=== PATIENT | female | born 1960 | race Caucasian/White ===

== ENCOUNTER 2017-01-28 20:49 | Emergency (ER) | payer OTHER ==
[~2017-01-28] VITALS: Ht 154.9 cm; Wt 52.2 kg
[~2017-01-28 20:49] MED LIST: ABILIFY5 MG PO; ACETAMINOPHEN325 M1 PO; ATIVAN0.5 MG PO; ATIVAN1 MG PO; BACTRIM DS TAB1 EACH PO; BUDEPRION SR100 MG PO; CLARITIN10 M2 PO; IBUPROFEN400 MG PO; IBUPROFEN600 MG PO; MACROBID 100 M100 MG PO; METOPROLOL SUCC25 MG PO; POTASSIUM CHLO20 ME1 PO; PRAZOSIN HCL1 MG PO; SERTRALINE HCL50 MG PO; TRAMADOL HCL50 MG PO; TUMS200 MG PO; ULTRAM50 MG PO; VITAMIN D350000 UNIT PO; ZOFRAN ODT4 MG PO; ZONEGRAN25 MG PO
[2017-01-29] MEDS ORDERED: ZOFRAN ODT4 MG PO (03:54)
[2017-01-29] MEDS ORDERED: KEFLEX500 MG PO (03:54)
[2017-01-29] MEDS ORDERED: POTASSIUM CHLO20 ME1 PO (03:54)
== END 2017-01-29 04:12 | disposition home or self-care (01) ==
LOC: ED 20:49
DX: K29.00 Acute gastritis without bleeding (principal); E87.6 Hypokalemia; N39.0 Urinary tract infection, site not specified; I10 Essential (primary) hypertension; F41.9 Anxiety disorder, unspecified; F32.9 Major depressive disorder, single episode, unspecified; F17.200 Nicotine dependence, unspecified, uncomplicated; Z98.51 Tubal ligation status
CPT/HCPCS: 70450; 74176; 80048; 80053; 81001; 83690; 85025; 87077; 87088; 87186; 96361; 96365; 96375; 96376; 99284; J2405; J3480; J7030

== ENCOUNTER 2017-06-03 07:20 | Emergency (ER) | payer OTHER ==
[~2017-06-03] VITALS: Ht 154.9 cm; Wt 52.2 kg
[~2017-06-03 07:20] MED LIST changes: +KEFLEX500 MG PO
--- NOTE | 2017-06-03 17:58 | EKG ---
[facility] [address] [place], [place] [address] Signed Normal sinus rhythm Nonspecific ST and T wave abnormality Prolonged QT Abnormal ECG No previous ECGs available Confirmed by HAYDER GARZA MD ([id number]) on 06/03/2017 5:58:33 PM Electronically Signed By: HAYDER GARZA MD 06/03/17 1758 PATIENT NAME: ROCIO HILL Electrocardiogram DATE OF : 62 PHYSICIAN: HAYDER GARZA MD REPORT #: [id number] REPORT IS CONFIDENTIAL AND NOT TO BE RELEASED WITHOUT AUTHORIZATION
== END 2017-06-03 10:15 | disposition home or self-care (01) ==
LOC: ED 07:20
DX: F19.10 Other psychoactive substance abuse, uncomplicated (principal); I10 Essential (primary) hypertension; F17.200 Nicotine dependence, unspecified, uncomplicated; Z98.51 Tubal ligation status; Z79.899 Other long term (current) drug therapy
CPT/HCPCS: 70450; 71045; 80053; 81001; 85025; 93005; 93010; 96360; 99284; G0480; J7030

== ENCOUNTER 2017-07-09 23:17 | Inpatient (IN) | payer OTHER ==
[~2017-07-09] VITALS: Ht 154.9 cm; Wt 56.8 kg
[2017-07-09] MEDS ORDERED: PROZAC10 MG PO (23:36)
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
--- NOTE | 2017-07-10 06:35 | NUR ---
HAD BP'S IN TO 70'S SYST. SECOND IV SITE OBTAINED. BP BACK TO 90'S. WILL WATCH. HAS NOT VOIDED SINCE ADMIT.
--- NOTE | 2017-07-10 08:10 | NUR ---
U.S. TECH HERE TO DO ULTRASOUND OF ABD.
--- NOTE | 2017-07-10 08:30 | NUR ---
ULTRASOUND COMPLETE. PATIENT IS RESTFUL.
--- NOTE | 2017-07-10 09:00 | NUR ---
RECREATION FACILITY ATTENDANT HERE TO DO ECHOCARDIOGRAM AT BEDSIDE
--- NOTE | 2017-07-10 10:00 | NUR ---
UP TO BR TO VOID 600 ML OF CLEAR YELLOW URINE. DENIES DIZZINESS WITH MOVEMENT. STATES HAS INCREASED ABD PAIN WITH MOVEMENT.
--- NOTE | 2017-07-10 12:45 | NUR ---
TOOK LUNCH WELL.
--- NOTE | 2017-07-10 15:15 | NUR ---
SPOKE WITH PATIENT IN ROOM. PATIENT HAS A VISITOR WHO SHE STATES IS "BOYFRIEND". HE WAS ON SOFA, SLEEPING. PATIENT STATES SHE CURRENTLY IS HOMELESS. SHE DENIES HAVING FAMILY IN AREA TO HELP. SHE STATES THEY FIND A PLACE AT NIGHT, SUCH A TREE OR UNDER[place] TO HAVE PENITENTIARY. DISCUSSED SERVICES IN THE AREA TO HELP. SHE STATES SHE IS ALREADY SIGNED UP WITH [facility] BUT SHE DOESN'T KNOW IF THEY FOUND A PLACE FOR HER BECAUSE SHE DOESN'T HAVE A PHONE. SHE STATES I CAN CALL THEM ON HER BEHALF. SHE STATES SHE DOES HAVE DISABILITY SO HAS A BASIC INCOME. PATIENT STARTED FALLING ASLEEP, CASE MANAGEMENT WILL CONTINUE TO FOLLOW. PHONE MESSAGE LEFT AT [facility] FOR CALL BACK.
--- NOTE | 2017-07-10 19:37 | NUR ---
up to commode. c/o feeling anxious. DR. GARZA AWARE. VISTERAL 50 ORDERED AND GIVEN. REPORT TO NEXT SHIFT.
--- NOTE | 2017-07-10 20:19 | NUR ---
PATIENT TRANSFERED TO MEDICAL FLOOR VIA HOSPITAL BED. RESTING COMFORTABLY IN BED, BREATHING IS EVEN AND UNLABORED. DENIES NEEDS AT THIS TIME. CALL LIGHT WITHIN REACH.
--- NOTE | 2017-07-10 21:29 | NUR ---
PATIENT ASSISTED TO BEDSIDE COMODE. WHEN MOVING, PATIENT REPORTS 8/10 PAIN IN LLQ OF ABD. PRN TYLENOL GIVEN PER EMAR. PRN VISTARIL AND NICOTINE LOZENGE ASLO GIVEN. PATIENT DENIES FURTHER NEEDS. ASSESSMENT DONE. CALL LIGHT WITHIN REACH, FAMILY AT BEDSIDE.
--- NOTE | 2017-07-10 22:56 | NUR ---
PATIENT RESTING COMFORTABLY IN BED, BREATHING IS EVEN AND UNLABORED. FLACC SCORE OF 0. CALL LIGHT WITHIN REACH.
--- NOTE | 2017-07-10 23:28 | NUR ---
PT CALLED. WANTED TO KNOW IF THERE WAS A HEATER IN HER BED, SHE WAS HOT. TOLD HER ROOM TEMP WAS SET AT 75, COULD BE TURNED DOWN. SHE AGREED, TEMP TURNED TO 71. REQUESTED AND RECEIVED A SOFT DRINK. FRIEND LEFT ROOM PLANS TO RETURN.
--- NOTE | 2017-07-11 00:23 | NUR ---
PATIENT RESTING COMFORTABLY IN BED, BREATHING IS EVEN AND UNLABORED. APPEARS TO BE ASLEEP. EYES OPEN TO RN VOICE, REPORTS 9/10 PAIN IN LLQ OF ABD. PRN TORDOL GIVEN PER EMAR, VISTARIL GIVEN WELL. PATIENT DENIES FURTHER NEEDS. CALL LIGHT WITHIN REACH.
--- NOTE | 2017-07-11 01:29 | NUR ---
PATIENT RESTING COMFORTABLY IN BED, BREATHING IS EVEN AND UNLABORED. FLACC SCORE OF 0. CALL LIGHT WITHIN REACH.
--- NOTE | 2017-07-11 02:16 | NUR ---
PATIENT ASSISTED TO BEDSIDE COMODE WITH SBA. TOLERATED WELL. DENIES FURTHER ABD PAIN AT THIS TIME. DENIES FURTHER NEEDS. NOW RESTING COMFORTABLY IN BED, BREATHING IS EVEN AND UNLABORED. CALL LIGHT WITHIN REACH.
--- NOTE | 2017-07-11 04:11 | NUR ---
PATIENT RESTING COMFORTABLY IN BED, BREATHING IS EVEN AND UNLABORED. FLACC SCORE OF 0. CALL LIGHT WITHIN REACH.
--- NOTE | 2017-07-11 05:19 | NUR ---
PATIENT'S NIGHT WAS UNEVENTFUL. SHE HAS BEEN RESTING THROUGHOUT SHIFT. VSS, URINE OUTPUT QS. PAIN WELL CONTROLLED WITH PRN TORDOL. CAN BE ANXIOUS AT TIMES, RESPONDS WELL TO PRN HYDROXYZINE. HEART RATE WELL CONTROLLED, CAN BE TACHYCARDIC AT TIMES. HAS IV FLUIDS INFUSING, 1PA TO BEDSIDE COMODE. TOLERATING A REGULAR DIET. CONTINUES TO REPORT LEFT SIDED ABD PAIN. NO ACUTE CHANGES FROM BEGINNING OF SHIFT.
--- NOTE | 2017-07-11 06:12 | NUR ---
ASSISTED PATIENT TO BEDSIDE COMODE. NOW RESTING COMFORTABLY IN BED. REPORTS 8/10 PAIN IN LLQ OF ABD, PRN TORDOL GIVEN. DENIES FURTHER NEEDS. CALL LIGHT WITHIN REACH.
--- NOTE | 2017-07-11 07:56 | NUR ---
PT IN BED, DROWSY, BUT ORIENTED X 4. REPORTED 5/10 PAIN TO LLQ ABDOMEN, BUT DECLINED HOT OR COLD PACK, DECLINED ACETAMINOPHEN. PERSONAL SUPPLIES AND CALL BUTTON IN REACH. PROVIDED EDUCATION ON INSENTIVE SPIROMETER EDUCATION, PT RETURN DEMONSTRATED, GOT UP TO 750, DID 4 BREATHS. ALSO PROVIDED EDUCATION ON FALL RISK, AND PRECAUTIONS, INCLUDING NEED TO CALL FOR ASSISTANCE FROM NURSING STAFF PRIOR TO ANY SELF TRANSFER ATTEMPTS. PT AGREE.
--- NOTE | 2017-07-11 08:05 | NUR ---
PT SITTING UP IN BED, EATING BREAKFAST. AT BEDSIDE. PT DENIES NEEDS.
--- NOTE | 2017-07-11 09:30 | NUR ---
PT UP IN BATHROOM, SITTING ON BENCH, TAKING SHOWER.
--- NOTE | 2017-07-11 09:51 | NUR ---
PT FINISHED WITH SHOWER. LINNENS WERE CHANGED BY THIS RN. PT NOW IN BED, HOB ELEVATED. VS OBTAINED, WNL.
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
--- NOTE | 2017-07-11 11:47 | NUR ---
PT C/O ANXIETY, REQUESTED VISTARIL. GAVE VISTARIL 50 MG PO PRN.
--- NOTE | 2017-07-11 11:52 | NUR ---
PT IN BED. GAVE LEMON UPPER SIOUX SODA AND JELLO REQUESTED, AND PROVIDED PT WITH FRESH ICE WATER. PERSONAL SUPPLIES AND CALL LIGHT IN REACH.
--- NOTE | 2017-07-11 12:23 | NUR ---
PT C/O 07/01 PAIN TO LUQ ABDOMEN. GAVE TORADOL 15 MG IV PRN. PT IN BED, PERSONAL SUPPLIES AND CALL LIGHT IN REACH. PT DENIED OTHER NEEDS.
--- NOTE | 2017-07-11 12:37 | NUR ---
PT RESTING IN BED. REPLACED IVF BAG WITH NEW BAG OF D5LR.
--- NOTE | 2017-07-11 13:15 | NUR ---
PT IN BED, UP TO BATHROOM. IV FLAGYL STARTED. PT REPORTED PAIN TO ABDOMEN NOT IMPROVED FROM IV TORADOL. PT REQUESTED PRN TYLENOL.
--- NOTE | 2017-07-11 13:18 | NUR ---
AFTER AMBULATION TO AND FROM BATHROOM, PT RETURNED TO BED, NOW RATES PAIN TO LUQ ABD 6/10. GAVE ACETAMINOPHEN 500 MG PO PRN. PERSONAL SUPPLIES AND CALL LIGHT IN REACH. PT'S AT BEDSIDE.
--- NOTE | 2017-07-11 14:06 | NUR ---
MED REC COMPLETE. PATIENT TAKES NO REGULAR HOME MEDICATIONS. PATIENT PREVIOUSLY HAS BEEN PRESCRIBED PROZAC, POTASSIUM CHLORIDE, ONDANSETRON, BUT HAS NOT FILLED ANYTHING AT [facility] SINCE 01/2017.
--- NOTE | 2017-07-11 15:00 | NUR ---
[facility] HIGG[facility] HERE TO VISIT WITH PATIENT PATIENT REQUESTED.
--- NOTE | 2017-07-11 15:49 | NUR ---
PT HAD LAB DRAWN. RATED ABDOMINAL PAIN AT UMBILICUS 12/01. GAVE PRN JAMIEYL. PERSONAL SUPPLIES AND CALL LIGHT IN REACH. PT'S AT SIDE.
--- NOTE | 2017-07-11 17:10 | NUR ---
PT LAYING IN BED RESTING, AROUSED TO VERBAL STIMULI. IV SALINE LOCKED PER ORDERS. GAVE SCHEDULED PO POTASSIUM. PERSONAL SUPPLIES AND CALL LIGHT IN REACH. PT REPORTED THAT ABDOMINAL PAIN HAS NOT CHANGED SINCE RECIEVING BENTYL. DR. GARZA NOTIFIED OF THIS. NO NEW ORDERS RECIEVED FOR ABDOMINAL PAIN.
--- NOTE | 2017-07-11 17:15 | NUR ---
PATIENT SITTING UP IN BED EATING DINNER AND WATCHING TV. FRESH ICE WATER. PATIENTS IN ROOM EATING DINNER WELL. CALL LIGHT WITHIN REACH. NO OTHER NEEDS AT THIS TIME.
--- NOTE | 2017-07-11 17:31 | NUR ---
PT SITTING UP IN BED, EATING DINNER, TOLERATING VERY WELL. SPOUSE AT SIDE. PT DENIED NEEDS. PERSONAL SUPPLIES AND CALL LIGHT IN REACH.
--- NOTE | 2017-07-11 17:45 | NUR ---
PT NOW SALINE LOCKED. DID C/O ABDOMINAL PAIN THROUGHOUT SHIFT, RECIEVED PRN TORADOL, ACETAMINOPHEN, AND BENTYL FOR THIS. APETITE HAS BEEN VERY GOOD. URINE OUTPUT QUANTITY SUFFICIENT. UP WITH STANDBY ASSIST. PT'S HAS BEEN AT PT' SIDE MOST OF SHIFT. DR. GARZA STATED AFTER ASSESSMENT OF PT, HE BELIEVES ABDOMINAL PAIN IS SUPERFICIAL. PT RECIEVING IV VANCOMYCIN.
--- NOTE | 2017-07-11 18:34 | NUR ---
PT C/O 12/01 PAIN TO ABDOMEN. GAVE TORADOL 15 MG IV PRN. PERSONAL SUPPLIES AND CALL LIGHT IN REACH. PT REFUSED TO AMBULATE IN HALLS AT THIS TIME.
--- NOTE | 2017-07-11 19:00 | NUR ---
RECEIVED REPORT FROM RN. PATIENT IS RESTING COMFORTABLY IN BED, BREATHING IS EVEN AND UNLABORED. DENIES NEEDS AT THIS TIME. CALL LIGHT WITHIN REACH.
--- NOTE | 2017-07-11 20:12 | NUR ---
PATIENT RESTING COMFORTABLY IN BED, BREATHING IS EVEN AND UNLABORED. PATIENT STATES THAT SHE FEELS ANXIOUS. PRN HYDROXYZINE GIVEN PER EMAR. DENIES FURTHER NEEDS. ASSESSMENT DONE. CALL LIGHT WITHIN REACH.
--- NOTE | 2017-07-11 22:15 | NUR ---
PATIENT ASSISTED TO BATHROOM WITH SBA. DENIES FURTHER NEEDS. NOW RESTING COMFORTABLY IN BED, BREATHING IS EVEN AND UNLABORED. CALL LIGHT WITHIN REACH.
--- NOTE | 2017-07-11 22:30 | NUR ---
PATIENT RESTING COMFORTABLY IN BED, BREATHING IS EVEN AND UNLABORED. GAVE PATIENT SANDWICH BOX AND CRACKERS. DENIES FURTHER NEEDS. IV VANCO STARTED AND VITALS TAKEN. CALL LIGHT WITHIN REACH.
--- NOTE | 2017-07-12 00:02 | NUR ---
PATIENT RESTING COMFORTABLY IN BED, BREATHING IS EVEN AND UNLABORED. DENIES NEEDS AT THIS TIME. CALL LIGHT WITHIN REACH.
--- NOTE | 2017-07-12 01:45 | NUR ---
PATIENT STATES PAIN IN ABD IS 8/10, PRN TORADOL GIVEN PER EMAR. ALSO ADMINISTERED PRN VISTARIL AND NICOTINE LOZENGE. DENIES FURTHER NEEDS. CALL LIGHT WITHIN REACH.
--- NOTE | 2017-07-12 03:57 | NUR ---
PATIENT RESTING COMFORTABLY IN BED, BREATHING IS EVEN AND UNLABORED. FLACC SCORE OF 0. CALL LIGHT WITHIN REACH.
--- NOTE | 2017-07-12 05:10 | NUR ---
PATIENT RESTING COMFORABLY IN BED. DENIES NEEDS AT THIS TIME. CALL LIGHT WITHIN REACH.
--- NOTE | 2017-07-12 05:30 | NUR ---
PATIENT'S NIGHT WAS UNVENTFUL. SHE HAS BEEN RESTING OFF AND ON THROUGHOUT SHIFT. VSS, URINE OUTPUT QS. PAIN WELL CONTROLLED WITH PRN PAIN MEDICATION. HAD VISTARIL X2 THIS SHIFT. NO ACUTE CHANGES IN ASSESSMENT. IV X2 ARE SALINE LOCKED. SBA TO BATHROOM.
--- NOTE | 2017-07-12 06:10 | NUR ---
PATIENT RESTING COMFORTABLY IN BED, BREATHING IS EVEN AND UNLABORED. DENIES NEEDS AT THIS TIME. CALL LIGHT WITHIN REACH.
--- NOTE | 2017-07-12 09:00 | NUR ---
HEAD OF BED UP WITH PATIENT SLOUCHED OVER WITH EYES CLOSED. PATIENT WOKE UP ASKING IF WE WERE GOING TO GIVE HER PAIN MEDS THEN CORRECTED HERSELF ASKING FOR ANTIANXIETY MEDICATION. RN NOTIFIED. PATIENT STATES THAT SHE WOULD LIKE TO SHOWER BUT NOT NOW. FRIEND IN ROOM LAYING ON COUCH. NO OTHER NEEDS AT THIS TIME. CALL BUTTON IN REACH.
--- NOTE | 2017-07-12 09:21 | NUR ---
MATY SITTING UP IN BED. RN IN ROOM TO PASS MEDICATIONS. ROOM PICKED UP BY THIS SENIOR PASTOR AND RN. PATIENT HAS FRESH ICE WATER CALL BUTTON IN REACH. THIS SENIOR PASTOR REMINDED THE PATIENT TO CALL WHEN SHE IS READY FOR HER SHOWER.
[2017-07-12] MEDS ORDERED: HYDROXYZINE HCL25 MG PO (10:10)
[2017-07-12] MEDS ORDERED: FAMOTIDINE20 MG PO (10:10)
[2017-07-12] MEDS ORDERED: ONDANSETRON HCL4 MG PO (10:10)
--- NOTE | 2017-07-12 11:23 | NUR ---
PATIENT WOULD NOT LIKE TO HAVE HER FLU VACCINE GIVEN TO HER AT THIS TIME, PATIENT NOT WANTING D/C INSTRUCTIONS AT THIS TIME JUST WANTS TO REST AND SHOWER AFTER LUNCH. WILL CONTINUE TO MONITOR.
--- NOTE | 2017-07-12 11:50 | NUR ---
PT EATING LUNCH. STATED THAT SHE WOULD TAKE A SHOWER AFTER SHE FINISHED EATING.
--- NOTE | 2017-07-12 12:35 | NUR ---
PATIENT GIVEN THE NUMBER OF [facility] TO FOLLOW UP WITH D/C PLANS. SHE ATE 100% OF HER LUNCH.
--- NOTE | 2017-07-12 13:41 | NUR ---
VANCO TROUGH DRAWN AT THIS TIME.
--- NOTE | 2017-07-12 13:57 | NUR ---
PT DECLINES SHOWER AT THIS TIME. PT HAS BEEN ASKED THREE TIMES BEFORE AND STATED SHE WAS STILL EATING. PT STATES THAT SHE WILL CALL WHEN SHE IS READY TO SHOWER.
--- NOTE | 2017-07-12 14:36 | NUR ---
PATIENT IV DC'D IN THE RIGHT HAND TIP INTACT. PATIENT IV IN THE LEFT HAND WRAPPED AND SHE IS UP TO THE SHOWER. PATIENT REQUESTING PAIN MEDICATION AND VISTARIL AT THIS TIME. BOTH PROVIDED FOR HER AT THIS TIME.
--- NOTE | 2017-07-12 15:29 | NUR ---
patient given d/c instructions questions answered pharmasist in the room to given instructions on medications.
== END 2017-07-12 15:25 | disposition home or self-care (01) | DRG 897 ==
LOC: ED 23:17 → CCU 07-10 03:58 → MS 07-10 20:15
PROVIDERS: ADMIT Internal Medicine
DX: F15.20 Other stimulant dependence, uncomplicated (principal); R65.10 Systemic inflammatory response syndrome (SIRS) of non-infectious origin without acute organ dysfunction; E87.6 Hypokalemia; G40.909 Epilepsy, unspecified, not intractable, without status epilepticus; F32.9 Major depressive disorder, single episode, unspecified; Z59.0 Homelessness; F17.200 Nicotine dependence, unspecified, uncomplicated; Z96.643 Presence of artificial hip joint, bilateral
CPT/HCPCS: 36415; 71045; 74177; 76705; 80053; 80202; 81001; 83605; 83690; 83735; 85025; 86431; 86703; 87040; 87502; 93306; 96374; 96375; 99285; 99406; J0696; J0780; J1200; J1650; J1885; J2405; J2543; J3370; J3480; J7030; J7050; J7060; J7120; Q0177; Q9967

== ENCOUNTER 2017-10-26 20:22 | Emergency (ER) | payer OTHER ==
[~2017-10-26 20:22] MED LIST changes: +FAMOTIDINE20 MG PO; +HYDROXYZINE HCL25 MG PO; +ONDANSETRON HCL4 MG PO; +PROZAC10 MG PO
[2017-10-26] MEDS ORDERED: TRAMADOL HCL50 MG PO (22:18)
== END 2017-10-26 22:40 | disposition home or self-care (01) ==
LOC: ED 20:22
PROC: 0HQMXZZ Repair Right Foot Skin, External Approach (ICD-10-PCS; principal; 2017-10-26)
DX: S91.011A Laceration without foreign body, right ankle, initial encounter (principal); S70.02XA Contusion of left hip, initial encounter; I10 Essential (primary) hypertension; F41.9 Anxiety disorder, unspecified; F32.9 Major depressive disorder, single episode, unspecified; F17.200 Nicotine dependence, unspecified, uncomplicated; Z79.899 Other long term (current) drug therapy; V29.9XXA Motorcycle rider (driver) (passenger) injured in unspecified traffic accident, initial encounter
CPT/HCPCS: 12002; 70450; 71260; 72125; 73502; 73610; 74177; 80053; 81001; 82150; 82550; 83690; 85025; 86850; 86900; 86901; 99284; G0480; Q9967

== ENCOUNTER → 2018-02-23 | Emergency (ER) | payer OTHER ==
[~2018-02-23] VITALS: Ht 154.9 cm; Wt 56.8 kg
--- NOTE | 2018-02-23 07:47 | EKG ---
[facility] [address] [place], [place] [address] Signed Sinus tachycardia Possible Left atrial enlargement Septal infarct , age undetermined Abnormal ECG When compared with ECG of 03-JUN-2017 07:31, Septal infarct is now present Confirmed by MARIFER HERNANDEZ MD ([id number]) on 02/23/2018 7:47:31 AM Electronically Signed By: MARIFER HERNANDEZ MD 02/23/18 0747 PATIENT NAME: ROCIO HILL Electrocardiogram DATE OF : 62 PHYSICIAN: MARIFER HERNANDEZ MD REPORT #: [id number] REPORT IS CONFIDENTIAL AND NOT TO BE RELEASED WITHOUT AUTHORIZATION
== END ==
LOC: ED 00:55
DX: T40.2X1A Poisoning by other opioids, accidental (unintentional), initial encounter (principal); T43.621A Poisoning by amphetamines, accidental (unintentional), initial encounter; I10 Essential (primary) hypertension; F17.200 Nicotine dependence, unspecified, uncomplicated
CPT/HCPCS: 80053; 80176; 81001; 85025; 93005; 93010; 96360; 99284; G0480; J7030

== ENCOUNTER 2018-09-10 12:18 | Emergency (ER) | payer OTHER ==
[~2018-09-10] VITALS: Ht 154.9 cm; Wt 54.4 kg
--- OUTSIDE RECORDS SUMMARY | ~2018-09-10 | XMS | Clinical Summary ---
Demographics + + + | Address | [address] | | | [place] [address] | + + + | Home Phone | | + + + | Preferred Language | Unknown | + + + | Marital Status | | + + + | Baptism Affiliation | 1041 | + + + | Race | Unknown | + + + | Ethnic Group | Unknown | + + + Author + + + | Author | [employer] | + + + | Organization | [facility] [employer] | + + + | Address | Unknown | + + + | Phone | Unavailable | + + + Support + + +---------+ + | Name | Relationship | Address | Phone | + + +---------+ + | Brooklynn Brooks | ECON | Unknown | | + + +---------+ + | Brooklynn Caban | ECON | Unknown | | + + +---------+ + Care Team Providers + +------+ + | Care Cash Controller Name | Role | Phone | + +------+ + | Susan Wolfe MD | PP | | + +------+ + Allergies + + + + + + | Active Allergy | Reactions | Severity | Noted | Comments | | | | | Date | | + + + + + + | Buspirone Hcl | Anxiety | Low | 08/28/19 | | | | | | 13 | | + + + + + + | Ketorolac | Anxiety | Low | 08/28/19 | | | | | | 13 | | + + + + + + Current Medications No known medications Active Problems + + + | Problem | Noted Date | + + + | DEEPAK (acute kidney injury) | 07/28/2014 | + + + | Thrombocytopenia, unspecified | 07/28/2014 | + + + | Hyposmolality and/or hyponatremia | 07/28/2014 | + + + | Hypokalemia | 07/28/2014 | + + + | Hypomagnesemia | 07/28/2014 | + + + | Septic shock(785.52) | 07/28/2014 | + + + | Acute pyelonephritis Left Side without Hydronephrosis or an | 07/26/2014 | | obstructing stone | | + + + | HTN (hypertension) | 07/26/2014 | + + + | History of total hip replacement Bilateral | 07/26/2014 | + + + Immunizations + + + + | Name | Dates Previously Given | Next Due | + + + + | Pneumococcal | 07/26/2014 | | | Polysaccharide | | | | 23-valent | | | + + + + Family History + + +------+ + | Medical History | Relation | Name | Comments | + + +------+ + | Cancer | Mother | | | + + +------+ + | Kidney disease | Mother | | | + + +------+ + + +------+ + + | Relation | Name | Status | Comments | + +------+ + + | Father | | Alive | | + +------+ + + | Mother | | | | + +------+ + + Social History + +-------+ +--------+------+ | Tobacco Use | Types | Packs/Day | Years | Date | | | | | Used | | + +-------+ +--------+------+ | Current Every Day | | 0.5 | 33 | | | Smoker | | | | | + +-------+ +--------+------+ + + | Tobacco Cessation: Ready to Quit: No | + + + + +---------+ + | Alcohol Use | Drinks/We | oz/Week | Comments | | | ek | | | + + +---------+ + | Yes | | | Quit drinking 1 month ago (06/2014) was | | | | | binge drinking | + + +---------+ + + + + | Sex Assigned at | Date Recorded | | | | + + + | Not on file | | + + + Last Filed Vital Signs + + + + | Vital Sign | Reading | Time Taken | + + + + | Blood Pressure | 136/73 | 08/02/2014 11:42 AM PDT | + + + + | Pulse | 91 | 08/02/2014 11:42 AM PDT | + + + + | Temperature | 36.7 C (98.1 F) | 08/02/2014 11:42 AM PDT | + + + + | Respiratory Rate | 18 | 08/02/2014 11:42 AM PDT | + + + + | Oxygen Saturation | 100% | 08/02/2014 11:42 AM PDT | + + + + | Inhaled Oxygen | - | - | | Concentration | | | + + + + | Weight | 99.4 kg (219 lb 2.2 | 07/26/2014 12:47 AM PDT | | | oz) | | + + + + | Height | 154.9 cm (5' 1") | 07/26/2014 12:47 AM PDT | + + + + | Body Mass Index | 41.41 | 07/26/2014 12:47 AM PDT | + + + + Plan of Treatment + + + + + | Health Maintenance | Due Date | Last Done | Comments | + + + + + | Vaccine: | | 06/10/1988 | | | Dtap/Tdap/Td (1 - | 9 | | | | Tdap) | | | | + + + + + | Cervical Cancer | | | | | Screening (Pap) | 2 | | | + + + + + | Vaccine: Zoster (1 | | | | | of 2) | 2 | | | + + + + + | Vaccine: Influenza | | 02/17/2011, 03/05/2010 | | | (Season Ended) | 9 | | | + + + + + Results Not on filefrom Last 3 Months Insurance + +--------+ +------+-------+ + | Payer | Benefi | Subscriber | Type | Phone | Address | | | t Plan | ID | | | | | | / | | | | | | | Group | | | | | + +--------+ +------+-------+ + | MEDICAID | [employer] | [id number] | | | [address] | | | N | | | | [place], [place] | | | [place] | | | | [phone] | | | OPERATIONAL INTELLIGENCE OFFICER | | | | | + +--------+ +------+-------+ + + +--------+ +--------+ + + | Guarantor Name | [employer] | Relation to | Date | Phone | Billing Address | | | t Type | Patient | of | | | | | | | | | | + +--------+ +--------+ + + | ROCIO HILL | Person | Self [birth year] Home: | [address] | | | al/Fam | | 1960 | [phone] | | | [address] | | [phone] | [place], [place] | | | | | | | [phone] | + +--------+ +--------+ + +
--- OUTSIDE RECORDS SUMMARY | ~2018-09-10 | XMS | Clinical Summary ---
Demographics + + + | Address | [address] | | | [place] [address] | + + + | Home Phone | | + + + | Preferred Language | Unknown | + + + | Marital Status | | + + + | Yazidism Affiliation | 1041 | + + + | Race | Unknown | + + + | Ethnic Group | Unknown | + + + Author + + + | Author | [employer] | + + + | Organization | [email or web address] [employer] | + + + | Address [...] Team Providers + +------+ + | Care Elevator Service Technician Name | Role | Phone | [...] +------+-------+ + | MEDICAID | [employer] | [id number] | | | [address] | | | N | | | | [place], [place] | | | [place] | | | | [phone] | | | CHILD CARE LEADER | | | | | + +--------+ [...] | [birth year] | Home: | [address] | | | al/Fam | | 1960 | [phone] | [address] | | | [address] | | | [phone] | [place], [place] | | | | | | | [phone] | + +--------+ +--------+ + +
[2018-09-10] MEDS ORDERED: MECLIZINE HCL25 MG PO (13:30)
== END 2018-09-10 13:35 | disposition home or self-care (01) ==
LOC: ED 12:18
DX: F15.10 Other stimulant abuse, uncomplicated (principal); R51 Headache; R42 Dizziness and giddiness; M54.5 Low back pain; I10 Essential (primary) hypertension; F17.200 Nicotine dependence, unspecified, uncomplicated
CPT/HCPCS: 81001; 96372; 99284-25; J1885

== ENCOUNTER 2020-02-12 02:00 | Emergency (ER) | payer OTHER ==
[~2020-02-12] VITALS: Ht 154.9 cm; Wt 505.8 kg
--- OUTSIDE RECORDS SUMMARY | ~2020-02-12 | XMS | Encounter Summary ---
Demographics + + + | Address | General Delivery | | | [place] [address] | + + + | Home Phone | | + + + | Preferred Language | Unknown | + + + | Marital Status | | + + + | Moravian Affiliation | 1041 | + + + | Race | Unknown | + + + | Ethnic Group | or | + + + Author + + + | Author | [facility] | | | and [place] | + + + | Organization | [facility] | | | and [place] | + + + | Address | Unknown | + + + | Phone | Unavailable | + + + Support + + + + + | Name | Relationship | Address | Phone | + + + + + | Brooklynn Brooks | ECON | [place] | | | | | [address] | | + + + + + Care Team Providers + +------+ + | Care Side Trimmer Name | Role | Phone | + +------+ + | Abby Charlton PA-C | PCP | | + +------+ + Encounter Details +--------+ + + + + | Date | Type | Department | Care Team | Description | +--------+ + + + + | 08/20/ | Hospital | [facility] | Edu[place], | | | 2012 | Encounter | MED CTR EMERGENCY | Brandyn Sapp MD [address] | | | | CENTER [address] | [facility] | | | | | [place], [place] | [facility] [place] [address] | | | | | [address] | [phone] | | | | | [phone] | | | +--------+ + + + + Social History + + + +--------+ + | Tobacco Use | Types | Packs/Day | Years | Date | | | | | Used | | + + + +--------+ + | Former Smoker | Cigarettes | 0.5 | 31 | Quit: 10/22/2009 | + + + +--------+ + + +---+---+---+ | Smokeless Tobacco: | | | | | Never Used | | | | + +---+---+---+ + + +---------+ + | Alcohol Use | Drinks/Week | oz/Week | Comments | + + +---------+ + | No | | | | + + +---------+ + + + + | Sex Assigned at | Date Recorded | | | | + + + | Not on file | | + + + documented as of this encounter Medications at Time of Discharge + + + +---------+ + + | Medication | Sig | Dispensed | Refills | Start | End Date | | | | | | Date | | + + + +---------+ + + | alprazolam (XANAX) | Take 1 mg by mouth 3 | | 0 | | | | 1 MG tablet | times daily as | | | | | | | needed. | | | | | + + + +---------+ + + | buPROPion | Take 150 mg by mouth | | 0 | | | | (WELLBUTRIN SR) 150 | Daily. | | | | | | mg 12 hr tablet | | | | | | + + + +---------+ + + | carisoprodol | Take 350 mg by mouth | | 0 | | | | (SOMA) 350 mg tablet | nightly. | | | | | + + + +---------+ + + | ergocalciferol | Take 50,000 Units by | | 0 | | | | (VITAMIN D-2) 50,000 | mouth Once a week. | | | | | | units capsule | | | | | | + + + +---------+ + + | fluticasone | 2 sprays/nostril/day | | 0 | 04/15/20 | | | (FLONASE) 50 | | | | 11 | | | mcg/nasal spray | | | | | | + + + +---------+ + + | | Take one tablet by | 90 | 0 | 03/30/20 | | | hydrocodone-acetamin | mouth three times | tablet | | 12 | | | ophen (LORTAB 10) | daily. Must last 30 | | | | | | 10-500 MG per tablet | days | | | | | + + + +---------+ + + | ibuprofen | Take 600 mg by mouth | | 0 | | | | (ADVIL,MOTRIN) 600 | every 6 hours as | | | | | | MG tablet | needed. | | | | | + + + +---------+ + + | loratadine | Take 10 mg by mouth | | 0 | | | | (CLARITIN) 10 mg | Daily. | | | | | | tablet | | | | | | + + + +---------+ + + | metoprolol | Take 50 mg by mouth | | 0 | 08/14/19 | | | tartrate (LOPRESSOR) | 2 times daily. | | | 11 | | | 50 mg tablet | | | | | | + + + +---------+ + + | sertraline | Take 100 mg by mouth | | 0 | 09/11/19 | | | (ZOLOFT) 100 mg | 2 times daily. | | | 11 | | | tablet | | | | | | + + + +---------+ + + | zonisamide | Take 100 mg by mouth | | 0 | 09/09/19 | | | (ZONEGRAN) 100 mg | 2 times daily. For | | | 11 | | | capsule | Migranes | | | | | + + + +---------+ + + documented as of this encounter ED Notes Brandyn Lerner MD - 08/20/2012 4:35 [place] [address] Patient Name: ROCIO RAMIREZ Provider: Unit #: [id number] Location: : 1960 DATE: 08/20/2012 TIME: 1441 CHIEF COMPLAINT: Headache. PRIMARY CARE PHYSICIAN: None. HISTORY OF PRESENT ILLNESS: Ms. Ramirez is a 52-year-old female who has a history of chronic headaches. States she has had them since she was 13 years old and now she gets abo ut a couple of them a month. She will usually take "anything I can get" in order to make th em go away generally trying Benadryl, Excedrin Migraine, Tylenol, ibuprofen [id number] r. She states that it is a right temporal occipital headache with dizziness, photophobia, n ausea and vomiting. No head injury. No fevers or chills. No neck stiffness. No chest pain, shortness of breath or abdominal pain. PAST MEDICAL HISTORY: Chronic headaches, osteoarthritis, and 2 hip replacements. CURRENT MEDICATIONS: Toprol-XL. ALLERGIES 1. BUSPIRONE. 2. KETOROLAC. REVIEW OF SYSTEMS: A 10-system review is negative except as noted above. SOCIAL HISTORY: Smokes half a pack daily. PHYSICAL EXAMINATION VITAL SIGNS: Blood pressure 112/72, heart rate 82, respirations 20, temperature 97.6, O2 s aturation 98 %. GENERAL APPEARANCE: This is a female lying in bed, speaking normally. HEENT: She is atraumatic. Her pupils are equal, round, and reactive. She has mild photopho david. Her fundi are clearly visualized bilaterally with sharp disk margins, normal vascular pattern. Extraocular movements are intact. Oropharynx is benign. NECK: Supple without lymphadenopathy or meningismus. CHEST: Clear to auscultation bilaterally without wheezes or crackles. CARDIOVASCULAR: Normal S1, S2. ABDOMEN: Soft, no tenderness, no rebound, guarding, or masses. Bowel tones are present. BACK: No flank pain. EXTREMITIES: Nontender, no edema, no calf asymmetry. Present distal pulses. NEUROLOGIC: Alert and oriented. Cranial nerves 2 through 12 are intact. Gait and speech ar e normal. EMERGENCY DEPARTMENT COURSE: She initially had some Imitrex and Reglan injected IM and sub cu with minimal improvement, so at that point we placed an IV. She received some IV Inapsin e and some fluids. She was feeling much improved. She got up to use the restroom and unfort unately her IV became nonfunctional. At that point she had about 600 mL of saline with Inap sine, but was feeling much better and requesting to go home. At this point, I have discharged her home. Recommended establishing a doctor for followup. She was given detailed instructions regarding how to do this and was discharged ambulatory . IMPRESSION SEVERE RECURRENT HEADACHE. DICTATED BY: Brandyn Lerner MD Emergency Medicine JOB #: [id number] EXT JOB #:[id number] <<Signature on File>> Brandyn khan MD08/23/12 1532 <Electronically signed by Brandyn Lerner MD> documented in t his encounter Plan of Treatment Not on filedocumented as of this encounter Visit Diagnoses Not on filedocumented in this encounter
--- OUTSIDE RECORDS SUMMARY | ~2020-02-12 | XMS | Encounter Summary ---
Demographics + + + | Address | General Delivery | | | [place] [address] | + + + | Home Phone | | + + + | Preferred Language | Unknown | + + + | Marital Status | | + + + | Scientology Affiliation | 1041 | + + + | Race | Unknown | + + + | Ethnic Group | or | + + + Author + + + | Author | [facility] | | | and [place] | + + + | Organization | [facility] | | | and [place] | + + + | Address | Unknown | + + + | Phone | Unavailable | + + + Support + + + + + | Name | Relationship | Address | Phone | + + + + + | Brooklynn Brooks | ECON | [place] | | | | | [address] | | + + + + + Care Team Providers + +------+ + | Care Railway Traction Line Worker Name | Role | Phone | + +------+ + | Abby Charlton PA-C | PCP | | + +------+ + Encounter Details +--------+ + + + + | Date | Type | Department | Care Team | Description | +--------+ + + + + | 08/27/ | Hospital | [facility] | Conversion | | | 2013 | Encounter | CENTER | Transaction, | | | | | NEURODIAGNOSTICS | Provider Unknown | | | | | [address] | | | | | | [place], [place] | (Fax) | | | | | [address] | | | | | | [phone] | | | +--------+ + + + [...] + + documented as of this encounter Plan of Treatment Not on filedocumented as of this encounter Visit Diagnoses Not on filedocumented in this encounter"
--- OUTSIDE RECORDS SUMMARY | ~2020-02-12 | XMS | Encounter Summary ---
Demographics + + + | Address | General Delivery | | | [place] [address] | + + + | Home Phone | | + + + | Preferred Language | Unknown | + + + | Marital Status | | + + + | Congregation Affiliation | 1041 | + + + | Race | Unknown | + + + | Ethnic Group | or | + + + Author + + + | Author | [facility] | | | and [place] | + + + | Organization | [facility] | | | and [place] | + + + | Address | Unknown | + + + | Phone | Unavailable | + + + Support + + + + + | Name | Relationship | Address | Phone | + + + + + | Brooklynn Brooks | ECON | [place] | | | | | [address] | | + + + + + Care Team Providers + +------+ + | Care Lead Teacher Name | Role | Phone | + +------+ + | Abby Charlton PA-C | PCP | | + +------+ + Encounter Details +--------+ + + + + | Date | Type | Department | Care Team | Description | +--------+ + + + + | 08/17/ | Abstract | [facility] | Mehrdad Miguel | Syncope (Primary | | 2012 | | [address] | MD Michael [address] | Dx); Depression; | | | | [address], | [address] [place] | Bipolar disorder | | | | [place] [address] | [place] [address] | (HCC) | | | | [phone] | [phone] | | | | | | | | +--------+ + + + + Social History + + + +--------+ + | Tobacco Use | Types | Packs/Day | Years | Date | | | | | Used | | + + + +--------+ + | Former Smoker | Cigarettes | | | Quit: 10/22/2009 | + + + +--------+ + + + +---------+ + | Alcohol [...] filedocumented as of this encounter Visit Diagnoses + + | Diagnosis | + + | Syncope - Primary Syncope and collapse | + + | Depression Depressive disorder, not elsewhere classified | + + | Bipolar disorder (HCC) Bipolar disorder, unspecified | + + documented in this encounter"
--- OUTSIDE RECORDS SUMMARY | ~2020-02-12 | XMS | Clinical Summary ---
Demographics + + + | Address | General Delivery | | | [place] [address] | + + + | Home Phone | | + + + | Preferred Language | Unknown | + + + | Marital Status | | + + + | Buddhism Affiliation | 1041 | + + + | Race | Unknown | + + + | Ethnic Group | or | + + + Author + + + | Author | [facility] | | | and [place] | + + + | Organization | [facility] | | | and [place] | + + + | Address | Unknown | + + + | Phone | Unavailable | + + + Support + + + + + | Name | Relationship | Address | Phone | + + + + + | Brooklynn Brooks | ECON | [place] | | | | | [address] | | + + + + + Care Team Providers + +------+ + | Care Pcas Name | Role | Phone | + +------+ + | Abby Charlton PA-C | PCP | | + +------+ + Allergies + + + + + + | Active Allergy | Reactions | Severity | Noted | Comments | | | | | Date | | + + + + + + | Buspirone Hcl | Other (See Comments) | High | 08/21/19 | Involuntary | | | | | 13 | twitching | + + + + + + | Ketorolac | | | 09/11/19 | | | Tromethamine | | | 11 | | + + + + + + Medications + + + +---------+------+------+-------+ | Medication | Sig | Dispensed | Refills | Star | End | Statu | | | | | | t | Date | s | | | | | | Date | | | + + + +---------+------+------+-------+ | metoprolol | Take 50 mg by mouth | | 0 | 07/24 | | Activ | | tartrate (LOPRESSOR) | 2 times daily. | | | 06/13 | | e | | 50 mg tablet | | | | 11 | | | + + + +---------+------+------+-------+ | fluticasone | 2 sprays/nostril/day | | 0 | 12/2 | | Activ | | (FLONASE) 50 | | | | 3/20 | | e | | mcg/nasal spray | | | | 11 | | | + + + +---------+------+------+-------+ | sertraline | Take 100 mg by mouth | | 0 | 05/2 | | Activ | | (ZOLOFT) 100 mg | 2 times daily. | | | 0/20 | | e | | tablet | | | | 11 | | | + + + +---------+------+------+-------+ | | Take one tablet by | 90 | 0 | 12/0 | | Activ | | hydrocodone-acetamin | mouth three times | tablet | | 7/20 | | e | | ophen (LORTAB 10) | daily. Must last 30 | | | 12 | | | | 10-500 MG per tablet | days | | | | | | + + + +---------+------+------+-------+ | ergocalciferol | Take 50,000 Units by | | 0 | | | Activ | | (VITAMIN D-2) 50,000 | mouth Once a week. | | | | | e | | units capsule | | | | | | | + + + +---------+------+------+-------+ | loratadine | Take 10 mg by mouth | | 0 | | | Activ | | (CLARITIN) 10 mg | Daily. | | | | | e | | tablet | | | | | | | + + + +---------+------+------+-------+ | ibuprofen | Take 600 mg by mouth | | 0 | | | Activ | | (ADVIL,MOTRIN) 600 | every 6 hours as | | | | | e | | MG tablet | needed. | | | | | | + + + +---------+------+------+-------+ | zonisamide | Take 100 mg by mouth | | 0 | 05/1 | | Activ | | (ZONEGRAN) 100 mg | 2 times daily. For | | | 8/20 | | e | | capsule | Migranes | | | 11 | | | + + + +---------+------+------+-------+ | buPROPion | Take 150 mg by mouth | | 0 | | | Activ | | (WELLBUTRIN SR) 150 | Daily. | | | | | e | | mg 12 hr tablet | | | | | | | + + + +---------+------+------+-------+ | carisoprodol | Take 350 mg by mouth | | 0 | | | Activ | | (SOMA) 350 mg tablet | nightly. | | | | | e | + + + +---------+------+------+-------+ | alprazolam (XANAX) | Take 1 mg by mouth 3 | | 0 | | | Activ | | 1 MG tablet | times daily as | | | | | e | | | needed. | | | | | | + + + +---------+------+------+-------+ Active Problems + + + | Problem | Noted Date | + + + | Syncope | 08/17/2012 | + + + | Depression | 08/17/2012 | + + + | Bipolar disorder | 08/17/2012 | + + + | Preventative health care | 04/04/2012 | + + + + + | Overview: [facility]SC: | | Next Due: | | | | Tdap: | | | | Pneumovax: | | | | Zostavax: | | | | Mammo: | | | | Pap: | | | + + + + + | ALLERGIC RHINITIS, CHRONIC | 04/15/2011 | + + + | HEADACHE, CHRONIC | 04/15/2011 | + + + | ARTHRITIS, HANDS, BILATERAL | 12/31/2010 | + + + | PERIPHERAL EDEMA | 11/12/2010 | + + + | HIP PAIN, CHRONIC | 09/10/2010 | + + + | ANXIETY DISORDER | 08/13/2010 | + + + | HYPERTENSION | 08/13/2010 | + + + | THORACIC/LUMBOSACRAL NEURITIS/RADICULITIS UNSPEC | 08/13/2010 | + + + | HIP REPLACEMENT, HX OF | 08/13/2010 | + + + Immunizations + + + + | Name | Administration Dates | Next Due | + + + + | PNEUMOCOCCAL | 07/26/2014 | | | POLYSACCHARIDE | | | | 23-VALENT (PPSV23) | | | + + + + Family History + + +------+ + | Medical History | Relation | Name | Comments | + + +------+ + | Hypertension | Father | | | + + +------+ + | Diabetes | Mother | | | + + +------+ + | Hypertension | Mother | | | + + +------+ + | Stroke | Mother | | | + + +------+ + + +------+ + + | Relation | Name | Status | Comments | + +------+ + + | Father | | Alive | HTN | + +------+ + + | Mother | | | brain tumor | | | | (Age | | | | | 56) | | + +------+ + + Social History + + + [...] Filed Vital Signs + + + + + | Vital Sign | Reading | Time Taken | Comments | + + + + + | Blood Pressure | 116/71 | 08/25/2017 12:33 AM | | | | | PDT | | + + + + + | Pulse | 97 | 08/25/2017 12:33 AM | | | | | PDT | | + + + + + | Temperature | 36.4 C (97.5 F) | 08/24/2017 11:55 PM | | | | | PDT | | + + + + + | Respiratory Rate | 18 | 08/24/2017 11:55 PM | | | | | PDT | | + + + + + | Oxygen Saturation | 100% | 08/25/2017 12:33 AM | | | | | PDT | | + + + + + | Inhaled Oxygen | - | - | | | Concentration | | | | + + + + + | Weight | 73.5 kg (162 lb) | 08/20/2012 1:20 PM | | | | | PDT | | + + + + + | Height | 152.4 cm (5') | 08/24/2017 11:55 PM | | | | | PDT | | + + + + + | Body Mass Index | 30.61 | 08/20/2012 1:20 PM | | | | | PDT | | + + + + + Plan of Treatment + + +-------+ + | Health Maintenance | Due Date | Last | Comments | | | | Done | | + + +-------+ + | Vaccine: | | | | | Dtap/Tdap/Td (1 - | 1 | | | | Tdap) | | | | + + +-------+ + | Cervical Cancer | | | | | Screening (Pap) | 2 | | | + + +-------+ + | Vaccine: Zoster (1 | | | | | of 2) | 2 | | | + + +-------+ + | Breast Cancer | | | | | Screening | 7 | | | + + +-------+ + | Vaccine: Influenza | | | | | (#1) | 0 | | | + + +-------+ + Results Not on filefrom Last 3 Months Insurance + +--------+ +--------+ +---------+--------+ | Payer | Benefi | Subscriber | Effect | Phone | Address | Type | | | t Plan | ID | serg | | | | | | / | | Dates | | | | | | Group | | | | | | + +--------+ +--------+ +---------+--------+ | [employer] | MOD[employer] | [id number] | | [phone] | | Medica | | MEDICAID HMO | HEALTH | | [phone]-Pr | 1 | | id | | | MDCD | | esent | | | | | | [place] | | | | | | + +--------+ +--------+ +---------+--------+ + +--------+ +--------+ + + | Guarantor Name | Accoun | Relation to | Date | Phone | Billing Address | | | t Type | Patient | of | | | | | | | | | | + +--------+ +--------+ + + | Camila Gaona | Person | Self [birth year] | General Delivery | | | al/Fam | | 1960 | [phone] | [place] | | | [place] | | | 0 (Home) | [address] | + +--------+ +--------+ + + Advance Directives + + + + + | Type | Date Recorded | Patient | Explanation | | | | Balance Wheel Screw Hole Driller | | + + + + + | Power of | | | | | Print Shop Manager | | | | + + + + + | Advance | | | | | Directive | | | | + + + + +"
--- OUTSIDE RECORDS SUMMARY | ~2020-02-12 | XMS | Encounter Summary ---
Demographics + + + | Address | General Delivery | | | [place] [address] | + + + | Home Phone | | + + + | Preferred Language | Unknown | + + + | Marital Status | | + + + | Church Affiliation | 1041 | + + + | Race | Unknown | + + + | Ethnic Group | or | + + + Author + + + | Author | [facility] | | | and [place] | + + + | Organization | [facility] | | | and [place] | + + + | Address | Unknown | + + + | Phone | Unavailable | + + + Support + + + + + | Name | Relationship | Address | Phone | + + + + + | Brooklynn Brooks | ECON | [place], [place] | | | | | [address] | | + + + + + Care Team Providers + +------+ + | Care Avionics Electronics Technician Name | Role | Phone | + +------+ + PCP | Unavailable | + +------+ + Reason for Visit +--------+--------+ + | Reason | Onset | Comments | | | Date | | +--------+--------+ + | Other | 04/06/ | | | | 2011 | | +--------+--------+ + Encounter Details +--------+ + + + + | Date | Type | Department | Care Team | Description | +--------+ + + + + | 04/06/ | Telephone | [facility] [place] [facility] | Pablo Lauren, | Other | | 2011 | | [facility] | DO [address] | | | | | [address] | [place] | | | | | [place], [place] | [address] | | | | | [address] | | | | | | [phone] | | | +--------+ + + + + Social History + +-------+ +--------+ + | Tobacco Use | Types | Packs/Day | Years | Date | | | | | Used | | + +-------+ +--------+ + | Former Smoker | | | | Quit: 10/22/2009 | + +-------+ +--------+ + + + +---------+ + | Alcohol Use | Drinks/Week | oz/Week | Comments | + + +---------+ + | No | | | | + + +---------+ + + + + | Sex Assigned at | Date Recorded | | | | + + + | Not on file | | + + + documented as of this encounter Miscellaneous Notes Telephone Encounter - Kourtney Reyes - 04/06/2012 4:16 PM PSTCalled pharmacy and relayed t he message to the pharmacist pr Dr. Lauren, he said he would re fill the prescription. I th en attempted to call the patient to relay message pr Dr. Lauren also, but was unable to reac h the patient, therefore I left a message for her to return call. elephone Encounter - Pablo Lauren DO - 04/06/2012 4:07 PM PSTThivalencia patient has not established care with me yet. Prior doctor Shahab pt. Ok to fill the rx and when she establishes care On 04/13 we will make her new pain management plan. elephone Encount Yoon Gilman - 04/06/2012 12:[facility] [place] [facility] in. Camila recently had dental work done and the dentist gave her a RX for 20 Dewar 5s. The pharm acist called because he sees that she gets pain medication from our clinic and wants to make sure she would not be in violation of a pain contract. Patient tried to assure him it was O K and he called the dentist as well. The dentist said that it's OK to fill as long as it's O K with her Dr. The pharmacist can be reached at [phone]. Yoon Escobedo documented in this enco unter Plan of Treatment Not on filedocumented as of this encounter Visit Diagnoses Not on filedocumented in this encounter"
--- OUTSIDE RECORDS SUMMARY | ~2020-02-12 | XMS | Encounter Summary ---
Demographics + + + | Address | General Delivery | | | [place] [address] | + + + | Home Phone | | + + + | Preferred Language | Unknown | + + + | Marital Status | | + + + | Rastafari Affiliation | 1041 | + + + | Race | Unknown | + + + | Ethnic Group | or | + + + Author + + + | Author | [facility] | | | and [place] | + + + | Organization | [facility] | | | and [place] | + + + | Address | Unknown | + + + | Phone | Unavailable | + + + Support + + + + + | Name | Relationship | Address | Phone | + + + + + | Brooklynn Brooks | ECON | [place] | | | | | [address] | | + + + + + Care Team Providers + +------+ + | Care Janitor Caretaker Name | Role | Phone | + +------+ + PCP | Unavailable | + +------+ + Encounter Details +--------+ + + + + | Date | Type | Department | Care Team | Description | +--------+ + + + + | 02/19/ | [facility] | [facility] | | | | 1993 | Encounter | MED CTR EM[facility] | | | | | | [facility] [address] | | | | | | [place] | | | | | | [address] | | | | | | [phone] | | | +--------+ + + + + Social History + +-------+ +--------+------+ | Tobacco Use | Types | Packs/Day | Years | Date | | | | | Used | | + +-------+ +--------+------+ | Never Assessed | | | | | + +-------+ +--------+------+ + + + | Sex Assigned at | Date Recorded | | | | + + + | Not on file | | + + + documented as of this encounter Plan of Treatment Not on filedocumented as of this encounter Visit Diagnoses Not on filedocumented in this encounter"
--- OUTSIDE RECORDS SUMMARY | ~2020-02-12 | XMS | Encounter Summary ---
Demographics + + + | Address | General Delivery | | | [place] [address] | + + + | Home Phone | | + + + | Preferred Language | Unknown | + + + | Marital Status | | + + + | Yazidism Affiliation | 1041 | + + + | Race | Unknown | + + + | Ethnic Group | or | + + + Author + + + | Author | [facility] | | | and [place] | + + + | Organization | [facility] | | | and [place] | + + + | Address | Unknown | + + + | Phone | Unavailable | + + + Support + + + + + | Name | Relationship | Address | Phone | + + + + + | Brooklynn Brooks | ECON | [place] | | | | | [address] | | + + + + + Care Team Providers + +------+ + | Care Store Receiver Name | Role | Phone | + +------+ + PCP | Unavailable | + +------+ + Encounter Details +--------+ + + + + | Date | Type | Department | Care Team | Description | +--------+ + + + + | 12/31/ | Hospital | [facility] | Zeke Gudino DO | | | 2010 | Encounter | [facility] | [address] | | | | | [address] [place] | [facility] | | | | | [place] | [place] | | | | | [address] | [address] | | | | | [phone] | [phone] | | | | | | | [...] + +---------+ + + | zonisamide | build up to 2 by | | 0 | 09/09/19 | | | (ZONEGRAN) 100 mg | mouth at bedtime | | | 11 | 3 | | capsule | after initial steps | | | | | | | on the 25 mg size Rx | | | | | + + + +---------+ + + documented as of this encounter Plan of Treatment Not on filedocumented as of this encounter Procedures + +--------+ + + + | Procedure Name | Priori | Date/Time | Associated Diagnosis | Comments | | | ty | | | | + +--------+ + + + | CYCLIC CITRULLINATED | Routin | 12/31/2010 | | Results for this | | PEPTIDE AB, IGG | e | 4:06 PM | | procedure are in the | | | | PDT | | results section. | + +--------+ + + + | RHEUMATOID FACTOR, | Routin | 12/31/2010 | | Results for this | | QUANT | e | 4:06 PM | | procedure are in the | | | | PDT | | results section. | + +--------+ + + + | XR HAND BILATERAL PA | | 12/31/2010 | | Results for this | | LATERAL AND OBLIQUE | | 3:46 PM | | procedure are in the | | | | PDT | | results section. | + +--------+ + + + documented in this encounter Results Cyclic Citrullinated Peptide Ab, IgG (12/31/2010 4:06 PM PDT) + + + + + + | Component | Value | Ref Range | Performed | Pathologist | | | | | At | Signature | + + + + + + | Cyclic | <16Comment: Negative | <20 EU | [facility] | | | Citrullin | < 20 | | [facility] | | | Peptide Ab | Weak Positive | | MEDICAL | | | | 20 to 39 Moderate | | CENTER - | | | | Positive 40 to 59 | | LABORATORY | | | | Strong Positive | | | | | | 60 or greater | | | | | | Approximately 70% of | | | | | | patients with RA are | | | | | | positive for CCP IgG, | | | | | | while only 2% of random | | | | | | blood donors and disease | | | | | | controls are | | | | | | positive. The diagnostic | | | | | | value of antibodies to | | | | | | CCP in juvenile | | | | | | rheumatoid arthritis | | | | | | patients has not been | | | | | | determined. Note: | | | | | | Updated methodology | | | | | | measures IgG antibody | | | | | | to the CCP3 peptide. | | | | | | Results from this assay | | | | | | in the strong positive | | | | | | range (> 60 U) may be | | | | | | higher than with the | | | | | | previous assay, which | | | | | | measured IgG antibody to | | | | | | CCP2 peptide. New | | | | | | method shows improved | | | | | | sensitivity in RA | | | | | | patients. Testing | | | | | | Performed: [facility], [address], [place], [place] | | | | | | [address] CLIA: | | | | | | [id number] | | | | + + + + + + + + | Specimen | + + | | + + + + + + + | Performing | Address | City/State/Zipcode | Phone Number | | Organization | | | | + + + + + | [facility] | [address] | [place], [place] | [phone] | | [facility] | | [address] | | | - LABORATORY | | | | + + + + + | [facility] | [address] | [place], [place] | | | [facility] | | [id number] | | | - LABORATORY | | | | + + + + + Rheumatoid Factor, Quant (12/31/2010 4:06 PM PDT) + + + + + + | Component | Value | Ref Range | Performed | Pathologist | | | | | At | Signature | + + + + + + | RHEUMATOID | 7Comment: Testing | 0 - 14 IU/mL | [facility] | | | FACTOR | Performed: [facility], [facility] | | [facility] | | | | [facility], Located [facility] | | MEDICAL | | | | [place] [address] CLIA: | | CENTER - | | | | [id number] | | LABORATORY | | + + + + + + + + | Specimen | + + | | + + + + + + + | Performing | Address | City/State/Zipcode | Phone Number | | Organization | | | | + + + + + | [facility] | [address] | [place], [place] | [phone] | | [facility] | | [address] | | | - LABORATORY | | | | + + + + + | [facility] | [address] | [place], [place] | | | [facility] | | [phone], [facility] | | | - LABORATORY | | | | + + + + + XR Hand Bilateral PA Lateral and Oblique (12/31/2010 3:46 PM PDT) + + | Specimen | + + | | + + + + + | Narrative | Performed At | + + + | [facility] Department | [facility] | | [address] [facility] | [facility] | | BOTH HANDS, 01/01/2011 | DIAG IMG | | CLINICAL HISTORY: ARTHRITIS. FINDINGS: AP, lateral and | | | oblique views of both hands are reviewed. There is no fracture or | | | bony destructive change. The joint relationships are normal. No | | | significant j oint space narrowing or subchondral bony sclerotic | | | change is seen. No periarticular osteopenia or ero sions are present. | | | The carpal bones also show normal alignment and appearance. No | | | radiographic soft t issue abnormalities are seen. IMPRESSION: | | | 1. NEGATIVE STUDY OF THE HANDS. Dictated Date/Time: 01/01/2011 | | | 09:12 Transcribed Date/Time: 01/01/2011 13:37 Production Superintendent: | | | <Electronically Signed by Krish Glover MD> 01/02/11 | | | 0906 | | + + + + + | Procedure Note | + + | Jhonny, Rad Conversion - 05/31/2013 3:47 PM [facility] | | Diagnostic Imaging Department [address] [place] [address] | | BOTH HANDS, 01/01/2011 CLINICAL HISTORY: ARTHRITIS. | | FINDINGS: AP, lateral and oblique views of both hands are reviewed. There is no | | fracture or bony destructive change. The joint relationships are normal. No significant | | joint space narrowing or subchondral bony sclerotic change is seen. No periarticular | | osteopenia or erosions are present. The carpal bones also show normal alignment and | | appearance. No radiographic soft tissue abnormalities are seen. IMPRESSION: 1. NEGATIVE | | STUDY OF THE HANDS. Dictated Date/Time: 01/01/2011 09:12Transcribed Date/Time: | | 01/01/2011 13:37Transcriptionist: <Electronically Signed by Krish Glover MD> | | 09/11/11 0906 | | | |There is no fracture or bony destructive change. The joint relationships are normal. No sig nificant j | |oint space narrowing or subchondral bony sclerotic change is seen. No periarticular osteope lexis or ero | |sions are present. The carpal bones also show normal alignment and appearance. No radiograp hic soft t | |issue abnormalities are seen. | | | |IMPRESSION: | |1. NEGATIVE STUDY OF THE HANDS. | | | |Dictated Date/Time: 01/01/2011 09:12 | |Transcribed Date/Time: 01/01/2011 13:37 | |Production Superintendent: | |<Electronically Signed by Krish Glover MD> 01/02/11905 | + + + +---------+ + + | Performing | Address | City/State/Zipcode | Phone Number | | Organization | | | | + +---------+ + + | [place] | | | | | [facility] | | | | + +---------+ + + documented in this encounter Visit Diagnoses Not on filedocumented in this encounter"
--- OUTSIDE RECORDS SUMMARY | ~2020-02-12 | XMS | Encounter Summary ---
Demographics + + + | Address | General Delivery | | | [place] [address] | + + + | Home Phone | | + + + | Preferred Language | Unknown | + + + | Marital Status | | + + + | Congregation Affiliation | 1041 | + + + | Race | Unknown | + + + | Ethnic Group | or | + + + Author + + + | Author | [facility] | | | and [place] | + + + | Organization | [facility] | | | and [place] | + + + | Address | Unknown | + + + | Phone | Unavailable | + + + Support + + + + + | Name | Relationship | Address | Phone | + + + + + | Brooklynn Brooks | ECON | [place] | | | | | [address] | | + + + + + Care Team Providers + +------+ + | Care Fagot Maker Name | Role | Phone | + +------+ + PCP | Unavailable | + +------+ + Encounter Details +--------+ + + + + | Date | Type | Department | Care Team | Description | +--------+ + + + + | 02/16/ | [facility] | [facility] | | | | 1999 | Encounter | MED CTR EM[facility] | | | | | | [place] [address] | | | | | | [place] | | | | | | [address] | | | | | | [phone] | | | +--------+ + + + [...]
--- OUTSIDE RECORDS SUMMARY | ~2020-02-12 | XMS | Encounter Summary ---
Demographics + + + | Address | General Delivery | | | [place] [address] | + + + | Home Phone | | + + + | Preferred Language | Unknown | + + + | Marital Status | | + + + | Tenriism Affiliation | 1041 | + + + | Race | Unknown | + + + | Ethnic Group | or | + + + Author + + + | Author | [facility] | | | and [place] | + + + | Organization | [facility] | | | and [place] | + + + | Address | Unknown | + + + | Phone | Unavailable | + + + Support + + + + + | Name | Relationship | Address | Phone | + + + + + | Brooklynn Brooks | ECON | [place] | | | | | [address] | | + + + + + Care Team Providers + +------+ + | Care Calibration Laboratory Technician Name | Role | Phone | + +------+ + | Abby Charlton PA-C | PCP | | + +------+ + Encounter Details +--------+ + + + + | Date | Type | Department | Care Team | Description | +--------+ + + + + | 07/25/ | Hospital | [facility] GENER[facility] IP | Conversion | Pain | | 2015 | Encounter | CONVERSION [address]P [address] | Transaction, | | | | | [address] | Provider Unknown | | | | | [place], [place] | | | | | | [phone] | (Fax) | | | | | [phone] | | | +--------+ + + + [...] | + +--------+ + + + | CT ABDOMEN PELVIS WO | Routin | 07/25/2014 | | Results for this | | CONTRAST | e | 10:33 PM | | procedure are in the | | | | PDT | | results section. | + +--------+ + + + documented in this encounter Results CT Abdomen Pelvis wo Contrast (07/25/2014 10:33 PM PDT) + + | Specimen | + + | | + + + + + | Narrative | Performed At | + + + | This is a non-reportable procedure without a radiologist report and | | | is used for image storage only | | + + + + + | Procedure Note | + + | Robin Barry - 12/07/2018 3:44 AM PDT This is a non-reportable procedure | | without a radiologist report and isused for image storage only | + + documented in this encounter Visit Diagnoses + + | Diagnosis | + + | Pain Generalized pain | + + documented in this encounter"
--- OUTSIDE RECORDS SUMMARY | ~2020-02-12 | XMS | Encounter Summary ---
Demographics + + + | Address | General Delivery | | | [place] [address] | + + + | Home Phone | | + + + | Preferred Language | Unknown | + + + | Marital Status | | + + + | Uatsdin Affiliation | 1041 | + + + | Race | Unknown | + + + | Ethnic Group | or | + + + Author + + + | Author | [facility] | | | and [place] | + + + | Organization | [facility] | | | and [place] | + + + | Address | Unknown | + + + | Phone | Unavailable | + + + Support + + + + + | Name | Relationship | Address | Phone | + + + + + | Brooklynn Brooks | ECON | [place] | | | | | [address] | | + + + + + Care Team Providers + +------+ + | Care Chair Upholsterer Name | Role | Phone | + +------+ + | Abby Charlton PA-C | PCP | | + +------+ + Encounter Details +--------+ + + + + | Date | Type | Department | Care Team | Description | +--------+ + + + + | 07/10/ | Orders Only | [facility] | Adilia Arzola V, | | | 2017 | | CONVERSION 888 | MD [address] | | | | | [address] | [address] | | | | | [place], [place] | [address] | | | | | [phone] | | | | | | [phone] | | | +--------+ + + + [...] | + +--------+ + + + | ECHO INTERPRETATION | Routin | 07/10/2017 | | Results for this | | OF OUTSIDE FILMS | e | 9:51 AM | | procedure are in the | | | | PDT | | results section. | + +--------+ + + + documented in this encounter Results ECHO Interpretation of Outside Films (07/10/2017 9:51 AM PDT) + + | Specimen | + + | | + + + + + | Impressions | Performed At | + + + | 1. Overall left ventricular systolic function is normal with, an EF | | | between 60 - 65 %. 2. The right ventricle is normal in size and | | | function. 3. No vegetation visualized. 4. No significant valvular | | | abnormalities noted. | | + + + + + + | Narrative | Performed At | + + + | Patient Name: Camila Camejo Date of : 1960 | | | Performing Physician: ANDRES RICHARDS MD | | | | | | INDICATIONS Sepsis, IV drug use CONCLUSIONS | | | 1. Overall left ventricular systolic function is normal | | | with, an EF between 60 - 65 %. 2. The right ventricle is normal in | | | size and function. 3. No vegetation visualized. 4. No significant | | | valvular abnormalities noted. FINDINGS -------- ECG rhythm: | | | Sinus rhythm. Study: A 2-dimensional transthoracic echocardiogram | | | with m-mode, spectral and color flow Doppler was perfomed. Study: | | | This was a technically adequate study. Left Ventricle: Overall left | | | ventricular systolic function is normal with, an EF between 60 - 65 %. | | | Left Ventricle: The left ventricle cavity size is normal. Left | | | Ventricle: Left ventricular wall thickness is normal. Left Ventricle: | | | No regional wall motion abnormalities. Left Ventricle: The diastolic | | | filling pattern is normal for the age of the patient. Right | | | Ventricle: The right ventricle is normal in size and function. Left | | | Atrium: The left atrium is normal in size. Right Atrium: The right | | | atrium is normal in size. Right Atrium: Prominent Chiari network seen | | | in right atrium (normal finding). Aortic Valve: Aortic valve is | | | trileaflet and is mildly thickened. Aortic Valve: The aortic valve | | | appears to be trileaflet. Aortic Valve: Trace amount of aortic | | | regurgitation. Aortic Valve: There is no evidence of aortic stenosis. | | | Mitral Valve: Mitral valve is thickened. Mitral Valve: There is | | | trace mitral regurgitation. Mitral Valve: No evidence of MVP. Mitral | | | Valve: Mild thickening of the anterior mitral valve leaflet. | | | Tricuspid Valve: The tricuspid valve appears structurally normal. | | | Tricuspid Valve: Mild tricuspid regurgitation present. Tricuspid | | | Valve: There is no evidence of pulmonary hypertension. Tricuspid | | | Valve: The right ventricular systolic pressure (pulmonary artery | | | systolic pressure), as measured by Doppler, is 26.72mmHg. Pulmonic | | | Valve: The pulmonic valve was not well visualized. Pulmonic Valve: | | | Trace pulmonic regurgitation. Pericardium: There is no pericardial | | | effusion. IVC/Hepatic Veins: The IVC is normal size (1.5-2.5cm) and | | | collapses >50% with sniff, consistent with central venous pressures of | | | 5-10mmHg. Aorta: The aortic root, ascending aorta and aortic arch | | | are normal. Pulmonary Artery: The pulmonary artery is normal. Mass: | | | No mass visualized Thrombus: No clot visualized Thrombus: No | | | vegetation visualized. Septum: No ASD observed. Septum: No VSD | | | observed. MEASUREMENTS Ao Diam: 2.82 cm Ao | | | sinus: 3.[address] junct: 3.24 cm IVC: 1.68 cm LA Diam: | | | 3.65 cm LA Major: 4.91 cm EDV(Teich): 104.72 ml IVSd: | | | 0.77 cm LVIDd: 4.74 cm LVPWd: 1.00 cm LVOT Area: 3.33 cm2 | | | LVOT Diam: 2.06 cm %FS: 28.74 % EF(Teich): 55.28 % | | | ESV(Teich): 46.82 ml LVIDs: 3.38 cm SV(Teich): 57.90 ml RV | | | Major: 6.42 cm RVIDd: 2.45 cm LVEF MOD A2C: 62.60 % SV | | | MOD A2C: 42.04 ml LVEF MOD A4C: 62.59 % SV MOD A4C: 34.70 | | | ml EF Biplane: 62.70 % LVEDV MOD BP: 63.10 ml LVESV MOD BP: | | | 23.53 ml LVEDV MOD A2C: 67.15 ml LVLd A2C: 6.87 cm LVEDV | | | MOD A4C: 55.43 ml LVLd A4C: 7.44 cm LVESV MOD A2C: 25.11 ml | | | LVLs A2C: 5.75 cm LVESV MOD A4C: 20.73 ml LVLs A4C: 6.25 | | | cm LAESV(A-L): 41.56 ml LAESV Index (A-L): 27.89 ml/m2 LAAs | | | A2C: 16.50 cm2 LAESV A-L A2C: 52.02 ml LALs A2C: 4.44 cm | | | LAAs A4C: 11.92 cm2 LAESV A-L A4C: 30.03 ml LALs A4C: 4.02 | | | cm RAAs: 9.91 cm2 RAESV A-L: 20.45 ml RAESV MOD: 19.16 ml | | | RALs: 4.07 cm TAPSE: 2.28 cm AV maxP.75 mmHg AV | | | meanP.54 mmHg AV Vmax: 1.08 m/s AV Vmean: 0.75 m/s AV | | | VTI: 20.90 cm PRINCE Vmax: 2.65 cm2 PRINCE (VTI): 2.74 cm2 AVAI | | | Vmax: 0.00 cm2/m2 AVAI (VTI): 0.00 cm2/m2 LVOT maxP.01 | | | mmHg LVOT meanP.27 mmHg LVSI Dopp: 38.48 ml/m2 LVSV Dopp: | | | 57.34 ml LVOT Vmax: 0.86 m/s LVOT Vmean: 0.51 m/s LVOT | | | VTI: 17.18 cm MV A Juan Daniel: 0.75 m/s MV DecT: 210.45 ms MV E | | | Juan Daniel: 0.74 m/s MV E/A Ratio: 0.98 MV PHT: 61.03 ms MVA By | | | PHT: 3.60 cm2 Septal e': 0.07 m/s Septal E/e': 9.56 | | | Lateral e': 0.09 m/s Lateral E/e': 7.86 RAP: 5 mmHg RVSP: | | | 26.72 mmHg TR maxP.72 mmHg TR Vmax: 2.33 m/s | | | Sales Donor Recruitment Representative: Authenticated by: ANDRES RICHARDS MD Report Date/Time: | | | 07-10-2017 16:48:39 | | + + + + + | Procedure Note | + + | Jhonny, Rad Conversion - 12/13/2018 3:44 PM PDT Patient Name: Marcelina Camejo of | | : 1960 Performing Physician: ANDRES RICHARDS, | | INDICATIONS S | | epsis, IV drug use CONCLUSIONS 1. Overall left ventricular systolic function | | is normal with, an EF between 60 - 65 %.2. The right ventricle is normal in size and | | function.3. No vegetation visualized. 4. No significant valvular abnormalities noted. | | FINDINGS--------ECG rhythm: Sinus rhythm.Study: A 2-dimensional transthoracic | | echocardiogram with m-mode, spectral and color flow Doppler was perfomed.Study: This was | | a technically adequate study.Left Ventricle: Overall left ventricular systolic function | | is normal with, an EF between 60 - 65 %.Left Ventricle: The left ventricle cavity size | | is normal.Left Ventricle: Left ventricular wall thickness is normal.Left Ventricle: No | | regional wall motion abnormalities.Left Ventricle: The diastolic filling pattern is | | normal for the age of the patient.Right Ventricle: The right ventricle is normal in size | | and function.Left Atrium: The left atrium is normal in size.Right Atrium: The right | | atrium is normal in size.Right Atrium: Prominent Chiari network seen in right atrium | | (normal finding).Aortic Valve: Aortic valve is trileaflet and is mildly thickened.Aortic | | Valve: The aortic valve appears to be trileaflet.Aortic Valve: Trace amount of aortic | | regurgitation.Aortic Valve: There is no evidence of aortic stenosis.Mitral Valve: Mitral | | valve is thickened.Mitral Valve: There is trace mitral regurgitation.Mitral Valve: No | | evidence of MVP.Mitral Valve: Mild thickening of the anterior mitral valve | | leaflet.Tricuspid Valve: The tricuspid valve appears structurally normal.Tricuspid | | Valve: Mild tricuspid regurgitation present.Tricuspid Valve: There is no evidence of | | pulmonary hypertension.Tricuspid Valve: The right ventricular systolic pressure | | (pulmonary artery systolic pressure), as measured by Doppler, is 26.72mmHg.Pulmonic | | Valve: The pulmonic valve was not well visualized.Pulmonic Valve: Trace pulmonic | | regurgitation.Pericardium: There is no pericardial effusion.IVC/Hepatic Veins: The IVC | | is normal size (1.5-2.5cm) and collapses >50% with sniff, consistent with central venous | | pressures of 5-10mmHg.Aorta: The aortic root, ascending aorta and aortic arch are | | normal.Pulmonary Artery: The pulmonary artery is normal.Mass: No mass | | visualizedThrombus: No clot visualizedThrombus: No vegetation visualized.Septum: No ASD | | observed.Septum: No VSD observed. MEASUREMENTS Ao Diam: 2.82 cmAo sinus: | | 3.[address] junct: 3.24 cmIVC: 1.68 cmLA Diam: 3.65 cmLA Major: 4.91 | | cmEDV(Teich): 104.72 mlIVSd: 0.77 cmLVIDd: 4.74 cmLVPWd: 1.00 cmLVOT Area: | | 3.33 [id number] Diam: 2.06 cm%FS: 28.74 %EF(Teich): 55.28 %ESV(Teich): 46.82 | | mlLVIDs: 3.38 cmSV(Teich): 57.90 mlRV Major: 6.42 cmRVIDd: 2.45 cmLVEF MOD A2C: | | 62.60 %SV MOD A2C: 42.04 mlLVEF MOD A4C: 62.59 %SV MOD A4C: 34.70 mlEF Biplane: | | 62.70 %LVEDV MOD BP: 63.10 mlLVESV MOD BP: 23.53 mlLVEDV MOD A2C: 67.15 mlLVLd | | A2C: 6.87 cmLVEDV MOD A4C: 55.43 mlLVLd A4C: 7.44 cmLVESV MOD A2C: 25.11 mlLVLs | | A2C: 5.75 cmLVESV MOD A4C: 20.73 mlLVLs A4C: 6.25 cmLAESV(A-L): 41.56 mlLAESV | | Index (A-L): 27.89 ml/m2LAAs A2C: 16.50 [id number] A-L A2C: 52.02 mlLALs A2C: 4.44 | | cmLAAs A4C: 11.92 [id number] A-L A4C: 30.03 mlLALs A4C: 4.02 cmRAAs: 9.91 | | rt2SMTIN A-L: 20.45 mlRAESV MOD: 19.16 mlRALs: 4.07 cmTAPSE: 2.28 cmAV maxPG: | | 4.75 mmHgAV meanP.54 mmHgAV Vmax: 1.08 m/Arvind Vmean: 0.75 m/Arvind VTI: 20.90 | | cmAVA Vmax: 2.65 cm2AVA (VTI): 2.74 [id number] Vmax: 0.00 cm2/m2AVAI (VTI): 0.00 | | cm2/m2LVOT maxP.01 mmHgLVOT meanP.27 mmHgLVSI Dopp: 38.48 ml/m2LVSV Dopp: | | 57.34 mlLVOT Vmax: 0.86 m/sLVOT Vmean: 0.51 m/sLVOT VTI: 17.18 cmMV A Juan Daniel: | | 0.75 m/sMV DecT: 210.45 msMV E Juan Daniel: 0.74 m/sMV E/A Ratio: 0.98MV PHT: 61.03 | | msMVA By PHT: 3.60 [id number] e': 0.07 m/sSeptal E/e': 9.56Lateral e': 0.09 | | m/sLateral E/e': 7.86RAP: 5 mmHgRVSP: 26.72 mmHgTR maxP.72 mmHgTR Vmax: | | 2.33 m/s Sales Donor Recruitment Representative:Authenticated by: Helio WOLFF Date/Time: 07-10-2017 | | 16:48:39 IMPRESSION: 1. Overall left ventricular systolic function is normal with, an EF | | between 60 - 65 %.2. The right ventricle is normal in size and function.3. No | | vegetation visualized. 4. No significant valvular abnormalities noted. | |Septum: No ASD observed. | |Septum: No VSD observed. | | | |MEASUREMENTS | | | |Ao Diam: 2.82 cm | |Ao sinus: 3.73 cm | |Ao st junct: 3.24 cm | |IVC: 1.68 cm | |LA Diam: 3.65 cm | |LA Major: 4.91 cm | |EDV(Teich): 104.72 ml | |IVSd: 0.77 cm | |LVIDd: 4.74 cm | |LVPWd: 1.00 cm | |LVOT Area: 3.33 cm2 | |LVOT Diam: 2.06 cm | |%FS: 28.74 % | |EF(Teich): 55.28 % | |ESV(Teich): 46.82 ml | |LVIDs: 3.38 cm | |SV(Teich): 57.90 ml | |RV Major: 6.42 cm | |RVIDd: 2.45 cm | |LVEF MOD A2C: 62.60 % | |SV MOD A2C: 42.04 ml | |LVEF MOD A4C: 62.59 % | |SV MOD A4C: 34.70 ml | |EF Biplane: 62.70 % | |LVEDV MOD BP: 63.10 ml | |LVESV MOD BP: 23.53 ml | |LVEDV MOD A2C: 67.15 ml | |LVLd A2C: 6.87 cm | |LVEDV MOD A4C: 55.43 ml | |LVLd A4C: 7.44 cm | |LVESV MOD A2C: 25.11 ml | |LVLs A2C: 5.75 cm | |LVESV MOD A4C: 20.73 ml | |LVLs A4C: 6.25 cm | |LAESV(A-L): 41.56 ml | |LAESV Index (A-L): 27.89 ml/m2 | |LAAs A2C: 16.50 cm2 | |LAESV A-L A2C: 52.02 ml | |LALs A2C: 4.44 cm | |LAAs A4C: 11.92 cm2 | |LAESV A-L A4C: 30.03 ml | |LALs A4C: 4.02 cm | |RAAs: 9.91 cm2 | |RAESV A-L: 20.45 ml | |RAESV MOD: 19.16 ml | |RALs: 4.07 cm | |TAPSE: 2.28 cm | |AV maxP.75 mmHg | |AV meanP.54 mmHg | |AV Vmax: 1.08 m/s | |AV Vmean: 0.75 m/s | |AV VTI: 20.90 cm | |PRINCE Vmax: 2.65 cm2 | |PRINCE (VTI): 2.74 cm2 | |AVAI Vmax: 0.00 cm2/m2 | |AVAI (VTI): 0.00 cm2/m2 | |LVOT maxP.01 mmHg | |LVOT meanP.27 mmHg | |LVSI Dopp: 38.48 ml/m2 | |LVSV Dopp: 57.34 ml | |LVOT Vmax: 0.86 m/s | |LVOT Vmean: 0.51 m/s | |LVOT VTI: 17.18 cm | |MV A Juan Daniel: 0.75 m/s | |MV DecT: 210.45 ms | |MV E Juan Daniel: 0.74 m/s | |MV E/A Ratio: 0.98 | |MV PHT: 61.03 ms | |MVA By PHT: 3.60 cm2 | |Septal e': 0.07 m/s | |Septal E/e': 9.56 | |Lateral e': 0.09 m/s | |Lateral E/e': 7.86 | |RAP: 5 mmHg | |RVSP: 26.72 mmHg | |TR maxP.72 mmHg | |TR Vmax: 2.33 m/s | | | |Sales Donor Recruitment Representative: | |Authenticated by: ANDRES RICHARDS MD | |Report Date/Time: 07-10-2017 16:48:39 | | | |IMPRESSION: | |1. Overall left ventricular systolic function is normal with, an EF between 60 - 65 %. | |2. The right ventricle is normal in size and function. | |3. No vegetation visualized. 4. No significant valvular abnormalities noted. | + + documented in this encounter Visit Diagnoses Not on filedocumented in this encounter"
--- OUTSIDE RECORDS SUMMARY | ~2020-02-12 | XMS | Encounter Summary ---
Demographics + + + | Address | General Delivery | | | [place] [address] | + + + | Home Phone | | + + + | Preferred Language | Unknown | + + + | Marital Status | | + + + | Adventist Affiliation | 1041 | + + + [...] [place] | | | | | [address] | | + + + + + Care Team Providers + +------+ + | Care General Repair Mechanic Name | Role | Phone | + +------+ + PCP | Unavailable | + +------+ + Encounter Details +--------+ + + + + | Date | Type | Department | Care Team | Description | +--------+ + + + + | 12/23/ | [facility] | [facility] | | | | 2007 | Encounter | [facility] | | | | | | [place] [address] | | | | | | [place] | | | | | | [phone] | | | | | | [phone] | | | +--------+ + + + [...]
--- OUTSIDE RECORDS SUMMARY | ~2020-02-12 | XMS | Encounter Summary ---
Demographics + + + | Address | General Delivery | | | [place] [address] | + + + | Home Phone | | + + + | Preferred Language | Unknown | + + + | Marital Status | | + + + | Latter-Day Affiliation | 1041 | + + + | Race | Unknown | + + + | Ethnic Group | or | + + + Author + + + | Author | [facility] | | | and [place] | + + + | Organization | [facility] | | | and [place] | + + + | Address | Unknown | + + + | Phone | Unavailable | + + + Support + + + + + | Name | Relationship | Address | Phone | + + + + + | Brooklynn Brooks | ECON | [place] | | | | | [address] | | + + + + + Care Team Providers + +------+ + | Care Estate Agent Name | Role | Phone | + +------+ + | Abby Charlton PA-C | PCP | | + +------+ + Reason for Referral Diagnostic/Screening (Routine) +--------+--------+ + + + + | Status | Reason | Specialty | Diagnoses / | Referred By | Referred To | | | | | Procedures | Contact | Contact | +--------+--------+ + + + + | Closed | | Radiology | Diagnoses | [place], | [facility] | | | | | Chest pain | Mehrdad | [address] | | | | | Shortness | MD Michael | [place], | | | | | of breath | [address] | [place] | | | | | Procedures | [place] | [address] | | | | | ECHO | [place], [place] | Phone: | | | | | Complete | [address] | [phone] | | | | | | Phone: | Fax: | | | | | | [phone] | [phone] | | | | | | Fax: | | | | | | | [phone] | | +--------+--------+ + + + + Diagnostic/Screening (Routine) +--------+--------+ + + + + | Status | Reason | Specialty | Diagnoses / | Referred By | Referred To | | | | | Procedures | Contact | Contact | +--------+--------+ + + + + | Closed | | Radiology | Diagnoses | [place], | [facility] | | | | | Chest pain | Mehrdad | Medicine | | | | | Shortness | MD Michael | [address] | | | | | of breath | [address] | [place], | | | | | Procedures | [place] | [place] | | | | | [place] [facility] | [place] | [address] | | | | | Stress Test | [address] | Phone: | | | | | (Vasodilator | Phone: | [phone] | | | | | ) STRESS | [phone] | Fax: | | | | | TEST 09/05/12 | Fax: | [phone] | | | | | | [phone] | | +--------+--------+ + + + + Reason for Visit + + + | Reason | Comments | + + + | Syncope | Initial Consultation | + + + | Chest Pain | | + + + Encounter Details +--------+---------+ + + + | Date | Type | Department | Care Team | Description | +--------+---------+ + + + | 08/20/ | Office | [facility] | Mehrdad Miguel | Chest pain (Primary | | 2012 | Visit | CARDIOLOGY [address] | MD Michael [address] | Dx); CHF (congestive | | | | [address] [place], | [address] [place] | heart failure) | | | | [place] [address] | [place] [address] | ([facility]); Shortness of | | | | [phone] | [phone] | breath; Tachycardia; | | | | | | Tobacco use | | | | | | disorder | +--------+---------+ + + + Social History + + [...] + + documented as of this encounter Last Filed Vital Signs + + + + + | Vital Sign | Reading | Time Taken | Comments | + + + + + | Blood Pressure | 104/80 | 08/20/2012 1:20 PM | left arm 106/78 | | | | PDT | | + + + + + | Pulse | 84 | 08/20/2012 1:20 PM | regular | | | | PDT | | + + + + + | Temperature | - | - | | + + + + + | Respiratory Rate | 14 | 08/20/2012 1:20 PM | | | | | PDT | | + + + + + | Oxygen Saturation | - | - | | + + + + + | Inhaled Oxygen | - | - | | | Concentration | | | | + + + + + | Weight | 73.5 kg (162 lb) | 08/20/2012 1:20 PM | | | | | PDT | | + + + + + | Height | 154.9 cm (5' 1") | 08/20/2012 1:20 PM | | | | | PDT | | + + + + + | Body Mass Index | 30.61 | 08/20/2012 1:20 PM | | | | | PDT | | + + + + + documented in this encounter Patient Instructions Patient Instructions Liliana Irving RN - 08/20/2012 1:51 PM PDT1. Stress test, echo, ho lter, and blood test 2. Follow up with Dr Miguel for test results documented in this encounter Progress Notes Mehrdad Miguel MD - 08/20/2012 1:11 PM PDTFormatting of this note might be differe nt from the original. Subjective: Cardiology Office Visit Date of Service: 08/20/2012 Patient ID: Camila Gaona is a 52 y.o. female. PCP: Abby Newton Camila Gaona is a 52 y.o. female with a history of recent presentation to the emerg ency department with seizure-like symptoms, as well as subsequent onset of symptoms of atypi sharif chest pain and dyspnea on exertion who presents for further consultation. Patient is a h eavy history of previous cardiovascular disease, nor any testing or imaging studies. She has no known history of CAD, heart failure, or arrhythmias. She states that she is actually exp eriencing chest pain during our visit today, and it often is not associated with exercise or stress. She believes that she has a history of hyperlipidemia, notably elevated triglycerid es, which was recently discovered, as well as hypertension for which she is on medical thera py. She also asked that she has been smoking for many years, currently at one half pack per day but hopes to be able to quit. She lives with her daughter who does not smoke. She can wa lk at a normal pace, but otherwise becomes easily winded on exertion. She denies other sympt oms such as orthopnea, PND, or lower extremity edema. Patient Active Problem List Diagnosis ANXIETY DISORDER HYPERTENSION PERIPHERAL EDEMA THORACIC/LUMBOSACRAL NEURITIS/RADICULITIS UNSPEC HIP REPLACEMENT, HX OF HIP PAIN, CHRONIC ARTHRITIS, HANDS, BILATERAL ALLERGIC RHINITIS, CHRONIC HEADACHE, CHRONIC Preventative health care Syncope Depression Bipolar disorder Past Surgical History Procedure Date 1sab no history of abnormal paps or STD, has regular menses, Mammogram-never Joint replacement 2010 Bilateral, Dr Solorzano Tubal ligation Family History Problem Relation Age of Onset Hypertension Father Hypertension Mother Diabetes Mother Stroke Mother History Social History Marital Status: Spouse Name: Bernardo Number of Children: 3 Years of Education: N/A Occupational History Unemployed Caregiver Social History Main Topics Smoking status: Former Smoker -- 0.5 packs/day for 31 years Types: Cigarettes Quit date: 10/22/2009 Smokeless tobacco: Never Used Alcohol Use: No Drug Use: No Sexually Active: None Other Topics Concern None Social History Narrative Exercise: walkCaffeine: 2 sodas, 2 cups coffee dailyLiving situation: living alone Current Outpatient Prescriptions Medication Sig Dispense Refill ergocalciferol (VITAMIN D-2) 50,000 units capsule Take 50,000 Units by mouth Once a wee k. loratadine (CLARITIN) 10 mg tablet Take 10 mg by mouth Daily. ibuprofen (ADVIL,MOTRIN) 600 MG tablet Take 600 mg by mouth every 6 hours as needed. zonisamide (ZONEGRAN) 100 mg capsule Take 100 mg by mouth 2 times daily. For Migranes buPROPion (WELLBUTRIN SR) 150 mg 12 hr tablet Take 150 mg by mouth Daily. carisoprodol (SOMA) 350 mg tablet Take 350 mg by mouth nightly. alprazolam (XANAX) 1 MG tablet Take 1 mg by mouth 3 times daily as needed. hydrocodone-acetaminophen (LORTAB 10) 10-500 MG per tablet Take one tablet by mouth thr ee times daily. Must last 30 days 90 tablet 0 metoprolol tartrate (LOPRESSOR) 50 mg tablet Take 50 mg by mouth 2 times daily. fluticasone (FLONASE) 50 mcg/nasal spray 2 sprays/nostril/day sertraline (ZOLOFT) 100 mg tablet Take 100 mg by mouth 2 times daily. Allergies Allergen Reactions Buspirone Hcl Other (See Comments) Involuntary twitching Toradol Review of Systems Constitutional: Negative for fever, chills, diaphoresis, activity change, appetite change, fatigue and unexpected weight change. HENT: Negative for hearing loss, ear pain, nosebleeds, congestion, dental problem and tinni tus. Eyes: Positive for visual disturbance (blurring). Respiratory: Positive for chest tightness, shortness of breath and wheezing. Negative for a pnea, cough, choking and stridor. Cardiovascular: Positive for chest pain. Negative for palpitations and leg swelling. Gastrointestinal: Negative for nausea, vomiting, abdominal pain, diarrhea, constipation, bl ood in stool, abdominal distention, anal bleeding and rectal pain. Genitourinary: Negative for dysuria, urgency, frequency, hematuria, decreased urine volume and difficulty urinating. Musculoskeletal: Positive for myalgias, back pain, joint swelling, arthralgias and gait pro blem. Skin: Negative for color change, rash and wound. Neurological: Positive for dizziness, seizures, syncope, speech difficulty (stuttering, rec ent onsert), light-headedness, numbness (fingers and toes) and headaches. Negative for tremo rs and weakness. Hematological: Negative for adenopathy. Does not bruise/bleed easily. Psychiatric/Behavioral: Negative for confusion, sleep disturbance and decreased concentrati on. The patient is nervous/anxious. Objective: Physical Exam Vitals reviewed. Constitutional: She is oriented to person, place, and time. She appears well-developed and well-nourished. HENT: Head: Normocephalic and atraumatic. Eyes: Pupils are equal, round, and reactive to light. Neck: Neck supple. No JVD present. No thyromegaly present. Cardiovascular: Normal rate, regular rhythm, S1 normal, S2 normal, normal heart sounds, int act distal pulses and normal pulses. PMI is not displaced. Exam reveals no S3, no S4 and n o friction rub. No murmur heard. Pulmonary/Chest: Effort normal and breath sounds normal. No accessory muscle usage. No resp iratory distress. She exhibits no tenderness. Abdominal: Soft. Normal appearance and bowel sounds are normal. She exhibits no distension and no abdominal bruit. There is no hepatosplenomegaly. There is no tenderness. Mildly obese Musculoskeletal: Normal range of motion. Lymphadenopathy: She has no cervical adenopathy. Neurological: She is alert and oriented to person, place, and time. Skin: Skin is warm and dry. No rash noted. Psychiatric: She has a normal mood and affect. Her behavior is normal. BP 104/80 | Pulse 84 | Resp 14 | Ht 1.549 m (5' 1") | Wt 73.483 kg (162 lb) | BMI 30.61 kg/ m2 ECG: reviewed by me today shows normal sinus rhythm, heart rate 78, , T-wave abnormalities V1 to V3, and lead 3. LAB: creatinine 0.86, glucose 110, ALT 86, AST 65, hematocrit 41, platelet count 189, tropo ed less than 0.03, CK/MB WNL Telemetry recordings during recent ER visit show sinus tachycardia at 120s. Reviewed records from PCP. Assessment: 1. Atypical chest pain - patient has coronary disease risk factors of hypertension, dyslipi demia, and tobacco use. Her symptoms are atypical but she would benefit from further risk st ratification. We will schedule her to undergo a pharmacologic myocardial perfusion imaging s tudy. If no significant abnormalities are discovered, the focus will remain on continued med ical therapy and risk factor reduction. 2. Dyspnea on exertion - patient's exam is fairly unremarkable, except for mild obesity, an d her ECG demonstrates nonspecific changes. We will check a BNP as well as an echocardiogram . And also given evidence of mild resting tachycardia during her recent ER visit, we will corey ve her undergo a 24-hour Holter monitor, especially given that occasionally arrhythmias can be misdiagnosed as seizure disorders. 3. Tobacco use - had extensive discussion with the patient ( greater than 5 minutes) regard ing the need to stop smoking, even if her cardiac workup is negative. She is hopeful to have a plan and a quit date set for the near future. Plan: 1. Myocardial perfusion imaging study. 2. Echocardiogram. 3. 24-hour Holter monitor. 4. Check a BNP. 5. Followup visit after testing is completed. 6. Tobacco cessation. Portions of this report were transcribed using voice recognition software. Every effort wa s made to ensure accuracy; however, inadvertent computerized director child development center errors may be pre sent. documented in t his encounter Plan of Treatment + + +--------+ + + | Name | Type | Priori | Associated Diagnoses | Order Schedule | | | | ty | | | + + +--------+ + + | ECG 12 lead | ECG | Routin | Chest pain | Ordered: 08/20/2012 | | | | e | | | + + +--------+ + + | B Type Natriuretic | Lab | Routin | CHF (congestive | Expected: | | Peptide | | e | heart failure) (HCC) | 08/20/2012, Expires: | | | | | | 08/20/2013 | + + +--------+ + + | NM Nuclear Stress | Cardiac | Routin | Chest pain | Expected: | | Test (Vasodilator) | Nuclear | e | Shortness of breath | 08/20/2012, Expires: | | | Medicine | | | 08/20/2013 | + + +--------+ + + | ECHO Complete | Echocardiog | Routin | Chest pain | Expected: | | | cornelio | e | Shortness of breath | 08/20/2012, Expires: | | | | | | 08/20/2013 | + + +--------+ + + | Holter monitor - 24 | ECG | Routin | Chest pain | Expected: | | hour | | e | Shortness of breath | 08/20/2012, Expires: | | | | | Tachycardia | 08/20/2013 | + + +--------+ + + documented as of this encounter Visit Diagnoses + + | Diagnosis | + + | Chest pain - Primary Chest pain, unspecified | + + | CHF (congestive heart failure) (HCC) Congestive heart failure, unspecified | + + | Shortness of breath | + + | Tachycardia Tachycardia, unspecified | + + | Tobacco use disorder | + + documented in this encounter
--- OUTSIDE RECORDS SUMMARY | ~2020-02-12 | XMS | Encounter Summary ---
Demographics + + + | Address | General Delivery | | | [place] [address] | + + + | Home Phone | | + + + | Preferred Language | Unknown | + + + | Marital Status | | + + + | Baptist Affiliation | 1041 | + + + | Race | Unknown | + + + | Ethnic Group | or | + + + Author + + + | Author | [facility] | | | and [place] | + + + | Organization | [facility] | | | and [place] | + + + | Address | Unknown | + + + | Phone | Unavailable | + + + Support + + + + + | Name | Relationship | Address | Phone | + + + + + | Brooklynn Brooks | ECON | [place] | | | | | [address] | | + + + + + Care Team Providers + +------+ + | Care Glass Blower Helper Name | Role | Phone | + +------+ + PCP | Unavailable | + +------+ + Encounter Details +--------+ + + + + | Date | Type | Department | Care Team | Description | +--------+ + + + + | 01/03/ | Abstract | [facility] | [facility] | | | 2011 | | Conversion Location | SR | | | | | [address] | | | | | | [place], [place] | | | | | | [address] | | | | | | [phone] | | | +--------+ + + + [...] + | Blood Pressure | 104/80 | 09/09/2011 12:00 AM | | | | | PDT | | + + + + + | Pulse | - | - | | + + + + + | Temperature | - | - | | + + + + + | Respiratory Rate | - | - | | + + + + + | Oxygen Saturation | - | - | | + + + + + | Inhaled Oxygen | - | - | | | Concentration | | | | + + + + + | Weight | 77 kg (169 lb 12.8 | 09/09/2011 12:00 AM | | | | oz) | PDT | | + + + + + | Height | 154.9 cm (5' 1") | 08/13/2010 12:00 AM | | | | | PDT | | + + + + + | Body Mass Index | 32.08 | 08/13/2010 12:00 AM | | | | | PDT | | + + + + + documented in this encounter Plan of Treatment Not on filedocumented as of this encounter Visit Diagnoses Not on filedocumented in this encounter
--- OUTSIDE RECORDS SUMMARY | ~2020-02-12 | XMS | Encounter Summary ---
Demographics + + + | Address | General Delivery | | | [place] [address] | + + + | Home Phone | | + + + | Preferred Language | Unknown | + + + | Marital Status | | + + + | Gnosticist Affiliation | 1041 | + + + | Race | Unknown | + + + | Ethnic Group | or | + + + Author + + + | Author | [facility] | | | and [place] | + + + | Organization | [facility] | | | and [place] | + + + | Address | Unknown | + + + | Phone | Unavailable | + + + Support + + + + + | Name | Relationship | Address | Phone | + + + + + | Brooklynn Brooks | ECON | [place], [place] | | | | | [address] | | + + + + + Care Team Providers + +------+ + | Care Graphics Coordinator Name | Role | Phone | + +------+ + PCP | Unavailable | + +------+ + Encounter Details +--------+ + + + + | Date | Type | Department | Care Team | Description | +--------+ + + + + | 08/19/ | [facility] | [facility] | | | | 1991 | Encounter | [facility] | | | | | | [facility] [address] | | | | | | [address], | | | | | | [place] [address] | | | | | | [phone] | | | +--------+ + + + [...]
--- OUTSIDE RECORDS SUMMARY | ~2020-02-12 | XMS | Encounter Summary ---
Demographics + + + | Address | General Delivery | | | [place] [address] | + + + | Home Phone | | + + + | Preferred Language | Unknown | + + + | Marital Status | | + + + | Jew Affiliation | 1041 | + + + | Race | Unknown | + + + | Ethnic Group | or | + + + Author + + + | Author | [facility] | | | and [place] | + + + | Organization | [facility] | | | and [place] | + + + | Address | Unknown | + + + | Phone | Unavailable | + + + Support + + + + + | Name | Relationship | Address | Phone | + + + + + | Brooklynn Brooks | ECON | [place] | | | | | [address] | | + + + + + Care Team Providers + +------+ + | Care Price Accuracy Supervisor Name | Role | Phone | + +------+ + PCP | Unavailable | + +------+ + Encounter Details +--------+ + + + + | Date | Type | Department | Care Team | Description | +--------+ + + + + | 11/28/ | [facility] | [facility] | | | | 1991 | Encounter | MED CTR EMERGENCY | | | | | | [place] [address] | | | | | | [place] | | | | | | [address] | | | | | | [phone] | | | +--------+ + + + [...]
--- OUTSIDE RECORDS SUMMARY | ~2020-02-12 | XMS | Encounter Summary ---
Demographics + + + | Address | General Delivery | | | [place] [address] | + + + | Home Phone | | + + + | Preferred Language | Unknown | + + + | Marital Status | | + + + | Scientologist Affiliation | 1041 | + + + | Race | Unknown | + + + | Ethnic Group | or | + + + Author + + + | Author | [facility] | | | and [place] | + + + | Organization | [facility] | | | and [place] | + + + | Address | Unknown | + + + | Phone | Unavailable | + + + Support + + + + + | Name | Relationship | Address | Phone | + + + + + | Brooklynn Brooks | ECON | [place] | | | | | [address] | | + + + + + Care Team Providers + +------+ + | Care Jewel Staker Name | Role | Phone | + +------+ + PCP | Unavailable | + +------+ + Reason for Visit + + + | Reason | Comments | + + + | Medication Refill | | + + + Encounter Details +--------+--------+ + + + | Date | Type | Department | Care Team | Description | +--------+--------+ + + + | 01/29/ | Refill | [facility] | Pablo Lauren, | Medication Refill | | 2011 | | [facility] [place] | DO [address] | | | | | [address] | [place] | | | | | [place] | [address] | | | | | [address] | | | | | | [phone] | | | +--------+--------+ + + + Social History + +-------+ [...] this encounter Miscellaneous Notes Telephone Encounter - Saida Lopez RN - 01/31/2012 4:08 PM PDTThis was already called to pharmacy earlier today. documented in this encounter Plan of Treatment Not on filedocumented as of this encounter Visit Diagnoses Not on filedocumented in this encounter"
--- OUTSIDE RECORDS SUMMARY | ~2020-02-12 | XMS | Encounter Summary ---
Demographics + + + | Address | General Delivery | | | [place] [address] | + + + | Home Phone | | + + + | Preferred Language | Unknown | + + + | Marital Status | | + + + | Anabaptist Affiliation | 1041 | + + + | Race | Unknown | + + + | Ethnic Group | or | + + + Author + + + | Author | [facility] | | | and [place] | + + + | Organization | [facility] | | | and [place] | + + + | Address | Unknown | + + + | Phone | Unavailable | + + + Support + + + + + | Name | Relationship | Address | Phone | + + + + + | Brooklynn Brooks | ECON | [place] | | | | | [address] | | + + + + + Care Team Providers + +------+ + | Care Nuclear Power Plant Engineer Name | Role | Phone | + +------+ + PCP | Unavailable | + +------+ + Reason for Visit + +--------+ + | Reason | Onset | Comments | | | Date | | + +--------+ + | Medication Refill | 03/30/ | | | | 2011 | | + +--------+ + Encounter Details +--------+--------+ + + + | Date | Type | Department | Care Team | Description | +--------+--------+ + + + | 03/30/ | Refill | [facility] | Pablo Lauren, | Medication Refill | | 2011 | | [facility] [place] | DO [address] | | | | | [address] | [place] | | | | | [place], [place] | [address] | | | | | [address] | | | | | | [phone] | | | +--------+--------+ + + + [...] Telephone Encounter - Saida Lopez RN - 04/02/2012 5:17 PM PSTCalled to [facility]. elephone Jeffrey brito - Pablo Lauren DO - 04/02/2012 5:15 PM PSTRefilled for 30 days. Please call inEl ectronically signed by Pablo Lauren DO at 04/02/2012 5:16 PM PSTTelephone Encounter - Saida Jacome RN - 03/30/2012 4:59 PM PSTPatient is scheduled to establish care with you on 04/13/12. This was last filled on 03/01/12. Please advise. Thank you. documented in this encounter Plan of Treatment Not on filedocumented as of this encounter Visit Diagnoses Not on filedocumented in this encounter"
--- OUTSIDE RECORDS SUMMARY | ~2020-02-12 | XMS | Encounter Summary ---
Demographics + + + | Address | General Delivery | | | [place] [address] | + + + | Home Phone | | + + + | Preferred Language | Unknown | + + + | Marital Status | | + + + | Sikhism Affiliation | 1041 | + + + | Race | Unknown | + + + | Ethnic Group | or | + + + Author + + + | Author | [facility] | | | and [place] | + + + | Organization | [facility] | | | and [place] | + + + | Address | Unknown | + + + | Phone | Unavailable | + + + Support + + + + + | Name | Relationship | Address | Phone | + + + + + | Brooklynn Brooks | ECON | [place] | | | | | [address] | | + + + + + Care Team Providers + +------+ + | Care Spring Fitter Name | Role | Phone | + [...] Refill | | 2011 | | [facility] [place] | DO [address] | | | | | [address] | [place] | | | | | [place] | [address] | | | | | [address] | | | | | | [phone] | | | +--------+--------+ + + + [...] Encounter - Saida Lopez RN - 01/31/2012 11:38 AM PDTCalled prescription to [facility]. ele phone Encounter - Pablo Lauren DO - 01/30/2012 5:19 PM PDTRefill x 1 done. Call in to pharmacy elephone Encounter - Saida Lopez RN - 01/30/2012 4:02 PM PDTPatient has appointment scheduled 02/24/12. Th is was last filled 12/30/11. OK to fill?Electronically signed by Saida Lopez RN at 2011 4:05 PM PDTdocumented in this encounter Plan of Treatment Not on filedocumented as of this encounter Visit Diagnoses Not on filedocumented in this encounter"
--- OUTSIDE RECORDS SUMMARY | ~2020-02-12 | XMS | Encounter Summary ---
Demographics + + + | Address | General Delivery | | | [place] [address] | + + + | Home Phone | | + + + | Preferred Language | Unknown | + + + | Marital Status | | + + + | Faith Affiliation | 1041 | + + + | Race | Unknown | + + + | Ethnic Group | or | + + + Author + + + | Author | [facility] | | | and [place] | + + + | Organization | [facility] | | | and [place] | + + + | Address | Unknown | + + + | Phone | Unavailable | + + + Support + + + + + | Name | Relationship | Address | Phone | + + + + + | Brooklynn Brooks | ECON | [place] | | | | | [address] | | + + + + + Care Team Providers + +------+ + | Care Pigment Supplier Name | Role | Phone | + +------+ + PCP | Unavailable | + +------+ + Encounter Details +--------+ + + + + | Date | Type | Department | Care Team | Description | +--------+ + + + + | 01/03/ | [facility] | [facility] | | | | 2000 | Encounter | MED CTR EMERGENCY | | | | | | [place] [address] | | | | | | [place] | | | | | | [address] | | | | | | [phone] | | | +--------+ + + + [...]
--- OUTSIDE RECORDS SUMMARY | ~2020-02-12 | XMS | Encounter Summary ---
Demographics + + + | Address | General Delivery | | | [place] [address] | + + + | Home Phone | | + + + | Preferred Language | Unknown | + + + | Marital Status | | + + + | Christianity Affiliation | 1041 | + + + | Race | Unknown | + + + | Ethnic Group | or | + + + Author + + + | Author | [facility] | | | and [place] | + + + | Organization | [facility] | | | and [place] | + + + | Address | Unknown | + + + | Phone | Unavailable | + + + Support + + + + + | Name | Relationship | Address | Phone | + + + + + | Brooklynn Brooks | ECON | [place] | | | | | [address] | | + + + + + Care Team Providers + +------+ + | Care Licensed Sales Producer Name | Role | Phone | + +------+ + PCP | Unavailable | + +------+ + Reason for Visit + +--------+ + | Reason | Onset | Comments | | | Date | | + +--------+ + | Medication Refill | 02/28/ | | | | 2011 | | + +--------+ + Encounter Details +--------+--------+ + + + | Date | Type | Department | Care Team | Description | +--------+--------+ + + + | 02/28/ | Refill | [facility] | Pablo Lauren, | Medication Refill | | 2011 | | [facility] [place] | DO [address] | | | | | [address] | [place] | | | | | [place], [place] | [address] | | | | | [address] | | | | | | [phone] | | | +--------+--------+ + + + [...] Telephone Encounter - Saida Lopez RN - 02/29/2012 4:19 PM PSTPatient notified. She i s willing to work with you regarding other pain management. elephone Encounter - Saida Lopez RN - 2 4:07 PM PSTCalled prescription to [facility] in [place]. Left message for patient to call b ack. elephone Encoun ter - Pablo Lauren DO - 02/29/2012 3:30 PM PSTOk to refill 90. Please inform her that I don't generally do half-way chronic pain management with opiates and if she wants to continue her current meds she may want to choose a PCP who does this. E lectronically signed by Pablo Lauren DO at 02/29/2012 3:34 PM PSTTelephone Encounter - Saida Bruno RN - 02/29/2012 11:56 AM PSTPatient has appointment to establish care with you on 03/28/12. Her appointment on 02/24/12 had to be rescheduled. Last filled 01/31/12. Will you authorize refill? documented in this encounter Plan of Treatment Not on filedocumented as of this encounter Visit Diagnoses Not on filedocumented in this encounter"
--- OUTSIDE RECORDS SUMMARY | ~2020-02-12 | XMS | Encounter Summary ---
Demographics + + + | Address | General Delivery | | | [place] [address] | + + + | Home Phone | | + + + | Preferred Language | Unknown | + + + | Marital Status | | + + + | Adventism Affiliation | 1041 | + + + | Race | Unknown | + + + | Ethnic Group | or | + + + Author + + + | Author | [facility] | | | and [place] | + + + | Organization | [facility] | | | and [place] | + + + | Address | Unknown | + + + | Phone | Unavailable | + + + Support + + + + + | Name | Relationship | Address | Phone | + + + + + | Brooklynn Brooks | ECON | [place] | | | | | [address] | | + + + + + Care Team Providers + +------+ + | Care Cash Applications Specialist Name | Role | Phone | + +------+ + | Abby Charlton PA-C | PCP | | + +------+ + Reason for Visit + + + | Reason | Comments | + + + | Dizziness | | + + + Encounter Details +--------+ + + + + | Date | Type | Department | Care Team | Description | +--------+ + + + + | 08/24/ | Emergency | [facility] | Brandyn Atwood | Dizziness (Primary | | 2018 - | | [facility] | Fernando Medina MD | Dx); Nausea | | | | CENTER [address] | [address] | | | 08/25/ | | [place] | [place] | | | 2018 | | [address] | [address] | | | | | [phone] | | | +--------+ + + + [...] + + + + | Weight | - | - | | + + + + + | Height | 152.4 cm (5') | 08/24/2017 11:55 PM | | | | | PDT | | + + + + + | Body Mass Index | - | - | | + + + + + documented in this encounter Discharge Instructions Instructions Brandyn Atwood MD - 08/25/2017Return for severe worsening dizzin ess, weakness. Follow-up in medical clinic. Please do not use drugs or alcohol. documented in this encounter Medications at Time of Discharge [...] tablet by | 90 | 0 | 03/30/ | | | hydrocodone-acetamin | mouth three [...] as of this encounter ED Notes Brandyn Atwood MD - 08/25/2017 12:31 AM PDTFormatting of this note might be d ifferent from the original. [facility] Camila Gaona Emergency Department Encounter Note [address] [place] [id number] PCP:Abby Charlton PA-C [phone] eMERGENCY dEPARTMENT eNCOUnter CHIEF COMPLAINT Chief Complaint Patient presents with Dizziness TRIAGE ED Triage Notes, ED Triage Notes Solomon Munguia RN 08/24/2017 23:58 Pt presents to the er co dizziness, and poss dehydration today. Pt sts she is homeless and has not had much to drink today. HPI Camila Gaona is a 57 y.o. female who presents with significant dizziness. She stat es that she feels dizzy and felt like she might have something going on. Patient did state that she took 4 Benadryl tablets previous to arrival. Patient also states she's been drinki ng a small amount of alcohol today and smoked some marijuana earlier today. She is here for further evaluation. Patient has a long history of drug abuse. She is here because she fee ls dizzy. Patient states she's had one episode of nausea and vomiting within the last few hours. PAST MEDICAL HISTORY Past Medical History: Diagnosis Date ALLERGIC RHINITIS, CHRONIC 04/15/2011 Anxiety Anxiety disorder 08/13/2010 ARTHRITIS, HANDS, BILATERAL 12/31/2010 Back pain Bipolar disorder (HCC) 08/17/2012 Depression 08/17/2012 HEADACHE, CHRONIC 04/15/2011 HIP PAIN, CHRONIC 09/10/2010 HIP REPLACEMENT, HX OF 08/13/2010 Hypertension 08/13/2010 Migraine Neuropathy Peripheral edema 11/12/2010 Radiculopathy LLE Syncope 08/17/2012 THORACIC/LUMBOSACRAL NEURITIS/RADICULITIS UNSPEC 08/13/2010 SURGICAL HISTORY Past Surgical History: Procedure Laterality Date 1sAb no history of abnormal paps or STD, has regular menses, Mammogram-never JOINT REPLACEMENT 2010 Bilateral, Dr Solorzano TUBAL LIGATION CURRENT MEDICATIONS Previous Medications ALPRAZOLAM (XANAX) 1 MG TABLET Take 1 mg by mouth 3 times daily as needed. BUPROPION (WELLBUTRIN SR) 150 MG 12 HR TABLET Take 150 mg by mouth Daily. CARISOPRODOL (SOMA) 350 MG TABLET Take 350 mg by mouth nightly. ERGOCALCIFEROL (VITAMIN D-2) 50,000 UNITS CAPSULE Take 50,000 Units by mouth Once a wee k. FLUTICASONE (FLONASE) 50 MCG/NASAL SPRAY 2 sprays/nostril/day HYDROCODONE-ACETAMINOPHEN (LORTAB 10) 10-500 MG PER TABLET Take one tablet by mouth thr ee times daily. Must last 30 days IBUPROFEN (ADVIL,MOTRIN) 600 MG TABLET Take 600 mg by mouth every 6 hours as needed. LORATADINE (CLARITIN) 10 MG TABLET Take 10 mg by mouth Daily. METOPROLOL TARTRATE (LOPRESSOR) 50 MG TABLET Take 50 mg by mouth 2 times daily. SERTRALINE (ZOLOFT) 100 MG TABLET Take 100 mg by mouth 2 times daily. ZONISAMIDE (ZONEGRAN) 100 MG CAPSULE Take 100 mg by mouth 2 times daily. For Migranes ALLERGIES Allergies Allergen Reactions Buspirone Hcl Other (See Comments) Involuntary twitching Ketorolac Tromethamine FAMILY HISTORY Family History Problem Relation Age of Onset Hypertension Mother Diabetes Mother Stroke Mother Hypertension Father SOCIAL HISTORY Social History Social History Marital status: Spouse name: Bernardo Number of children: 3 Years of education: N/A Occupational History Unemployed Caregiver Social History Main Topics Smoking status: Former Smoker Packs/day: 0.50 Years: 31.00 Types: Cigarettes Quit date: 10/22/2009 Smokeless tobacco: Never Used Alcohol use No Drug use: No Sexual activity: Not on file Other Topics Concern Not on file Social History Narrative Exercise: walk Caffeine: 2 sodas, 2 cups coffee daily Living situation: living alone REVIEW OF SYSTEMS Please see HPI, All systems negative except as marked. Twelve point review of system comp leted my me. PHYSICAL EXAM VITAL SIGNS: Temp: 36.4 C (97.5 F) Pulse: 104 Resp: 18 SpO2: 100 % BP: 132/74 Constitutional: Well developed, Well nourished, Non-toxic appearance. Patient is hemodyna mically stable. HENT: Normocephalic, Atraumatic, Bilateral external ears normal, Oropharynx moist, No oral exudates, Nose normal. Neck- Normal range of motion, No tenderness, Supple, No stridor. Eyes: PERRL, EOMI, Conjunctiva normal, No discharge. Respiratory: Normal breath sounds, No respiratory distress, No wheezing, No chest tenderne ss. Cardiovascular: Normal heart rate, Normal rhythm, No murmurs, No rubs, No gallops. GI: Bowel sounds normal, Soft, No tenderness, No masses, No pulsatile masses. : defered Musculoskeletal: Intact distal pulses, No edema, No tenderness, No cyanosis, No clubbing. Good range of motion in all major joints. No tenderness to palpation or major deformities no kd. Back:- No tenderness. Skin: Warm, Dry, No erythema, No rash. Lymphatic: No lymphadenopathy noted. LAB Labs Reviewed POC GLUCOSE - Normal ED COURSE & MEDICAL DECISION MAKING Pertinent Labs & Imaging studies reviewed. (See chart for details) Nursing notes reviewed. Patient with ongoing signs of nausea no active vomiting currently. She received a GI cockt ail as well as some Zofran. She feels much better. Patient also had a recheck of her blood pressure it is stable with standing and walking. At this point patient is given further re assurance. She appears to be abusing drugs at this time she is encouraged not to abuse recr eational drugs. She is to follow-up with her primary care physician. Discharge Instructions Return for severe worsening dizziness, weakness. Follow-up in medical clinic. Please do not use drugs or alcohol. FINAL IMPRESSION 1. Dizziness Acute 2. Nausea Portions of this chart may have been created with [employer] voice recognition software. Occasi onal wrong-word or sound-alike substitutions may have occurred due to the inherent scott itations of voice recognition software. Please read the chart carefully and recognize, using context, where these substitutions have occurred Brandyn Atwood MD 08/25/17 0035 Solomon Villegas RN - 08/24/2017 11:55 PM PDTPt presents to the er co dizziness, and poss dehydratio n today. Pt sts she is homeless and has not had much to drink today. documented in this encounter Plan of Treatment Not on filedocumented as of this encounter Procedures + +--------+ + + + | Procedure Name | Priori | Date/Time | Associated Diagnosis | Comments | | | ty | | | | + +--------+ + + + | POC GLUCOSE | Routin | 08/24/2017 | | Results for this | | | e | 11:59 PM | | procedure are in the | | | | PDT | | results section. | + +--------+ + + + documented in this encounter Results POC Glucose (08/24/2017 11:59 PM PDT) + +-------+ + + + | Component | Value | Ref Range | Performed | Pathologist | | | | | At | Signature | + +-------+ + + + | Glucose, | 92 | 70 - 109 mg/dL | [facility] | | | [facility] | | | | | [facility] | | | | | | CENTER - | | | | | | LABORATORY | | + +-------+ + + + + + | Specimen | + + | Blood | + + + + + + + | Performing | Address | City/State/Zipcode | Phone Number | | Organization | | | | + + + + + | [facility] | [address] | [place] | [phone] | | [facility] | | [address] | | | - LABORATORY | | | | + + + + + documented in this encounter Visit Diagnoses + + | Diagnosis | + + | Dizziness - Primary Dizziness and giddiness | + + | Nausea Nausea alone | + + documented in this encounter Administered Medications + +--------+ +--------+------+------+ | Medication Order | MAR | Action | Dose | Rate | Site | | | Action | Date | | | | + +--------+ +--------+------+------+ | aluminum & magnesium | Given | 08/26/19 | 30 mLs | | | | hydroxide-simethicone (MAALOX | | 18 12:07 | | | | | PLUS REGULAR STRENGTH) 200-200-20 | | AM PDT | | | | | mg/5 mL suspension 30 mL 30 mL, | | | | | | | Oral, ONCE, 08/25/17 at 0005, | | | | | | | For 1 dose, Mix lidocaine and | | | | | | | Maalox. Maciej soria., | | | | | | + +--------+ +--------+------+------+ +---+---+ | | | +---+---+ + +-------+ +--------+---+---+ | lidocaine (XYLOCAINE) 2% | Given | 08/26/19 | 10 mLs | | | | viscous solution 10 mL 10 mL, | | 18 12:07 | | | | | Oral, ONCE, Mon08/25/17 at 0005, | | AM PDT | | | | | For 1 dose, Mix lidocaine and | | | | | | | MAALOX. Maciej soria., | | | | | | + +-------+ +--------+---+---+ +---+---+ | | | +---+---+ + +-------+ +------+---+---+ | ondansetron (ZOFRAN RADHA) | Given | 08/26/19 | 8 mg | | | | disintegrating tablet 8 mg 8 mg, | | 18 12:07 | | | | | Oral, ONCE, Mon08/25/17 at 0005, | | AM PDT | | | | | For 1 dose | | | | | | + +-------+ +------+---+---+ +---+---+ | | | +---+---+ documented in this encounter"
--- OUTSIDE RECORDS SUMMARY | ~2020-02-12 | XMS | Encounter Summary ---
Demographics + + + | Address | General Delivery | | | [place] [address] | + + + | Home Phone | | + + + | Preferred Language | Unknown | + + + | Marital Status | | + + + | Jainism Affiliation | 1041 | + + + | Race | Unknown | + + + | Ethnic Group | or | + + + Author + + + | Author | [facility] | | | and [place] | + + + | Organization | [facility] | | | and [place] | + + + | Address | Unknown | + + + | Phone | Unavailable | + + + Support + + + + + | Name | Relationship | Address | Phone | + + + + + | Brooklynn Brooks | ECON | [place] | | | | | [address] | | + + + + + Care Team Providers + +------+ + | Care Muffler Mechanic Name | Role | Phone | + +------+ + | Abby Charlton PA-C | PCP | | + +------+ + Encounter Details +--------+ + + + + | Date | Type | Department | Care Team | Description | +--------+ + + + + | 11/15/ | Abstract | [facility] | Mehrdad Miguel | | | 2012 | | [address] | MD Michael [address] | | | | | [place], | [address] [place] | | | | | [place] [address] | [place] [address] | | | | | [phone] | [phone] | | | | | | | [...] | + +--------+ + + + | CBC REFLEX, | Routin | 07/15/2012 | | Results for this | | DIFFERENTIAL | e | | | procedure are in the | | | | | | results section. | + +--------+ + + + | COMPREHENSIVE | Routin | 07/15/2012 | | Results for this | | METABOLIC PANEL | e | | | procedure are in the | | | | | | results section. | + +--------+ + + + documented in this encounter Results Comprehensive Metabolic Panel (07/15/2012) + +--------+ + + + | Component | Value | Ref Range | Performed | Pathologist | | | | | At | Signature | + +--------+ + + + | Na | 139 | mmol/L | [facility] | | | | | | [facility] | | | | | | [facility] | | | | | | CENTER - | | | | | | LABORATORY | | + +--------+ + + + | K | 3.2 | mmol/L | [facility] | | | [facility] | [facility] | | | | | | [facility] | | | | | | CENTER - | | | | | | LABORATORY | | + +--------+ + + + | Chloride | 107 | | [facility] | | | | | [facility] | | | | | | MEDICAL | | | | | | CENTER - | | | | | | LABORATORY | | + +--------+ + + + | CO2 | 19 | mmol/L | [facility] | | | | | [facility] | | | | | | MEDICAL | | | | | | CENTER - | | | | | | LABORATORY | | + +--------+ + + + | Anion Gap | 16 | mmol/L | [facility] | | | | | [facility] | | | | | | [facility] | | | | | | C[facility] - | | | | | | LABORATORY | | + +--------+ + + + | Glucose | 110 | mg/dL | [facility] | | | | | [facility] | | | | | | [facility] | | | | | | C[facility] - | | | | | | LABORATORY | | + +--------+ + + + | BUN | 14 | mg/dL | [facility] | | | | | | [facility] | | | | | | MEDICAL | | | | | | CENTER - | | | | | | LABORATORY | | + +--------+ + + + | Creatine, | 0.86 | | [facility] | | | Serum | | | [facility] | | | | | | MEDICAL | | | | | | CENTER - | | | | | | LABORATORY | | + +--------+ + + + | GFR | >60 | | [facility] | | | ESTIMATE | | | [facility] | | | (REF) | | | MEDICAL | | | | | | CENTER - | | | | | | LABORATORY | | + +--------+ + + + | Bun/Creatin | 16.3 | | [facility] | | | ine | | | [facility] | | | | | | MEDICAL | | | | | | CENTER - | | | | | | LABORATORY | | + +--------+ + + + | Calcium | 9.5 | mg/dL | [facility] | | | | | | [facility] | | | | | | [facility] | | | | | | CENTER - | | | | | | LABORATORY | | + +--------+ + + + | AST | 65 (A) | 10 - 45 U/L | [facility] | | | | | | [facility] | | | | | | MEDICAL | | | | | | CENTER - | | | | | | LABORATORY | | + +--------+ + + + | ALT | 86 | U/L | [facility] | | | | | | [facility] | | | | | | MEDICAL | | | | | | CENTER - | | | | | | LABORATORY | | + +--------+ + + + | Alkaline | 79 | 35 - 115 U/L | [facility] | | | Phosphatase | | | [facility] | | | | | | MEDICAL | | | | | | CENTER - | | | | | | LABORATORY | | + +--------+ + + + | Bilirubin | 0.5 | 0.1 - 1.5 mg/dL | [facility] | | | Total | | | [facility] | | | | | | MEDICAL | | | | | | CENTER - | | | | | | LABORATORY | | + +--------+ + + + | Total | 7.5 | 6.1 - 8.4 g/dL | [facility] | | | Protein | | | [facility] | | | | | | MEDICAL | | | | | | CENTER - | | | | | | LABORATORY | | + +--------+ + + + | Albumin | 4.7 | 3.5 - 5.0 g/dL | [facility] | | | | | | [facility] | | | | | | [facility]ICAL | | | | | | CENTER - | | | | | | LABORATORY | | + +--------+ + + + | Globulin | 2.8 | | [facility] | | | | | | [facility] | | | | | | MEDICAL | | | | | | CENTER - | | | | | | LABORATORY | | + +--------+ + + + | Albumin/Genna | 1.7 | | [facility] | | | bulin Ratio | | | [facility] | | | | | | MED[facility] | | | | | | CENTER - | | | | | | LABORATORY | | + +--------+ + + + + + | Specimen | + + | Blood specimen | | (specimen) | + + + + + + + | Performing | Address | City/State/Zipcode | Phone Number | | Organization | | | | + + + + + | [facility] | [address] | [place] | | | [facility] | | [address], [facility] | | | - LABORATORY | | | | + + + + + CBC Reflex, Differntial (07/15/2012) + +-------+ + + + | Component | Value | Ref Range | Performed | Pathologist | | | | | At | Signature | + +-------+ + + + | WBC | 7.5 | 10*3/uL | | | + +-------+ + + + | RBC | 4.38 | 10*6/uL | | | + +-------+ + + + | Hemoglobin | 14.1 | 11.6 - 15.5 | | | | | | gm/dL | | | + +-------+ + + + | Hct | 41.2 | 35.0 - 46.0 % | | | + +-------+ + + + | MCV | 94.1 | 80.0 - 98.0 fL | | | + +-------+ + + + | RDW-CV | 12.3 | 11.0 - 15.0 % | | | + +-------+ + + + | MCH | 32.0 | 26.0 - 33.0 pg | | | + +-------+ + + + | MCHC | 34.0 | 30.0 - 36.0 % | | | + +-------+ + + + | Platelet | 189 | 150 - 400 | | | | Count | | 10*3/uL | | | + +-------+ + + + | % Segmented | 69.1 | 40.0 - 80.0 % | | | | | | | | | | Neutrophils | | | | | + +-------+ + + + | % | 21.2 | 15.0 - 45.0 % | | | | Lymphocytes | | | | | + +-------+ + + + | % Monocytes | 7.2 | 0.0 - 12.0 % | | | + +-------+ + + + | % | 1.9 | 0.0 - 7.0 % | | | | Eosinophils | | | | | + +-------+ + + + | % Basophils | 0.6 | 1.0 % | | | + +-------+ + + + + + | Specimen | + + | Blood specimen | | (specimen) | + + documented in this encounter Visit Diagnoses Not on filedocumented in this encounter"
--- OUTSIDE RECORDS SUMMARY | ~2020-02-12 | XMS | Encounter Summary ---
Demographics + + + | Address | General Delivery | | | [place] [address] | + + + | Home Phone | | + + + | Preferred Language | Unknown | + + + | Marital Status | | + + + | Orthodox Affiliation | 1041 | + + + | Race | Unknown | + + + | Ethnic Group | or | + + + Author + + + | Author | [facility] | | | and [place] | + + + | Organization | [facility] | | | and [place] | + + + | Address | Unknown | + + + | Phone | Unavailable | + + + Support + + + + + | Name | Relationship | Address | Phone | + + + + + | Brooklynn Brooks | ECON | [place] | | | | | [address] | | + + + + + Care Team Providers + +------+ + | Care Cement Kiln Operator Name | Role | Phone | + +------+ + PCP | Unavailable | + +------+ + Encounter Details +--------+ + + + + | Date | Type | Department | Care Team | Description | +--------+ + + + + | 08/21/ | Hospital | [facility] | | | | 1991 - | Encounter | [facility] | | | | | | [facility] [address] | | | | 08/23/ | | [place], | | | | 1990 | | [place] [address] | | | | | | [phone] | | | +--------+ + + + [...]
--- OUTSIDE RECORDS SUMMARY | ~2020-02-12 | XMS | Encounter Summary ---
Demographics + + + | Address | General Delivery | | | [place] [address] | + + + | Home Phone | | + + + | Preferred Language | Unknown | + + + | Marital Status | | + + + | Worship Affiliation | 1041 | + + + | Race | Unknown | + + + | Ethnic Group | or | + + + Author + + + | Author | [facility] | | | and [place] | + + + | Organization | [facility] | | | and [place] | + + + | Address | Unknown | + + + | Phone | Unavailable | + + + Support + + + + + | Name | Relationship | Address | Phone | + + + + + | Brooklynn Brooks | ECON | [place] | | | | | [address] | | + + + + + Care Team Providers + +------+ + | Care Sales Representative Cash Registers Name | Role | Phone | + +------+ + PCP | Unavailable | + +------+ + Encounter Details +--------+ + + + + | Date | Type | Department | Care Team | Description | +--------+ + + + + | 01/16/ | Hospital | [facility] | Fernando Galloway | | | 2008 | Encounter | [facility] | MD [address] | | | | | CENTER [address] | [place] | | | | | [place] | [place] [address] | | | | | [phone] | [phone] | | | | | [phone] | | | +--------+ + + + [...]
--- OUTSIDE RECORDS SUMMARY | ~2020-02-12 | XMS | Encounter Summary ---
Demographics + + + | Address | General Delivery | | | [place] [address] | + + + | Home Phone | | + + + | Preferred Language | Unknown | + + + | Marital Status | | + + + | Scientologist Affiliation | [id number] | + + + | Race | Unknown | + + + | Ethnic Group | or | + + + Author + + + | Author | [facility] | | | and [place] | + + + | Organization | [facility] | | | and [place] | + + + | Address | Unknown | + + + | Phone | Unavailable | + + + Support + + + + + | Name | Relationship | Address | Phone | + + + + + | Brooklynn Brooks | ECON | [place] | | | | | [phone] | | + + + + + Care Team Providers + +------+ + | Care Supervisor Fabrication Department Name | Role | Phone | + +------+ + | Abby Charlton PA-C | PCP | | + +------+ + Encounter Details +--------+ + + + + | Date | Type | Department | Care Team | Description | +--------+ + + + + | 07/25/ | Hospital | [facility] | Tanvir Ortiz MD | Acute pyelonephritis | | 2015 - | Encounter | [facility] [address] | [address] | without lesion of | | | | [address] | [place] [address] | renal medullary | | 08/02/ | | [place], [place] | [phone] | necrosis | | 2014 | | [address] | | | | | | [phone] | | | +--------+ + + + [...] + + documented as of this encounter Discharge Summaries Emma Rivas MD - 08/02/2014 9:10 AM PDT Discharge Summaries by Emma Rivas MD at 08/02/14909 Author: Emma Rivas MD Service: Hospitalist Author Type: Physician Filed: 08/02/14 1552 Date of Service: 08/02/14909 Status: Signed [employer]: Emma Rivas MD (Physician) Related Notes: Original Note by Emma Rivas MD (Physician) filed at 08/02/14 7299 HOSPITALIST DISCHARGE SUMMARY Patient ID: Camila Hill [id number] 54 y.o. 1960 Admit date: 07/25/2014 Discharge date and time: 08/02/14 Admitting Physician: Tanvir Ortiz MD Discharge Physician: EMMA RIVAS MD Primary Discharge Diagnoses: Septic shock(785.52) Other: Acute pyelonephritis Left Side without Hydronephrosis or an obstructing stone HTN (hypertension) History of total hip replacement Bilateral DEEPAK (acute kidney injury) Thrombocytopenia, unspecified Hyposmolality and/or hyponatremia Hypokalemia Hypomagnesemia Discharged Condition: Stable for D/c as STATED BELOW. HPI and Hospital Course: A 54-year-old female with past medical history of hypertension, pr ior total hip replacements bilateral presented with left flank pain as well as chest pain wh en she breathed. The patient was found to have a temperature of 101.9 degrees in the emergen cy room, in [place]. She had significant leukocytosis with a white count of 22,000 and cre atinine of 2.6, up from her usual of 1. CT scan of the abdomen and pelvis was done which jeffrey wed a pyelonephritis. The patient was transferred to [facility] for furt her care. The patient was admitted to the intensive care unit because of septic shock. The p atient had already received 5 L of IV fluids in [place]. The patient was also started on v asopressors. Urinalysis was positive for urinary tract infection. The patient eventually was started on broad spectrum antibiotics, and when stable transferred to acute care floor. The patient was found to have pansensitive Escherichia coli from the urine cultures at [facility]. Blood cultures at [facility] were no growth. The patient's antibiotics were switched to ciprofloxacin. The patient continued to have left flank pain a nd also left pleuritic pain when she took a deep breath. Since the patient had continued christiane n despite being treated with ciprofloxacin, the patient had a repeat CT scan of the chest, a bdomen, and pelvis done with contrast. That again showed acute diffuse left pyelonephritis b ut otherwise no acute findings. The patient has been afebrile for more than a day now. She s till continues having the left-sided pain which should get better in the next week or so. Devonte tarango will be prescribed oral pain medications for her left flank pain. The patient also complai lisset of some right abdominal pain and some chest tenderness however a CT scan did not show an y acute abnormalities in other places. Chest pain is musculoskeletal and is non cardiac. The patient was planned for discharge to rehab as was requested by the patient's family members . The patient however does not want to go to rehab and after several discussions with jim de la paz, the patient has finally decided that she is not going to go to rehab, and she is going to go home. She understands the risks. The patient was also informed by the case manag elisa that if she does not go to a halfway facility first, she may not get an appoin tment with the [facility] in [place]. The patient also was unable to have home health bec ause of this. The patient states that she recently got her apartment and she really wants to go home. She has a daughter who lives beneath her apartment. The patient has been cleared f or discharge by infectious disease. The plan is for 3 weeks of treatment. Antibiotic prescri ption has been given. The patient will need to follow up with the infectious disease physici an. Several staff members and I repeatedly tried to convince the patient to go to rehab but she has her mind set. I have reiterated for her to follow with the primary physician as well as the infectious disease physician. Discharge Vitals: Filed Vitals: 08/02/14 0100 08/02/14 0335 08/02/14 0753 08/02/14 1142 BP: 124/84 138/78 155/75 136/73 Pulse: 73 86 96 91 Temp: 97.8 F (36.6 C) 97.8 F (36.6 C) 98.2 F (36.8 C) 98.1 F (36.7 C) TempSrc: Oral Oral Oral Oral Resp: 16 16 17 18 Height: Weight: SpO2: 98% 100% 100% 100% Discharge Exam: General: Comfortable HEENT: No thrush. Neck: No JVD, Trachea midline. Psych: Alert and oriented x 3. Calm, cooperative. Cardiovascular: Regular rate and rhythm, no murmurs, no palpable thrills. Normal PMI. Respiratory: Left CVA tenderness present. no wheezing or crackles, breathing non labored. C hest expansion equal on both sides. No use of accessory muscles. Gastrointestinal: Soft, non-tender, non-distended, positive bowel sounds. No HSM. Musculoskeletal: No edema in bilateral lower extremities. No joint swelling. Skin: Warm and dry. Neurological: Higher functions grossly normal. Non focal. Motor and sensory grossly intact. Normal co-ordination. LABS: Recent Labs Lab 08/02/14 0602 08/01/14 0535 07/31/14 0555 WBC 7.16 7.70 9.30 HGB 11.3 11.7 11.9 HCT 34.5 34.3 35.1 PLT 253 218 213 NEUTOPHILPCT 60.82 66.56 65.37 MONOPCT 8.06 8.11 10.05 Results Procedure Component Value Units Date/Time Blood Culture Set 1 [[id number]] Collected: 07/26/14 0126 Specimen Information: Blood / Blood Updated: 08/01/14629 Specimen Description BLOOD SPECIAL REQUESTS RIGHT AC LINE SPECIAL REQUESTS Result: Testing performed at [facility];[address] [place] [address];[place] [address] CULTURE NO GROWTH CULTURE Result: Testing performed at [facility], [facility] [place] [address] Blood Culture Set 2 [[id number]] Collected: 07/26/14 0130 Specimen Information: Blood / Blood Updated: 08/01/14629 Specimen Description BLOOD SPECIAL REQUESTS LEFT EJ CULTURE NO GROWTH CULTURE Result: Testing performed at [facility], [address] [place] [id number] Xr Chest 2 View 07/28/2014 HISTORY: Suspected pneumonia. Followup. COMPARISON: 07/26/14. TECHNIQUE: PA and lateral films of the chest. FINDINGS: Lung volumes are lower. There is accentuation of the medial bibasilar lung markings, probably due to atelectasis. I doubt subtle infiltrate. Lung s otherwise clear. Left subclavian central venous catheter tip mid SVC. Heart size is normal . 07/28/2014 1. Low lung volumes. Probable mild bibasilar atelectasis. No definite infiltrat es. See above. Ct Chest Abdomen Pelvis With Iv Contrast 07/31/[address] CHEST ABDOMEN PELVIS W CONTRAST 07/31/2014 12:33 PM History: 5 3 years. Female. Urinary tract infection with left pyelonephritis. Persistent left abdomin al pain and persistent fever. Technique: After oral administration of contrast and during a bolus intravenous administration of 100 cc of nonionic iodine contrast, thin slice imaging was performed throughout the chest and abdomen and pelvis, and displayed at 5 thick slices d uring the portal venous phase of contrast enhancement. Comparison examinations: 07/25/14, outside noncontrast CT the abdomen CHEST: Mild linear atelectasis is visualized in both lo wer lung gipson. No lung consolidation or pneumonia visualized. The pleural spaces are clear . No pulmonary nodule identified. The cardiac size and contour are normal. No pericardial effusion or coronary calcifications visualized. The caliber of the thoracic aorta is normal, without calcification or intimal dissection. There is no evidence of mediastinal or hilar a denopathy. The axillary regions are likewise negative for adenopathy. The scalene lymph node chains and supraclavicular regions are partially visualized and appear clear. Glandular tis erendira in each breast is moderately dense, without mass. The thyroid gland is normal in size an d density, without nodule. ABDOMEN: The left kidney demonstrates increased width and poor cortical medullary contrast definition on arterial contrast imaging, indicating edema, exten ding throughout the kidney, consistent with acute pyelonephritis. 2 small low-attenuation fl uid collections are noted in the upper posterior cortex and medullary space, with mild enhan cing borders, suggesting small cysts with inflammatory response. Devora necrosis of the kidne y is unlikely. Mild adipose edema is noted in the pararenal adipose tissue, without subcapsu lar or perirenal abscess. The iliopsoas musculature is normal. No left or right caliectasis or ureterectasis. No visible calcification in the right or left kidneys. The right kidney ap pears normal. Mild low-attenuation is noted throughout the entire liver indicating mild hep atic steatosis. No liver mass or bile duct dilatation visualized. The gallbladder is normal. The thickness, density and enhancement of the pancreas are normal. The portal venous syste m shows normal enhancement. No celiac, peripancreatic, or retrocrural adenopathy visualized . The splenic volume and texture are normal. The gastroesophageal junction is normal. The s tomach shows normal wall thickness and position. The duodenum is unremarkable. The adrenal glands are normal in thickness, without visible nodule. The abdominal aorta shows some wall calcification indicating early atherosclerosis. No aortic dilatation visualized. No periao rtic lymphadenopathy noted. PELVIS: Bilateral hip arthroplasty obscured is soft tissue det ail in the deep pelvis. The visible rectum and sigmoid colon are normal. The remainder the c olon appears normal. The loops of small bowel show normal caliber throughout the abdomen and pelvis, without edema or wall thickening. The mesenteric adipose tissue is dark, without in filtrate or edema. No free fluid, free air or peritoneal nodules visualized. Nodular enlar gement of the left side of the uterus suggesting fibroid measuring 32 mm. There may be other fibroids in the uterus as well. No ovarian mass or cyst identified. The iliac and inguinal lymph node chains are normal. The bone windows fail to show any neoplastic bone changes in t he range of scan. 07/31/2014 1. Acute, diffuse left pyelonephritis. 2. No obvious intrarenal or perirenal abscess visualized. 3. Small fluid collections in the upper pole of the left kidney with en hancing rims, probably representing pre-existing cyst with inflammation. No devora necrosis v isualized. 4. No complicating stone or hydronephrosis visualized. 5. Mild hepatic steatosi s. 6. Mild atelectasis in both lower lung gipson. 7. Probable multiple uterine fibroids. Disposition: Home or Self Care Patient Instructions: Medication List START taking these medications ciprofloxacin 500 MG tablet QTY: 28 tablet Refills: 0 Commonly known as: CIPRO Take 1 tablet by mouth Two times daily-Quinalones. oxyCODONE-acetaminophen 10-325 MG per tablet QTY: 50 tablet Refills: 0 Commonly known as: PERCOCET Take 1-2 tablets by mouth every 4 (four) hours as needed for Pain. 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 You may get the following medications from any pharmacy - ciprofloxacin 500 MG tablet - oxyCODONE-acetaminophen 10-325 MG per tablet Activity: activity as tolerated Diet: general Follow up: Ilya Wolfe MD [facility] [address] [place] [address] Schedule an appointment as soon as possible for a visit in 2 days Toro Stark DO [address] [place] [address] Schedule an appointment as soon as possible for a visit in 2 weeks Discharge took approximately 40 minutes, to include final examination,discussion of admissi on, and preparation of prescriptions, instructions for ongoing care, follow up and dictation of summary. Signed: Emma Rivas FACP 08/02/2014 2:21 PM docushahla prado in this encounter Medications at Time of [...] | 2 sprays/nostril/day | | 0 | // | | | (FLONASE) 50 | | [...] + + documented as of this encounter Progress Notes Conversion Transaction, Provider Unknown - 08/02/2014 3:40 PM PDTFormatting of this note m ight be different from the original. Nurse Progress Note by Aquiles Bennett RN at 08/02/141539 Author: Aquiles Bennett RN Service: (none) Author Type: Registered Nurse Filed: 08/02/141540 Date of Service: 08/02/141539 Status: Signed [employer]: Aquiles Bennett RN (Registered Nurse) Discharge instructions reviewed with patient and prescriptions given. No questions or nicolette rns voiced. Patient in no distress and VSS. Patient transported off floor via wheelchair to discharge home via [employer]. Toro Patel DO - 08/02/2014 10:00 AM PDTFormatting of this note might be different from the hermelinda stacy. Progress Notes by Toro Stark DO at 08/02/14 1000 Author: Toro Stark DO Service: (none) Author Type: Physician Filed: 08/02/14 1017 Date of Service: 08/02/14 1000 Status: Signed [employer]: Toro Stark DO (Physician) [facility] Service: Infectious Disease Progress Note Hospital Day: LOS: 8 days Post-Op Day: * No surgery found * SUBJECTIVE Patient Summary: From ID consult note on 07/26: The patient is a 54 y.o. female with significant past medical history of hypertension and on disability due to her osteoarthritis , status post bilateral total hip arthroplasty. She denies history of prior urinary tract i nfections or kidney stones. About four days prior to admission, she said she felt sick with headache, nausea and vomiti ng. A day prior to her hospital admission, she had left flank pain radiating to the left ab domen, increasing in severity with chest discomfort on respiration. She denies dysuria, hem aturia or noticing gravel in her urine. Appetite had been acutely decreased. She went to [facility] in [place]. She was febrile to 101.9 Fahrenheit on presentatio n. On clinical evaluation, the patient had left flank tenderness as well as tenderness at th e left abdomen with deep palpation. White blood cell count was 22,000 with a creatinine of 2.6. CT scan of the abdomen and pelvis showed fat stranding involving the left kidney but n o evidence of hydronephrosis or stones. The patient was transferred to [facility] for further care. She was admitted to the intensive care unit due to septic shock. She already had 5 L of IV fluids in [place]. Levophed was being infused at the time of her hospital admission at [facility]. Urinalysis showed yellow, c loudy urine with moderate leukocyte esterase, no nitrite, moderate blood, no ketones. WBC 2 6-50 per high-power field, 1-5 RBC per high-power field, over 100 epithelial cells, 11-15 hy erik casts and no bacteria. With no bacteria detected, urine culture was not carried out h ere. Two sets of blood cultures are in process with no growth so far. Left subclavian trip le lumen catheter has been placed. The patient has been placed initially on Zosyn. This morning, patient's blood pressure has stabilized. [facility]. Patient feels very anxious and states that she continues to have tenderness at the left flank area, around seven out of 10 in severity. She does deny dysuria or hematuria . Case had been discussed with Keri Vazquez this morning; Zosyn has been changed to IV cipro floxacin. CC: Abdominal pain, chest wall pain, pyelonephritis Chart reviewed: No new events. Subjective The patient reports that the pain in her abdomen and back continue to migrate, calm and ago . She denies any dysuria. No fevers or chills. Cipro has been well-tolerated. ROS No fever, chills sweats. No nausea, vomiting or diarrhea. No rashes or pruritis. No oral pa in. Scheduled Medications ciprofloxacin 500 mg Oral BIDQ docusate sodium 100 mg Oral BID Or docusate 100 mg Per OG Tube BID famotidine 20 mg Oral BID Or famotidine 20 mg Intravenous BID heparin (porcine) 5000 unit/0.5mL 5,000 Units Subcutaneous 2 times per day multivitamin with minerals 1 tablet Oral Daily with breakfast QUEtiapine 25 mg Oral Nightly Continuous Infusions PRN Medications acetaminophen OR acetaminophen, HYDROmorphone OR HYDROmorphone, lip moisturizer, ny statin, nystatin, ondansetron OR ondansetron, oxyCODONE-acetaminophen AND oxyCODONE OBJECTIVE Vital Signs: BP 155/75 | Pulse 96 | Temp(Src) 98.2 F (36.8 C) (Oral) | Resp 17 | Ht 1.549 m (5' 1") | Wt 99.4 kg (219 lb 2.2 oz) | BMI 41.43 kg/m2 | SpO2 100% | ? No Temp: [97.7 F (36.5 C)-98.2 F (36.8 C)] 98.2 F (36.8 C) (08/02 752) BP: (124-155)/(75-84) 155/75 mmHg (08/02 752) Heart Rate: [73-109] 96 (08/02 752) Resp: [16-17] 17 (08/02 752) SpO2: [98 %-100 %] 100 % (08/02 752) Physical Exam Exam: Const: Vitals reviewed. No acute distress Skin: No rashes, no edema Tenderness to palpation in the midline overlying the sternum ENT: No thrush. Lungs: CTAB, no rales or wheezes Heart: RRR, no murmur Abd: soft, mild right upper quadrant tenderness to palpation, + bowel sounds DATA CBC: Lab Results Component Value Date WBC 7.16 08/02/2014 RBC 3.62* 08/02/2014 HGB 11.3 08/02/2014 HCT 34.5 08/02/2014 MCV 95.3 08/02/2014 MCH 31.1 08/02/2014 MCHC 32.7 08/02/2014 RDW 46.4 08/02/2014 PLT 253 08/02/2014 MPV 8.8 08/02/2014 DIFFTYPE AUTOMATED 08/02/2014 WBC: Lab Results Component Value Date WBC 7.16 08/02/2014 NEUTABSMAN 4.33 07/28/2014 NEUTROABS 4.36 08/02/2014 NEUTROMAN 66 07/28/2014 LYMPHOABS 0.79* 07/28/2014 LYMPHOMAN 12 07/28/2014 LYMPHSABS 1.96 08/02/2014 LYMPHOPCT 27.38 08/02/2014 MONOABSMAN 1.12* 07/28/2014 MONOMAN 17 07/28/2014 MONOPCT 8.06 08/02/2014 EOSABS 0.22 08/02/2014 EOSPCT 3.03 08/02/2014 BASOSABS 0.05 08/02/2014 BASOPCT 0.71 08/02/2014 PLTEST DECREASED 07/28/2014 BANDSPCT 5 07/28/2014 NRBC 1* 07/27/2014 CMP: Lab Results Component Value Date NA 140 08/02/2014 K 4.1 08/02/2014 CL 109 08/02/2014 CO2 22* 08/02/2014 ANIONGAP 13 08/02/2014 GLUF 91 08/02/2014 BUN 4* 08/02/2014 CREATININE 0.79 08/02/2014 BCR 5 08/02/2014 CA 8.4* 08/02/2014 PROT 7.0 08/02/2014 ALB 2.2* 08/02/2014 GLOB 4.8 08/02/2014 BILITOT 0.3 08/02/2014 ALP 130* 08/02/2014 AST 31 08/02/2014 ALT 34 08/02/2014 EGFR >60 08/02/2014 Microbiology: 07/25 Blood culture from [facility] in [place]: E coli - reyes-sensitive Urine culture E coli - reyes-sensitive 07/26 blood cultures with no growth 07/26 MRSA PCR negative 07/28 urine culture no growth PROBLEM LIST Principal Problem: Septic shock(785.52) Active Problems: Acute pyelonephritis Left Side without Hydronephrosis or an obstructing stone HTN (hypertension) History of total hip replacement Bilateral DEEPAK (acute kidney injury) Thrombocytopenia, unspecified Hyposmolality and/or hyponatremia Hypokalemia Hypomagnesemia ASSESSMENT & PLAN Septic shock - resolved Acute pyelonephritis -urinalysis here indicative of contaminated urine; urine culture was not carried out with no bacteria noted on urinalysis -Blood and urine cultures from [facility] on 07/25 did grow pansensitive Escherichia coli ; blood cultures on 07/[address] [facility] with no growth to date -Urine culture on 07/28 with no growth -based on the culture from the outside hospital, she is well covered with Cipro. Leukocyto sis has resolved, and fevers have resolved with the exception of a single isolated low-grade fever early yesterday morning. I do not see any need to change antibiotics at this point. H er new areas of pain reported today do not correlate with the location of her pyelonephritis . CT scan did not show any complications or require any procedural or surgical interventions . We will plan to treat for 21. May extend the course depending on her clinical progress. Infiltrate at the [facility] on initial CXR -had mild cough but nonproductive -no evidence of infiltrates on CT scan of the chest yesterday. History of bilateral hip replacement -site look benign on exam -We will follow-up closely after completion of antibiotic therapy. Thrombocytopenia -improved, unable to quantify on today's CBC. Disposition: Ready for discharge from infectious diseases standpoint. She will need a 21 da y supply of Cipro to complete her treatment. Follow-up with me in 2 weeks to review clinical progress. Code Status: Full Code Toro Stark DO 08/02/2014 onversion Transaction , Provider Unknown - 08/02/2014 9:50 AM PDT Therapy Progress Note by Carolina Faye PTA at 08/02/14 0950 Author: Carolina Faye PTA Service: (none) Author Type: Hotel Or Motel Receptionist Filed: 08/02/14 1027 Date of Service: 08/02/14 0950 Status: Signed [employer]: Carolina Faye PTA (Hotel Or Motel Receptionist) 08/02/14 0907 PT Last Visit PT Received On 08/02/14 Reason for Treatment Deconditioning Requires PT Follow Up Yes Assistance Required 1 person Other Comments Comments Pt presented to tx sitting EOB; agreeable to PT. Pt transferred sit -> stand x 4 w ith SUP. Pt ambulated 300' with FWW, including up/down incline. Pt returned to room and left sitting EOB with call light within reach. Cognition Overall Cognitive Status WFL Orientation Level Oriented Transfers Sit to/from Stand Supervision Mobility Ambulation Assistance Supervision Maximal Ambulation Distance (feet) 300' Total Ambulation Distance (feet) 300' Distance limited by? Patient's ability Pattern Alternating Assistive Device Walker front wheeled Activity Tolerance Activity Tolerance Patient tolerated treatment without report of fatigue Plan Treatment/Interventions Continue per Primary PT POC Progress Progressing toward goals Recommendation Recommendations Home Assist PT recommendations were discussed and verified with supervising PT. onver suki Transaction, Provider Unknown - 08/01/2014 2:59 PM PDT Therapy Progress Note by King Lawson PTA at 08/01/14 6526 Author: King Lawson PTA Service: (none) Author Type: Hotel Or Motel Receptionist Filed: 08/01/14 1500 Date of Service: 08/01/14 1519 Status: Signed [employer]: King Lawson PTA (Hotel Or Motel Receptionist) 08/01/14 9105 PT Last Visit PT Received On 08/01/14 Reason for Treatment Deconditioning Requires PT Follow Up Refused Other Comments Comments pt stated she had recently ambulated w/ [facility] and not ready to participat e at this time onver suki Transaction, Provider Unknown - 08/01/2014 12:37 PM PDT Case Management by Gilberto Forman RN at 08/01/14 9100 Author: Gilberto Forman RN Service: (none) Author Type: Industrial Radiographer Filed: 08/01/14 5665 Date of Service: 08/01/14 8465 Status: Addendum [employer]: Gilberto Forman RN (Industrial Radiographer) Related Notes: Original Note by Gilberto Forman RN (Industrial Radiographer) filed at 08/01/14 4640 Discharge Planning: Met with Camila to discuss discharge plans. Shared with Camila that with her current PCP- Dr Wolfe, she would not be able to have home health- she needs an [facility] physician -she indicates to me that she has been seeing RAISA Gupta @ [facility] in [place] [phone]. Per that clinic, they are not willing to accept the patient unless she goes to a SNF first and gets care to ensure she will keep appts and compliance w ith medical treatments. Pt is not able to have home health due to this. Explained this to Camila, and that SNF was really the only alternative for her. She wants to wait for Dr Rivas's direction. After a discussion pt is willing to have referral to [facility] reinstated, as "plan B'. She wanted reassurance that she could leave if she did not like it there, I assured her she was free to leave when she wanted. Niece Rebeca ([phone]) is willing to provide trans portation for her aunt over the weekend. Referral re-activated with [facility], records sent. Spoke with daughter Kierra who kenny es beneath Camila in apartment. She relates she is unable to assist with care of her mom as t he mom will refuse to let her in often and Kierra works so she is not home all the time. She would like for her Mom to go to a SNF. The Father and his girlfriend and Kierra are p karel to come a visit on 08/03 if she is still here. Message left for Barbra (Camila's Father's friend) [phone] to seek assistance with disc harge disposition discussions. Abdiel Griffin MD - 08/01/2014 9:57 AM PDTFormatting of this note might be different from the or iginal. Progress Notes by Emma Rivas MD at 08/01/14956 Author: Emma Rivas MD Service: Hospitalist Author Type: Physician Filed: 08/01/14 1413 Date of Service: 08/01/14956 Status: Signed [employer]: Emma Rivas MD (Physician) Merged With [facility] Service: Hospitalist Progress Note Hospital Day: LOS: 7 days Chief Complaint: Left flank pain SUBJECTIVE Events Overnight: Patient complains of pain in rt abdomen and feels her chest is tender. Has been afebrile, o vernight. Denies diarrhea, headache. Also has some dry cough. Scheduled Medications ciprofloxacin 500 mg Oral BIDQ docusate sodium 100 mg Oral BID Or docusate 100 mg Per OG Tube BID famotidine 20 mg Oral BID Or famotidine 20 mg Intravenous BID heparin (porcine) 5000 unit/0.5mL 5,000 Units Subcutaneous 2 times per day multivitamin with minerals 1 tablet Oral Daily with breakfast QUEtiapine 25 mg Oral Nightly Continuous Infusions PRN Medications acetaminophen OR acetaminophen, HYDROmorphone OR HYDROmorphone, lip moisturizer, ma gnesium sulfate OR magnesium sulfate OR magnesium sulfate OR magnesium sulfate, nystatin, nystatin, ondansetron OR ondansetron, oxyCODONE-acetaminophen AND oxyCODON E, phosphorus OR sodium phosphate IVPB 20 mmol OR sodium phosphate IVPB 45 mmol potassium chloride OR potassium chloride OR potassium chloride OR potassium chl oride OR potassium chloride OR potassium chloride OBJECTIVE Vital Signs: BP 149/64 | Pulse 92 | Temp(Src) 97.6 F (36.4 C) (Oral) | Resp 17 | Ht 1.549 m (5' 1") | Wt 99.4 kg (219 lb 2.2 oz) | BMI 41.43 kg/m2 | SpO2 100% | ? No Filed Vitals: 07/31/14 1936 07/31/14 2314 08/01/14 0258 08/01/14 0724 BP: 172/92 114/75 134/79 149/64 Pulse: 88 90 92 Temp: 98.1 F (36.7 C) 98 F (36.7 C) 97.6 F (36.4 C) TempSrc: Oral Oral Oral Resp: 16 18 17 Height: Weight: SpO2: 98% 98% 100% Intake/Output Summary (Last 24 hours) at 08/01/14 0957 Last data filed at 08/01/14 0300 Gross per 24 hour Intake 1120 ml Output 1600 ml Net -480 ml General: Comfortable HEENT: No thrush. Neck: No JVD, Trachea midline. Psych: Alert and oriented x 3. Calm, cooperative. Cardiovascular: Regular rate and rhythm, no murmurs, no palpable thrills. Normal PMI. Respiratory: Left CVA tenderness present. no wheezing or crackles, breathing non labored. C hest expansion equal on both sides. No use of accessory muscles. Gastrointestinal: Soft, non-tender, non-distended, positive bowel sounds. No HSM. Musculoskeletal: No edema in bilateral lower extremities. No joint swelling. Skin: Warm and dry. Neurological: Higher functions grossly normal. Non focal. Motor and sensory grossly intact. Normal co-ordination. DATA Recent Labs Lab 08/01/14 0535 07/31/14 0555 07/30/14 042 WBC 7.70 9.30 9.86 HGB 11.7 11.9 10.9* HCT 34.3 35.1 31.9* PLT 218 213 150 NEUTOPHILPCT 66.56 65.37 71.92 MONOPCT 8.11 10.05 9.66 Recent Labs Lab 08/01/14 0535 07/31/14 0555 07/30/14 042 NA 136 136 132* K 4.0 3.9 3.4* CL 105 105 104 CO2 23 24 22* BUN 6* 6* 8 CREATININE 0.75 0.76 0.74 PROT 6.3 6.3 5.7* BILITOT 0.4 0.7 0.7 ALT 25 29 32 AST 29 30 38 Phosphorus: Lab Results Component Value Date PHOS 3.3 08/01/2014 Invalid input(s): LABALBU Recent Labs Lab 08/01/14 0535 07/31/14 1305 07/31/14 0555 MG 1.8 2.2 1.7 No results for input(s): AMYLASE in the last 168 hours. No results for input(s): PHART, PO2ART, OTF1GAW, K2YXGYHX, BEART in the last 168 hours. No results for input(s): APTT, INR, PTT in the last 168 hours. Recent Labs Lab 07/28/14 0445 TSH 1.01 No results for input(s): CKTOTAL, TROPONINI, TROPONINT, CKMBINDEX in the last 168 hours. Results Procedure Component Value Units Date/Time Blood Culture Set 1 [[id number]] Collected: 07/26/14 0126 Specimen Information: Blood / Blood Updated: 08/01/14 0630 Specimen Description BLOOD SPECIAL REQUESTS RIGHT AC LINE SPECIAL REQUESTS Result: Testing performed at [address] [address] CULTURE NO GROWTH CULTURE Result: Testing performed at [address] [address] Blood Culture Set 2 [[id number]] Collected: 07/26/14 0130 Specimen Information: Blood / Blood Updated: 08/01/14 06 Specimen Description BLOOD SPECIAL REQUESTS LEFT EJ CULTURE NO GROWTH CULTURE Result: Testing performed at [facility], [address] [place] [address] Urine culture [[id number]] Collected: 07/28/14 1035 Specimen Information: Urine / Urine, Clean Catch Updated: 07/29/14 1307 Specimen Description URINE,CLEAN CATCH CULTURE NO GROWTH CULTURE Result: Testing performed at [address] [address] [address] Abdomen Pelvis Without Contrast 07/25/2014 This is a non-reportable procedure without a radiologist report and is used for image storage only X-ray Chest Ap Only 07/26/2014 [facility] XR CHEST 1 VIEW 07/26/2014 4:27 AM History: 54 years. Female. A cute left pyelonephritis. Central venous line placement. Technique: AP portable upright lisa hnique was performed at 0417 hours. Comparison: None. Findings: The inspiratory effort is moderate. Mild peribronchial infiltrate is noted in the left lower lung field behind the lef t heart, suggesting possible bronchopneumonia. The remaining lung gipson and pleural spaces are clear. The cardiac volume and contour are normal. The pulmonary vasculature is normal. The mediastinal contours and pulmonary wendy are normal, without mass. The thoracic aorta jeffrey ws normal caliber, without calcification or tortuosity. A left subclavian central venous ca theter is in good position with its tip in the superior vena cava. No visible pneumothorax. 07/26/2014 1. Possible mild left lower lobe bronchopneumonia. 2. Satisfactory central ve nous catheter placement. A M PROBLEM LIST Principal Problem: Septic shock(785.52) Active Problems: Acute pyelonephritis Left Side without Hydronephrosis or an obstructing stone HTN (hypertension) History of total hip replacement Bilateral DEEPAK (acute kidney injury) Thrombocytopenia, unspecified Hyposmolality and/or hyponatremia Hypokalemia Hypomagnesemia ASSESSMENT/ PLAN Principal Problem: Septic shock(785.52): Resolved. Likely from pyelonephritis. Active Problems: Acute pyelonephritis: Initial CT showed Left Side pyelonephritis without Hydronephrosis o r an obstructing stone: Reyes sensitive E Coli on urine culture. Repeat CT showed diffuse left pyelonephritis. On cipro. Discussed with Dr. Stark - plan for longer duration of antibiotic. Pain level still high. Continue current pain med dose. Possible d/c plan in AM. HTN (hypertension): stable. S/p History of total hip replacement Bilateral: PT following. SNF plan, but patient refu sing SNF. DEEPAK (acute kidney injury): resolved. Thrombocytopenia, unspecified: improving. Could be from septic shock. Hyposmolality and/or hyponatremia: resolved Anxiety: continue low dose seroquel H/o alcohol use in past: on ciwa protocol. PRN diazepam. Doing well. DVT prophylaxis: [facility] [place]. Ordered labs for tomorrow. Code Status: Full Code Emma Rivas MD, FACP 08/01/20149:57 AM Dictation and desktop support engineer or software, [employer], may have been used which may contain error for similar sounding words even after review. Personal communication requested for any clarification. onversio n Transaction, Provider Unknown - 08/01/2014 9:50 AM PDTFormatting of this note might be di fferent from the original. Progress Notes by Geraldine Schmitz RN at 08/01/1450 Author: Geraldine Schmitz RN Service: (none) Author Type: Registered Nurse Filed: 08/01/14 1137 Date of Service: 08/01/1450 Status: Signed [employer]: Geraldine Schmitz RN (Registered Nurse) Report given to Aquiles CLARKE, she is now assuming care of patient. Geraldine Schmitz RN 08/01/2014 11:37 AM Toro Patel DO - 08/01/2014 9:08 AM PDTFormatting of this note might be different from the hermelinda ginal. Progress Notes by Toro Stark DO at 08/01/14 0908 Author: Toro Stark DO Service: (none) Author Type: Physician Filed: 08/01/14 0936 Date of Service: 08/01/14907 Status: Signed [employer]: Toro Stark DO (Physician) Merged With [facility] Service: Infectious Disease Progress Note Hospital Day: LOS: 7 days Post-Op Day: * No surgery found * SUBJECTIVE Patient Summary: From ID consult note on 07/26: The patient is a 54 y.o. female with significant past medical history of hypertension and on disability due to her osteoarthritis , status post bilateral total hip arthroplasty. She denies history of prior urinary tract i nfections or kidney stones. About four days prior to admission, she said she felt sick with headache, nausea and vomiti ng. A day prior to her hospital admission, she had left flank pain radiating to the left ab domen, increasing in severity with chest discomfort on respiration. She denies dysuria, hem aturia or noticing gravel in her urine. Appetite had been acutely decreased. She went to [facility] in [place]. She was febrile to 101.9 Fahrenheit on presentatio n. On clinical evaluation, the patient had left flank tenderness as well as tenderness at th e left abdomen with deep palpation. White blood cell count was 22,000 with a creatinine of 2.6. CT scan of the abdomen and pelvis showed fat stranding involving the left kidney but n o evidence of hydronephrosis or stones. The patient was transferred to [facility] for further care. She was admitted to the intensive care unit due to septic shock. She already had 5 L of IV fluids in [place]. Levophed was being infused at the time of her hospital admission at [facility]. Urinalysis showed yellow, c loudy urine with moderate leukocyte esterase, no nitrite, moderate blood, no ketones. WBC 2 6-50 per high-power field, 1-5 RBC per high-power field, over 100 epithelial cells, 11-15 hy erik casts and no bacteria. With no bacteria detected, urine culture was not carried out h ere. Two sets of blood cultures are in process with no growth so far. Left subclavian trip le lumen catheter has been placed. The patient has been placed initially on Zosyn. This morning, patient's blood pressure has stabilized. [facility] Patient feels very anxious and states that she continues to have tenderness at the left flank area, around seven out of 10 in severity. She does deny dysuria or hematuria . Case had been discussed with Keri Vazquez this morning; Zosyn has been changed to IV cipro floxacin. CC: Abdominal pain, chest wall pain, pyelonephritis Chart reviewed: No new events. Subjective The patient reports that she has been having some pain in the right upper quadrant area of her abdomen and right flank, also noticing some pain in the sternal area on her chest that i s worse if she presses on it. She denies any burning with urination and has been voiding wit hout difficulty. Appetite has been improving. No fevers, chills or sweats. ROS No fever, chills sweats. No nausea, vomiting or diarrhea. No rashes or pruritis. No oral pa in. Scheduled Medications ciprofloxacin 500 mg Oral BIDQ docusate sodium 100 mg Oral BID Or docusate 100 mg Per OG Tube BID famotidine 20 mg Oral BID Or famotidine 20 mg Intravenous BID heparin (porcine) 5000 unit/0.5mL 5,000 Units Subcutaneous 2 times per day multivitamin with minerals 1 tablet Oral Daily with breakfast QUEtiapine 25 mg Oral Nightly Continuous Infusions PRN Medications acetaminophen OR acetaminophen, HYDROmorphone OR HYDROmorphone, lip moisturizer, ma gnesium sulfate OR magnesium sulfate OR magnesium sulfate OR magnesium sulfate, nystatin, nystatin, ondansetron OR ondansetron, oxyCODONE-acetaminophen AND oxyCODON E, phosphorus OR sodium phosphate IVPB 20 mmol OR sodium phosphate IVPB 45 mmol potassium chloride OR potassium chloride OR potassium chloride OR potassium chl oride OR potassium chloride OR potassium chloride OBJECTIVE Vital Signs: BP 149/64 | Pulse 92 | Temp(Src) 97.6 F (36.4 C) (Oral) | Resp 17 | Ht 1.549 m (5' 1") | Wt 99.4 kg (219 lb 2.2 oz) | BMI 41.43 kg/m2 | SpO2 100% | ? No Temp: [97.6 F (36.4 C)-98.7 F (37.1 C)] 97.6 F (36.4 C) (08/02 723) BP: (114-183)/(64-97) 149/64 mmHg (08/02 723) Heart Rate: [87-96] 92 (08/02 723) Resp: [16-18] 17 (08/02 723) SpO2: [96 %-100 %] 100 % (08/02 723) Physical Exam Exam: Const: Vitals reviewed. No acute distress Skin: No rashes, no edema Tenderness to palpation in the midline overlying the sternum ENT: No thrush. Lungs: CTAB, no rales or wheezes Heart: RRR, no murmur Abd: soft, mild right upper quadrant tenderness to palpation, + bowel sounds Musculoskeletal: Mild left costovertebral angle tenderness. DATA CBC: Lab Results Component Value Date WBC 7.70 08/01/2014 RBC 3.64* 08/01/2014 HGB 11.7 08/01/2014 HCT 34.3 08/01/2014 MCV 94.4 08/01/2014 MCH 32.1 08/01/2014 MCHC 34.0 08/01/2014 RDW 45.5 08/01/2014 PLT 218 08/01/2014 MPV 9.1 08/01/2014 DIFFTYPE AUTOMATED 08/01/2014 WBC: Lab Results Component Value Date WBC 7.70 08/01/2014 NEUTABSMAN 4.33 07/28/2014 NEUTROABS 5.13 08/01/2014 NEUTROMAN 66 07/28/2014 LYMPHOABS 0.79* 07/28/2014 LYMPHOMAN 12 07/28/2014 LYMPHSABS 1.66 08/01/2014 LYMPHOPCT 21.58 08/01/2014 MONOABSMAN 1.12* 07/28/2014 MONOMAN 17 07/28/2014 MONOPCT 8.11 08/01/2014 EOSABS 0.24 08/01/2014 EOSPCT 3.12 08/01/2014 BASOSABS 0.05 08/01/2014 BASOPCT 0.63 08/01/2014 PLTEST DECREASED 07/28/2014 BANDSPCT 5 07/28/2014 NRBC 1* 07/27/2014 CMP: Lab Results Component Value Date NA 136 08/01/2014 K 4.0 08/01/2014 CL 105 08/01/2014 CO2 23 08/01/2014 ANIONGAP 12 08/01/2014 GLUF 109* 08/01/2014 BUN 6* 08/01/2014 CREATININE 0.75 08/01/2014 BCR 8 08/01/2014 CA 8.7 08/01/2014 PROT 6.3 08/01/2014 ALB 2.6* 08/01/2014 GLOB 3.7 08/01/2014 BILITOT 0.4 08/01/2014 ALP 111 08/01/2014 AST 29 08/01/2014 ALT 25 08/01/2014 EGFR >60 08/01/2014 Microbiology: 07/25 Blood culture from [facility] in [place]: E coli - reyes-sensitive Urine culture E coli - reyes-sensitive 07/26 blood cultures with no growth 07/26 MRSA PCR negative 07/28 urine culture no growth Medical imaging: CT scan of the chest abdomen and pelvis performed on July 31 as follows: IMPRESSION: 1. Acute, diffuse left pyelonephritis. 2. No obvious intrarenal or perirenal abscess visualized. 3. Small fluid collections in the upper pole of the left kidney with enhancing rims, probab ly representing pre-existing cyst with inflammation. No devora necrosis visualized. 4. No complicating stone or hydronephrosis visualized. 5. Mild hepatic steatosis. 6. Mild atelectasis in both lower lung gipson. 7. Probable multiple uterine fibroids. LEM LIST Principal Problem: Septic shock(785.52) Active Problems: Acute pyelonephritis Left Side without Hydronephrosis or an obstructing stone HTN (hypertension) History of total hip replacement Bilateral DEEPAK (acute kidney injury) Thrombocytopenia, unspecified Hyposmolality and/or hyponatremia Hypokalemia Hypomagnesemia ASSESSMENT & PLAN Septic shock - resolved Acute pyelonephritis -urinalysis here indicative of contaminated urine; urine culture was not carried out with no bacteria noted on urinalysis -Blood and urine cultures from [facility] on 07/25 did grow pansensitive Escherichia coli ; blood cultures on 07/[address] [facility] with no growth to date -Urine culture on 07/28 with no growth -based on the culture from the outside hospital, she is well covered with Cipro. Leukocyto sis has resolved, and fevers have resolved with the exception of a single isolated low-grade fever early yesterday morning. I do not see any need to change antibiotics at this point. H er new areas of pain reported today do not correlate with the location of her pyelonephritis . Yesterday's CT scan did not show any complications or require any procedural or surgical i nterventions. We will plan to treat for 21-28 days depending on clinical course. Infiltrate at the [facility] on initial CXR -had mild cough but nonproductive -no evidence of infiltrates on CT scan of the chest yesterday. History of bilateral hip replacement -site look benign on exam -We will follow-up closely after completion of antibiotic therapy. Thrombocytopenia -improved, unable to quantify on today's CBC. Discussed with Dr. Rivas. Code Status: Full Code Toro Stark DO 08/01/2014 onversion Transaction , Provider Unknown - 07/31/2014 3:18 PM PDT Therapy Progress Note by King Lawson PTA at 07/31/14 1518 Author: King Lawson PTA Service: (none) Author Type: Hotel Or Motel Receptionist Filed: 07/31/14 1521 Date of Service: 07/31/14 1518 Status: Signed [employer]: King Lawson PTA (Hotel Or Motel Receptionist) 07/31/14 1518 PT Last Visit PT Received On 07/31/14 Reason for Treatment Deconditioning Requires PT Follow Up Yes Assistance Required 1 person Other Comments Comments pt sitting in chair ready to participate completed seated therex followed by natalio santiago training pt back sitting in chair post tx Cognition Overall Cognitive Status WFL Orientation Level Oriented Transfers Sit to/from Stand Standby assist Mobility Ambulation Assistance Standby assist Maximal Ambulation Distance (feet) 130 Total Ambulation Distance (feet) 130 Distance limited by? Patient's ability Pattern Alternating;Decreased figueroa Assistive Device Walker front wheeled Seated Seated-Exercise Type Ankle pumps;Seated marching;Long arc quads;ABduction;ADduction Activity Tolerance Activity Tolerance Patient limited by fatigue Plan Treatment/Interventions Continue per Primary PT POC Progress Progressing toward goals Recommendation Recommendations Home Assist PT recommendations were discussed and verified with supervising PT. onver suki Transaction, Provider Unknown - 07/31/2014 2:38 PM PDT Progress Notes by Marina Gamboa RD at 07/31/14 1438 Author: Marina Gamboa RD Service: (none) Author Type: Registered Dietitian Filed: 07/31/14 1439 Date of Service: 07/31/14 1438 Status: Signed [employer]: Marina Gamboa RD (Registered Dietitian) 07/31/14 1433 Subjective Timepoint Follow up (moderate risk) Fluid / Beverage Intake Oral Fluids Amount Pt drinking fluids ad ellie. Food Intake Amount of Food Per aide, pt ate 75% of tray but wasn't sure what was on it. Pt states that she had roast beef and potatoes but didn't eat it. Requesting a sandwich, chips, fruit, and soda for lunch, ordered for pt. 60-75% meals recorded on 07/29. Type of Food / Meals General, house diet. Micronutrient Intake Vitamin Intake Multivitamin;Thiamin Mineral / Element Intake Multi-mineral Nutrition-Focused Physical Findings Digestive System (Mouth to Rectum) Pt reports she doesn't have her dentures and does not ea t hard, fresh fruit, notified kitchen. Biochemical data, medical tests, and procedures reviewed Biochemical data, medical tests, and procedures reviewed Labs reviewed. Recommendations Recommended energy needs Continue general, house diet as ordered. Encouraged po intake. Nutritional Risk Nutritional risk Moderate Nutritional risk comment More information is needed to determine nutrition dx. Follow up date 08/05/[address] onver suki Transaction, Provider Unknown - 07/31/2014 11:18 AM PDT Case Management by Gilberto Forman RN at 07/31/14 1118 Author: Gilberto Forman RN Service: (none) Author Type: Industrial Radiographer Filed: 07/31/14 1122 Date of Service: 07/31/14 1118 Status: Signed [employer]: Gilberto Forman RN (Industrial Radiographer) Phone call from [facility] that they cannot take Home Health orders from a "non-[place]" physician. PCP- Dr Wolfe is in [place]. If pt needs upon DC, will need to investigate changing PCP with patient. Kerrie Mcdermott MD - 07/31/2014 11:07 AM PDT Progress Notes by Kerrie Arevalo MD at 07/31/14 1107 Author: Kerrie Arevalo MD Service: Infectious Disease Author Type: Physician Filed: 08/01/14 9897 Date of Service: 07/31/14 1107 Status: Addendum [employer]: Kerrie Arevalo MD (Physician) Related Notes: Original Note by Kerrie Arevalo MD (Physician) filed at 07/31/14 1116 Merged With [facility] Service: Infectious Disease Progress Note Hospital Day: LOS: 6 days Post-Op Day: * No surgery found * SUBJECTIVE Patient Summary: From ID consult note on 07/26: The patient is a 54 y.o. female with significant past medical history of hypertension and on disability due to her osteoarthritis , status post bilateral total hip arthroplasty. She denies history of prior urinary tract i nfections or kidney stones. About four days prior to admission, she said she felt sick with headache, nausea and vomiti ng. A day prior to her hospital admission, she had left flank pain radiating to the left ab domen, increasing in severity with chest discomfort on respiration. She denies dysuria, hem aturia or noticing gravel in her urine. Appetite had been acutely decreased. She went to [facility] in [place]. She was febrile to 101.9 Fahrenheit on presentatio n. On clinical evaluation, the patient had left flank tenderness as well as tenderness at th e left abdomen with deep palpation. White blood cell count was 22,000 with a creatinine of 2.6. CT scan of the abdomen and pelvis showed fat stranding involving the left kidney but n o evidence of hydronephrosis or stones. The patient was transferred to [facility] for further care. She was admitted to the intensive care unit due to septic shock. She already had 5 L of IV fluids in [place]. Levophed was being infused at the time of her hospital admission at [facility]. Urinalysis showed yellow, c loudy urine with moderate leukocyte esterase, no nitrite, moderate blood, no ketones. WBC 2 6-50 per high-power field, 1-5 RBC per high-power field, over 100 epithelial cells, 11-15 hy erik casts and no bacteria. With no bacteria detected, urine culture was not carried out h ere. Two sets of blood cultures are in process with no growth so far. Left subclavian trip le lumen catheter has been placed. The patient has been placed initially on Zosyn. This morning, patient's blood pressure has stabilized. [facility] Patient feels very anxious and states that she continues to have tenderness at the left flank area, around seven out of 10 in severity. She does deny dysuria or hematuria . Case had been discussed with Keri Vazquez this morning; Zosyn has been changed to IV cipro floxacin. Events Overnight: Patient had an isolated temperature spike to 100.9F earlier today . She states she has chills and sweats. She continues to have severe left flank pain and a t her left abdomen, upper and lower. She has intermittent nausea but denies vomiting. No d ysuria, urinary frequency or hematuria. Denies diarrhea. Has cough, mostly nonproductive. No chest pain. Scheduled Medications ciprofloxacin 500 mg Oral BIDQ docusate sodium 100 mg Oral BID Or docusate 100 mg Per OG Tube BID famotidine 20 mg Oral BID Or famotidine 20 mg Intravenous BID heparin (porcine) 5000 unit/0.5mL 5,000 Units Subcutaneous 2 times per day multivitamin with minerals 1 tablet Oral Daily with breakfast QUEtiapine 25 mg Oral Nightly thiamine 100 mg Oral Daily Continuous Infusions PRN Medications acetaminophen OR acetaminophen, diazepam, diazepam OR diazepam, HYDROmorphone OR* * HYDROmorphone, lip moisturizer, magnesium sulfate OR magnesium sulfate OR magnesiu m sulfate OR magnesium sulfate, nystatin, nystatin, ondansetron OR ondansetron, oxyC ODONE-acetaminophen AND oxyCODONE, phosphorus OR sodium phosphate IVPB 20 mmol OR* * sodium phosphate IVPB 45 mmol potassium chloride OR potassium chloride OR potassium chloride OR potassium chl oride OR potassium chloride OR potassium chloride OBJECTIVE Vital Signs: BP 134/77 | Pulse 102 | Temp(Src) 98.3 F (36.8 C) (Oral) | Resp 16 | Ht 1.549 m (5' 1") | Wt 99.4 kg (219 lb 2.2 oz) | BMI 41.43 kg/m2 | SpO2 98% | ? No Temp: [97.9 F (36.6 C)-100.9 F (38.3 C)] 98 F (36.7 C) (07/31 1108) BP: (111-144)/(71-85) 142/78 mmHg (07/31 1108) Heart Rate: [74-102] 96 (07/31 1108) Resp: [16-18] 16 (07/31 1108) SpO2: [94 %-99 %] 98 % (07/31 110) Physical Exam Vital signs have been reviewed Gen.: not in acute distress; appears more comfortable HEENT: Normocephalic. Sclerae are anicteric. No nasal mucosal lesions. No oral thrush or ulcers. Supple neck, no cervical lymphadenopathy Lungs: No adventitious breath sounds Cardiovascular: RRR. No murmur or rubs Abdomen: No distention. Positive bowel sounds. Soft. Positive left CVA tenderness. No p alpable masses. No skin lesions. Good skin turgor Neurologic: Oriented 3, no focal weakness or numbness Psychiatric: Anxious; tearful during the clinical evaluation Musculoskeletal: No swollen joints. Intact scars at hips DATA CBC: Lab Results Component Value Date WBC 9.30 07/31/2014 RBC 3.72 07/31/2014 HGB 11.9 07/31/2014 HCT 35.1 07/31/2014 MCV 94.5 07/31/2014 MCH 32.1 07/31/2014 MCHC 34.0 07/31/2014 RDW 45.5 07/31/2014 PLT 213 07/31/2014 MPV 9.2 07/31/2014 DIFFTYPE AUTOMATED 07/31/2014 WBC: Lab Results Component Value Date WBC 9.30 07/31/2014 NEUTABSMAN 4.33 07/28/2014 NEUTROABS 6.08 07/31/2014 NEUTROMAN 66 07/28/2014 LYMPHOABS 0.79* 07/28/2014 LYMPHOMAN 12 07/28/2014 LYMPHSABS 2.05 07/31/2014 LYMPHOPCT 22.07 07/31/2014 MONOABSMAN 1.12* 07/28/2014 MONOMAN 17 07/28/2014 MONOPCT 10.05 07/31/2014 EOSABS 0.20 07/31/2014 EOSPCT 2.14 07/31/2014 BASOSABS 0.04 07/31/2014 BASOPCT 0.37 07/31/2014 PLTEST DECREASED 07/28/2014 BANDSPCT 5 07/28/2014 NRBC 1* 07/27/2014 CMP: Lab Results Component Value Date NA 136 07/31/2014 K 3.9 07/31/2014 CL 105 07/31/2014 CO2 24 07/31/2014 ANIONGAP 11 07/31/2014 GLUF 76 07/31/2014 BUN 6* 07/31/2014 CREATININE 0.76 07/31/2014 BCR 8 07/31/2014 CA 8.5 07/31/2014 PROT 6.3 07/31/2014 ALB 2.6* 07/31/2014 GLOB 3.7 07/31/2014 BILITOT 0.7 07/31/2014 ALP 119* 07/31/2014 AST 30 07/31/2014 ALT 29 07/31/2014 EGFR >60 07/31/2014 Microbiology: 07/25 Blood culture from [facility] in [place]: E coli - reyes-sensitive Urine culture E coli - reyes-sensitive 07/26 blood cultures with no growth 07/26 MRSA PCR negative 07/28 urine culture no growth CXR: Impression 1. Low lung volumes. Probable mild bibasilar atelectasis. No definite infiltrates. See abo ve. chest 2 view [[id number]] PROBLEM LIST Principal Problem: Septic shock(785.52) Active Problems: Acute pyelonephritis Left Side without Hydronephrosis or an obstructing stone HTN (hypertension) History of total hip replacement Bilateral DEEPAK (acute kidney injury) Thrombocytopenia, unspecified Hyposmolality and/or hyponatremia Hypokalemia Hypomagnesemia ASSESSMENT & PLAN Septic shock - resolved Acute pyelonephritis -urinalysis here indicative of contaminated urine; urine culture was not carried out with no bacteria noted on urinalysis -Blood and urine cultures from [facility] on 07/25 did grow pansensitive Escherichia coli ; blood cultures on 07/[address] [facility] with no growth to date -Urine culture on 07/28 with no growth -Zosyn started on admission, changed to IV ciprofloxacin on 07/26 for urinary coverage. Tole rating oral ciprofloxacin at this time. On day 6 of Rx of at least 14 days of antibiotic tr eatment. Patient continues to have severe L flank pain and abdominal pain with fever earlie r. WBC remains normal. Will recheck CT of abdomen/pelvis -If patient has another febrile episode, recheck blood and urine culture and broaden antib iotic: ceftazidime Infiltrate at the [facility] on initial CXR -had mild cough but nonproductive -she did have left chest discomfort now resolved -follow-up chest x-ray shows no infiltrates -will also check chest CT scan History of bilateral hip replacement -site look benign on exam Thrombocytopenia -improved Case discussed with Dr. Rob Stark to assume ID care on 08/01 *Addendum: Impression 1. Acute, diffuse left pyelonephritis. 2. No obvious intrarenal or perirenal abscess visualized. 3. Small fluid collections in the upper pole of the left kidney with enhancing rims, proba madison representing pre-existing cyst with inflammation. No devora necrosis visualized. 4. No complicating stone or hydronephrosis visualized. 5. Mild hepatic steatosis. 6. Mild atelectasis in both lower lung gipson. 7. Probable multiple uterine fibroids. chest abdomen pelvis with IV contrast [[id number]] Continue ciprofloxacin; may need longer course of Rx, i..e. 21 days Code Status: Full Code Kerrie Arevalo MD 07/31/2014 shmaelo, MD Emma - 07/31/2014 9:13 AM PDT Progress Notes by Emma Rivas MD at 07/31/14912 Author: Emma Rivas MD Service: Hospitalist Author Type: Physician Filed: 07/31/14916 Date of Service: 07/31/14912 Status: Signed [employer]: Emma Rivas MD (Physician) Merged With [facility] Service: Hospitalist Progress Note Hospital Day: LOS: 6 days Chief Complaint: Left flank pain SUBJECTIVE Events Overnight: Patient had fever last night. Still having lot of pain on left side of abdomen and chest wh ich is worse when trying to move or take deep breath. She tries not to move or take deep micky ath due to the pain. Scheduled Medications ciprofloxacin 500 mg Oral BIDQ docusate sodium 100 mg Oral BID Or docusate 100 mg Per OG Tube BID famotidine 20 mg Oral BID Or famotidine 20 mg Intravenous BID heparin (porcine) 5000 unit/0.5mL 5,000 Units Subcutaneous 2 times per day multivitamin with minerals 1 tablet Oral Daily with breakfast QUEtiapine 25 mg Oral Nightly thiamine 100 mg Oral Daily Continuous Infusions PRN Medications acetaminophen OR acetaminophen, diazepam, diazepam OR diazepam, HYDROmorphone OR* * HYDROmorphone, lip moisturizer, magnesium sulfate OR magnesium sulfate OR magnesiu m sulfate OR magnesium sulfate, nystatin, nystatin, ondansetron OR ondansetron, oxyC ODONE-acetaminophen AND oxyCODONE, phosphorus OR sodium phosphate IVPB 20 mmol OR* * sodium phosphate IVPB 45 mmol potassium chloride OR potassium chloride OR potassium chloride OR potassium chl oride OR potassium chloride OR potassium chloride OBJECTIVE Vital Signs: BP 134/77 | Pulse 102 | Temp(Src) 98 F (36.7 C) (Oral) | Resp 16 | Ht 1.549 m (5' 1") | Wt 99.4 kg (219 lb 2.2 oz) | BMI 41.43 kg/m2 | SpO2 98% | ? No Filed Vitals: 07/31/14 0041 07/31/14 0503 07/31/14 0600 07/31/14 0730 BP: 133/85 126/79 134/77 Pulse: 100 74 102 Temp: 98.9 F (37.2 C) 100.9 F (38.3 C) 98.7 F (37.1 C) 98 F (36.7 C) TempSrc: Oral Oral Oral Oral Resp: 18 16 16 Height: Weight: SpO2: 97% 94% 98% Intake/Output Summary (Last 24 hours) at 07/31/14 0913 Last data filed at 07/31/14 0734 Gross per 24 hour Intake 1302 ml Output 2800 ml Net -1498 ml General: Comfortable HEENT: No thrush. Neck: No JVD, Trachea midline. Psych: Alert and oriented x 3. Calm, cooperative. Left chest central line present - site clean. Cardiovascular: Regular rate and rhythm, no murmurs, no palpable thrills. Normal PMI. Respiratory: decreased breath sounds left base. Left CVA tenderness present. no wheezing or crackles, breathing non labored. Chest expansion equal on both sides. No use of accessory m uscles. Gastrointestinal: Soft, non-tender, non-distended, positive bowel sounds. No HSM. Musculoskeletal: No edema in bilateral lower extremities. No joint swelling. Skin: Warm and dry. Neurological: Higher functions grossly normal. Non focal. Motor and sensory grossly intact. Normal co-ordination. DATA Recent Labs Lab 07/31/1455407/30/1442107/29/148 WBC 9.30 9.86 8.84 HGB 11.9 10.9* 10.8* HCT 35.1 31.9* 31.2* PLT 213 150 131* NEUTOPHILPCT 65.37 71.92 68.28 MONOPCT 10.05 9.66 14.49 Recent Labs Lab 07/31/1455407/30/1442107/29/14357 NA 136 132* 135 K 3.9 3.4* 3.0* CL 105 104 106 CO2 24 22* 23 BUN 6* 8 8 CREATININE 0.76 0.74 0.87 PROT 6.3 5.7* 5.4* BILITOT 0.7 0.7 0.9 ALT 29 32 39 AST 30 38 60* Phosphorus: Lab Results Component Value Date PHOS 3.1 07/31/2014 Invalid input(s): LABALBU Recent Labs Lab 07/31/1455407/30/1442107/29/14357 MG 1.7 1.7 1.5* No results for input(s): AMYLASE in the last 168 hours. No results for input(s): PHART, PO2ART, NQO7GBF, K7RWAOZO, BEART in the last 168 hours. No results for input(s): APTT, INR, PTT in the last 168 hours. Recent Labs Lab 07/28/14 0445 TSH 1.01 No results for input(s): CKTOTAL, TROPONINI, TROPONINT, CKMBINDEX in the last 168 hours. Results Procedure Component Value Units Date/Time Urine culture [[id number]] Collected: 07/28/14 1035 Specimen Information: Urine / Urine, Clean Catch Updated: 07/29/14 1307 Specimen Description URINE,CLEAN CATCH CULTURE NO GROWTH CULTURE Result: Testing performed at [facility], [address] [place] [address] Ct Abdomen Pelvis Without Contrast 07/25/2014 This is a non-reportable procedure without a radiologist report and is used for image storage only X-ray Chest Ap Only 07/26/2014 [place] XR CHEST 1 VIEW 07/26/2014 4:27 AM History: 54 years. Female. A cute left pyelonephritis. Central venous line placement. Technique: AP portable upright lisa hnique was performed at 0417 hours. Comparison: None. Findings: The inspiratory effort is moderate. Mild peribronchial infiltrate is noted in the left lower lung field behind the lef t heart, suggesting possible bronchopneumonia. The remaining lung gipson and pleural spaces are clear. The cardiac volume and contour are normal. The pulmonary vasculature is normal. The mediastinal contours and pulmonary wendy are normal, without mass. The thoracic aorta jeffrey ws normal caliber, without calcification or tortuosity. A left subclavian central venous ca theter is in good position with its tip in the superior vena cava. No visible pneumothorax. 07/26/2014 1. Possible mild left lower lobe bronchopneumonia. 2. Satisfactory central ve nous catheter placement. A M PROBLEM LIST Principal Problem: Septic shock(785.52) Active Problems: Acute pyelonephritis Left Side without Hydronephrosis or an obstructing stone HTN (hypertension) History of total hip replacement Bilateral DEEPAK (acute kidney injury) Thrombocytopenia, unspecified Hyposmolality and/or hyponatremia Hypokalemia Hypomagnesemia ASSESSMENT/ PLAN Principal Problem: Septic shock(785.52): resolved. Likely from pyelonephritis. Reyes sensitive E Coli. Discuss ed with Dr. Arevalo - patient still spiking fever on oral cipro. Still having lot of pain o n left side of abdomen and chest which is worse when trying to move or take deep breath jefferson mmends Ct c/a/p with contrast today - ordered. Active Problems: Acute pyelonephritis Left Side without Hydronephrosis or an obstructing stone: On cipro. Pain level still high. Continue current pain med dose. HTN (hypertension): stable. S/p History of total hip replacement Bilateral: PT following. SNF plan. DEEPAK (acute kidney injury): resolved. Thrombocytopenia, unspecified: improving. Could be from septic shock. Hyposmolality and/or hyponatremia: resolved Hypokalemia : replete per protocol Anxiety: continue low dose seroquel H/o alcohol use in past: on ciwa protocol. PRN diazepam. Doing well. DVT prophylaxis: [facility] [place]. Ordered labs for tomorrow. Code Status: Full Code Emma Rivas MD, FACP 07/31/20149:13 AM Dictation and desktop support engineer or software, [employer], may have been used which may contain error for similar sounding words even after review. Personal communication requested for any clarification. Kerrie Watt MD - 07/30/2014 4:39 PM PDT Progress Notes by Kerrie Arevalo MD at 07/30/14 0111 Author: Kerrie Arevalo MD Service: Infectious Disease Author Type: Physician Filed: 07/31/14 0326 Date of Service: 07/30/14 1510 Status: Signed [employer]: Kerrie Arevalo MD (Physician) Merged With [facility] Service: Infectious Disease Progress Note Hospital Day: LOS: 5 days Post-Op Day: * No surgery found * SUBJECTIVE Patient Summary: From ID consult note on 07/26: The patient is a 54 y.o. female with s ignificant past medical history of hypertension and on disability due to her osteoarthritis, status post bilateral total hip arthroplasty. She denies history of prior urinary tract in fections or kidney stones. About four days prior to admission, she said she felt sick with headache, nausea and vomiti ng. A day prior to her hospital admission, she had left flank pain radiating to the left ab domen, increasing in severity with chest discomfort on respiration. She denies dysuria, hem aturia or noticing gravel in her urine. Appetite had been acutely decreased. She went to [facility] in [place]. She was febrile to 101.9 Fahrenheit on presentatio n. On clinical evaluation, the patient had left flank tenderness as well as tenderness at th e left abdomen with deep palpation. White blood cell count was 22,000 with a creatinine of 2.6. CT scan of the abdomen and pelvis showed fat stranding involving the left kidney but n o evidence of hydronephrosis or stones. The patient was transferred to [facility] for further care. She was admitted to the intensive care unit due to septic shock. She already had 5 L of IV fluids in [place]. Levophed was being infused at the time of her hospital admission at [facility]. Urinalysis showed yellow, c loudy urine with moderate leukocyte esterase, no nitrite, moderate blood, no ketones. WBC 2 6-50 per high-power field, 1-5 RBC per high-power field, over 100 epithelial cells, 11-15 hy erik casts and no bacteria. With no bacteria detected, urine culture was not carried out h ere. Two sets of blood cultures are in process with no growth so far. Left subclavian trip le lumen catheter has been placed. The patient has been placed initially on Zosyn. This morning, patient's blood pressure has stabilized. [facility]. Patient feels very anxious and states that she continues to have tenderness at the left flank area, around seven out of 10 in severity. She does deny dysuria or hematuria . Case had been discussed with Keri Vazquez this morning; Zosyn has been changed to IV cipro floxacin. Events Overnight: MAXIMUM TEMPERATURE in 24 hours has been 99F. She states she corey s some chills. No further nausea or vomiting. She continues to complain of left-sided flan k pain that goes to the upper abdomen beneath her left breast. She denies cough or phlegm p roduction. Scheduled Medications ciprofloxacin 500 mg Oral BIDQ docusate sodium 100 mg Oral BID Or docusate 100 mg Per OG Tube BID famotidine 20 mg Oral BID Or famotidine 20 mg Intravenous BID heparin (porcine) 5000 unit/0.5mL 5,000 Units Subcutaneous 2 times per day heparin flush (porcine) 2.5 mL Intravenous 3 times per day multivitamin with minerals 1 tablet Oral Daily with breakfast QUEtiapine 25 mg Oral Nightly thiamine 100 mg Oral Daily Continuous Infusions PRN Medications acetaminophen OR acetaminophen, diazepam, diazepam OR diazepam, HYDROmorphone OR* * HYDROmorphone, lip moisturizer, magnesium sulfate OR magnesium sulfate OR magnesiu m sulfate OR magnesium sulfate, nystatin, nystatin, ondansetron OR ondansetron, oxyC ODONE-acetaminophen AND oxyCODONE, phosphorus OR sodium phosphate IVPB 20 mmol OR* * sodium phosphate IVPB 45 mmol potassium chloride OR potassium chloride OR potassium chloride OR potassium chl oride OR potassium chloride OR potassium chloride OBJECTIVE Vital Signs: BP 118/77 | Pulse 80 | Temp(Src) 98.1 F (36.7 C) (Oral) | Resp 18 | Ht 1.549 m (5' 1") | Wt 99.4 kg (219 lb 2.2 oz) | BMI 41.43 kg/m2 | SpO2 97% | ? No Temp: [97.9 F (36.6 C)-99 F (37.2 C)] 98.1 F (36.7 C) (07/30 1457) BP: (107-133)/(67-85) 118/77 mmHg (07/30 1457) Heart Rate: [77-94] 80 (07/30 1457) Resp: [18] 18 (07/30 1457) SpO2: [95 %-100 %] 97 % (07/30 1457) Physical Exam Vital signs have been reviewed Gen.: not in acute distress; appears more comfortable HEENT: Normocephalic. Sclerae are anicteric. No nasal mucosal lesions. No oral thrush or ulcers. Supple neck, no cervical lymphadenopathy Lungs: No adventitious breath sounds Cardiovascular: RRR. No murmur or rubs Abdomen: No distention. Positive bowel sounds. Soft. Positive CVA tenderness. No palpab le masses. No skin lesions. Good skin turgor Neurologic: Oriented 3, no focal weakness or numbness Psychiatric: Anxious; tearful during the clinical evaluation Musculoskeletal: No swollen joints. Intact scars at hips DATA CBC: Lab Results Component Value Date WBC 9.86 07/30/2014 RBC 3.38* 07/30/2014 HGB 10.9* 07/30/2014 HCT 31.9* 07/30/2014 MCV 94.5 07/30/2014 MCH 32.1 07/30/2014 MCHC 34.0 07/30/2014 RDW 45.5 07/30/2014 PLT 150 07/30/2014 MPV 9.7 07/30/2014 DIFFTYPE AUTOMATED 07/30/2014 WBC: Lab Results Component Value Date WBC 9.86 07/30/2014 NEUTABSMAN 4.33 07/28/2014 NEUTROABS 7.09 07/30/2014 NEUTROMAN 66 07/28/2014 LYMPHOABS 0.79* 07/28/2014 LYMPHOMAN 12 07/28/2014 LYMPHSABS 1.55 07/30/2014 LYMPHOPCT 15.72 07/30/2014 MONOABSMAN 1.12* 07/28/2014 MONOMAN 17 07/28/2014 MONOPCT 9.66 07/30/2014 EOSABS 0.23 07/30/2014 EOSPCT 2.36 07/30/2014 BASOSABS 0.03 07/30/2014 BASOPCT 0.34 07/30/2014 PLTEST DECREASED 07/28/2014 BANDSPCT 5 07/28/2014 NRBC 1* 07/27/2014 CMP: Lab Results Component Value Date NA 132* 07/30/2014 K 3.4* 07/30/2014 CL 104 07/30/2014 CO2 22* 07/30/2014 ANIONGAP 9 07/30/2014 GLUF 82 07/30/2014 BUN 8 07/30/2014 CREATININE 0.74 07/30/2014 BCR 11 07/30/2014 CA 7.7* 07/30/2014 PROT 5.7* 07/30/2014 ALB 2.3* 07/30/2014 GLOB 3.4 07/30/2014 BILITOT 0.7 07/30/2014 ALP 118* 07/30/2014 AST 38 07/30/2014 ALT 32 07/30/2014 EGFR >60 07/30/2014 Microbiology: 07/25 Blood culture from [facility] in [place]: E coli - reyes-sensitive Urine culture E coli - reyes-sensitive 07/26 blood cultures with no growth 07/26 MRSA PCR negative 07/28 urine culture no growth CXR: Impression 1. Low lung volumes. Probable mild bibasilar atelectasis. No definite infiltrates. See abo ve. chest 2 view [IMG36] PROBLEM LIST Principal Problem: Septic shock(785.52) Active Problems: Acute pyelonephritis Left Side without Hydronephrosis or an obstructing stone HTN (hypertension) History of total hip replacement Bilateral DEEPAK (acute kidney injury) Thrombocytopenia, unspecified Hyposmolality and/or hyponatremia Hypokalemia Hypomagnesemia ASSESSMENT & PLAN Septic shock - resolved Acute pyelonephritis -urinalysis here indicative of contaminated urine; urine culture was not carried out with no bacteria noted on urinalysis -Blood and urine cultures from [facility] on 07/25 did grow pansensitive Escherichia coli ; blood cultures on 07/[address] [facility] with no growth to date -Urine culture on 07/28 with no growth -Zosyn started on admission, changed to IV ciprofloxacin on 07/26 for urinary coverage. Tole rating oral ciprofloxacin at this time. On day 5 of Rx. Suggest at least 14 days of antibi otic treatment. Surveillance blood cultures off antibiotics after completion -Her main complaint remains to be left flank pain and left abdominal pain; she appears to be more comfortable today. Prior CT scan shows no hydronephrosis or stone Infiltrate at the [facility] on initial CXR -had mild cough but nonproductive -she did have left chest discomfort now resolved -follow-up chest x-ray shows no infiltrates History of bilateral hip replacement -site look benign on exam Thrombocytopenia -improved Code Status: Full Code Kerrie Arevalo MD 07/30/2014 onversion Zaman saction, Provider Unknown - 07/30/2014 11:43 AM PDTFormatting of this note might be differen t from the original. Therapy Progress Note by King Lawson PTA at 07/30/14 1143 Author: King Lawson PTA Service: (none) Author Type: Hotel Or Motel Receptionist Filed: 07/30/14 1146 Date of Service: 07/30/14 114 Status: Signed [employer]: King Lawson PTA (Hotel Or Motel Receptionist) 07/30/14 1143 PT Last Visit PT Received On 07/30/14 Reason for Treatment Deconditioning Requires PT Follow Up Yes Assistance Required 1 person Other Comments Comments pt up in BR willing to participate completed gait training in hallway returned to chair in room and completed seated therex Cognition Overall Cognitive Status WFL Orientation Level Oriented Transfers Sit to/from Stand Standby assist Mobility Ambulation Assistance Standby assist Maximal Ambulation Distance (feet) 120 Total Ambulation Distance (feet) 120 Distance limited by? Patient's ability Pattern Alternating;Decreased figueroa Assistive Device Walker front wheeled Seated Seated-Exercise Type Ankle pumps;Seated marching;Long arc quads;ABduction;ADduction Activity Tolerance Activity Tolerance Patient limited by fatigue Plan Treatment/Interventions Continue per Primary PT POC Progress Progressing toward goals Recommendation Recommendations Home Assist PT recommendations were discussed and verified with supervising PT. onver suki Transaction, Provider Unknown - 07/30/2014 11:38 AM PDT Case Management by Gilberto Forman RN at 07/30/14 1138 Author: Gilberto Forman RN Service: (none) Author Type: Industrial Radiographer Filed: 07/30/14 1140 Date of Service: 07/30/14 1138 Status: Signed [employer]: Gilberto Forman RN (Industrial Radiographer) Spoke with Camila and she is refusing to go to SNF. She insists that she does not need that. She did agree to Home Health visits at home for SN and PT. [facility] to face needs to be sent when signed. Arranging transport for 07/31/14 in afternoon. Abdiel Griffin MD - 07/30/2014 11:13 AM PDTFormatting of this note might be different from the or iginal. Progress Notes by Emma Rivas MD at 07/30/14 1113 Author: Emma Rivas MD Service: Hospitalist Author Type: Physician Filed: 07/30/14 1115 Date of Service: 07/30/14 1113 Status: Signed [employer]: Emma Rivas MD (Physician) Merged With [facility] Service: Hospitalist Progress Note Hospital Day: LOS: 5 days Chief Complaint: Left flank pain SUBJECTIVE Events Overnight: Patient crying - saying she had lot of pain yesterday on left side of abdomen and worse whe n trying to move or take deep breath. Pain extended to lower chest. Has been afebrile, vital s stable. Scheduled Medications ciprofloxacin 500 mg Oral BIDQ docusate sodium 100 mg Oral BID Or docusate 100 mg Per OG Tube BID famotidine 20 mg Oral BID Or famotidine 20 mg Intravenous BID heparin (porcine) 5000 unit/0.5mL 5,000 Units Subcutaneous 2 times per day heparin flush (porcine) 2.5 mL Intravenous 3 times per day multivitamin with minerals 1 tablet Oral Daily with breakfast QUEtiapine 25 mg Oral Nightly thiamine 100 mg Oral Daily Continuous Infusions PRN Medications acetaminophen OR acetaminophen, diazepam, diazepam OR diazepam, HYDROmorphone OR* * HYDROmorphone, lip moisturizer, magnesium sulfate OR magnesium sulfate OR magnesiu m sulfate OR magnesium sulfate, nystatin, nystatin, ondansetron OR ondansetron, oxyC ODONE-acetaminophen AND oxyCODONE, phosphorus OR sodium phosphate IVPB 20 mmol OR* * sodium phosphate IVPB 45 mmol potassium chloride OR potassium chloride OR potassium chloride OR potassium chl oride OR potassium chloride OR potassium chloride OBJECTIVE Vital Signs: BP 133/85 | Pulse 87 | Temp(Src) 98 F (36.7 C) (Oral) | Resp 18 | Ht 1.549 m (5' 1") | Wt 99.4 kg (219 lb 2.2 oz) | BMI 41.43 kg/m2 | SpO2 96% | ? No Filed Vitals: 07/29/14 1910 07/29/14 2348 07/30/14 0402 07/30/14 0725 BP: 107/73 118/73 126/67 133/85 Pulse: 85 77 94 87 Temp: 97.9 F (36.6 C) 98.7 F (37.1 C) 99 F (37.2 C) 98 F (36.7 C) TempSrc: Oral Oral Oral Oral Resp: 18 18 18 18 Height: Weight: SpO2: 100% 98% 95% 96% Intake/Output Summary (Last 24 hours) at 07/30/14 1113 Last data filed at 07/30/14 0403 Gross per 24 hour Intake 830 ml Output 1600 ml Net -770 ml General: Comfortable HEENT: No thrush. Neck: No JVD, Trachea midline. Psych: Alert and oriented x 3. Calm, cooperative. Left chest central line present - site clean. Cardiovascular: Regular rate and rhythm, no murmurs, no palpable thrills. Normal PMI. Respiratory: Clear to auscultation, no wheezing or crackles, breathing non labored. Chest e xpansion equal on both sides. No use of accessory muscles. Gastrointestinal: Soft, non-tender, non-distended, positive bowel sounds. No HSM. Musculoskeletal: No edema in bilateral lower extremities. No joint swelling. Skin: Warm and dry. Neurological: Higher functions grossly normal. Non focal. Motor and sensory grossly intact. Normal co-ordination. DATA Recent Labs Lab 07/30/1442107/29/1435707/28/14444 WBC 9.86 8.84 6.57 HGB 10.9* 10.8* 10.2* HCT 31.9* 31.2* 30.0* PLT 150 131* 102* NEUTOPHILPCT 71.92 68.28 -- MONOPCT 9.66 14.49 -- Recent Labs Lab 07/30/1442107/29/1435707/28/14444 NA 132* 135 139 K 3.4* 3.0* 3.2* CL 104 106 110* CO2 22* 23 18* BUN 8 8 11 CREATININE 0.74 0.87 1.18* PROT 5.7* 5.4* 5.1* BILITOT 0.7 0.9 0.7 ALT 32 39 34 AST 38 60* 50* Phosphorus: Lab Results Component Value Date PHOS 3.2 07/30/2014 Invalid input(s): LABALBU Recent Labs Lab 07/30/1442107/29/1435707/28/14444 MG 1.7 1.5* 1.6* No results for input(s): AMYLASE in the last 168 hours. No results for input(s): PHART, PO2ART, CCL9ZLZ, N5MPIGKQ, BEART in the last 168 hours. No results for input(s): APTT, INR, PTT in the last 168 hours. Recent Labs Lab 07/28/14 0445 TSH 1.01 No results for input(s): CKTOTAL, TROPONINI, TROPONINT, CKMBINDEX in the last 168 hours. Results Procedure Component Value Units Date/Time Urine culture [[id number]] Collected: 07/28/14 1035 Specimen Information: Urine / Urine, Clean Catch Updated: 07/29/14 1307 Specimen Description URINE,CLEAN CATCH CULTURE NO GROWTH CULTURE Result: Testing performed at [facility], [address] [place] [address] Blood Culture Set 1 [[id number]] Collected: 07/26/14 0126 Specimen Information: Blood / Blood Updated: 07/27/14 1450 Specimen Description BLOOD SPECIAL REQUESTS RIGHT AC LINE SPECIAL REQUESTS Result: Testing performed at [facility];[address] [place] [address];[place] [address] CULTURE NO GROWTH CULTURE Result: Testing performed at [facility], [address] [place] [address] Blood Culture Set 2 [[id number]] Collected: 07/26/14 0130 Specimen Information: Blood / Blood Updated: 07/27/14 1450 Specimen Description BLOOD SPECIAL REQUESTS LEFT EJ CULTURE NO GROWTH CULTURE Result: Testing performed at [facility], [address] [place] [address] Abdomen Pelvis Without Contrast 07/25/2014 This is a non-reportable procedure without a radiologist report and is used for image storage only X-ray Chest Ap Only 07/26/2014 CAMILA Zavaleta [facility] XR CHEST 1 VIEW 07/26/2014 4:27 AM History: 54 years. Female. A cute left pyelonephritis. Central venous line placement. Technique: AP portable upright lisa hnique was performed at 0417 hours. Comparison: None. Findings: The inspiratory effort is moderate. Mild peribronchial infiltrate is noted in the left lower lung field behind the lef t heart, suggesting possible bronchopneumonia. The remaining lung gipson and pleural spaces are clear. The cardiac volume and contour are normal. The pulmonary vasculature is normal. The mediastinal contours and pulmonary wendy are normal, without mass. The thoracic aorta jeffrey ws normal caliber, without calcification or tortuosity. A left subclavian central venous ca theter is in good position with its tip in the superior vena cava. No visible pneumothorax. 07/26/2014 1. Possible mild left lower lobe bronchopneumonia. 2. Satisfactory central ve nous catheter placement. A M PROBLEM LIST Principal Problem: Septic shock(785.52) Active Problems: Acute pyelonephritis Left Side without Hydronephrosis or an obstructing stone HTN (hypertension) History of total hip replacement Bilateral DEEPAK (acute kidney injury) Thrombocytopenia, unspecified Hyposmolality and/or hyponatremia Hypokalemia Hypomagnesemia ASSESSMENT/ PLAN Principal Problem: Septic shock(785.52): resolved. Likely from pyelonephritis. Reyes sensitive E Coli. Discuss ed with Dr. Arevalo - transition to oral cipro. Follow up CXR shows no Pneumonia. Active Problems: Acute pyelonephritis Left Side without Hydronephrosis or an obstructing stone: On cipro. Pain not controlled. Will increase oral pain med dose. HTN (hypertension): stable. S/p History of total hip replacement Bilateral: PT following. SNF plan. DEEPAK (acute kidney injury): resolved. Thrombocytopenia, unspecified: improving. Could be from septic shock. Hyposmolality and/or hyponatremia: resolved Hypokalemia : replete per protocol Anxiety: continue low dose seroquel H/o alcohol use in past: on ciwa protocol. PRN diazepam. Doing well. DVT prophylaxis: HSC. Watch for platelets. D/c central line today. Discusseed plan with CM and RN. Possible d/c tomorrow depending on pain control. Ordered labs for tomorrow. Code Status: Full Code Emma Rivas MD, FACP 07/30/201411:13 AM Dictation and desktop support engineer or software, [employer], may have been used which may contain error for similar sounding words even after review. Personal communication requested for any clarification. Kerrie Watt MD - 07/29/2014 12:24 PM PDT Progress Notes by Kerrie Arevalo MD at 07/29/14 6965 Author: Kerrie Arevalo MD Service: Infectious Disease Author Type: Physician Filed: 07/29/14 1240 Date of Service: 07/29/14 1224 Status: Signed [employer]: Kerrie Arevalo MD (Physician) Merged With [facility] Service: Infectious Disease Progress Note Hospital Day: LOS: 4 days Post-Op Day: * No surgery found * SUBJECTIVE Patient Summary: From ID consult note on 07/26: The patient is a 54 y.o. female with significant past medical history of hypertension and on disability due to her osteoarthritis , status post bilateral total hip arthroplasty. She denies history of prior urinary tract i nfections or kidney stones. About four days prior to admission, she said she felt sick with headache, nausea and vomiti ng. A day prior to her hospital admission, she had left flank pain radiating to the left ab domen, increasing in severity with chest discomfort on respiration. She denies dysuria, hem aturia or noticing gravel in her urine. Appetite had been acutely decreased. She went to [facility] in [place]. She was febrile to 101.9 Fahrenheit on presentatio n. On clinical evaluation, the patient had left flank tenderness as well as tenderness at th e left abdomen with deep palpation. White blood cell count was 22,000 with a creatinine of 2.6. CT scan of the abdomen and pelvis showed fat stranding involving the left kidney but n o evidence of hydronephrosis or stones. The patient was transferred to [facility] for further care. She was admitted to the intensive care unit due to septic shock. She already had 5 L of IV fluids in [place]. Levophed was being infused at the time of her hospital admission at [facility]. Urinalysis showed yellow, c loudy urine with moderate leukocyte esterase, no nitrite, moderate blood, no ketones. WBC 2 6-50 per high-power field, 1-5 RBC per high-power field, over 100 epithelial cells, 11-15 hy erik casts and no bacteria. With no bacteria detected, urine culture was not carried out h ere. Two sets of blood cultures are in process with no growth so far. Left subclavian trip le lumen catheter has been placed. The patient has been placed initially on Zosyn. This morning, patient's blood pressure has stabilized. [facility]. Patient feels very anxious and states that she continues to have tenderness at the left flank area, around seven out of 10 in severity. She does deny dysuria or hematuria . Case had been discussed with Keri Vazquez this morning; Zosyn has been changed to IV cipro floxacin. Events Overnight: Patient has remained afebrile. She denies chills or sweats. She h as no vomiting but states that she has been nauseous. She continues to have [id number]-suphlcv e left-sided flank pain. She denies dysuria. There has been no diarrhea. Scheduled Medications ciprofloxacin 400 mg Intravenous Q12H docusate sodium 100 mg Oral BID Or docusate 100 mg Per OG Tube BID famotidine 20 mg Oral BID Or famotidine 20 mg Intravenous BID heparin (porcine) 5000 unit/0.5mL 5,000 Units Subcutaneous 2 times per day heparin flush (porcine) 2.5 mL Intravenous 3 times per day multivitamin with minerals 1 tablet Oral Daily with breakfast QUEtiapine 25 mg Oral Nightly thiamine 100 mg Oral Daily Continuous Infusions PRN Medications acetaminophen OR acetaminophen, diazepam, diazepam OR diazepam, HYDROmorphone OR* * HYDROmorphone, lip moisturizer, magnesium sulfate OR magnesium sulfate OR magnesiu m sulfate OR magnesium sulfate, nystatin, nystatin, ondansetron OR ondansetron, oxyC ODONE-acetaminophen OR oxyCODONE-acetaminophen, phosphorus OR sodium phosphate IVPB 20 mmol OR sodium phosphate IVPB 45 mmol potassium chloride OR potassium chloride OR potassium chloride OR potassium chl oride OR potassium chloride OR potassium chloride OBJECTIVE Vital Signs: BP 99/62 | Pulse 72 | Temp(Src) 97.3 F (36.3 C) (Oral) | Resp 18 | Ht 1.549 m (5' 1") | Wt 99.4 kg (219 lb 2.2 oz) | BMI 41.43 kg/m2 | SpO2 97% | ? No Temp: [97.3 F (36.3 C)-98.9 F (37.2 C)] 97.3 F (36.3 C) (07/29 1118) BP: (99-145)/(62-89) 99/62 mmHg (07/29 111) Heart Rate: [72-111] 72 (07/29 111) Resp: [18-22] 18 (07/29 1117) SpO2: [93 %-99 %] 97 % (07/29 1117) Physical Exam Vital signs have been reviewed Gen.: Appears frail but not in acute distress; ambulating with walker in room HEENT: Normocephalic. Sclerae are anicteric. No nasal mucosal lesions. No oral thrush or ulcers. Supple neck, no cervical lymphadenopathy Lungs: No adventitious breath sounds Cardiovascular: RRR. No murmur or rubs Abdomen: No distention. Positive bowel sounds. Soft. Positive CVA tenderness with left l ower quadrant tenderness to deep palpation - less. No palpable masses. No skin lesions. Good skin turgor Neurologic: Oriented 3, no focal weakness or numbness Psychiatric: Anxious Musculoskeletal: No swollen joints. Intact scars at hips DATA CBC: Lab Results Component Value Date WBC 8.84 07/29/2014 RBC 3.34* 07/29/2014 HGB 10.8* 07/29/2014 HCT 31.2* 07/29/2014 MCV 93.6 07/29/2014 MCH 32.4 07/29/2014 MCHC 34.6 07/29/2014 RDW 44.2 07/29/2014 PLT 131* 07/29/2014 MPV 9.3 07/29/2014 DIFFTYPE AUTOMATED 07/29/2014 WBC: Lab Results Component Value Date WBC 8.84 07/29/2014 NEUTABSMAN 4.33 07/28/2014 NEUTROABS 6.03 07/29/2014 NEUTROMAN 66 07/28/2014 LYMPHOABS 0.79* 07/28/2014 LYMPHOMAN 12 07/28/2014 LYMPHSABS 1.34 07/29/2014 LYMPHOPCT 15.12 07/29/2014 MONOABSMAN 1.12* 07/28/2014 MONOMAN 17 07/28/2014 MONOPCT 14.49 07/29/2014 EOSABS 0.17 07/29/2014 EOSPCT 1.96 07/29/2014 BASOSABS 0.01 07/29/2014 BASOPCT 0.15 07/29/2014 PLTEST DECREASED 07/28/2014 BANDSPCT 5 07/28/2014 NRBC 1* 07/27/2014 CMP: Lab Results Component Value Date NA 135 07/29/2014 K 3.0* 07/29/2014 CL 106 07/29/2014 CO2 23 07/29/2014 ANIONGAP 9 07/29/2014 GLUF 92 07/29/2014 BUN 8 07/29/2014 CREATININE 0.87 07/29/2014 BCR 9 07/29/2014 CA 8.0* 07/29/2014 PROT 5.4* 07/29/2014 ALB 2.3* 07/29/2014 GLOB 3.1 07/29/2014 BILITOT 0.9 07/29/2014 ALP 133* 07/29/2014 AST 60* 07/29/2014 ALT 39 07/29/2014 EGFR >60 07/29/2014 U/A: Lab Results Component Value Date CLARITYU CLEAR 07/28/2014 LEUKOCYTESUR NEGATIVE 07/28/2014 NITRITE NEGATIVE 07/28/2014 UROBILINOGEN 0.2 07/28/2014 PHUR 6.5 07/28/2014 BLOODU TRACE* 07/28/2014 KETONES NEGATIVE 07/28/2014 BILIRUBINUR NEGATIVE 07/28/2014 GLUCOSEU NEGATIVE 07/28/2014 Microbiology: 07/25 Blood culture from [facility] in [place]: E coli - reyes-sensitive Urine culture E coli - reyes-sensitive 07/26 blood cultures with no growth 07/26 MRSA PCR negative 07/28 urine culture in process Impression 1. Low lung volumes. Probable mild bibasilar atelectasis. No definite infiltrates. See abo ve. chest 2 view [[id number]] PROBLEM LIST Principal Problem: Septic shock(785.52) Active Problems: Acute pyelonephritis Left Side without Hydronephrosis or an obstructing stone HTN (hypertension) History of total hip replacement Bilateral DEEPAK (acute kidney injury) Thrombocytopenia, unspecified Hyposmolality and/or hyponatremia Hypokalemia Hypomagnesemia ASSESSMENT & PLAN Septic shock - resolved Acute pyelonephritis -urinalysis here indicative of contaminated urine; urine culture was not carried out with no bacteria noted on urinalysis -Blood and urine cultures from [facility] on 07/25 did grow pansensitive Escherichia coli ; blood cultures on 4/[address] [facility] with no growth to date -Urine culture on 07/28 in process -Zosyn started on admission, changed to IV ciprofloxacin on 07/26 for urinary coverage; nidhi ent reports intermittent nausea but no vomiting. We will cautiously transition ciprofloxaci n to the oral route today and monitor tolerance. Suggest at least 14 days of antibiotic von atment, currently day 4. Surveillance blood cultures off antibiotics after completion Infiltrate at the [facility] on initial CXR -has mild cough today but nonproductive -she did have left chest discomfort now resolved -follow-up chest x-ray shows no infiltrates History of bilateral hip replacement -site look benign on exam Thrombocytopenia Case discussed with Dr. Rivas this morning Code Status: Full Code Kerrie Arevalo MD 07/29/2014 onversion Zaman saction, Provider Unknown - 07/29/2014 11:13 AM PDTFormatting of this note might be differen t from the original. Therapy Progress Note by King Lawson PTA at 07/29/14 1113 Author: King Lawson PTA Service: (none) Author Type: Hotel Or Motel Receptionist Filed: 07/29/14 1116 Date of Service: 07/29/14 111 Status: Signed [employer]: King Lawson PTA (Hotel Or Motel Receptionist) 07/29/14 1113 PT Last Visit PT Received On 07/29/14 Reason for Treatment Deconditioning Requires PT Follow Up Yes Assistance Required 1 person Other Comments Comments pt supine in bed willing to participate completed bed ex followed by gait trainbenjamin duran pt sitting in chair post tx Cognition Overall Cognitive Status WFL Orientation Level Oriented Bed Mobility Supine to Sit Min assist (1 LE OOB) Scooting Minimal assist Transfers Sit to/from Stand Minimal assist (steadying/contact guard) Mobility Ambulation Assistance Minimal assist Maximal Ambulation Distance (feet) 65 Total Ambulation Distance (feet) 65 Distance limited by? Patient's ability Pattern Alternating;Decreased figueroa Assistive Device Walker front wheeled Supine Supine-Exercise Type Ankle pumps;Quad sets;Glut sets;ABD/ADD;Heel slides Activity Tolerance Activity Tolerance Patient limited by fatigue Plan Treatment/Interventions Continue per Primary PT POC Progress Progressing toward goals Recommendation Recommendations Home Assist PT recommendations were discussed and verified with supervising PT. Abdiel Griffin MD - 07/29/2014 9:12 AM PDTFormatting of this note might be different from the or iginal. Progress Notes by Emma Rivas MD at 07/29/14911 Author: Emma Rivas MD Service: Hospitalist Author Type: Physician Filed: 07/29/14 5610 Date of Service: 07/29/14911 Status: Signed [employer]: Emma Rivas MD (Physician) Merged With [facility] Service: Hospitalist Progress Note Hospital Day: LOS: 4 days Chief Complaint: Left flank pain SUBJECTIVE Events Overnight: Doing much better today. Still needing iv pain meds for flank pain. No signs of alcohol wit hdrawal. Patient says recently she has not had much alcohol. Fevers resolved. Scheduled Medications ciprofloxacin 400 mg Intravenous Q12H docusate sodium 100 mg Oral BID Or docusate 100 mg Per OG Tube BID famotidine 20 mg Oral BID Or famotidine 20 mg Intravenous BID heparin (porcine) 5000 unit/0.5mL 5,000 Units Subcutaneous 2 times per day heparin flush (porcine) 2.5 mL Intravenous 3 times per day multivitamin with minerals 1 tablet Oral Daily with breakfast QUEtiapine 25 mg Oral Nightly thiamine 100 mg Oral Daily Continuous Infusions PRN Medications acetaminophen OR acetaminophen, diazepam, diazepam OR diazepam, HYDROmorphone OR* * HYDROmorphone, lip moisturizer, magnesium sulfate OR magnesium sulfate OR magnesiu m sulfate OR magnesium sulfate, nystatin, nystatin, ondansetron OR ondansetron, oxyC ODONE-acetaminophen OR oxyCODONE-acetaminophen, phosphorus OR sodium phosphate IVPB 20 mmol OR sodium phosphate IVPB 45 mmol potassium chloride OR potassium chloride OR potassium chloride OR potassium chl oride OR potassium chloride OR potassium chloride OBJECTIVE Vital Signs: BP 121/66 | Pulse 106 | Temp(Src) 98.2 F (36.8 C) (Oral) | Resp 20 | Ht 1.549 m (5' 1") | Wt 99.4 kg (219 lb 2.2 oz) | BMI 41.43 kg/m2 | SpO2 95% | ? No Filed Vitals: 07/28/14 2306 07/29/14 0336 07/29/14 0400 07/29/14726 BP: 100/68 129/72 121/66 Pulse: 111 95 104 106 Temp: 98 F (36.7 C) 98.9 F (37.2 C) 98.2 F (36.8 C) TempSrc: Oral Oral Oral Resp: 18 Height: Weight: SpO2: 98% 95% 95% Intake/Output Summary (Last 24 hours) at 07/29/14 0912 Last data filed at 07/29/14 0204 Gross per 24 hour Intake 2321 ml Output 7075 ml Net -4754 ml General: Comfortable HEENT: No thrush. Neck: No JVD, Trachea midline. Psych: Alert and oriented x 3. Calm, cooperative. Left chest central line present - site clean. Cardiovascular: Regular rate and rhythm, no murmurs, no palpable thrills. Normal PMI. Respiratory: Clear to auscultation, no wheezing or crackles, breathing non labored. Chest e xpansion equal on both sides. No use of accessory muscles. Gastrointestinal: Soft, non-tender, non-distended, positive bowel sounds. No HSM. Musculoskeletal: No edema in bilateral lower extremities. No joint swelling. Skin: Warm and dry. Neurological: Higher functions grossly normal. Non focal. Motor and sensory grossly intact. Normal co-ordination. DATA Recent Labs Lab 07/29/1435707/28/1444407/27/14315 WBC 8.84 6.57 8.73 HGB 10.8* 10.2* 10.3* HCT 31.2* 30.0* 29.7* PLT 131* 102* 100* NEUTOPHILPCT 68.28 -- -- MONOPCT 14.49 -- -- Recent Labs Lab 07/29/1435707/28/1444407/27/146 07/26/14 0112 NA 135 139 128* < > 144* K 3.0* 3.2* 2.8* < > 2.7* CL 106 110* 105 < > 113* CO2 23 18* 17* < > 19* BUN 8 11 15 < > 28* CREATININE 0.87 1.18* 1.31* < > 2.05* PROT 5.4* 5.1* -- -- 5.5* BILITOT 0.9 0.7 -- -- 0.6 ALT 39 34 -- -- 40 AST 60* 50* -- -- 31 < > = values in this interval not displayed. Phosphorus: Lab Results Component Value Date PHOS 3.6 07/29/2014 Invalid input(s): LABALBU Recent Labs Lab 07/29/14 0358 07/28/14 0445 07/26/14 1334 MG 1.5* 1.6* 2.0 No results for input(s): AMYLASE in the last 168 hours. No results for input(s): PHART, PO2ART, NUZ0FWL, T1YWPWUQ, BEART in the last 168 hours. No results for input(s): APTT, INR, PTT in the last 168 hours. Recent Labs Lab 07/28/14 0445 TSH 1.01 No results for input(s): CKTOTAL, TROPONINI, TROPONINT, CKMBINDEX in the last 168 hours. Results Procedure Component Value Units Date/Time Urine culture [[id number]] Collected: 07/28/14 1035 Specimen Information: Urine / Urine, Clean Catch Updated: 07/28/14 1404 Blood Culture Set 1 [[id number]] Collected: 07/26/14 0126 Specimen Information: Blood / Blood Updated: 07/27/14 1450 Specimen Description BLOOD SPECIAL REQUESTS RIGHT AC LINE SPECIAL REQUESTS Result: Testing performed at [facility];[address] [place] [address] CULTURE NO GROWTH CULTURE Result: Testing performed at [facility], [address] [place] [address] Blood Culture Set 2 [[id number]] Collected: 07/26/14 0130 Specimen Information: Blood / Blood Updated: 07/27/14 1450 Specimen Description BLOOD SPECIAL REQUESTS LEFT EJ CULTURE NO GROWTH CULTURE Result: Testing performed at [facility], [address] [place] [address] Abdomen Pelvis Without Contrast 07/25/2014 This is a non-reportable procedure without a radiologist report and is used for image storage only X-ray Chest Ap Only 07/26/2014 CAMILA [facility] XR CHEST 1 VIEW 07/26/2014 4:27 AM History: 54 years. Female. A cute left pyelonephritis. Central venous line placement. Technique: AP portable upright lisa hnique was performed at 0417 hours. Comparison: None. Findings: The inspiratory effort is moderate. Mild peribronchial infiltrate is noted in the left lower lung field behind the lef t heart, suggesting possible bronchopneumonia. The remaining lung gipson and pleural spaces are clear. The cardiac volume and contour are normal. The pulmonary vasculature is normal. The mediastinal contours and pulmonary wendy are normal, without mass. The thoracic aorta jeffrey ws normal caliber, without calcification or tortuosity. A left subclavian central venous ca theter is in good position with its tip in the superior vena cava. No visible pneumothorax. 07/26/2014 1. Possible mild left lower lobe bronchopneumonia. 2. Satisfactory central ve nous catheter placement. A M PROBLEM LIST Principal Problem: Septic shock(785.52) Active Problems: Acute pyelonephritis Left Side without Hydronephrosis or an obstructing stone HTN (hypertension) History of total hip replacement Bilateral DEEPAK (acute kidney injury) Thrombocytopenia, unspecified Hyposmolality and/or hyponatremia Hypokalemia Hypomagnesemia ASSESSMENT/ PLAN Principal Problem: Septic shock(785.52): resolved. Likely from pyelonephritis. Reyes sensitive E Coli. Discuss ed with Dr. Arevalo - transition to oral cipro. Follow up CXR shows no Pneumonia. Possible d/c tomorrow. If stable, plan to d/c central line tomorrow. Active Problems: Acute pyelonephritis Left Side without Hydronephrosis or an obstructing stone: On cipro. Pain still present - start on oral PO meds today in preparation HTN (hypertension): stable. S/p History of total hip replacement Bilateral: PT following. SNF plan. DEEPAK (acute kidney injury): resolved. Thrombocytopenia, unspecified: improving. Could be from septic shock. Hyposmolality and/or hyponatremia: resolved Hypokalemia and Hypomagnesemia: replete per protocol Anxiety: continue low dose seroquel H/o alcohol use in past: on ciwa protocol. PRN diazepam. Doing well. DVT prophylaxis: HSC. Watch for platelets. Ordered labs for tomorrow. Code Status: Full Code Emma Rivas MD, FACP 07/29/20149:12 AM Dictation and desktop support engineer or software, [employer], may have been used which may contain error for similar sounding words even after review. Personal communication requested for any clarification. onversio sharonda Transaction, Provider Unknown - 07/28/2014 3:15 PM PDTFormatting of this note might be di fferent from the original. Therapy Progress Note by King Lawson PTA at 07/28/14 8936 Author: King Lawson PTA Service: (none) Author Type: Hotel Or Motel Receptionist Filed: 07/28/14 1518 Date of Service: 07/28/141514 Status: Signed [employer]: King Lawson PTA (Hotel Or Motel Receptionist) 07/28/14 5687 PT Last Visit PT Received On 07/28/14 Reason for Treatment Deconditioning Requires PT Follow Up Yes Assistance Required 1 person Other Comments Comments pt supine in bed willing to participate completed bed ex followed by gait traini ng pt back in supine post tx Cognition Overall Cognitive Status WFL Orientation Level Oriented Bed Mobility Supine to Sit Mod assist (BLEs OOB or trunk to upright) Sit to Supine Mod assist (BLEs into bed or trunk to lower) Scooting Minimal assist Transfers Sit to/from Stand Minimal assist (steadying/contact guard) Mobility Ambulation Assistance Moderate assist Maximal Ambulation Distance (feet) 50 Total Ambulation Distance (feet) 50 Distance limited by? Therapist/staff discretion Pattern Alternating;Decreased figueroa Assistive Device Walker front wheeled Supine Supine-Exercise Type Ankle pumps;Quad sets;Glut sets;ABD/ADD;Heel slides Activity Tolerance Activity Tolerance Patient limited by fatigue Plan Treatment/Interventions Continue per Primary PT POC Progress Progressing toward goals Recommendation Recommendations Home Assist PT recommendations were discussed and verified with supervising PT. onver suki Transaction, Provider Unknown - 07/28/2014 10:10 AM PDT Case Management by Gilberto Forman RN at 07/28/14 1010 Author: Gilberto Forman RN Service: (none) Author Type: Industrial Radiographer Filed: 07/28/14 1015 Date of Service: 07/28/14 1010 Status: Signed [employer]: Gilberto Forman RN (Industrial Radiographer) Met with Camila to discuss DC plans, she seems confused and unable to answer questions. Call ed daughter Brooklynn in [place] ([phone]) she answered questions. She feels her mom need s placement if she does not clear mentally. She denies any medical equipment or OP medical services. 07/28/14 1004 Discharge Planning Evaluation Admitting Diagnosis PNA and pyelonephritis Readmission No Living Arrangements Alone Support Systems Children;Family members (Daughter Kierra lives below her [phone]) Type of Residence Private residence House type Apartment (16 steps up to 2nd floor) Elevator available No Steps to enter (16) Bathrooms on 1st Floor 1-Full Independent with ADL's Yes Independent with Mobility Yes Home Care Services No Caregiver after Discharge No Mental Status Confused Anticipated Discharge Plan Post Acute Care Needs (Placement depending on progress) Plan communicated to patient/family Yes Resources Transportation issues No ([phone] or [phone] Barbra) Patient/Family concerns Yes (Daughter Brooklynn in [place] thinks pt needs more help than home alone.) Prescription Plan Yes Name of Pharmacy [facility] Previous home health equipment No Vascular access device No Ostomy/Drains/Appliances No Anticipated Disposition Facility Type Assisted living/Adult family home;group home facility;Home (TBD depending on progress.) Met with: Camila (and then called her daughter Brooklynn to complete assessment.) and discussed discharge planning, Pt is a 54 y.o., female Patient's PCP is: ILYA WOLFE Patient's insurance: ODS and Medicaid Coverage concerns: None Medication coverage/concerns: None Community resources utilized / needed: None Assistance in transportation: Father to provide ([phone] or [phone] Identification of any specific education / training: None Barriers to Discharge / Alternative housing needed: Possible placement Anticipated DCP: Unsure at this time. Will send referral to SNFs in area. Gilberto Forman Kerrie Mcdermott MD - 07/28/2014 9:50 AM PDT Progress Notes by Kerrie Arevalo MD at 07/28/14 0992 Author: Kerrie Arevalo MD Service: Infectious Disease Author Type: Physician Filed: 07/28/14 1017 Date of Service: 07/28/1450 Status: Signed [employer]: Kerrie Arevalo MD (Physician) Merged With [facility] Service: Infectious Disease Progress Note Hospital Day: LOS: 3 days Post-Op Day: * No surgery found * SUBJECTIVE Patient Summary: From ID consult note on 07/26: The patient is a 54 y.o. female with significant past medical history of hypertension and on disability due to her osteoarthritis , status post bilateral total hip arthroplasty. She denies history of prior urinary tract i nfections or kidney stones. About four days prior to admission, she said she felt sick with headache, nausea and vomiti ng. A day prior to her hospital admission, she had left flank pain radiating to the left ab domen, increasing in severity with chest discomfort on respiration. She denies dysuria, hem aturia or noticing gravel in her urine. Appetite had been acutely decreased. She went to [facility] in [place]. She was febrile to 101.9 Fahrenheit on presentatio n. On clinical evaluation, the patient had left flank tenderness as well as tenderness at th e left abdomen with deep palpation. White blood cell count was 22,000 with a creatinine of 2.6. CT scan of the abdomen and pelvis showed fat stranding involving the left kidney but n o evidence of hydronephrosis or stones. The patient was transferred to [facility] for further care. She was admitted to the intensive care unit due to septic shock. She already had 5 L of IV fluids in [place]. Levophed was being infused at the time of her hospital admission at [facility]. Urinalysis showed yellow, c loudy urine with moderate leukocyte esterase, no nitrite, moderate blood, no ketones. WBC 2 6-50 per high-power field, 1-5 RBC per high-power field, over 100 epithelial cells, 11-15 hy erik casts and no bacteria. With no bacteria detected, urine culture was not carried out h ere. Two sets of blood cultures are in process with no growth so far. Left subclavian trip le lumen catheter has been placed. The patient has been placed initially on Zosyn. This morning, patient's blood pressure has stabilized. [facility]. Patient feels very anxious and states that she continues to have tenderness at the left flank area, around seven out of 10 in severity. She does deny dysuria or hematuria . Case had been discussed with Keri Vazquez this morning; Zosyn has been changed to IV cipro floxacin. Events Overnight: Fever curve has improved. Reports that she is still having chills . Continues to complain of left flank pain. No nausea or vomiting. Denies diarrhea. She has mild, nonproductive cough and denies pleurisy or dyspnea. Scheduled Medications ciprofloxacin 400 mg Intravenous Q12H docusate sodium 100 mg Oral BID Or docusate 100 mg Per OG Tube BID famotidine 20 mg Oral Daily Or famotidine 20 mg Intravenous Daily heparin (porcine) 5000 unit/0.5mL 5,000 Units Subcutaneous 2 times per day multivitamin with minerals 1 tablet Oral Daily with breakfast QUEtiapine 25 mg Oral Nightly thiamine 100 mg Oral Daily Continuous Infusions sodium chloride (IV) 110 mL/hr at 07/28/14 0632 PRN Medications acetaminophen OR acetaminophen, diazepam, diazepam OR diazepam, fentaNYL, HYDROmorp david OR HYDROmorphone, lip moisturizer, magnesium sulfate OR magnesium sulfate OR* * magnesium sulfate OR magnesium sulfate, nystatin, nystatin, ondansetron OR ondanse natividad, phosphorus OR sodium phosphate IVPB 20 mmol OR sodium phosphate IVPB 45 mmol potassium chloride OR potassium chloride OR potassium chloride OR potassium chl oride OR potassium chloride OR potassium chloride OBJECTIVE Vital Signs: BP 100/57 | Pulse 100 | Temp(Src) 97.7 F (36.5 C) (Oral) | Resp 20 | Ht 1.549 m (5' 1") | Wt 99.4 kg (219 lb 2.2 oz) | BMI 41.43 kg/m2 | SpO2 100% | ? No Temp: [97.7 F (36.5 C)-99.7 F (37.6 C)] 97.7 F (36.5 C) (07/28 733) BP: (100-138)/(57-87) 100/57 mmHg (07/28 733) Heart Rate: [98-120] 100 (07/28 733) Resp: [20-24] 20 (07/28 733) SpO2: [95 %-100 %] 100 % (07/28 733) Physical Exam Vital signs have been reviewed Gen.: Appears comfortable eating breakfast but during the clinical encounter, asked for christiane n medications for her left flank pain HEENT: Normocephalic. Sclerae are anicteric. No nasal mucosal lesions. No oral thrush or ulcers. Supple neck, no cervical lymphadenopathy Lungs: No adventitious breath sounds Cardiovascular: Mildly tachycardic . Regular rhythm. No murmur or rubs Abdomen: No distention. Positive bowel sounds. Soft. Positive CVA tenderness with mild l eft lower quadrant tenderness to deep palpation. No palpable masses. No skin lesions. Good skin turgor Neurologic: Oriented 3, no focal weakness or numbness Psychiatric: Anxious Musculoskeletal: No swollen joints. Intact scars at hips DATA CBC: Lab Results Component Value Date WBC 6.57 07/28/2014 RBC 3.20* 07/28/2014 HGB 10.2* 07/28/2014 HCT 30.0* 07/28/2014 MCV 93.8 07/28/2014 MCH 31.8 07/28/2014 MCHC 33.8 07/28/2014 RDW 44.2 07/28/2014 PLT 102* 07/28/2014 MPV 9.2 07/28/2014 DIFFTYPE MANUAL 07/28/2014 WBC: Lab Results Component Value Date WBC 6.57 07/28/2014 NEUTABSMAN 4.33 07/28/2014 NEUTROMAN 66 07/28/2014 LYMPHOABS 0.79* 07/28/2014 LYMPHOMAN 12 07/28/2014 MONOABSMAN 1.12* 07/28/2014 MONOMAN 17 07/28/2014 PLTEST DECREASED 07/28/2014 BANDSPCT 5 07/28/2014 NRBC 1* 07/27/2014 CMP: Lab Results Component Value Date NA 139 07/28/2014 K 3.2* 07/28/2014 CL 110* 07/28/2014 CO2 18* 07/28/2014 ANIONGAP 15 07/28/2014 GLUF 67 07/28/2014 BUN 11 07/28/2014 CREATININE 1.18* 07/28/2014 BCR 9 07/28/2014 CA 7.4* 07/28/2014 PROT 5.1* 07/28/2014 ALB 1.6* 07/28/2014 GLOB 3.5 07/28/2014 BILITOT 0.7 07/28/2014 ALP 136* 07/28/2014 AST 50* 07/28/2014 ALT 34 07/28/2014 EGFR 51* 07/28/2014 U/A: Lab Results Component Value Date CLARITYU CLOUDY 07/26/2014 LEUKOCYTESUR MODERATE* 07/26/2014 NITRITE NEGATIVE 07/26/2014 UROBILINOGEN 0.2 07/26/2014 PHUR 5.5 07/26/2014 BLOODU MODERATE* 07/26/2014 KETONES NEGATIVE 07/26/2014 BILIRUBINUR NEGATIVE 07/26/2014 GLUCOSEU NEGATIVE 07/26/2014 Microbiology: 07/25 Blood culture from [facility] in [place]: E coli - reyes-sensitive Urine culture E coli - reyes-sensitive 07/26 blood cultures with no growth 07/26 MRSA PCR negative Impression 1. Low lung volumes. Probable mild bibasilar atelectasis. No definite infiltrates. See abo ve. chest 2 view [[id number]] PROBLEM LIST Principal Problem: Septic shock(785.52) Active Problems: Acute pyelonephritis Left Side without Hydronephrosis or an obstructing stone HTN (hypertension) History of total hip replacement Bilateral DEEPAK (acute kidney injury) Thrombocytopenia, unspecified Hyposmolality and/or hyponatremia Hypokalemia Hypomagnesemia ASSESSMENT & PLAN Septic shock - resolved Acute pyelonephritis -urinalysis here indicative of contaminated urine; urine culture was not carried out with no bacteria noted on urinalysis -Blood and urine cultures from [facility] on 07/25 did grow pansensitive Escherichia coli ; blood cultures on 07/[address] [facility] with no growth to date -Zosyn started on admission, changed to IV ciprofloxacin on 07/26 for urinary coverage; if carlos hoffman continues to do well, we will transition ciprofloxacin to the oral route tomorrow and we will plan on 14 days of antibiotic treatment. Surveillance blood cultures off antibioti cs after completion Infiltrate at the [facility] on initial CXR -has mild cough today but nonproductive -she did have left chest discomfort now resolved -follow-up chest x-ray shows no infiltrates History of bilateral hip replacement -site look benign on exam Code Status: Full Code Kerrie Arevalo MD 07/28/2014 eo, MD Emma - 07/28/2014 8:09 AM PDT Progress Notes by Emma Rivas MD at 07/28/14808 Author: Emma Rivas MD Service: Hospitalist Author Type: Physician Filed: 07/28/14830 Date of Service: 07/28/14808 Status: Signed [employer]: Emma Rivas MD (Physician) Merged With [facility] Service: Hospitalist Progress Note Hospital Day: LOS: 3 days Chief Complaint: Left flank pain SUBJECTIVE Events Overnight: Continues to have left flank pain. Little sleepy this AM. Fevers resolved. Received ativan and valium yesterday. Scheduled Medications ciprofloxacin 400 mg Intravenous Q12H docusate sodium 100 mg Oral BID Or docusate 100 mg Per OG Tube BID famotidine 20 mg Oral Daily Or famotidine 20 mg Intravenous Daily heparin (porcine) 5000 unit/0.5mL 5,000 Units Subcutaneous 2 times per day multivitamin with minerals 1 tablet Oral Daily with breakfast QUEtiapine 25 mg Oral Nightly thiamine 100 mg Oral Daily Continuous Infusions sodium chloride (IV) 110 mL/hr at 07/28/14 0632 PRN Medications acetaminophen OR acetaminophen, diazepam, fentaNYL, HYDROmorphone OR HYDROmorphone, lip moisturizer, magnesium sulfate OR magnesium sulfate OR magnesium sulfate OR magnesium sulfate, nystatin, nystatin, ondansetron OR ondansetron, phosphorus OR so dium phosphate IVPB 20 mmol OR sodium phosphate IVPB 45 mmol potassium chloride OR potassium chloride OR potassium chloride OR potassium chl oride OR potassium chloride OR potassium chloride OBJECTIVE Vital Signs: BP 100/57 | Pulse 100 | Temp(Src) 97.7 F (36.5 C) (Oral) | Resp 20 | Ht 1.549 m (5' 1") | Wt 99.4 kg (219 lb 2.2 oz) | BMI 41.43 kg/m2 | SpO2 100% | ? No Filed Vitals: 07/28/14 0000 07/28/14 0324 07/28/14 0400 07/28/14 0734 BP: 130/80 100/57 Pulse: 110 111 108 100 Temp: 98.7 F (37.1 C) 97.7 F (36.5 C) TempSrc: Oral Oral Resp: 20 20 Height: Weight: SpO2: 97% 100% Intake/Output Summary (Last 24 hours) at 07/28/14 0812 Last data filed at 07/28/14 0452 Gross per 24 hour Intake 4742 ml Output 2500 ml Net 2242 ml General: Comfortable HEENT: No thrush. Neck: No JVD, Trachea midline. Psych: Alert and oriented x 3. Calm, cooperative. Left chest central line present - site clean. Cardiovascular: Regular rate and rhythm, no murmurs, no palpable thrills. Normal PMI. Respiratory: Clear to auscultation, no wheezing or crackles, breathing non labored. Chest e xpansion equal on both sides. No use of accessory muscles. Gastrointestinal: Soft, non-tender, non-distended, positive bowel sounds. No HSM. Musculoskeletal: No edema in bilateral lower extremities. No joint swelling. Skin: Warm and dry. Neurological: Higher functions grossly normal. Non focal. Motor and sensory grossly intact. Normal co-ordination. DATA Recent Labs Lab 07/28/1444407/27/146 07/26/14 0112 WBC 6.57 8.73 21.22* HGB 10.2* 10.3* 12.0 HCT 30.0* 29.7* 36.0 PLT 102* 100* 122* Recent Labs Lab 07/28/1444407/27/146 07/26/14 1334 07/26/14 0500 07/26/14 0112 NA 139 128* -- 141 144* K 3.2* 2.8* 3.8 3.3* 2.7* CL 110* 105 -- 112* 113* CO2 18* 17* -- 18* 19* BUN 11 15 -- 24 28* CREATININE 1.18* 1.31* -- 1.82* 2.05* PROT 5.1* -- -- -- 5.5* BILITOT 0.7 -- -- -- 0.6 ALT 34 -- -- -- 40 AST 50* -- -- -- 31 Phosphorus: Lab Results Component Value Date PHOS 3.6 07/26/2014 Invalid input(s): LABALBU Recent Labs Lab 07/28/14 0445 07/26/14 1334 07/26/14 0500 MG 1.6* 2.0 1.9 No results for input(s): AMYLASE in the last 168 hours. No results for input(s): PHART, PO2ART, YZQ3QPD, D8WMTFEL, BEART in the last 168 hours. No results for input(s): APTT, INR, PTT in the last 168 hours. Recent Labs Lab 07/28/14444 TSH 1.01 No results for input(s): CKTOTAL, TROPONINI, TROPONINT, CKMBINDEX in the last 168 hours. Results Procedure Component Value Units Date/Time Blood Culture Set 1 [[id number]] Collected: 07/26/14 012 Specimen Information: Blood / Blood Updated: 07/27/141449 Specimen Description BLOOD SPECIAL REQUESTS RIGHT AC LINE SPECIAL REQUESTS Result: Testing performed at [facility];[address] [place] [address];[place] [address] CULTURE NO GROWTH CULTURE Result: Testing performed at [facility], [address] [place] [id number] Blood Culture Set 2 [[id number]] Collected: 07/26/14 0130 Specimen Information: Blood / Blood Updated: 07/27/14 145 Specimen Description BLOOD SPECIAL REQUESTS LEFT EJ CULTURE NO GROWTH CULTURE Result: Testing performed at [facility], [address] [place] [address] MRSA by PCR [[id number]] Collected: 07/26/14 0105 Specimen Information: Nasopharyngeal / Nasopharyngeal Culture Updated: 07/26/149 SOURCE NARES(NOSE) MRSA PCR NEGATIVE Ct Abdomen Pelvis Without Contrast 07/25/2014 This is a non-reportable procedure without a radiologist report and is used for image storage only X-ray Chest Ap Only 07/26/2014 [facility]ILA HILL XR CHEST 1 VIEW 07/26/2014 4:27 AM History: 54 years. Female. A cute left pyelonephritis. Central venous line placement. Technique: AP portable upright lisa hnique was performed at 0417 hours. Comparison: None. Findings: The inspiratory effort is moderate. Mild peribronchial infiltrate is noted in the left lower lung field behind the lef t heart, suggesting possible bronchopneumonia. The remaining lung gipson and pleural spaces are clear. The cardiac volume and contour are normal. The pulmonary vasculature is normal. The mediastinal contours and pulmonary wendy are normal, without mass. The thoracic aorta jeffrey ws normal caliber, without calcification or tortuosity. A left subclavian central venous ca theter is in good position with its tip in the superior vena cava. No visible pneumothorax. 07/26/2014 1. Possible mild left lower lobe bronchopneumonia. 2. Satisfactory central ve nous catheter placement. A M PROBLEM LIST Principal Problem: Septic shock(785.52) Active Problems: Acute pyelonephritis Left Side without Hydronephrosis or an obstructing stone HTN (hypertension) History of total hip replacement Bilateral DEEPAK (acute kidney injury) Thrombocytopenia, unspecified Hyposmolality and/or hyponatremia Hypokalemia Hypomagnesemia ASSESSMENT/ PLAN Principal Problem: Septic shock(785.52): resolved. Likely from pyelonephritis. On IV cipro. Continue Iv flui ds. CXR shows possible LLL broncho PNA. Monitor. ID following. Repeat UA and urine culture today. Active Problems: Acute pyelonephritis Left Side without Hydronephrosis or an obstructing stone: On IV cipr o. HTN (hypertension): stable. S/p History of total hip replacement Bilateral: PT following. DEEPAK (acute kidney injury): improving with IV fluids Thrombocytopenia, unspecified: improving. Could be from septic shock. Hyposmolality and/or hyponatremia: resolved Hypokalemia and Hypomagnesemia: replete per protocol Anxiety: low dose seroquel H/o alcohol use in past: start on ciwa protocol. PRN diazepam. DVT prophylaxis: HSC. Watch for platelets. Ordered labs for tomorrow. Code Status: Full Code Spent approximately 40 minutes on patient care of which more than 50% of that time was requ ired on counseling patient at bedside as well as coordinating care with other providers. Tot al time also includes face to face history, physical examination, chart review, computerized order entry administrator, formulating plan of care. Emma Rivas MD, FACP 07/28/20148:12 AM Dictation and desktop support engineer or software, [employer], may have been used which may contain error for similar sounding words even after review. Personal communication requested for any clarification. onversaren n Transaction, Provider Unknown - 07/27/2014 4:32 PM PDTFormatting of this note might be di fferent from the original. Progress Notes by Nidia Poole RN at 07/27/14 1632 Author: Nidia Poole RN Service: (none) Author Type: Registered Nurse Filed: 07/27/14 1636 Date of Service: 07/27/141631 Status: Signed [employer]: Nidia Poole RN (Registered Nurse) Spoke with Pt. Daughter Kierra that lives in the apartment below her mother. She stated that her mother Camila has been binge drinking for several years and was up until 3 days ago. She said she also found an empty bottle of Seroquel in her apartment when they took her via ambulance. Daughter also stated that her mother used to be on Ativan and was taking it jennifer ppropriately and has had seizures from withdrawals. I called Dr. Robertson and up dated her of this new information. We initiated CIWA. Mariella Miller MD - 07/27/2014 1:46 PM PDT Progress Notes by Mariella Robertson MD at 07/27/14 4529 Author: Mariella Robertson MD Service: (none) Author Type: Physician Filed: 07/27/14 1640 Date of Service: 07/27/14 1346 Status: Addendum [employer]: Mariella Robertson MD (Physician) Related Notes: Original Note by Mariella Robertson MD (Physician) filed at 07/27/14 0890 Merged With [facility] Service: Hospitalist Progress Note Pt: Camila Hill AGE/SEX: 54 y.o. female : 1960 ROOM: [address] [place] [address] REQUESTING PROVIDER: Mariella Robertson MD TODAY'S DATE: 07/27/2014 Hospital Day: LOS: 2 days 54 y.o. female with significant past medical history of HTN and prior THR's bilateral. Admi tted with left flank and chest pain with breathing. Temp to 101.9 to ED in [facility]. With W BC of 22K and a creatinine of 2.[address] of the abdomen and pelvis showed fat st randing involving the left kidney but no hydronephrosis and no evidence of stones. She was a dmiitted to ICU for Septic shock( transfer on Nor epi after getting 5 liters of NS in [facility]) Treated with IV zosyn And aggresuive hydration SUBJECTIVE she states pain left flank better Less anxous afebril Scheduled Medications ciprofloxacin 400 mg Intravenous Q12H docusate sodium 100 mg Oral BID Or docusate 100 mg Per OG Tube BID famotidine 20 mg Oral Daily Or famotidine 20 mg Intravenous Daily heparin (porcine) 5000 unit/0.5mL 5,000 Units Subcutaneous 2 times per day QUEtiapine 25 mg Oral Nightly Continuous Infusions sodium chloride (IV) 110 mL/hr at 07/27/14 0350 PRN Medications acetaminophen OR acetaminophen, fentaNYL, HYDROmorphone OR HYDROmorphone, lip moist urizer, LORazepam, magnesium sulfate OR magnesium sulfate OR magnesium sulfate OR* * magnesium sulfate, nystatin, nystatin, ondansetron OR ondansetron, phosphorus OR s odium phosphate IVPB 20 mmol OR sodium phosphate IVPB 45 mmol potassium chloride OR potassium chloride OR potassium chloride OR potassium chl oride OR potassium chloride OR potassium chloride Allergy: Allergies Allergen Reactions Buspar [Buspirone Hcl] Anxiety Toradol [Ketorolac] Anxiety OBJECTIVE Vitals: Patient Vitals for the past 24 hrs: BP Temp Temp src Pulse Resp SpO2 07/27/14 1103 135/82 mmHg 98.5 F (36.9 C) Oral - 21 97 % 07/27/14 0804 98/54 mmHg 98.4 F (36.9 C) Oral - 20 98 % 07/27/14 0516 - 99.2 F (37.3 C) - - - - 07/27/14 0304 110/56 mmHg 100.5 F (38.1 C) Oral 122 18 98 % 07/27/14 0226 - - - - - 95 % 07/26/14 2357 130/56 mmHg 99.8 F (37.7 C) Oral 123 23 - 07/26/14 2345 155/70 mmHg 102.2 F (39 C) Axillary 131 44 97 % 07/26/142002 120/75 mmHg 99.5 F (37.5 C) Oral 116 18 96 % 07/26/14 1614 126/76 mmHg 99.2 F (37.3 C) Oral 131 - 95 % 07/26/14 1600 114/68 mmHg - - 124 - 98 % 07/26/14 1500 122/70 mmHg - - 118 - - 07/26/14 1400 119/65 mmHg - - 114 - 99 % I&O Detailed Table: Intake/Output Summary (Last 24 hours) at 07/27/14 1346 Last data filed at 07/27/14 0905 Gross per 24 hour Intake 3330 ml Output 3250 ml Net 80 ml Patient Vitals for the past 96 hrs: Weight 07/26/14 0047 99.4 kg (219 lb 2.2 oz) 07/25/14 2344 99.4 kg (219 lb 2.2 oz) Hemodynamics Last 24hrs: CVP (mean): [6 mmHg-19 mmHg] 12 mmHg (07/26 1600) PA catheter wave form: [-] Review of systems Constitutional afebril Lung- no cough, no shortness of breath, no wheezing Heart- no chest pain , , no shortness of breath Abdomen improve+ Flank abdominal pain, no constipation, no diarrha Extremities-no swelling Examination: (nursing notereviewed). Constitutional: oriented to person, place,. Appears well-developed and well-nourished. HENT: Head: Normocephalic and atraumatic. Mouth/Throat: Oropharynx is clear and moist. Eyes: Conjunctivae and EOM are normal. Pupils are equal, round, and reactive to light. Neck: Normal range of motion. Neck supple. Cardiovascular: Normal rate, regular rhythm, normal heart sounds Pulmonary/Chest: Effort normal and breath sounds normal. Abdominal: Soft. Bowel sounds are normal. Soft,mild tenderness left flank + no rebound Genitourinary: defer Musculoskeletal: exhibits no edema and no tenderness. Neurological: alert and oriented to person, place,. No focality Skin: Skin is dry. Psychiatric: LABS: Recent Labs Lab 07/27/14 0316 07/26/14 0112 WBC 8.73 21.22* HGB 10.3* 12.0 HCT 29.7* 36.0 PLT 100* 122* Recent Labs Lab 07/27/14 0316 07/26/14 1334 07/26/14 0500 07/26/14 0112 NA 128* -- 141 144* K 2.8* 3.8 3.3* 2.7* CL 105 -- 112* 113* CO2 17* -- 18* 19* BUN 15 -- 24 28* CREATININE 1.31* -- 1.82* 2.05* PROT -- -- -- 5.5* BILITOT -- -- -- 0.6 ALT -- -- -- 40 AST -- -- -- 31 Phosphorus: Recent Labs Lab 07/26/14 0500 PHOS 3.6 Recent Labs Lab 07/26/14 1334 07/26/14 0500 MG 2.0 1.9 No results for input(s): AMYLASE in the last 168 hours. No results for input(s): PHART, PO2ART, PCP4BQQ, E8GDSEYC, BEART in the last 168 hours. No results for input(s): APTT, INR, PTT in the last 168 hours. No results for input(s): TSH, T3FREE, FREET4 in the last 168 hours. No results for input(s): CKTOTAL, TROPONINI, TROPONINT, CKMBINDEX in the last 168 hours. PROBLEM LIST Principal Problem: Acute pyelonephritis Left Side without Hydronephrosis or an obstructing stone Active Problems: HTN (hypertension) History of total hip replacement Bilateral ASSESSMENT & PLAN Principal Problem: Acute pyelonephritis Left Side without Hydronephrosis or an obstructing stone Active Problems: HTN (hypertension) History of total hip replacement Bilateral Acute pyelonephritis Left Side without Hydronephrosis or an obstructing stone on IV cipro moniter WBC trend BC f/ up pending Continue IVF noted to have sodium drop On NS IVF Though GFR improved moniter trend will send urine sodium cortisol TSH And osmolar seurm and urine as well replace potassium today , mag check chest Xray review also possible LLLP- Noted some cough + will have sputum culture moniter for now F/ up recheck chest Xray anxiety With paranoidia- On seraquel low dose moniter delirium per daughter she has drinking history ( last alcohol intake ? 3 days before admission Ago ) change lorazepan to daizepan regarding CIWA protocol also put thiamine MVI as well check B12 Active Problems: HTN (hypertension)- stable DVT pro GI H2 mackenzie No compliant heartburn today Mariella Robertson MD MD 07/27/2014 1:46 PM onversion Transac tion, Provider Unknown - 07/27/2014 12:45 PM PDTFormatting of this note might be different f rom the original. Therapy Progress Note by Lindsay Mederos PT at 07/27/14 1245 Author: Lindsay Mederos PT Service: (none) Author Type: Physical Therapist Filed: 07/27/14 3524 Date of Service: 07/27/14 1245 Status: Signed [employer]: Lindsay Mederos PT (Physical Therapist) 07/27/14 1245 PT Last Visit PT Received On 07/27/14 Reason for Treatment Deconditioning (acute pyelonephritis) Requires PT Follow Up Awaiting tx order Follow up PT Only? No Focus for Next Treatment Formal Balance Assessment PT Eval/Reassessment Date 07/27/14 Assistance Required 1 person Machine Container Washer Needed No Home Environment Type of Home Apartment upper level (2nd story apartment, no elevator access) Home Exterior Layout Flight one Home Interior Layout Lives on main level with bedroom/bathroom (apartment complex does not have laundry unit) Bathroom Shower/Tub Tub/shower unit Bathroom Toilet Standard Bathroom Accessibility Not accessible Home Equipment Cane single point (Pt used to own FWW, but states that it was stolen ) Additional Comments Per RN, pt is supposed to use supplemental O2 at home, but does not use it. O2 sats at 98% on RA presently. 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, trains new hires at [employer] ) RUE Assessment RUE Assessment WFL LUE Assessment LUE Assessment WFL RLE Assessment RLE Assessment WFL LLE Assessment LLE Assessment WFL Cognition Overall Cognitive Status WFL Orientation Level Oriented;Use of environmental cues Sensation Light Touch (Pt states pins/needles in B feet, reports h/o restless legs ) Vision-Basic Assessment Current Vision Wears glasses Assessment of Patient Status Assessment of Patient Status Decreased functional mobility;Decreased endurance;Pain Prognosis Should progress with skilled therapy intervention Safety Devices Safety Devices in Place (Call light in reachMD present at end ) Restraints Initially in Place No Precautions Other Precautions Fall precautions Plan Treatment/Interventions Balance training;Bed mobility training;Gait training;Transfer train ing;Stair training;Therapeutic exercise PT Frequency 5-7x/wk;Once per day Care Duration (# of days) 7 # of days Recommendation Recommendations Defer (Pending improvement) Equipment Recommended (pending improvement ) Barriers to Discharge Physical Deficits Impacting Functional [place];Pain Recommendation Comments Pt will require stair training prior to d/c from hospital as pt kenny es in 2nd story apartment without elevator access. 07/27/14 1245 PT Last Visit PT Received On 07/27/14 Reason for Treatment Deconditioning (acute pyelonephritis) Requires PT Follow Up Awaiting tx order Follow up PT Only? No Focus for Next Treatment Formal Balance Assessment PT Eval/Reassessment Date 07/27/14 Assistance Required 1 person Machine Container Washer Needed No Precautions Other Precautions Fall precautions Other Comments Comments Pt in bed upon PT arrival, agreeable to therapy evaluation. Pt is a 54 y.o. female who was admitted to the hospital for acute pyelonephritis/L abdominal pain. Upon arrival, p t moaning in pain and is sensitive to light touch. Pt demonstrating good strength presently, however, does not tolerate movement very well with increased moaning present during bed mob ility. Upon sitting EOB, pt reported onset of fatigue and requesting to hold ambulation toda y. Pt agreeable to perform stand pivot transfer to recliner at bedside. Pt able to complete transfer with Ludy from PT. Pt positioned comfortably in recliner at end of session with MD arrival at end of session. Overall, pt tolerated session fair and would likely benefit from ongoing therapy in the acute setting to imrpove strength and tolerance to functional activit y to improve safety upon d/c from hospital. Cognition Overall Cognitive Status WFL Orientation Level Oriented;Use of environmental cues Bed Mobility Supine to Sit Mod assist (BLEs OOB or trunk to upright) Transfers Sit to/from Stand Minimal assist (steadying/contact guard) Stand Pivot Transfers Minimal assist (steadying/contact guard) Mobility Ambulation Assistance Not performed (Pt too fatigued to performed ) Balance Balance Yes Static Sitting Balance Static Sitting-Balance Support Right upper extremity support;Left upper extremity support;F eet supported Static Sitting-Level of Assistance Supervision;Attains midline;Maintains midline Static Sitting-Comment/Duration x 2-3 minutes Modalities Modalities Other therapy Other Therapy Education provided on importance of frequent mobility to avoid/minimize effec t of bed rest. Education on safe transfer techniques Activity Tolerance Activity Tolerance Patient limited by fatigue;Patient limited by pain Nurse Made Aware Yes Safety Devices Safety Devices in Place (Call light in reachMD present at end ) Restraints Initially in Place No Plan Treatment/Interventions Balance training;Bed mobility training;Gait training;Transfer train ing;Stair training;Therapeutic exercise PT Frequency 5-7x/wk;Once per day Care Duration (# of days) 7 # of days Recommendation Recommendations Defer (Pending improvement) Equipment Recommended (pending improvement ) Barriers to Discharge Physical Deficits Impacting Functional [place];Pain Recommendation Comments Pt will require stair training prior to d/c from hospital as pt kenny es in 2nd story apartment without elevator access. Kerrie Mcdermott MD - 07/27/2014 11:18 AM PDT Progress Notes by Kerrie Arevalo MD at 07/27/148 Author: Kerrie Arevalo MD Service: Infectious Disease Author Type: Physician Filed: 07/28/14 0622 Date of Service: 07/27/141117 Status: Signed [employer]: Kerrie Arevalo MD (Physician) Merged With [facility] Service: Infectious Disease Progress Note Hospital Day: LOS: 2 days Post-Op Day: * No surgery found * SUBJECTIVE Patient Summary: Events Overnight: Fever curve and WBC better. Feels cold but no rigors. Still havin g left flank and abdominal pain. No further nausea or vomiting. No dysuria. No rash. No diarrhea. Scheduled Medications ciprofloxacin 400 mg Intravenous Q12H docusate sodium 100 mg Oral BID Or docusate 100 mg Per OG Tube BID famotidine 20 mg Oral Daily Or famotidine 20 mg Intravenous Daily heparin (porcine) 5000 unit/0.5mL 5,000 Units Subcutaneous 2 times per day QUEtiapine 25 mg Oral Nightly Continuous Infusions sodium chloride (IV) 110 mL/hr at 07/27/14 0350 PRN Medications acetaminophen OR acetaminophen, fentaNYL, HYDROmorphone OR HYDROmorphone, lip moist urizer, LORazepam, magnesium sulfate OR magnesium sulfate OR magnesium sulfate OR* * magnesium sulfate, nystatin, nystatin, ondansetron OR ondansetron, phosphorus OR s odium phosphate IVPB 20 mmol OR sodium phosphate IVPB 45 mmol potassium chloride OR potassium chloride OR potassium chloride OR potassium chl oride OR potassium chloride OR potassium chloride OBJECTIVE Vital Signs: BP 135/82 | Pulse 122 | Temp(Src) 98.5 F (36.9 C) (Oral) | Resp 21 | Ht 1.549 m (5' 1") | Wt 99.4 kg (219 lb 2.2 oz) | BMI 41.43 kg/m2 | SpO2 97% | ? No Temp: [98 F (36.7 C)-99.7 F (37.6 C)] 98.7 F (37.1 C) (07/29 323) BP: (98-138)/(54-87) 130/80 mmHg (07/29 323) Heart Rate: [98-120] 108 (07/280) Resp: [20-24] 20 (07/29 323) SpO2: [95 %-98 %] 97 % (07/29 323) Physical Exam Vital signs have been reviewed Gen.: Appears more comfortable today; sitting in a chair HEENT: Normocephalic. Sclerae are anicteric. No nasal mucosal lesions. No oral thrush or ulcers. Supple neck, no cervical lymphadenopathy Lungs: No adventitious breath sounds Cardiovascular: Tachycardic. Regular rhythm. No murmur or rubs Abdomen: No distention. Positive bowel sounds. Soft. Positive CVA tenderness with mild l eft lower quadrant tenderness to deep palpation. No palpable masses. No skin lesions. Good skin turgor Neurologic: Oriented 3, no focal weakness or numbness Psychiatric: Anxious Musculoskeletal: No swollen joints. Intact scars at hips DATA Labs reviewed PROBLEM LIST Principal Problem: Acute pyelonephritis Left Side without Hydronephrosis or an obstructing stone Active Problems: HTN (hypertension) History of total hip replacement Bilateral ASSESSMENT & PLAN Septic shock - resolved Acute pyelonephritis -urinalysis here indicative of contaminated urine; urine culture was not carried out with no bacteria noted on urinalysis -blood cultures with no growth to date -we will follow up with [facility] about urine/blood cultures done in their ER -Zosyn started on admission, changed to IV ciprofloxacin on 07/26 for urinary coverage; fair ly stable on this antibiotic coverage Infiltrate at the LLL on CXR -patient has no cough or phlegm -she did have left chest discomfort now resolved -?beginning pneumonia; will monitor clinical symptoms and do follow up CXR History of bilateral hip replacement -site look benign on exam Case discussed with Dr. Robertson Code Status: Full Code Kerrie Arevalo MD 07/27/2014 onversion Zaman saction, Provider Unknown - 07/26/2014 6:16 PM PDTFormatting of this note might be differen t from the original. Progress Notes by Sadia Mcmahon [facility] at 07/26/141815 Author: Sadia Mcmahon RPH Service: (none) Author Type: Pharmacist Filed: 07/26/141815 Date of Service: 07/26/141815 Status: Signed [employer]: Sadia Mcmahon RPH (Pharmacist) Clinical Pharmacy Note: Renal Monitoring Camila Hill 54 y.o. female Ht Readings from Last 1 Encounters: 07/26/14 1.549 m (5' 1") Wt Readings from Last 1 Encounters: 07/26/14 99.4 kg (219 lb 2.2 oz) CREATININE: 1.82 mg/dL ABNORMAL (07/26/14 0500) Estimated creatinine clearance - 38.6 mL/min Will order the following dosage adjustments: Pepcid 20 mg IV/PO Q24H Pharmacy will continue to monitor for changes in medication orders and in renal function an d adjust accordingly. Sadia Mcmahon RPh 07/26/2014 6:16 PM IEConver suki Ro Provider Unknown - 07/26/2014 5:51 PM PDT Progress Notes by Nidia Poole RN at 07/26/141750 Author: Nidia Poole RN Service: (none) Author Type: Registered Nurse Filed: 07/26/141757 Date of Service: 07/26/141750 Status: Signed [employer]: Nidia Poole RN (Registered Nurse) Patient is acting tearful, states that "she heard the a nurse talking about how the patient just needed beer to calm down." I explained to her that no one was talking about her and s he didn't believe me. She is acting extremely paranoid and having severe anxiety. Heart ra te was up to 160-170, called Dr. Robertson and she prescribed prn 1mg Ativan. I gave at 1745 and heart rate is down to 130-140, I let her be in her room and she is calming down. Will cont inue to monitor and try to contact family to get a better background on patients anxiety. Mariella Miller MD - 07/26/2014 5:30 PM PDT Progress Notes by Mariella Robertson MD at 07/26/141729 Author: Mariella Robertson MD Service: (none) Author Type: Physician Filed: 07/26/141814 Date of Service: 07/26/141729 Status: Addendum [employer]: Mariella Robertson MD (Physician) Related Notes: Original Note by Mariella Robertson MD (Physician) filed at 07/26/141809 Merged With [facility] Service: Hospitalist Progress Note Pt: Camila Hill AGE/SEX: 54 y.o. female : 1960 ROOM: [address] [place] [address] REQUESTING PROVIDER: Mariella Robertson MD TODAY'S DATE: 07/26/2014 Hospital Day: LOS: 1 day 54 y.o. female with significant past medical history of HTN and prior THR's bilateral. Admi tted with left flank and chest pain with breathing. Temp to 101.9 to ED in [facility]. With WBC of 22K and a creatinine of 2.[address] of the abdomen and pelvis showed fat stranding involving the left kidney but no hydronephrosis and no evidence of stones. She wa s admiitted to ICU for Septic shock( transfer on Nor epi after getting 5 liters of NS in [facility].) Trated with IV zosyn And aggresuive hydration as she is heamdynamically stable transfer out to floor today SUBJECTIVE anxiety issue ++ as well as paranodia ++ with that also noted sinus tachycardia As well In 120s 130s complian heart burn Scheduled Medications ciprofloxacin 400 mg Intravenous Q12H docusate sodium 100 mg Oral BID Or docusate 100 mg Per OG Tube BID heparin (porcine) 5000 unit/0.5mL 5,000 Units Subcutaneous 2 times per day Continuous Infusions sodium chloride (IV) 110 mL/hr at 07/26/14 0659 PRN Medications acetaminophen OR acetaminophen, fentaNYL, HYDROmorphone OR HYDROmorphone, lip moist urizer, magnesium sulfate OR magnesium sulfate OR magnesium sulfate OR magnesium sulfate, nystatin, nystatin, ondansetron OR ondansetron, phosphorus OR sodium phosp hate IVPB 20 mmol OR sodium phosphate IVPB 45 mmol potassium chloride OR potassium chloride OR potassium chloride OR potassium chl oride OR potassium chloride OR potassium chloride Allergy: Allergies Allergen Reactions Buspar [Buspirone Hcl] Anxiety Toradol [Ketorolac] Anxiety OBJECTIVE Vitals: Patient Vitals for the past 24 hrs: BP Temp Temp src Pulse Resp SpO2 Height Weight 07/26/14 1614 126/76 mmHg 99.2 F (37.3 C) Oral 131 - 95 % - - 07/26/14 1600 114/68 mmHg - - 124 - 98 % - - 07/26/14 1500 122/70 mmHg - - 118 - - - - 07/26/14 1400 119/65 mmHg - - 114 - 99 % - - 07/26/14 1300 87/57 mmHg - - 106 - 93 % - - 07/26/14 1200 97/61 mmHg - - 106 - 100 % - - 07/26/14 1100 89/51 mmHg - - 106 - 98 % - - 07/26/14 1000 99/54 mmHg - - 108 - 90 % - - 07/26/14 0945 94/50 mmHg - - 111 - 98 % - - 07/26/14 0930 89/52 mmHg - - 114 - 97 % - - 07/26/14 0915 82/51 mmHg - - 119 - 62 % - - 07/26/14 0900 91/64 mmHg - - 124 - 100 % - - 07/26/14 0815 98/56 mmHg - - 127 40 100 % - - 07/26/14 0800 98/56 mmHg 101.5 F (38.6 C) Oral 124 22 100 % - - 07/26/14 0745 89/48 mmHg - - 126 31 98 % - - 07/26/14 0730 93/48 mmHg - - 126 45 99 % - - 07/26/14 0700 100/50 mmHg - - 127 40 - - - 07/26/14 0630 111/70 mmHg - - 127 32 - - - 07/26/14 0600 112/57 mmHg - - 129 24 - - - 07/26/14 0530 115/69 mmHg - - 127 28 - - - 07/26/14 0500 106/62 mmHg - - 128 25 - - - 07/26/14 0430 141/77 mmHg - - 131 27 - - - 07/26/14 0400 88/43 mmHg 99.4 F (37.4 C) Axillary 127 34 98 % - - 07/26/14 0330 112/64 mmHg - - 126 22 - - - 07/26/14 0300 108/59 mmHg - - 122 25 - - - 07/26/14 0251 106/59 mmHg 99.5 F (37.5 C) Axillary 121 30 100 % - - 07/26/14 0230 107/68 mmHg - - 121 29 97 % - - 07/26/14 0200 105/72 mmHg - - 116 16 100 % - - 07/26/14 0130 100/63 mmHg - - 111 20 99 % - - 07/26/14 0100 114/77 mmHg - - 113 32 99 % - - 07/26/14 0047 - - - - - - 1.549 m (5' 1") 99.4 kg (219 lb 2.2 oz) 07/26/14 0030 112/70 mmHg - - 107 22 100 % - - 07/26/14 0000 120/74 mmHg 98.9 F (37.2 C) Oral 106 35 100 % - - 07/25/14 2344 - 98.9 F (37.2 C) Oral - - 100 % 1.549 m (5' 1") 99.4 kg (219 lb 2.2 oz) I&O Detailed Table: Intake/Output Summary (Last 24 hours) at 07/26/14 1730 Last data filed at 07/26/14 1339 Gross per 24 hour Intake 3366 ml Output 3675 ml Net -309 ml Patient Vitals for the past 96 hrs: Weight 07/26/14 0047 99.4 kg (219 lb 2.2 oz) 07/25/142343 99.4 kg (219 lb 2.2 oz) Hemodynamics Last 24hrs: CVP (mean): [0 mmHg-19 mmHg] 12 mmHg (07/26 1600) PA catheter wave form: [-] Review of systems Constitutional afebril Lung- no cough, no shortness of breath, no wheezing Heart- no chest pain , , no shortness of breath Abdomen+ Flank abdominal pain, Heart burn, no constipation, no diarrha Extremities-no swelling Examination: (nursing notereviewed). Constitutional: oriented to person, place, and time. Appears well-developed and well-minal shed. HENT: Head: Normocephalic and atraumatic. Mouth/Throat: Oropharynx is clear and moist. Eyes: Conjunctivae and EOM are normal. Pupils are equal, round, and reactive to light. Neck: Normal range of motion. Neck supple. Cardiovascular: Normal rate, regular rhythm, normal heart sounds Pulmonary/Chest: Effort normal and breath sounds normal. Abdominal: Soft. Bowel sounds are normal. Soft tenderness left flank + no rebound Genitourinary: defer Musculoskeletal: exhibits no edema and no tenderness. Neurological: alert and oriented to person, place, and time. No focality Skin: Skin is dry . Psychiatric: Anxious++( with some parnoidia) LABS: Recent Labs Lab 07/26/14 0112 WBC 21.22* HGB 12.0 HCT 36.0 PLT 122* Recent Labs Lab 07/26/14 1334 07/26/14 0500 07/26/14 0112 NA -- 141 144* K 3.8 3.3* 2.7* CL -- 112* 113* CO2 -- 18* 19* BUN -- 24 28* CREATININE -- 1.82* 2.05* PROT -- -- 5.5* BILITOT -- -- 0.6 ALT -- -- 40 AST -- -- 31 Phosphorus: Recent Labs Lab 07/26/14 0500 PHOS 3.6 Recent Labs Lab 07/26/14 1334 07/26/14 0500 MG 2.0 1.9 No results for input(s): AMYLASE in the last 168 hours. No results for input(s): PHART, PO2ART, KTO0ZSX, X1MCPWEF, BEART in the last 168 hours. No results for input(s): APTT, INR, PTT in the last 168 hours. No results for input(s): TSH, T3FREE, FREET4 in the last 168 hours. No results for input(s): CKTOTAL, TROPONINI, TROPONINT, CKMBINDEX in the last 168 hours. PROBLEM LIST Principal Problem: Acute pyelonephritis Left Side without Hydronephrosis or an obstructing stone Active Problems: HTN (hypertension) History of total hip replacement Bilateral ASSESSMENT & PLAN Principal Problem: Acute pyelonephritis Left Side without Hydronephrosis or an obstructing stone on IV cipro moniter WBC trend BC f/ up pending Continue IVF chest Xray review also possible LLLP- no cough or congestion moniter for now F/ up ID recommendation anxiety With parnoidia- Use to be on Med ( last 2 years ago she states just stopped herse lf)) for now start lorzepan low dose as need with parnoidia can be also underlying Anxiety compound also delirium caution as well [place] l strta serquel low dose for now Active Problems: HTN (hypertension)- stable DVT pro GI H2 mackenzei started for heart burn moniter Mariella Robertson MD MD 07/26/2014 5:30 PM onversion Transac tion, Provider Unknown - 07/26/2014 1:51 PM PDTFormatting of this note might be different f rom the original. Progress Notes by Pam Mcknight RD, CD at 07/26/14 1351 Author: Pam Mcknight RD, CD Service: (none) Author Type: Registered Dietitian Filed: 07/26/14 1352 Date of Service: 07/26/14 1351 Status: Signed [employer]: Pam Mcknight RD, CD (Registered Dietitian) 07/26/14 1333 Subjective Timepoint Admit Pt c/o Routine ICU consult received. Pt admitted secondary to pyelonephritis, seems very u ncomfortable and in pain at time of visit. RN just administered pain medications. Reported by Patient Diet Experience Self-selected diet(s) followed Pt follows no special diet at home. Fluid / Beverage Intake Oral Fluids Amount Pt on clear liquids, had consumed about half an [place] Ice at time of v isit. NS running at 110 ml/hr. 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 Nutrition-Focused Physical Findings Digestive System (Mouth to Rectum) No swallowing issues ASSISTANT TODDLER TEACHER. Pt does have chewing issues i f dentures not in. Dentures in pt's mouth at time of visit. Anthropometrics Weight change Pt's BMI (41.45) indicates class three obesity, pt 208% of midpoint of ideal body wt range. Long-term, slow wt loss to within ideal body wt range ideal. Pt reports no wt loss is spite of poor intake ASSISTANT TODDLER TEACHER. Biochemical data, medical tests, and procedures reviewed Biochemical data, medical tests, and procedures reviewed Blood sugars WNL. K+ low at 3.3. BUN WNL, Cr elevated. Estimated Energy Needs Total Energy Estimated Needs 5436-8951 kcal/day Method for Estimating Needs 25-30 kcal/kg based on adjusted body wt of 60.6 kg Estimated Protein Needs Total Protein Estimated Needs 73-91 gr/day Method for Estimating Needs 1.2-1.5 gr/kg based on adjusted body wt of 60.6 kg Fluid Needs Total Fluid Estimated Needs 1800 -2125 ml/day Method for Estimating Needs 30-35 ml/kg based on adjusted body wt of 60.6 kg Recommendations Recommended energy needs ADAT to general diet. Will monitor intake, further nutrition inte rvention if intake less than optimal. Anticipate pt will eat better once pain resolved. Nutritional Risk Nutritional risk Moderate Nutritional risk comment Inadequate protein-energy intake related to decreased ability to c onsume sufficient protein and/or energy secondary to nausea and pain as evidenced by reporte d very poor minimal intake for five days ASSISTANT TODDLER TEACHER, current clear liquid diet order. Follow up date 07/31/[address] CD onver suki oR Provider Unknown - 07/26/2014 1:09 AM PDT Progress Notes by Kathryn Madden RPH at 07/26/14108 Author: Kathryn Madden RPH Service: (none) Author Type: Pharmacist Filed: 07/26/14108 Date of Service: 07/26/14108 Status: Signed [employer]: Kathryn Madden RPH (Pharmacist) Clinical Pharmacy Note: Renal Monitoring & Extended Interval Zosyn Dosing Camila Hill 54 y.o. female Height: 154.9 cm Weight: 99.4 kg Serum Creatinine: 2.62 mg/dL (from [place] per Nursing Package Liner) Estimated creatinine clearance - Cockcroft-Gault CrCl: 27 mL/min. No results found for this basename: NEUTROABS Pharmacy dosing for renal function per Dr. Ortiz. Zosyn loading dose of 4.5 g IV was administered 07/25 at 1802 at [facility]. Will continu e with 3.375 g IV Q8H to start now (each 3.375 g dose to be infused over 4 hours). Interval may need to be decreased to Q12H. Currently there are no medications needing to be renally adjusted. Pharmacy will continue t o monitor for changes in medication orders and in renal function and adjust accordingly per protocol. Kathryn Madden, PharmD 07/26/2014 1:07 AM docume nted in this encounter H&P Notes Tanvir Ortiz MD - 07/26/2014 6:00 AM PDT H&P by Tanvir Ortiz MD at 07/26/14599 Author: Tanvir Ortiz MD Service: Harmonica Maker Author Type: Harmonica Maker Filed: 07/26/14621 Date of Service: 07/26/14599 Status: Signed [employer]: Tanvir Ortiz MD (Physician) Merged With [facility] Service: Harmonica Maker Admission History & Physical Camila Hill 54 y.o. Date of Admission: 07/25/2014 Requesting Physician: Dr Tinoco [facility] ED [facility] OR Indication for ICU Admission: Left Pyelonephritis History Obtained From: The patient CHIEF COMPLAINT: My left side hurts and I have fever HISTORY OF PRESENT ILLNESS The patient is a 54 y.o. female with significant past medical history of HTN and prior THR' s bilateral. She reports that 4 days ASSISTANT TODDLER TEACHER she developed a COREY and NV. Then 24 hours ASSISTANT TODDLER TEACHER she noted left flank and chest pain with breathing. Temp to 101.9 to ED in [place]. There sh e had a WBC of 22K and a creatinine of 2.6 up from her usual of 1.0. A CT of the abdomen an d pelvis showed fat stranding involving the left kidney but no hydronephrosis and no evidenc e of stones. On exam she had a very tender left flank and left abdomen to deep palpation. No diarrhea, no hemoptysis on melena. No prior bladder infections, "not even when I was pre gnant", no hematuria. No prior renal stones. REVIEW OF SYSTEMS Negative except for pertinent items noted in HPI. PAST MEDICAL HISTORY Past Medical History Diagnosis Date Osteoarthritis Uterine fibroid Chronic chest wall pain Seizures 07/2012 Other chronic pain COPD (chronic obstructive pulmonary disease) Hypertension Joint pain PAST SURGICAL HISTORY Past Surgical History Procedure Laterality Date Total hip arthroplasty bilateral Tubal ligation Unlisted procedure arthroscopy ALLERGIES Allergies Allergen Reactions Buspar [Buspirone Hcl] Anxiety Toradol [Ketorolac] Anxiety MEDICATIONS PRIOR TO ADMISSION Prior to Admission medications Medication Sig Start Date End Date Taking? Authorizing Provider amitriptyline (ELAVIL) 25 MG tablet Take 25 mg by mouth nightly. 07/26/14 Historical Provid er buPROPion (WELLBUTRIN SR) 150 MG 12 hr tablet Take 150 mg by mouth 2 (two) times daily. 07/26/14 Historical Provider ibuprofen (ADVIL,MOTRIN) 600 MG tablet Take 600 mg by mouth every 6 (six) hours as needed. 07/26/14 Historical Provider metoprolol (TOPROL-XL) 25 MG 24 hr tablet Take 25 mg by mouth daily. 07/26/14 Historical Pr ovider sertraline (ZOLOFT) 100 MG tablet Take 100 mg by mouth daily. 07/26/14 Historical Provider FAMILY HISTORY OF SIGNIFICANCE Family History Problem Relation Age of Onset Kidney disease Mother Cancer Mother SOCIAL HISTORY History Social History Marital Status: Spouse Name: N/A Number of Children: N/A Years of Education: N/A Occupational History Not on file. Social History Main Topics Smoking status: Current Every Day Smoker -- 0.50 packs/day for 33 years Smokeless tobacco: Not on file Alcohol Use: Yes Comment: Quit drinking 1 month ago (06/2014) was binge drinking Drug Use: No Sexual Activity: Yes Other Topics Concern Not on file Social History Narrative PHYSICAL EXAM VITAL SIGNS Temp: [98.9 F (37.2 C)-99.5 F (37.5 C)] 99.5 F (37.5 C) Heart Rate: [106-121] 121 Resp: [16-35] 30 BP: (100-120)/(59-77) 106/59 mmHg EXAM Middle age woman complaining of left flank pain GEN: awake, alert, oriented x3, NEURO: PER 3 mm each, EOMI, no facial asymmetry, moves all extremities well GCS: 15 HEENT: sclerae clear, nonicteric, oral mmm, pink, no exudates NECK: supple, trachea midline HEART: RRR, S1/S2, no murmur, rub or gallop LUNGS: clear b/l, no wheezing, rales or rhonchi, symmetric chest expansion, even/unlabored respirations ABD: soft, tender left side of abdomen, very tender left flank. EXTR: no edema, clubbing or cyanosis SKIN: warm, dry, no rash or mottling; no e/o skin breakdown over the occiput, scapulae, elb ows, sacrum or heels LINES/TUBES: left subclavian TLC DATA Recent Labs Lab 07/26/14 0112 WBC 21.22* RBC 3.80 HGB 12.0 HCT 36.0 MCV 94.7 MCH 31.7 MCHC 33.5 RDW 44.6 PLT 122* MPV 10.2 BANDSABS 2.97* MORPH RBC AND PLT MORPHOLOGY APPEAR NORMAL Recent Labs Lab 07/26/14 0500 07/26/14 0112 NA 141 144* K 3.3* 2.7* CL 112* 113* CO2 18* 19* ANIONGAP 15 14 GLUF 78 84 BUN 24 28* CREATININE 1.82* 2.05* BCR 13 14 CA 6.8* 6.7* ALB -- 1.9* PROT -- 5.5* BILITOT -- 0.6 ALT -- 40 AST -- 31 EGFR 31* 27* PHOS 3.6 -- MG 1.9 -- No results for input(s): INR in the last 168 hours. IMAGING PROBLEM LIST Principal Problem: Acute pyelonephritis Left Side without Hydronephrosis or an obstructing stone Active Problems: HTN (hypertension) History of total hip replacement Bilateral ASSESSMENT & PLAN NEURO: Hx Depression: CV: Septic Shock: Came to us on Nor epi after getting 5 liters of NS in [place]. [place] to be due to a UTI and left sided Pyelo, CT there showed swelling of the left Kidney and fat s tranding but no hydrophrosis, UA showed WBC's and bacteria cultures of blood and urine pendi ng PULM: Normal Pulm function GI/NUTRITION: Clear Liquid Diet RENAL/LYTES: Left Sided Pyelonephritis/UTI: Based on clinical Hx of Fever left sided flank pain and UA showing WBC and Bact. CT of Abd and Pelvis showed a swollen left kidney and fat stranding but no hydro and no stones. Have cultures blood and urine and treated with Zosyn and aggre ssive hydration ID: Septic Shock: Came to us on Nor epi after getting 5 liters of NS in [place]. [place] to be due to a UTI and left sided Pyelo, CT there showed swelling of the left Kidney and fat s tranding but no hydrophrosis, UA showed WBC's and bacteria cultures of blood and urine pendi ng HEME: Leukocytosis due to sepsis ENDO: No Hx DM MUSC/SKIN: Skin condition good PROPHYLAXIS: Stress ulcer prophylaxis: NA DVT prophylaxis: heparin VAP bundle: chlorhexadine oral care, HOB >30 degrees. Disposition: ICU care both Urology and ID consults if indicated Code Status: Full Code Primary Care Physician: ILYA WOLFE *Please bill 90 minutes of critical care time spent evaluating the patient, reviewing the d janette and formulating a plan exclusive of all other procedures. Tanvir Ortiz MD 07/26/2014 6:00 AM documente d in this encounter Procedure Notes Tanvir Ortiz MD - 07/26/2014 6:22 AM PDT Procedures by Tanvir Ortiz MD at 07/26/14621 Author: Tanvir Ortiz MD Service: Harmonica Maker Author Type: Harmonica Maker Filed: 07/26/14621 Date of Service: 07/26/14621 Status: Signed [employer]: Tanvir Ortiz MD (Physician) Merged With [facility] Service: Harmonica Maker LEFT SUBCLAVIAN VEIN TRIPLE LUMEN CATHETER PROCEDURE Camila [id number] @OS@ TIME OUT WAS CALLED: Indication: Assess intravascular volume and provide access for delivery of vasoactive medi cation Consent: I discussed the risks and benefits of this procedure with the family and or patie nt, risks included bleeding, infection, vascular injury and Pneumothorax. The family and or patient were given an opportunity to ask questions and agreed to proceed Procedure: The patient was prepped and draped in a sterile fashion using 2% chlorhexidine with full barrier precautions. The skin was anesthetized with 1% lidocaine about 1 cc and a needle was passed under the left clavicle near the junction of the medial and middle third into the left subclavian vein without difficulty. A guide wire was passed through the needl e and a dilator over the guide wire. The triple lumen catheter was advanced to 18 cm at the skin and sutured in place. A bio patch was applied. A follow up chest xray has been ordere d to confirm the position of the catheter and to exclude the possibility of a pneumothorax, it is pending at this time. Estimated blood loss: <1cc Complications: None Tanvir Ortiz MD 07/26/20146:22 AM . documentemelina prado in this encounter Consult Notes Kerrie Arevalo MD - 07/26/2014 9:24 AM PDTFormatting of this note might be differen t from the original. Consult* by Kerrie Arevalo MD at 07/26/14923 Author: Kerrie Arevalo MD Service: Infectious Disease Author Type: Physician Filed: 07/27/14799 Date of Service: 07/26/14923 Status: Signed [employer]: Kerrie Arevalo MD (Physician) Merged With [facility] Service: Infectious Disease Initial Consult Note Date of Admission: 07/25/2014 Reason for Consultation: Left pyelonephritis Requesting Physician: EARL Dugan, Harmonica Maker History Obtained From: patient, chart review CHIEF COMPLAINT: Pain at the left side, not feeling good; fever HISTORY OF PRESENT ILLNESS The patient is a 54 y.o. female with significant past medical history of hypertension and o n disability due to her osteoarthritis, status post bilateral total hip arthroplasty. She d enies history of prior urinary tract infections or kidney stones. About four days prior to admission, she said she felt sick with headache, nausea and vomiti ng. A day prior to her hospital admission, she had left flank pain radiating to the left ab domen, increasing in severity with chest discomfort on respiration. She denies dysuria, hem aturia or noticing gravel in her urine. Appetite had been acutely decreased. She went to [facility]. She was febrile to 101.9 Fahrenheit on presentatio n. On clinical evaluation, the patient had left flank tenderness as well as tenderness at th e left abdomen with deep palpation. White blood cell count was 22,000 with a creatinine of 2.6. CT scan of the abdomen and pelvis showed fat stranding involving the left kidney but n o evidence of hydronephrosis or stones. The patient was transferred to [facility] for further care. She was admitted to the intensive care unit due to septic shock. She already had 5 L of IV fluids in [place]. Levophed was being infused at the time of her hospital admission at [facility]. Urinalysis showed yellow, c loudy urine with moderate leukocyte esterase, no nitrite, moderate blood, no ketones. WBC 2 6-50 per high-power field, 1-5 RBC per high-power field, over 100 epithelial cells, 11-15 hy erik casts and no bacteria. With no bacteria detected, urine culture was not carried out h ere. Two sets of blood cultures are in process with no growth so far. Left subclavian trip le lumen catheter has been placed. The patient has been placed initially on Zosyn. This morning, patient's blood pressure has stabilized. [facility]. Patient feels very anxious and states that she continues to have tenderness at the left flank area, around seven out of 10 in severity. She does deny dysuria or hematuria . Case had been discussed with Keri Vazquez this morning; Zosyn has been changed to IV cipro floxacin. REVIEW OF SYSTEMS Review of Systems Gen.: Positive for fever, chills, sweats. Acute decrease in appetite. HEENT: Prior headaches better. No acute visual problems. No jaundice. No oral pain. No sore throat or difficulty swallowing. No neck pain or stiffness Cardiovascular: Had chest pain. This is now better. Denies palpitations or lower extremit y edema Respiratory: Denies cough, dyspnea, wheezing GI: Nausea and vomiting are better. Denies diarrhea or constipation. No melena : See history of present illness Musculoskeletal: Has known osteoarthritis. No swollen joints. No diffuse myalgias Cutaneous: No pruritus, skin rash or ulcers Neurologic: Denies dizziness, recent seizures, focal weakness or numbness Psychiatric: Denies history of depression Hematologic: No history of bleeding, easy bruisability or lymphadenopathy Infectious: No prior history of UTI. No reported history of MDROs Endocrinologic: No history of diabetes or thyroid disorder Past Medical History Diagnosis Date Osteoarthritis Uterine fibroid Chronic chest wall pain Seizures 07/2012 Other chronic pain COPD (chronic obstructive pulmonary disease) Hypertension Joint pain Past Surgical History Procedure Laterality Date Total hip arthroplasty bilateral Tubal ligation Unlisted procedure arthroscopy Allergies Allergen Reactions Buspar [Buspirone Hcl] Anxiety Toradol [Ketorolac] Anxiety No prescriptions prior to admission Scheduled Medications chlorhexidine gluconate 15 mL Mouth/Throat Q12H ciprofloxacin 400 mg Intravenous Q12H docusate sodium 100 mg Oral BID Or docusate 100 mg Per OG Tube BID pneumococcal 23-valent vaccine 0.5 mL Intramuscular Once Immunization Continuous Infusions sodium chloride (IV) 110 mL/hr at 07/26/14 0659 PRN Medications acetaminophen OR acetaminophen, fentaNYL, HYDROmorphone OR HYDROmorphone, lip moist urizer, magnesium sulfate OR magnesium sulfate OR magnesium sulfate OR magnesium sulfate, nystatin, nystatin, ondansetron OR ondansetron, petrolatum, phosphorus OR sodium phosphate IVPB 20 mmol OR sodium phosphate IVPB 45 mmol potassium chloride OR potassium chloride OR potassium chloride OR potassium chl oride OR potassium chloride OR potassium chloride Family History Problem Relation Age of Onset Kidney disease Mother Cancer Mother History Social History Marital Status: Spouse Name: N/A Number of Children: N/A Years of Education: N/A Occupational History Not on file. Social History Main Topics Smoking status: Current Every Day Smoker -- 0.50 packs/day for 33 years Smokeless tobacco: Not on file Alcohol Use: Yes Comment: Quit drinking 1 month ago (06/2014) was binge drinking Drug Use: No Sexual Activity: Yes Other Topics Concern Not on file Social History Narrative PHYSICAL EXAM Vital Signs: BP 98/56 | Pulse 127 | Temp(Src) 101.5 F (38.6 C) (Oral) | Resp 40 | Ht 1.549 m (5' 1") | Wt 99.4 kg (219 lb 2.2 oz) | BMI 41.43 kg/m2 | SpO2 100% | ? No Temp: [98.9 F (37.2 C)-101.5 F (38.6 C)] 101.5 F (38.6 C) (07/27 799) BP: (88-141)/(43-77) 98/56 mmHg (07/26 814) Heart Rate: [106-131] 127 (07/26 814) Resp: [16-45] 40 (07/26 814) SpO2: [97 %-100 %] 100 % (07/26 814) Height: [154.9 cm (5' 1")] 154.9 cm (5' 1") (07/26 46) Weight: [99.4 kg (219 lb 2.2 oz)] 99.4 kg (219 lb 2.2 oz) (07/26 46) BMI (Calculated): [41.5] 41.5 (07/26 46) Physical Exam Vital signs have been reviewed Gen.: Appears tired but not in acute distress HEENT: Normocephalic. Sclerae are anicteric. No nasal mucosal lesions. No oral thrush or ulcers. Supple neck, no cervical lymphadenopathy Lungs: No adventitious breath sounds Cardiovascular: Patient was no longer tachycardic when I evaluated her. Regular rhythm. N o murmur or rubs Abdomen: No distention. Positive bowel sounds. Soft. Positive CVA tenderness with mild l eft lower quadrant tenderness to deep palpation. No palpable masses. No skin lesions. Good skin turgor Neurologic: Oriented 3, no focal weakness or numbness Psychiatric: Anxious Musculoskeletal: No swollen joints. Intact scars at hips DATA CBC: Lab Results Component Value Date WBC 21.22* 07/26/2014 RBC 3.80 07/26/2014 HGB 12.0 07/26/2014 HCT 36.0 07/26/2014 MCV 94.7 07/26/2014 MCH 31.7 07/26/2014 MCHC 33.5 07/26/2014 RDW 44.6 07/26/2014 PLT 122* 07/26/2014 MPV 10.2 07/26/2014 DIFFTYPE MANUAL 07/26/2014 WBC: Lab Results Component Value Date WBC 21.22* 07/26/2014 NEUTABSMAN 16.97* 07/26/2014 NEUTROMAN 80 07/26/2014 LYMPHOABS 0.64* 07/26/2014 LYMPHOMAN 3 07/26/2014 MONOABSMAN 0.64 07/26/2014 MONOMAN 3 07/26/2014 BANDSPCT 14 07/26/2014 CMP: Lab Results Component Value Date NA 141 07/26/2014 K 3.3* 07/26/2014 CL 112* 07/26/2014 CO2 18* 07/26/2014 ANIONGAP 15 07/26/2014 GLUF 78 07/26/2014 BUN 24 07/26/2014 CREATININE 1.82* 07/26/2014 BCR 13 07/26/2014 CA 6.8* 07/26/2014 PROT 5.5* 07/26/2014 ALB 1.9* 07/26/2014 BILITOT 0.6 07/26/2014 ALP 114 07/26/2014 AST 31 07/26/2014 ALT 40 07/26/2014 EGFR 31* 07/26/2014 U/A: Lab Results Component Value Date CLARITYU CLOUDY 07/26/2014 LEUKOCYTESUR MODERATE* 07/26/2014 NITRITE NEGATIVE 07/26/2014 UROBILINOGEN 0.2 07/26/2014 PHUR 5.5 07/26/2014 BLOODU MODERATE* 07/26/2014 KETONES NEGATIVE 07/26/2014 BILIRUBINUR NEGATIVE 07/26/2014 GLUCOSEU NEGATIVE 07/26/2014 Component Latest Ref Rng 07/26/2014 07/26/2014 1:12 AM 5:00 AM Lactate, Vineet 0.4 - 2.0 mmol/L 1.7 2.3 (H) 07/26 blood cultures in process 07/26 MRSA PCR negative Radiology review: See history of present illness for CT of the abdomen and pelvis done at [place] Impression 1. Possible mild left lower lobe bronchopneumonia. 2. Satisfactory central venous catheter placement. X-ray chest AP only [[id number]] PROBLEM LIST Principal Problem: Acute pyelonephritis Left Side without Hydronephrosis or an obstructing stone Active Problems: HTN (hypertension) History of total hip replacement Bilateral ASSESSMENT & PLAN Septic shock - resolved Acute pyelonephritis -urinalysis here indicative of contaminated urine; urine culture was not carried out with no bacteria noted on urinalysis -blood cultures are in process -we will follow up with [facility] about urine/blood cultures done in their ER -Zosyn has been changed to IV ciprofloxacin for urinary coverage; will monitor clinical co urse on this antibiotic coverage Infiltrate at the [facility] on CXR -patient has no cough or phlegm -she did have left chest discomfort now resolved -?beginning pneumonia; will monitor clinical symptoms and do follow up CXR History of bilateral hip replacement -site look benign on exam Case discussed with EARL Dugan Code Status: Full Code Primary Care Physician: ILYA WOLFE Thank you for allowing me to participate in the care of this patient. Kerrie Arevalo MD 07/26/2014 documented in t his encounter Miscellaneous Notes Plan of Care - Conversion Transaction, Provider Unknown - 08/02/2014 7:30 AM PDT Plan of Care by Aquiles Bennett RN at 08/02/14 0730 Author: Aquiles Bennett RN Service: (none) Author Type: Registered Nurse Filed: 08/02/14 0742 Date of Service: 08/02/14729 Status: Signed [employer]: Aquiles Bennett RN (Registered Nurse) Mobility/activity is maintained at optimum level for patient Progressing Patient will ambulate with PT. Patient's vitals signs are stable Progressing Patient's BP will remain stable. Nutritional status is improving Progressing Patient will eat at least 50% of meals. lan o f Care - Conversion Transaction, Provider Unknown - 08/01/2014 10:00 AM PDTFormatting of thi s note might be different from the original. Plan of Care by Aquiles Bennett RN at 08/01/14 1000 Author: Aquiles Bennett RN Service: (none) Author Type: Registered Nurse Filed: 08/01/14 1013 Date of Service: 08/01/14 1000 Status: Signed [employer]: Aquiles Bennett RN (Registered Nurse) Mobility/activity is maintained at optimum level for patient Progressing Patient will walk in hallway with staff. Patient's vitals signs are stable Progressing Patient's BP will remain stable. Nutritional status is improving Progressing Patient will eat at least 75% of meals. lan o f Care - Conversion Transaction, Provider Unknown - 07/28/2014 8:33 AM PDTFormatting of thi s note might be different from the original. Plan of Care by Camila Mar RN at 07/28/14832 Author: Camila Mar RN Service: (none) Author Type: Registered Nurse Filed: 07/28/1435 Date of Service: 07/28/14832 Status: Signed [employer]: Camila Mar RN (Registered Nurse) No falls during hospitalization Progressing Call light in place. Instructed patient to use when assistance is needed. Camila Mar RN 07/28/2014 8:35 AM docume nted in this encounter Plan of Treatment Not on filedocumented as of this encounter Procedures + +--------+ + + + | Procedure Name | Priori | Date/Time | Associated Diagnosis | Comments | | | ty | | | | + +--------+ + + + | EXTERNAL LAB: CBC | Routin | 08/02/2014 | | Results for this | | | e | 6:02 AM | | procedure are in the | | | | PDT | | results section. | + +--------+ + + + | PHOSPHORUS | Routin | 08/02/2014 | | Results for this | | | e | 6:02 AM | | procedure are in the | | | | PDT | | results section. | + +--------+ + + + | MAGNESIUM | Routin | 08/02/2014 | | Results for this | | | e | 6:02 AM | | procedure are in the | | | | PDT | | results section. | + +--------+ + + + | COMPREHENSIVE | Routin | 08/02/2014 | | Results for this | | METABOLIC PANEL | e | 6:02 AM | | procedure are in the | | | | PDT | | results section. | + +--------+ + + + | EXTERNAL LAB: CBC | Routin | 08/01/2014 | | Results for this | | | e | 5:35 AM | | procedure are in the | | | | PDT | | results section. | + +--------+ + + + | PHOSPHORUS | Routin | 08/01/2014 | | Results for this | | | e | 5:35 AM | | procedure are in the | | | | PDT | | results section. | + +--------+ + + + | MAGNESIUM | Routin | 08/01/2014 | | Results for this | | | e | 5:35 AM | | procedure are in the | | | | PDT | | results section. | + +--------+ + + + | COMPREHENSIVE | Routin | 08/01/2014 | | Results for this | | METABOLIC PANEL | e | 5:35 AM | | procedure are in the | | | | PDT | | results section. | + +--------+ + + + | MAGNESIUM | Routin | 07/31/2014 | | Results for this | | | e | 1:05 PM | | procedure are in the | | | | PDT | | results section. | + +--------+ + + + | CT CHEST ABDOMEN | Routin | 07/31/2014 | | Results for this | | PELVIS W CONTRAST | e | 12:33 PM | | procedure are in the | | | | PDT | | results section. | + +--------+ + + + | EXTERNAL LAB: CBC | Routin | 07/31/2014 | | Results for this | | | e | 5:55 AM | | procedure are in the | | | | PDT | | results section. | + +--------+ + + + | PHOSPHORUS | Routin | 07/31/2014 | | Results for this | | | e | 5:55 AM | | procedure are in the | | | | PDT | | results section. | + +--------+ + + + | MAGNESIUM | Routin | 07/31/2014 | | Results for this | | | e | 5:55 AM | | procedure are in the | | | | PDT | | results section. | + +--------+ + + + | COMPREHENSIVE | Routin | 07/31/2014 | | Results for this | | METABOLIC PANEL | e | 5:55 AM | | procedure are in the | | | | PDT | | results section. | + +--------+ + + + | EXTERNAL LAB: CBC | Routin | 07/30/2014 | | Results for this | | | e | 4:22 AM | | procedure are in the | | | | PDT | | results section. | + +--------+ + + + | PHOSPHORUS | Routin | 07/30/2014 | | Results for this | | | e | 4:22 AM | | procedure are in the | | | | PDT | | results section. | + +--------+ + + + | MAGNESIUM | Routin | 07/30/2014 | | Results for this | | | e | 4:22 AM | | procedure are in the | | | | PDT | | results section. | + +--------+ + + + | COMPREHENSIVE | Routin | 07/30/2014 | | Results for this | | METABOLIC PANEL | e | 4:22 AM | | procedure are in the | | | | PDT | | results section. | + +--------+ + + + | EXTERNAL LAB: CBC | Routin | 07/29/2014 | | Results for this | | | e | 3:58 AM | | procedure are in the | | | | PDT | | results section. | + +--------+ + + + | PHOSPHORUS | Routin | 07/29/2014 | | Results for this | | | e | 3:58 AM | | procedure are in the | | | | PDT | | results section. | + +--------+ + + + | MAGNESIUM | Routin | 07/29/2014 | | Results for this | | | e | 3:58 AM | | procedure are in the | | | | PDT | | results section. | + +--------+ + + + | COMPREHENSIVE | Routin | 07/29/2014 | | Results for this | | METABOLIC PANEL | e | 3:58 AM | | procedure are in the | | | | PDT | | results section. | + +--------+ + + + | URINALYSIS WITH | Routin | 07/28/2014 | | Results for this | | MICROSCOPIC IF | e | 10:35 AM | | procedure are in the | | INDICATED | | PDT | | results section. | + +--------+ + + + | URINALYSIS, | Routin | 07/28/2014 | | Results for this | | MICROSCOPIC ONLY | e | 10:35 AM | | procedure are in the | | | | PDT | | results section. | + +--------+ + + + | CULTURE, URINE | Timed | 07/28/2014 | | Results for this | | | | 10:35 AM | | procedure are in the | | | | PDT | | results section. | + +--------+ + + + | XR CHEST 2 VIEWS | Routin | 07/28/2014 | | Results for this | | | e | 8:42 AM | | procedure are in the | | | | PDT | | results section. | + +--------+ + + + | EXTERNAL LAB: CBC | Routin | 07/28/2014 | | Results for this | | | e | 4:45 AM | | procedure are in the | | | | PDT | | results section. | + +--------+ + + + | CORTISOL, AM | Routin | 07/28/2014 | | Results for this | | | e | 4:45 AM | | procedure are in the | | | | PDT | | results section. | + +--------+ + + + | VITAMIN B-12 | Routin | 07/28/2014 | | Results for this | | | e | 4:45 AM | | procedure are in the | | | | PDT | | results section. | + +--------+ + + + | TSH | Routin | 07/28/2014 | | Results for this | | | e | 4:45 AM | | procedure are in the | | | | PDT | | results section. | + +--------+ + + + | OSMOLALITY, SERUM | Routin | 07/28/2014 | | Results for this | | | e | 4:45 AM | | procedure are in the | | | | PDT | | results section. | + +--------+ + + + | MAGNESIUM | Routin | 07/28/2014 | | Results for this | | | e | 4:45 AM | | procedure are in the | | | | PDT | | results section. | + +--------+ + + + | COMPREHENSIVE | Routin | 07/28/2014 | | Results for this | | METABOLIC PANEL | e | 4:45 AM | | procedure are in the | | | | PDT | | results section. | + +--------+ + + + | SODIUM, URINE, | Routin | 07/27/2014 | | Results for this | | RANDOM | e | 10:09 PM | | procedure are in the | | | | PDT | | results section. | + +--------+ + + + | OSMOLALITY, URINE | Routin | 07/27/2014 | | Results for this | | | e | 10:09 PM | | procedure are in the | | | | PDT | | results section. | + +--------+ + + + | EXTERNAL LAB: CBC | Routin | 07/27/2014 | | Results for this | | | e | 3:16 AM | | procedure are in the | | | | PDT | | results section. | + +--------+ + + + | BASIC METABOLIC | Routin | 07/27/2014 | | Results for this | | PANEL | e | 3:16 AM | | procedure are in the | | | | PDT | | results section. | + +--------+ + + + | LACTIC ACID | Routin | 07/26/2014 | | Results for this | | | e | 1:35 PM | | procedure are in the | | | | PDT | | results section. | + +--------+ + + + | POTASSIUM | Routin | 07/26/2014 | | Results for this | | | e | 1:34 PM | | procedure are in the | | | | PDT | | results section. | + +--------+ + + + | MAGNESIUM | Routin | 07/26/2014 | | Results for this | | | e | 1:34 PM | | procedure are in the | | | | PDT | | results section. | + +--------+ + + + | LACTIC ACID | Routin | 07/26/2014 | | Results for this | | | e | 12:05 PM | | procedure are in the | | | | PDT | | results section. | + +--------+ + + + | PHOSPHORUS | Routin | 07/26/2014 | | Results for this | | | e | 5:00 AM | | procedure are in the | | | | PDT | | results section. | + +--------+ + + + | MAGNESIUM | Routin | 07/26/2014 | | Results for this | | | e | 5:00 AM | | procedure are in the | | | | PDT | | results section. | + +--------+ + + + | LACTIC ACID | Routin | 07/26/2014 | | Results for this | | | e | 5:00 AM | | procedure are in the | | | | PDT | | results section. | + +--------+ + + + | BASIC METABOLIC | Routin | 07/26/2014 | | Results for this | | PANEL | e | 5:00 AM | | procedure are in the | | | | PDT | | results section. | + +--------+ + + + | XR CHEST 1 VIEW | Routin | 07/26/2014 | | Results for this | | | e | 4:27 AM | | procedure are in the | | | | PDT | | results section. | + +--------+ + + + | CULTURE, BLOOD, 2ND | Timed | 07/26/2014 | | Results for this | | SPECIMEN (NON-ORD) | | 1:30 AM | | procedure are in the | | | | PDT | | results section. | + +--------+ + + + | CULTURE, BLOOD | Timed | 07/26/2014 | | Results for this | | | | 1:26 AM | | procedure are in the | | | | PDT | | results section. | + +--------+ + + + | EXTERNAL LAB: CBC | Routin | 07/26/2014 | | Results for this | | | e | 1:12 AM | | procedure are in the | | | | PDT | | results section. | + +--------+ + + + | LACTIC ACID | Routin | 07/26/2014 | | Results for this | | | e | 1:12 AM | | procedure are in the | | | | PDT | | results section. | + +--------+ + + + | HEPATIC FUNCTION | Routin | 07/26/2014 | | Results for this | | PANEL | e | 1:12 AM | | procedure are in the | | | | PDT | | results section. | + +--------+ + + + | BASIC METABOLIC | Routin | 07/26/2014 | | Results for this | | PANEL | e | 1:12 AM | | procedure are in the | | | | PDT | | results section. | + +--------+ + + + | MRSA NAAT | Routin | 07/26/2014 | | Results for this | | | e | 1:05 AM | | procedure are in the | | | | PDT | | results section. | + +--------+ + + + | URINALYSIS WITH | Routin | 07/26/2014 | | Results for this | | MICROSCOPIC IF | e | 1:05 AM | | procedure are in the | | INDICATED | | PDT | | results section. | + +--------+ + + + | URINALYSIS, | Routin | 07/26/2014 | | Results for this | | MICROSCOPIC ONLY | e | 1:05 AM | | procedure are in the | | | | PDT | | results section. | + +--------+ + + + documented in this encounter Results External Lab: [facility] (08/02/2014 6:02 AM PDT) + + + + + + | Component | Value | Ref Range | Performed | Pathologist | | | | | At | Signature | + + + + + + | WBC | 7.16Comment: Testing | 3.80 - 11.00 | EXTERNAL | | | | performed at [facility];[address] | K/uL | LAB | | | | [address];[place] | | | | | | [address] | | | | + + + + + + | Non- | 3.62 (L)Comment: Testing | 3.70 - 5.10 | EXTERNAL | | | Red Blood | performed at [facility];[address] | M/uL | LAB | | | Cells | [address];[place] | | | | | Counted | [address] | | | | + + + + + + | Hemoglobin | 11.3Comment: Testing | 11.3 - 15.5 | EXTERNAL | | | | performed at [facility];[address] | g/dL | LAB | | | | [address];[place] | | | | | | [address] | | | | + + + + + + | Hematocrit, | 34.5Comment: Testing | 34.0 - 46.0 % | EXTERNAL | | | POC | performed at [facility];[address] | | LAB | | | | [address];[place] | | | | | | [address] | | | | + + + + + + | MCV | 95.3Comment: Testing | 80.0 - 100.0 fl | EXTERNAL | | | | performed at [facility];[address] | | LAB | | | | [address];[place] | | | | | | [address] | | | | + + + + + + | MCH | 31.1Comment: Testing | 27.0 - 34.0 pg | EXTERNAL | | | | performed at [facility];[address] | | LAB | | | | [address];[place] | | | | | | [address] | | | | + + + + + + | MCHC | 32.7Comment: Testing | 32.0 - 35.5 | EXTERNAL | | | | performed at [facility];[address] | g/dL | LAB | | | | [address];[place] | | | | | | [address] | | | | + + + + + + | RDW-CV | 46.4Comment: Testing | 37 - 53 fl | EXTERNAL | | | | performed at [facility];[address] | | LAB | | | | [address];[place] | | | | | | [address] | | | | + + + + + + | Platelet | 253Comment: Testing | 150 - 400 K/uL | EXTERNAL | | | Count | performed at [facility];[address] | | LAB | | | Plasma | [address];[place] | | | | | | [address] | | | | + + + + + + | MPV | 8.8Comment: Testing | fl | EXTERNAL | | | | performed at [facility];[address] | | LAB | | | | [address];[place] | | | | | | [address] | | | | + + + + + + | Differentia | AUTOMATEDComment: | | EXTERNAL | | | l Type | Testing performed at | | LAB | | | | [facility];[address];[place] [address] | | | | + + + + + + | % Segmented | 60.82Comment: Testing | % | EXTERNAL | | | | performed at [facility];[address] | | LAB | | | Neutrophils | [address];[place] | | | | | | [address] | | | | + + + + + + | % | 27.38Comment: Testing | % | EXTERNAL | | | Lymphocytes | performed at [facility];[address] | | LAB | | | | [address];[place] | | | | | | [address] | | | | + + + + + + | % Monocytes | 8.06Comment: Testing | % | EXTERNAL | | | | performed at [facility];[address] | | LAB | | | | [address];[place] | | | | | | [address] | | | | + + + + + + | % | 3.03Comment: Testing | % | EXTERNAL | | | Eosinophils | performed at [facility];[address] | | LAB | | | | [address];[place] | | | | | | [address] | | | | + + + + + + | % Basophils | 0.71Comment: Testing | % | EXTERNAL | | | | performed at [facility];[address] | | LAB | | | | [address];[place] | | | | | | [address] | | | | + + + + + + | Absolute | 4.36Comment: Testing | 1.90 - 7.40 | EXTERNAL | | | Segmented | performed at [facility];[address] | K/uL | LAB | | | Neutrophils | [address];[place] | | | | | | [address] | | | | + + + + + + | Absolute | 1.96Comment: Testing | 1.00 - 3.90 | EXTERNAL | | | Lymphocytes | performed at [facility];[address] | K/uL | LAB | | | | [address];[place] | | | | | | [address] | | | | + + + + + + | Absolute | 0.58Comment: Testing | 0.00 - 0.80 | EXTERNAL | | | Monocytes | performed at [facility];[address] | K/uL | LAB | | | | [address];[place] | | | | | | [address] | | | | + + + + + + | Absolute | 0.22Comment: Testing | 0.00 - 0.50 | EXTERNAL | | | Eosinophils | performed at [facility];[address] | K/uL | LAB | | | | [address];[place] | | | | | | [address] | | | | + + + + + + | Absolute | 0.05Comment: Testing | 0.00 - 0.10 | EXTERNAL | | | Basophils | performed at [facility];[address] | K/uL | LAB | | | | [address];[place], [place] | | | | | | [address] | | | | + + + + + + + + | Specimen | + + | Blood specimen | | (specimen) | + + + +---------+ + + | Performing | Address | City/State/Zipcode | Phone Number | | Organization | | | | + +---------+ + + | EXTERNAL LAB | | | | + +---------+ + + Phosphorus (08/02/2014 6:02 AM PDT) + + + + + + | Component | Value | Ref Range | Performed | Pathologist | | | | | At | Signature | + + + + + + | PHOSPHORUS | 3.8Comment: Testing | 2.3 - 4.8 mg/dL | EXTERNAL | | | | performed at [facility];[address] | | LAB | | | | [address];[place] | | | | | | [address] | | | | + + + + + + + + | Specimen | + + | Blood specimen | | (specimen) | + + + +---------+ + + | Performing | Address | City/State/Zipcode | Phone Number | | Organization | | | | + +---------+ + + | EXTERNAL LAB | | | | + +---------+ + + Magnesium (08/02/2014 6:02 AM PDT) + + + + + + | Component | Value | Ref Range | Performed | Pathologist | | | | | At | Signature | + + + + + + | Magnesium | 1.8Comment: Testing | 1.7 - 2.4 mg/dL | EXTERNAL | | | | performed at [facility];[address] | | LAB | | | | [address];[place] | | | | | | [address] | | | | + + + + + + + + | Specimen | + + | Blood specimen | | (specimen) | + + + +---------+ + + | Performing | Address | City/State/Zipcode | Phone Number | | Organization | | | | + +---------+ + + | EXTERNAL LAB | | | | + +---------+ + + Comprehensive Metabolic Panel (08/02/2014 6:02 AM PDT) + + + + + + | Component | Value | Ref Range | Performed | Pathologist | | | | | At | Signature | + + + + + + | Na | 140Comment: Testing | 135 - 143 | EXTERNAL | | | | performed at [facility];[address] | mmol/L | LAB | | | | [address];[place] | | | | | | [address] | | | | + + + + + + | K | 4.1Comment: Testing | 3.5 - 4.9 | EXTERNAL | | | | performed at [facility];[address] | mmol/L | LAB | | | | [address];[place] | | | | | | [address] | | | | + + + + + + | Cl | 109Comment: Testing | 99 - 109 mmol/L | EXTERNAL | | | | performed at [facility];[address] | | LAB | | | | [address];[place] | | | | | | [address] | | | | + + + + + + | CO2 | 22 (L)Comment: Testing | 23 - 32 mmol/L | EXTERNAL | | | | performed at [facility];[address] | | LAB | | | | [address];[place] | | | | | | [address] | | | | + + + + + + | Anion Gap | 13Comment: Testing | 5 - 20 mmol/L | EXTERNAL | | | | performed at [facility];[address] | | LAB | | | | [address];[place] | | | | | | [address] | | | | + + + + + + | Glucose, | 91Comment: Testing | 65 - 99 mg/dL | EXTERNAL | | | Fasting | performed at [facility];[address] | | LAB | | | | [address];[place] | | | | | | [address] | | | | + + + + + + | BUN | 4 (L)Comment: Testing | 8 - 25 mg/dL | EXTERNAL | | | | performed at [facility];[address] | | LAB | | | | [address];[place] | | | | | | [address] | | | | + + + + + + | Creatinine | 0.79Comment: Testing | 0.50 - 1.00 | EXTERNAL | | | | performed at [facility];[address] | mg/dL | LAB | | | | [address];[place] | | | | | | [address] | | | | + + + + + + | BUN/Creatin | 5Comment: Testing | | EXTERNAL | | | ine Ratio | performed at [facility];[address] | | LAB | | | | [address];[place] | | | | | | [address] | | | | + + + + + + | Calcium | 8.4 (L)Comment: Testing | 8.5 - 10.5 | EXTERNAL | | | | performed at [facility];[address] | mg/dL | LAB | | | | [address];[place] | | | | | | [address] | | | | + + + + + + | Protein, | 7.0Comment: Testing | 6.3 - 8.2 g/dL | EXTERNAL | | | Total | performed at [facility];[address] | | LAB | | | | [address];[place] | | | | | | [address] | | | | + + + + + + | Albumin | 2.2 (L)Comment: Testing | 3.6 - 5.0 g/dL | EXTERNAL | | | | performed at [facility];[address] | | LAB | | | | [address];[place] | | | | | | [address] | | | | + + + + + + | Globulin | 4.8Comment: Testing | 1.3 - 4.9 g/dL | EXTERNAL | | | | performed at [facility];[address] | | LAB | | | | [address];[place] | | | | | | [address] | | | | + + + + + + | A/G Ratio | 0.5 (L)Comment: Testing | 1.0 - 2.4 | EXTERNAL | | | | performed at [facility];[address] | | LAB | | | | [address];[place] | | | | | | [address] | | | | + + + + + + | Bilirubin | 0.3Comment: Testing | 0.1 - 1.5 mg/dL | EXTERNAL | | | Total | performed at [facility];[address] | | LAB | | | | [address];[place] | | | | | | [address] | | | | + + + + + + | ALP, | 130 (H)Comment: Testing | 35 - 115 U/L | EXTERNAL | | | External | performed at [facility];[address] | | LAB | | | | [address];[place] | | | | | | [address] | | | | + + + + + + | AST | 31Comment: Testing | 10 - 45 U/L | EXTERNAL | | | | performed at [facility];[address] | | LAB | | | | [address];[place] | | | | | | [address] | | | | + + + + + + | ALT | 34Comment: Testing | 10 - 65 U/L | EXTERNAL | | | | performed at [facility];[address] | | LAB | | | | [address];[place] | | | | | | [address] | | | | + + + + + + | Estimated | >60Comment: GFR <60: | mL/min/1.73m2 | EXTERNAL | | | GFR | CHRONIC KIDNEY DISEASE, | | LAB | | | | IF FOUND OVER A 3 MONTH | | | | | | PERIOD.GFR <15: KIDNEY | | | | | | FAILURE.FOR | | | | | | AMERICANS, MULTIPLY THE | | | | | | CALCULATED GFR BY | | | | | | 1.210.Testing performed | | | | | | at [facility];[address];[place] [address] | | | | + + + + + + + + | Specimen | + + | Blood specimen | | (specimen) | + + + +---------+ + + | Performing | Address | City/State/Zipcode | Phone Number | | Organization | | | | + +---------+ + + | EXTERNAL LAB | | | | + +---------+ + + External Lab: CBC (08/01/2014 5:35 AM PDT) + + + + + + | Component | Value | Ref Range | Performed | Pathologist | | | | | At | Signature | + + + + + + | WBC | 7.70Comment: Testing | 3.80 - 11.00 | EXTERNAL | | | | performed at [facility], [address] | K/uL | LAB | | | | [address], | | | | | | [place] [address] | | | | + + + + + + | Non- | 3.64 (L)Comment: Testing | 3.70 - 5.10 | EXTERNAL | | | Red Blood | performed at [facility], [address] | M/uL | LAB | | | Cells | [address], | | | | | Counted | [place] [address] | | | | + + + + + + | Hemoglobin | 11.7Comment: Testing | 11.3 - 15.5 | EXTERNAL | | | | performed at [facility], [address] | g/dL | LAB | | | | [address], | | | | | | [place] [address] | | | | + + + + + + | Hematocrit, | 34.3Comment: Testing | 34.0 - 46.0 % | EXTERNAL | | | POC | performed at [facility], [address] | | LAB | | | | [address], | | | | | | [place] [address] | | | | + + + + + + | MCV | 94.4Comment: Testing | 80.0 - 100.0 fl | EXTERNAL | | | | performed at [facility], [address] | | LAB | | | | [address], | | | | | | [place] [address] | | | | + + + + + + | MCH | 32.1Comment: Testing | 27.0 - 34.0 pg | EXTERNAL | | | | performed at [facility], [address] | | LAB | | | | [address], | | | | | | [place] [address] | | | | + + + + + + | MCHC | 34.0Comment: Testing | 32.0 - 35.5 | EXTERNAL | | | | performed at [facility], [address] | g/dL | LAB | | | | [address], | | | | | | [place] [address] | | | | + + + + + + | RDW-CV | 45.5Comment: Testing | 37 - 53 fl | EXTERNAL | | | | performed at [facility], [address] | | LAB | | | | [address], | | | | | | [place] [address] | | | | + + + + + + | Platelet | 218Comment: Testing | 150 - 400 K/uL | EXTERNAL | | | Count | performed at [facility], [address] | | LAB | | | Plasma | [address], | | | | | | [place] [address] | | | | + + + + + + | MPV | 9.1Comment: Testing | fl | EXTERNAL | | | | performed at [facility], [address] | | LAB | | | | [address], | | | | | | [place] [address] | | | | + + + + + + | Differentia | AUTOMATEDComment: | | EXTERNAL | | | l Type | Testing performed at | | LAB | | | | [facility], [address], [place], [place] | | | | | | [address] | | | | + + + + + + | % Segmented | 66.56Comment: Testing | % | EXTERNAL | | | | performed at [facility], [address] | | LAB | | | Neutrophils | [address], | | | | | | [place] [address] | | | | + + + + + + | % | 21.58Comment: Testing | % | EXTERNAL | | | Lymphocytes | performed at [facility], [address] | | LAB | | | | [address], | | | | | | [place] [address] | | | | + + + + + + | % Monocytes | 8.11Comment: Testing | % | EXTERNAL | | | | performed at [facility], [address] | | LAB | | | | [address], | | | | | | [place] [address] | | | | + + + + + + | % | 3.12Comment: Testing | % | EXTERNAL | | | Eosinophils | performed at [facility], [address] | | LAB | | | | [address], | | | | | | [place] [address] | | | | + + + + + + | % Basophils | 0.63Comment: Testing | % | EXTERNAL | | | | performed at [facility], [address] | | LAB | | | | [address], | | | | | | [place] [address] | | | | + + + + + + | Absolute | 5.13Comment: Testing | 1.90 - 7.40 | EXTERNAL | | | Segmented | performed at [facility], [address] | K/uL | LAB | | | Neutrophils | [address], | | | | | | [place] [address] | | | | + + + + + + | Absolute | 1.66Comment: Testing | 1.00 - 3.90 | EXTERNAL | | | Lymphocytes | performed at [facility], [address] | K/uL | LAB | | | | [address], | | | | | | [place] [address] | | | | + + + + + + | Absolute | 0.62Comment: Testing | 0.00 - 0.80 | EXTERNAL | | | Monocytes | performed at [facility], [address] | K/uL | LAB | | | | [address], | | | | | | [place] [address] | | | | + + + + + + | Absolute | 0.24Comment: Testing | 0.00 - 0.50 | EXTERNAL | | | Eosinophils | performed at [facility], [address] | K/uL | LAB | | | | [address], | | | | | | [place] [address] | | | | + + + + + + | Absolute | 0.05Comment: Testing | 0.00 - 0.10 | EXTERNAL | | | Basophils | performed at [facility], [address] | K/uL | LAB | | | | [address], | | | | | | [place] [address] | | | | + + + + + + + + | Specimen | + + | Blood specimen | | (specimen) | + + + +---------+ + + | Performing | Address | City/State/Zipcode | Phone Number | | Organization | | | | + +---------+ + + | EXTERNAL LAB | | | | + +---------+ + + Phosphorus (08/01/2014 5:35 AM PDT) + + + + + + | Component | Value | Ref Range | Performed | Pathologist | | | | | At | Signature | + + + + + + | PHOSPHORUS | 3.3Comment: Testing | 2.3 - 4.8 mg/dL | EXTERNAL | | | | performed at [facility], [address] | | LAB | | | | [address], | | | | | | [place] [address] | | | | + + + + + + + + | Specimen | + + | Blood specimen | | (specimen) | + + + +---------+ + + | Performing | Address | City/State/Zipcode | Phone Number | | Organization | | | | + +---------+ + + | EXTERNAL LAB | | | | + +---------+ + + Magnesium (08/01/2014 5:35 AM PDT) + + + + + + | Component | Value | Ref Range | Performed | Pathologist | | | | | At | Signature | + + + + + + | Magnesium | 1.8Comment: Testing | 1.7 - 2.4 mg/dL | EXTERNAL | | | | performed at [facility], [address] | | LAB | | | | [address], | | | | | | [place] [address] | | | | + + + + + + + + | Specimen | + + | Blood specimen | | (specimen) | + + + +---------+ + + | Performing | Address | City/State/Zipcode | Phone Number | | Organization | | | | + +---------+ + + | EXTERNAL LAB | | | | + +---------+ + + Comprehensive Metabolic Panel (08/01/2014 5:35 AM PDT) + + + + + + | Component | Value | Ref Range | Performed | Pathologist | | | | | At | Signature | + + + + + + | Na | 136Comment: Testing | 135 - 143 | EXTERNAL | | | | performed at [facility], [address] | mmol/L | LAB | | | | [address], | | | | | | [place] [address] | | | | + + + + + + | K | 4.0Comment: Testing | 3.5 - 4.9 | EXTERNAL | | | | performed at [facility], [address] | mmol/L | LAB | | | | [address], | | | | | | [place] [address] | | | | + + + + + + | Cl | 105Comment: Testing | 99 - 109 mmol/L | EXTERNAL | | | | performed at [facility], [address] | | LAB | | | | [address], | | | | | | [place] [address] | | | | + + + + + + | CO2 | 23Comment: Testing | 23 - 32 mmol/L | EXTERNAL | | | | performed at [facility], [address] | | LAB | | | | [address], | | | | | | [place] [address] | | | | + + + + + + | Anion Gap | 12Comment: Testing | 5 - 20 mmol/L | EXTERNAL | | | | performed at [facility], [address] | | LAB | | | | [address], | | | | | | [place] [address] | | | | + + + + + + | Glucose, | 109 (H)Comment: Testing | 65 - 99 mg/dL | EXTERNAL | | | Fasting | performed at [facility], [address] | | LAB | | | | [address], | | | | | | [place] [address] | | | | + + + + + + | BUN | 6 (L)Comment: Testing | 8 - 25 mg/dL | EXTERNAL | | | | performed at [facility], [address] | | LAB | | | | [address], | | | | | | [place] [address] | | | | + + + + + + | Creatinine | 0.75Comment: Testing | 0.50 - 1.00 | EXTERNAL | | | | performed at [facility], [address] | mg/dL | LAB | | | | [address], | | | | | | [place] [address] | | | | + + + + + + | BUN/Creatin | 8Comment: Testing | | EXTERNAL | | | ine Ratio | performed at [facility], [address] | | LAB | | | | [address], | | | | | | [place] [address] | | | | + + + + + + | Calcium | 8.7Comment: Testing | 8.5 - 10.5 | EXTERNAL | | | | performed at [facility], [address] | mg/dL | LAB | | | | [address], | | | | | | [place] [address] | | | | + + + + + + | Protein, | 6.3Comment: Testing | 6.3 - 8.2 g/dL | EXTERNAL | | | Total | performed at [facility], [address] | | LAB | | | | [address], | | | | | | [place] [address] | | | | + + + + + + | Albumin | 2.6 (L)Comment: Testing | 3.6 - 5.0 g/dL | EXTERNAL | | | | performed at [facility], [address] | | LAB | | | | [address], | | | | | | [place] [address] | | | | + + + + + + | Globulin | 3.7Comment: Testing | 1.3 - 4.9 g/dL | EXTERNAL | | | | performed at [facility], [address] | | LAB | | | | [address], | | | | | | [place] [address] | | | | + + + + + + | A/G Ratio | 0.7 (L)Comment: Testing | 1.0 - 2.4 | EXTERNAL | | | | performed at [facility], [address] | | LAB | | | | [address], | | | | | | [place] [address] | | | | + + + + + + | Bilirubin | 0.4Comment: Testing | 0.1 - 1.5 mg/dL | EXTERNAL | | | Total | performed at [facility], [address] | | LAB | | | | [address], | | | | | | [place] [address] | | | | + + + + + + | ALP, | 111Comment: Testing | 35 - 115 U/L | EXTERNAL | | | External | performed at [facility], [address] | | LAB | | | | [address], | | | | | | [place] [address] | | | | + + + + + + | AST | 29Comment: Testing | 10 - 45 U/L | EXTERNAL | | | | performed at [facility], [address] | | LAB | | | | [address], | | | | | | [place] [address] | | | | + + + + + + | ALT | 25Comment: Testing | 10 - 65 U/L | EXTERNAL | | | | performed at [facility], [address] | | LAB | | | | [facility], | | | | | | [place] [address] | | | | + + + + + + | Estimated | >60Comment: GFR <60: | mL/min/1.73m2 | EXTERNAL | | | GFR | CHRONIC KIDNEY DISEASE, | | LAB | | | | IF FOUND OVER A 3 MONTH | | | | | | PERIOD.GFR <15: KIDNEY | | | | | | FAILURE.FOR | | | | | | AMERICANS, MULTIPLY THE | | | | | | CALCULATED GFR BY | | | | | | 1.210.Testing performed | | | | | | at [facility], [address] | | | | | | [facility], | | | | | | [place] [address] | | | | + + + + + + + + | Specimen | + + | Blood specimen | | (specimen) | + + + +---------+ + + | Performing | Address | City/State/Zipcode | Phone Number | | Organization | | | | + +---------+ + + | EXTERNAL LAB | | | | + +---------+ + + Magnesium (07/31/2014 1:05 PM PDT) + + + + + + | Component | Value | Ref Range | Performed | Pathologist | | | | | At | Signature | + + + + + + | Magnesium | 2.2Comment: Testing | 1.7 - 2.4 mg/dL | EXTERNAL | | | | performed at [facility];[address] | | LAB | | | | [address];[place], [place] | | | | | | [address] | | | | + + + + + + + + | Specimen | + + | Blood specimen | | (specimen) | + + + +---------+ + + | Performing | Address | City/State/Zipcode | Phone Number | | Organization | | | | + +---------+ + + | EXTERNAL LAB | | | | + +---------+ + + CT Chest Abdomen Pelvis w Contrast (07/31/2014 12:33 PM PDT) + + | Specimen | + + | | + + + + + | Impressions | Performed At | + + + | 1. Acute, diffuse left pyelonephritis. 2. No obvious | | | intrarenal or perirenal abscess visualized. 3. Small fluid | | | collections in the upper pole of the left kidney with enhancing rims, | | | probably representing pre-existing cyst with inflammation. No devora | | | necrosis visualized. 4. No complicating stone or hydronephrosis | | | visualized. 5. Mild hepatic steatosis. 6. Mild atelectasis in | | | both lower lung gipson. 7. Probable multiple uterine fibroids. | | | | | + + + + + + | Narrative | Performed At | + + + | [facility] CHEST ABDOMEN PELVIS W CONTRAST 07/31/2014 12:33 | | | PM History: 54 years. Female. Urinary tract infection with | | | left pyelonephritis. Persistent left abdominal pain and persistent | | | fever. Technique: After oral administration of contrast and during | | | a bolus intravenous administration of 100 cc of nonionic iodine | | | contrast, thin slice imaging was performed throughout the chest and | | | abdomen and pelvis, and displayed at 5 thick slices during the | | | portal venous phase of contrast enhancement. Comparison | | | examinations: 07/25/14, outside noncontrast CT the abdomen | | | CHEST: Mild linear atelectasis is visualized in both lower lung | | | gipson. No lung consolidation or pneumonia visualized. The pleural | | | spaces are clear. No pulmonary nodule identified. The cardiac size | | | and contour are normal. No pericardial effusion or coronary | | | calcifications visualized. The caliber of the thoracic aorta is | | | normal, without calcification or intimal dissection. There is no | | | evidence of mediastinal or hilar adenopathy. The axillary regions | | | are likewise negative for adenopathy. The scalene lymph node chains | | | and supraclavicular regions are partially visualized and appear clear. | | | Glandular tissue in each breast is moderately dense, without mass. | | | The thyroid gland is normal in size and density, without nodule. | | | ABDOMEN: The left kidney demonstrates increased width and poor | | | cortical medullary contrast definition on arterial contrast imaging, | | | indicating edema, extending throughout the kidney, consistent with | | | acute pyelonephritis. 2 small low-attenuation fluid collections are | | | noted in the upper posterior cortex and medullary space, with mild | | | enhancing borders, suggesting small cysts with inflammatory response. | | | Devora necrosis of the kidney is unlikely. Mild adipose edema is noted | | | in the pararenal adipose tissue, without subcapsular or perirenal | | | abscess. The iliopsoas musculature is normal. No left or right | | | caliectasis or ureterectasis. No visible calcification in the right or | | | left kidneys. The right kidney appears normal. Mild | | | low-attenuation is noted throughout the entire liver indicating mild | | | hepatic steatosis. No liver mass or bile duct dilatation visualized. | | | The gallbladder is normal. The thickness, density and enhancement of | | | the pancreas are normal. The portal venous system shows normal | | | enhancement. No celiac, peripancreatic, or retrocrural adenopathy | | | visualized. The splenic volume and texture are normal. The | | | gastroesophageal junction is normal. The stomach shows normal wall | | | thickness and position. The duodenum is unremarkable. The adrenal | | | glands are normal in thickness, without visible nodule. The abdominal | | | aorta shows some wall calcification indicating early atherosclerosis. | | | No aortic dilatation visualized. No periaortic lymphadenopathy | | | noted. PELVIS: Bilateral hip arthroplasty obscured is soft | | | tissue detail in the deep pelvis. The visible rectum and sigmoid colon | | | are normal. The remainder the colon appears normal. The loops of | | | small bowel show normal caliber throughout the abdomen and pelvis, | | | without edema or wall thickening. The mesenteric adipose tissue is | | | dark, without infiltrate or edema. No free fluid, free air or | | | peritoneal nodules visualized. Nodular enlargement of the left | | | side of the uterus suggesting fibroid measuring 32 mm. There may be | | | other fibroids in the uterus as well. No ovarian mass or cyst | | | identified. The iliac and inguinal lymph node chains are normal. The | | | bone windows fail to show any neoplastic bone changes in the range | | | of scan. | | + + + + + | Procedure Note | + + | Jhonny, Rad Conversion - 12/07/2018 3:44 AM PDT [facility] CHE[facility] PEL[facility] W | | CONTRAST07/31/2014 12:33 PM History: 54 years. Female. Urinary tract infection with | | left pyelonephritis. Persistent left abdominal pain and persistent fever. Technique: | | After oral administration of contrast and during a bolus intravenous administration of | | 100 cc of nonionic iodine contrast, thin slice imaging was performed throughout the | | chest and abdomen and pelvis, and displayed at 5 thick slices during the portal venous | | phase of contrast enhancement. Comparison examinations: 07/25/14, outside noncontrast | | CT the abdomen CHEST: Mild linear atelectasis is visualized in both lower lung gipson. | | No lung consolidation or pneumonia visualized. The pleural spaces are clear. No | | pulmonary nodule identified. The cardiac size and contour are normal. No pericardial | | effusion or coronary calcifications visualized. The caliber of the thoracic aorta is | | normal, without calcification or intimal dissection. There is no evidence of mediastinal | | or hilar adenopathy. The axillary regions are likewise negative for adenopathy. The | | scalene lymph node chains and supraclavicular regions are partially visualized and | | appear clear. Glandular tissue in each breast is moderately dense, without mass. The | | thyroid gland is normal in size and density, without nodule. ABDOMEN: The left kidney | | demonstrates increased width and poor cortical medullary contrast definition on arterial | | contrast imaging, indicating edema, extending throughout the kidney, consistent with | | acute pyelonephritis. 2 small low-attenuation fluid collections are noted in the upper | | posterior cortex and medullary space, with mild enhancing borders, suggesting small | | cysts with inflammatory response. Devora necrosis of the kidney is unlikely. Mild adipose | | edema is noted in the pararenal adipose tissue, without subcapsular or perirenal | | abscess. The iliopsoas musculature is normal. No left or right caliectasis or | | ureterectasis. No visible calcification in the right or left kidneys. The right kidney | | appears normal. Mild low-attenuation is noted throughout the entire liver indicating | | mild hepatic steatosis. No liver mass or bile duct dilatation visualized. The | | gallbladder is normal. The thickness, density and enhancement of the pancreas are | | normal. The portal venous system shows normal enhancement. No celiac, peripancreatic, | | or retrocrural adenopathy visualized. The splenic volume and texture are normal. The | | gastroesophageal junction is normal. The stomach shows normal wall thickness and | | position. The duodenum is unremarkable. The adrenal glands are normal in thickness, | | without visible nodule. The abdominal aorta shows some wall calcification indicating | | early atherosclerosis. No aortic dilatation visualized. No periaortic lymphadenopathy | | noted. PELVIS: Bilateral hip arthroplasty obscured is soft tissue detail in the deep | | pelvis. The visible rectum and sigmoid colon are normal. The remainder the colon appears | | normal. The loops of small bowel show normal caliber throughout the abdomen and pelvis, | | without edema or wall thickening. The mesenteric adipose tissue is dark, without | | infiltrate or edema. No free fluid, free air or peritoneal nodules visualized. Nodular | | enlargement of the left side of the uterus suggesting fibroid measuring 32 mm. There may | | be other fibroids in the uterus as well. No ovarian mass or cyst identified. The iliac | | and inguinal lymph node chains are normal. The bone windows fail to show any neoplastic | | bone changes in the range of scan. IMPRESSION: 1. Acute, diffuse left | | pyelonephritis.2. No obvious intrarenal or perirenal abscess visualized.3. Small fluid | | collections in the upper pole of the left kidney with enhancing rims, probably | | representing pre-existing cyst with inflammation. No devora necrosis visualized.4. No | | complicating stone or hydronephrosis visualized.5. Mild hepatic steatosis.6. Mild | | atelectasis in both lower lung gipson.7. Probable multiple uterine fibroids. | | | + + External Lab: [facility] (07/31/2014 5:55 AM PDT) + + + + + + | Component | Value | Ref Range | Performed | Pathologist | | | | | At | Signature | + + + + + + | WBC | 9.30Comment: Testing | 3.80 - 11.00 | EXTERNAL | | | | performed at [facility], [address] | K/uL | LAB | | | | [address], | | | | | | [place] [address] | | | | + + + + + + | Non- | 3.72Comment: Testing | 3.70 - 5.10 | EXTERNAL | | | Red Blood | performed at [facility], [address] | M/uL | LAB | | | Cells | [address], | | | | | Counted | [place] [address] | | | | + + + + + + | Hemoglobin | 11.9Comment: Testing | 11.3 - 15.5 | EXTERNAL | | | | performed at [facility], [address] | g/dL | LAB | | | | [address], | | | | | | [place] [address] | | | | + + + + + + | Hematocrit, | 35.1Comment: Testing | 34.0 - 46.0 % | EXTERNAL | | | POC | performed at [facility], [address] | | LAB | | | | [address], | | | | | | [place] [address] | | | | + + + + + + | MCV | 94.5Comment: Testing | 80.0 - 100.0 fl | EXTERNAL | | | | performed at [facility], [address] | | LAB | | | | [address], | | | | | | [place] [address] | | | | + + + + + + | MCH | 32.1Comment: Testing | 27.0 - 34.0 pg | EXTERNAL | | | | performed at [facility], [address] | | LAB | | | | [address], | | | | | | [place] [address] | | | | + + + + + + | MCHC | 34.0Comment: Testing | 32.0 - 35.5 | EXTERNAL | | | | performed at [facility], [address] | g/dL | LAB | | | | [address], | | | | | | [place] [address] | | | | + + + + + + | RDW-CV | 45.5Comment: Testing | 37 - 53 fl | EXTERNAL | | | | performed at [facility], [address] | | LAB | | | | [address], | | | | | | [place] [address] | | | | + + + + + + | Platelet | 213Comment: Testing | 150 - 400 K/uL | EXTERNAL | | | Count | performed at [facility], [address] | | LAB | | | Plasma | [address], | | | | | | [place] [address] | | | | + + + + + + | MPV | 9.2Comment: Testing | fl | EXTERNAL | | | | performed at [facility], [address] | | LAB | | | | [address], | | | | | | [place] [address] | | | | + + + + + + | Differentia | AUTOMATEDComment: | | EXTERNAL | | | l Type | Testing performed at | | LAB | | | | [facility], [address] | | | | | | [place] | | | | | | [address] | | | | + + + + + + | % Segmented | 65.37Comment: Testing | % | EXTERNAL | | | | performed at [facility], [address] | | LAB | | | Neutrophils | [address], | | | | | | [place] [address] | | | | + + + + + + | % | 22.07Comment: Testing | % | EXTERNAL | | | Lymphocytes | performed at [facility], [address] | | LAB | | | | [address], | | | | | | [place] [address] | | | | + + + + + + | % Monocytes | 10.05Comment: Testing | % | EXTERNAL | | | | performed at [facility], [address] | | LAB | | | | [address], | | | | | | [place] [address] | | | | + + + + + + | % | 2.14Comment: Testing | % | EXTERNAL | | | Eosinophils | performed at [facility], [address] | | LAB | | | | [address], | | | | | | [place] [address] | | | | + + + + + + | % Basophils | 0.37Comment: Testing | % | EXTERNAL | | | | performed at [facility], [address] | | LAB | | | | [address], | | | | | | [place] [address] | | | | + + + + + + | Absolute | 6.08Comment: Testing | 1.90 - 7.40 | EXTERNAL | | | Segmented | performed at [facility], [address] | K/uL | LAB | | | Neutrophils | [address], | | | | | | [place] [address] | | | | + + + + + + | Absolute | 2.05Comment: Testing | 1.00 - 3.90 | EXTERNAL | | | Lymphocytes | performed at [facility], [address] | K/uL | LAB | | | | [address], | | | | | | [place] [address] | | | | + + + + + + | Absolute | 0.94 (H)Comment: Testing | 0.00 - 0.80 | EXTERNAL | | | Monocytes | performed at [facility], [address] | K/uL | LAB | | | | [address], | | | | | | [place] [address] | | | | + + + + + + | Absolute | 0.20Comment: Testing | 0.00 - 0.50 | EXTERNAL | | | Eosinophils | performed at [facility], [address] | K/uL | LAB | | | | [address], | | | | | | [place] [address] | | | | + + + + + + | Absolute | 0.04Comment: Testing | 0.00 - 0.10 | EXTERNAL | | | Basophils | performed at [facility], [address] | K/uL | LAB | | | | [address], | | | | | | [place] [address] | | | | + + + + + + + + | Specimen | + + | Blood specimen | | (specimen) | + + + +---------+ + + | Performing | Address | City/State/Zipcode | Phone Number | | Organization | | | | + +---------+ + + | EXTERNAL LAB | | | | + +---------+ + + Phosphorus (07/31/2014 5:55 AM PDT) + + + + + + | Component | Value | Ref Range | Performed | Pathologist | | | | | At | Signature | + + + + + + | PHOSPHORUS | 3.1Comment: Testing | 2.3 - 4.8 mg/dL | EXTERNAL | | | | performed at [facility], [address] | | LAB | | | | [address], | | | | | | [place] [address] | | | | + + + + + + + + | Specimen | + + | Blood specimen | | (specimen) | + + + +---------+ + + | Performing | Address | City/State/Zipcode | Phone Number | | Organization | | | | + +---------+ + + | EXTERNAL LAB | | | | + +---------+ + + Magnesium (07/31/2014 5:55 AM PDT) + + + + + + | Component | Value | Ref Range | Performed | Pathologist | | | | | At | Signature | + + + + + + | Magnesium | 1.7Comment: Testing | 1.7 - 2.4 mg/dL | EXTERNAL | | | | performed at [facility], [address] | | LAB | | | | [address], | | | | | | [place] [address] | | | | + + + + + + + + | Specimen | + + | Blood specimen | | (specimen) | + + + +---------+ + + | Performing | Address | City/State/Zipcode | Phone Number | | Organization | | | | + +---------+ + + | EXTERNAL LAB | | | | + +---------+ + + Comprehensive Metabolic Panel (07/31/2014 5:55 AM PDT) + + + + + + | Component | Value | Ref Range | Performed | Pathologist | | | | | At | Signature | + + + + + + | Na | 136Comment: Testing | 135 - 143 | EXTERNAL | | | | performed at [facility], [address] | mmol/L | LAB | | | | [address], | | | | | | [place] [address] | | | | + + + + + + | K | 3.9Comment: Testing | 3.5 - 4.9 | EXTERNAL | | | | performed at [facility], [address] | mmol/L | LAB | | | | [address], | | | | | | [place] [address] | | | | + + + + + + | Cl | 105Comment: Testing | 99 - 109 mmol/L | EXTERNAL | | | | performed at [facility], [address] | | LAB | | | | [address], | | | | | | [place] [address] | | | | + + + + + + | CO2 | 24Comment: Testing | 23 - 32 mmol/L | EXTERNAL | | | | performed at [facility], [address] | | LAB | | | | [address], | | | | | | [place] [address] | | | | + + + + + + | Anion Gap | 11Comment: Testing | 5 - 20 mmol/L | EXTERNAL | | | | performed at [facility], [address] | | LAB | | | | [address], | | | | | | [place] [address] | | | | + + + + + + | Glucose, | 76Comment: Testing | 65 - 99 mg/dL | EXTERNAL | | | Fasting | performed at [facility], [address] | | LAB | | | | [address], | | | | | | [place] [address] | | | | + + + + + + | BUN | 6 (L)Comment: Testing | 8 - 25 mg/dL | EXTERNAL | | | | performed at [facility], [address] | | LAB | | | | [address], | | | | | | [place] [address] | | | | + + + + + + | Creatinine | 0.76Comment: Testing | 0.50 - 1.00 | EXTERNAL | | | | performed at [facility], [address] | mg/dL | LAB | | | | [address], | | | | | | [place] [address] | | | | + + + + + + | BUN/Creatin | 8Comment: Testing | | EXTERNAL | | | ine Ratio | performed at [facility], [address] | | LAB | | | | [address], | | | | | | [place] [address] | | | | + + + + + + | Calcium | 8.5Comment: Testing | 8.5 - 10.5 | EXTERNAL | | | | performed at [facility], [address] | mg/dL | LAB | | | | [address], | | | | | | [place] [address] | | | | + + + + + + | Protein, | 6.3Comment: Testing | 6.3 - 8.2 g/dL | EXTERNAL | | | Total | performed at [facility], [address] | | LAB | | | | [address], | | | | | | [place] [address] | | | | + + + + + + | Albumin | 2.6 (L)Comment: Testing | 3.6 - 5.0 g/dL | EXTERNAL | | | | performed at [facility], [address] | | LAB | | | | [address], | | | | | | [place] [address] | | | | + + + + + + | Globulin | 3.7Comment: Testing | 1.3 - 4.9 g/dL | EXTERNAL | | | | performed at [facility], [address] | | LAB | | | | [address], | | | | | | [place] [address] | | | | + + + + + + | A/G Ratio | 0.7 (L)Comment: Testing | 1.0 - 2.4 | EXTERNAL | | | | performed at [facility], [address] | | LAB | | | | [address], | | | | | | [place] [address] | | | | + + + + + + | Bilirubin | 0.7Comment: Testing | 0.1 - 1.5 mg/dL | EXTERNAL | | | Total | performed at [facility], [address] | | LAB | | | | [address], | | | | | | [place] [address] | | | | + + + + + + | ALP, | 119 (H)Comment: Testing | 35 - 115 U/L | EXTERNAL | | | External | performed at [facility], [address] | | LAB | | | | [address], | | | | | | [place] [address] | | | | + + + + + + | AST | 30Comment: Testing | 10 - 45 U/L | EXTERNAL | | | | performed at [facility], [address] | | LAB | | | | [address], | | | | | | [place] [address] | | | | + + + + + + | ALT | 29Comment: Testing | 10 - 65 U/L | EXTERNAL | | | | performed at [facility], [address] | | LAB | | | | [address], | | | | | | [place] [address] | | | | + + + + + + | Estimated | >60Comment: GFR <60: | mL/min/1.73m2 | EXTERNAL | | | GFR | CHRONIC KIDNEY DISEASE, | | LAB | | | | IF FOUND OVER A 3 MONTH | | | | | | PERIOD.GFR <15: KIDNEY | | | | | | FAILURE.FOR | | | | | | AMERICANS, MULTIPLY THE | | | | | | CALCULATED GFR BY | | | | | | 1.210.Testing performed | | | | | | at [facility], [address] | | | | | | [address], | | | | | | [place] [address] | | | | + + + + + + + + | Specimen | + + | Blood specimen | | (specimen) | + + + +---------+ + + | Performing | Address | City/State/Zipcode | Phone Number | | Organization | | | | + +---------+ + + | EXTERNAL LAB | | | | + +---------+ + + External Lab: CBC (07/30/2014 4:22 AM PDT) + + + + + + | Component | Value | Ref Range | Performed | Pathologist | | | | | At | Signature | + + + + + + | WBC | 9.86Comment: Testing | 3.80 - 11.00 | EXTERNAL | | | | performed at [facility], [address] | K/uL | LAB | | | | [address], | | | | | | [place] [address] | | | | + + + + + + | Non- | 3.38 (L)Comment: Testing | 3.70 - 5.10 | EXTERNAL | | | Red Blood | performed at [facility], [address] | M/uL | LAB | | | Cells | [address], | | | | | Counted | [place] [address] | | | | + + + + + + | Hemoglobin | 10.9 (L)Comment: Testing | 11.3 - 15.5 | EXTERNAL | | | | performed at [facility], [address] | g/dL | LAB | | | | [address], | | | | | | [place] [address] | | | | + + + + + + | Hematocrit, | 31.9 (L)Comment: Testing | 34.0 - 46.0 % | EXTERNAL | | | POC | performed at [facility], [address] | | LAB | | | | [address], | | | | | | [place] [address] | | | | + + + + + + | MCV | 94.5Comment: Testing | 80.0 - 100.0 fl | EXTERNAL | | | | performed at [facility], [address] | | LAB | | | | [address], | | | | | | [place] [address] | | | | + + + + + + | MCH | 32.1Comment: Testing | 27.0 - 34.0 pg | EXTERNAL | | | | performed at [facility], [address] | | LAB | | | | [address], | | | | | | [place] [address] | | | | + + + + + + | MCHC | 34.0Comment: Testing | 32.0 - 35.5 | EXTERNAL | | | | performed at [facility], [address] | g/dL | LAB | | | | [address], | | | | | | [place] [address] | | | | + + + + + + | RDW-CV | 45.5Comment: Testing | 37 - 53 fl | EXTERNAL | | | | performed at [facility], [address] | | LAB | | | | [address], | | | | | | [place] [address] | | | | + + + + + + | Platelet | 150Comment: Testing | 150 - 400 K/uL | EXTERNAL | | | Count | performed at [facility], [address] | | LAB | | | Plasma | [address], | | | | | | [place] [address] | | | | + + + + + + | MPV | 9.7Comment: Testing | fl | EXTERNAL | | | | performed at [facility], [address] | | LAB | | | | [address], | | | | | | [place] [address] | | | | + + + + + + | Differentia | AUTOMATEDComment: | | EXTERNAL | | | l Type | Testing performed at | | LAB | | | | [facility], [address] | | | | | | [place] | | | | | | [address] | | | | + + + + + + | % Segmented | 71.92Comment: Testing | % | EXTERNAL | | | | performed at [facility], [address] | | LAB | | | Neutrophils | [address], | | | | | | [place] [address] | | | | + + + + + + | % | 15.72Comment: Testing | % | EXTERNAL | | | Lymphocytes | performed at [facility], [address] | | LAB | | | | [address], | | | | | | [place] [address] | | | | + + + + + + | % Monocytes | 9.66Comment: Testing | % | EXTERNAL | | | | performed at [facility], [address] | | LAB | | | | [address], | | | | | | [place] [address] | | | | + + + + + + | % | 2.36Comment: Testing | % | EXTERNAL | | | Eosinophils | performed at [facility], [address] | | LAB | | | | [address], | | | | | | [place] [address] | | | | + + + + + + | % Basophils | 0.34Comment: Testing | % | EXTERNAL | | | | performed at [facility], [address] | | LAB | | | | [address], | | | | | | [place] [address] | | | | + + + + + + | Absolute | 7.09Comment: Testing | 1.90 - 7.40 | EXTERNAL | | | Segmented | performed at [facility], [address] | K/uL | LAB | | | Neutrophils | [address], | | | | | | [place] [address] | | | | + + + + + + | Absolute | 1.55Comment: Testing | 1.00 - 3.90 | EXTERNAL | | | Lymphocytes | performed at [facility], [address] | K/uL | LAB | | | | [address], | | | | | | [place] [address] | | | | + + + + + + | Absolute | 0.95 (H)Comment: Testing | 0.00 - 0.80 | EXTERNAL | | | Monocytes | performed at [facility], [address] | K/uL | LAB | | | | [address], | | | | | | [place] [address] | | | | + + + + + + | Absolute | 0.23Comment: Testing | 0.00 - 0.50 | EXTERNAL | | | Eosinophils | performed at [facility], [address] | K/uL | LAB | | | | [address], | | | | | | [place] [address] | | | | + + + + + + | Absolute | 0.03Comment: Testing | 0.00 - 0.10 | EXTERNAL | | | Basophils | performed at [facility], [address] | K/uL | LAB | | | | [address], | | | | | | [place] [address] | | | | + + + + + + + + | Specimen | + + | Blood specimen | | (specimen) | + + + +---------+ + + | Performing | Address | City/State/Zipcode | Phone Number | | Organization | | | | + +---------+ + + | EXTERNAL LAB | | | | + +---------+ + + Phosphorus (07/30/2014 4:22 AM PDT) + + + + + + | Component | Value | Ref Range | Performed | Pathologist | | | | | At | Signature | + + + + + + | PHOSPHORUS | 3.2Comment: Testing | 2.3 - 4.8 mg/dL | EXTERNAL | | | | performed at [facility], [address] | | LAB | | | | [address], | | | | | | [place] [address] | | | | + + + + + + + + | Specimen | + + | Blood specimen | | (specimen) | + + + +---------+ + + | Performing | Address | City/State/Zipcode | Phone Number | | Organization | | | | + +---------+ + + | EXTERNAL LAB | | | | + +---------+ + + Magnesium (07/30/2014 4:22 AM PDT) + + + + + + | Component | Value | Ref Range | Performed | Pathologist | | | | | At | Signature | + + + + + + | Magnesium | 1.7Comment: Testing | 1.7 - 2.4 mg/dL | EXTERNAL | | | | performed at [facility], [address] | | LAB | | | | [address], | | | | | | [place] [address] | | | | + + + + + + + + | Specimen | + + | Blood specimen | | (specimen) | + + + +---------+ + + | Performing | Address | City/State/Zipcode | Phone Number | | Organization | | | | + +---------+ + + | EXTERNAL LAB | | | | + +---------+ + + Comprehensive Metabolic Panel (07/30/2014 4:22 AM PDT) + + + + + + | Component | Value | Ref Range | Performed | Pathologist | | | | | At | Signature | + + + + + + | Na | 132 (L)Comment: Testing | 135 - 143 | EXTERNAL | | | | performed at [facility], [address] | mmol/L | LAB | | | | [address], | | | | | | [place] [address] | | | | + + + + + + | K | 3.4 (L)Comment: Testing | 3.5 - 4.9 | EXTERNAL | | | | performed at [facility], [address] | mmol/L | LAB | | | | [address], | | | | | | [place] [address] | | | | + + + + + + | Cl | 104Comment: Testing | 99 - 109 mmol/L | EXTERNAL | | | | performed at [facility], [address] | | LAB | | | | [address], | | | | | | [place] [address] | | | | + + + + + + | CO2 | 22 (L)Comment: Testing | 23 - 32 mmol/L | EXTERNAL | | | | performed at [facility], [address] | | LAB | | | | [address], | | | | | | [place] [address] | | | | + + + + + + | Anion Gap | 9Comment: Testing | 5 - 20 mmol/L | EXTERNAL | | | | performed at [facility], [address] | | LAB | | | | [address], | | | | | | [place] [address] | | | | + + + + + + | Glucose, | 82Comment: Testing | 65 - 99 mg/dL | EXTERNAL | | | Fasting | performed at [facility], [address] | | LAB | | | | [address], | | | | | | [place] [address] | | | | + + + + + + | BUN | 8Comment: Testing | 8 - 25 mg/dL | EXTERNAL | | | | performed at [facility], [address] | | LAB | | | | [address], | | | | | | [place] [address] | | | | + + + + + + | Creatinine | 0.74Comment: Testing | 0.50 - 1.00 | EXTERNAL | | | | performed at [facility], [address] | mg/dL | LAB | | | | [address], | | | | | | [place] [address] | | | | + + + + + + | BUN/Creatin | 11Comment: Testing | | EXTERNAL | | | ine Ratio | performed at [facility], [address] | | LAB | | | | [address], | | | | | | [place] [address] | | | | + + + + + + | Calcium | 7.7 (L)Comment: Testing | 8.5 - 10.5 | EXTERNAL | | | | performed at [facility], [address] | mg/dL | LAB | | | | [address], | | | | | | [place] [address] | | | | + + + + + + | Protein, | 5.7 (L)Comment: Testing | 6.3 - 8.2 g/dL | EXTERNAL | | | Total | performed at [facility], [address] | | LAB | | | | [address], | | | | | | [place] [address] | | | | + + + + + + | Albumin | 2.3 (L)Comment: Testing | 3.6 - 5.0 g/dL | EXTERNAL | | | | performed at [facility], [address] | | LAB | | | | [address], | | | | | | [place] [address] | | | | + + + + + + | Globulin | 3.4Comment: Testing | 1.3 - 4.9 g/dL | EXTERNAL | | | | performed at [facility], [address] | | LAB | | | | [address], | | | | | | [place] [address] | | | | + + + + + + | A/G Ratio | 0.7 (L)Comment: Testing | 1.0 - 2.4 | EXTERNAL | | | | performed at [facility], [address] | | LAB | | | | [address], | | | | | | [place] [address] | | | | + + + + + + | Bilirubin | 0.7Comment: Testing | 0.1 - 1.5 mg/dL | EXTERNAL | | | Total | performed at [facility], [address] | | LAB | | | | [address], | | | | | | [place] [address] | | | | + + + + + + | ALP, | 118 (H)Comment: Testing | 35 - 115 U/L | EXTERNAL | | | External | performed at [facility], [address] | | LAB | | | | [address], | | | | | | [place] [address] | | | | + + + + + + | AST | 38Comment: Testing | 10 - 45 U/L | EXTERNAL | | | | performed at [facility], [address] | | LAB | | | | [address], | | | | | | [place] [address] | | | | + + + + + + | ALT | 32Comment: Testing | 10 - 65 U/L | EXTERNAL | | | | performed at [facility], [address] | | LAB | | | | [address], | | | | | | [place] [address] | | | | + + + + + + | Estimated | >60Comment: GFR <60: | mL/min/1.73m2 | EXTERNAL | | | GFR | CHRONIC KIDNEY DISEASE, | | LAB | | | | IF FOUND OVER A 3 MONTH | | | | | | PERIOD.GFR <15: KIDNEY | | | | | | FAILURE.FOR | | | | | | AMERICANS, MULTIPLY THE | | | | | | CALCULATED GFR BY | | | | | | 1.210.Testing performed | | | | | | at [facility], [address] | | | | | | [address], | | | | | | [place] [address] | | | | + + + + + + + + | Specimen | + + | Blood specimen | | (specimen) | + + + +---------+ + + | Performing | Address | City/State/Zipcode | Phone Number | | Organization | | | | + +---------+ + + | EXTERNAL LAB | | | | + +---------+ + + External Lab: CBC (07/29/2014 3:58 AM PDT) + + + + + + | Component | Value | Ref Range | Performed | Pathologist | | | | | At | Signature | + + + + + + | WBC | 8.84Comment: Testing | 3.80 - 11.00 | EXTERNAL | | | | performed at [facility], [address] | K/uL | LAB | | | | [address], | | | | | | [place] [address] | | | | + + + + + + | Non- | 3.34 (L)Comment: Testing | 3.70 - 5.10 | EXTERNAL | | | Red Blood | performed at [facility], [address] | [address] | LAB | | | Cells | [address], | | | | | Counted | [place] [address] | | | | + + + + + + | Hemoglobin | 10.8 (L)Comment: Testing | 11.3 - 15.5 | EXTERNAL | | | | performed at [facility], [address] | g/dL | LAB | | | | [address], | | | | | | [place] [address] | | | | + + + + + + | Hematocrit, | 31.2 (L)Comment: Testing | 34.0 - 46.0 % | EXTERNAL | | | POC | performed at [facility], [address] | | LAB | | | | [address], | | | | | | [place] [address] | | | | + + + + + + | MCV | 93.6Comment: Testing | 80.0 - 100.0 fl | EXTERNAL | | | | performed at [facility], [address] | | LAB | | | | [address], | | | | | | [place] [address] | | | | + + + + + + | MCH | 32.4Comment: Testing | 27.0 - 34.0 pg | EXTERNAL | | | | performed at [facility], [address] | | LAB | | | | [address], | | | | | | [place] [address] | | | | + + + + + + | MCHC | 34.6Comment: Testing | 32.0 - 35.5 | EXTERNAL | | | | performed at [facility], [address] | g/dL | LAB | | | | [address], | | | | | | [place] [address] | | | | + + + + + + | RDW-CV | 44.2Comment: Testing | 37 - 53 fl | EXTERNAL | | | | performed at [facility], [address] | | LAB | | | | [address], | | | | | | [place] [address] | | | | + + + + + + | Platelet | 131 (L)Comment: Testing | 150 - 400 K/uL | EXTERNAL | | | Count | performed at [facility], [address] | | LAB | | | Plasma | [address], | | | | | | [place] [address] | | | | + + + + + + | MPV | 9.3Comment: Testing | fl | EXTERNAL | | | | performed at [facility], [address] | | LAB | | | | [address], | | | | | | [place] [address] | | | | + + + + + + | Differentia | AUTOMATEDComment: | | EXTERNAL | | | l Type | Testing performed at | | LAB | | | | [facility], [address] | | | | | | [place] | | | | | | [address] | | | | + + + + + + | % Segmented | 68.28Comment: Testing | % | EXTERNAL | | | | performed at [facility], [address] | | LAB | | | Neutrophils | [address], | | | | | | [place] [address] | | | | + + + + + + | % | 15.12Comment: Testing | % | EXTERNAL | | | Lymphocytes | performed at [facility], [address] | | LAB | | | | [address], | | | | | | [place] [address] | | | | + + + + + + | % Monocytes | 14.49Comment: Testing | % | EXTERNAL | | | | performed at [facility], [address] | | LAB | | | | [address], | | | | | | [place] [address] | | | | + + + + + + | % | 1.96Comment: Testing | % | EXTERNAL | | | Eosinophils | performed at [facility], [address] | | LAB | | | | [address], | | | | | | [place] [address] | | | | + + + + + + | % Basophils | 0.15Comment: Testing | % | EXTERNAL | | | | performed at [facility], [address] | | LAB | | | | [address], | | | | | | [place] [address] | | | | + + + + + + | Absolute | 6.03Comment: Testing | 1.90 - 7.40 | EXTERNAL | | | Segmented | performed at [facility], [address] | K/uL | LAB | | | Neutrophils | [address], | | | | | | [place] [address] | | | | + + + + + + | Absolute | 1.34Comment: Testing | 1.00 - 3.90 | EXTERNAL | | | Lymphocytes | performed at [facility], [address] | K/uL | LAB | | | | [address], | | | | | | [place] [address] | | | | + + + + + + | Absolute | 1.28 (H)Comment: Testing | 0.00 - 0.80 | EXTERNAL | | | Monocytes | performed at [facility], [address] | [address] | LAB | | | | [address], | | | | | | [place] [address] | | | | + + + + + + | Absolute | 0.17Comment: Testing | 0.00 - 0.50 | EXTERNAL | | | Eosinophils | performed at [facility], [address] | K/uL | LAB | | | | [address], | | | | | | [place] [address] | | | | + + + + + + | Absolute | 0.01Comment: Testing | 0.00 - 0.10 | EXTERNAL | | | Basophils | performed at [facility], [address] | K/uL | LAB | | | | [address], | | | | | | [place] [address] | | | | + + + + + + + + | Specimen | + + | Blood specimen | | (specimen) | + + + +---------+ + + | Performing | Address | City/State/Zipcode | Phone Number | | Organization | | | | + +---------+ + + | EXTERNAL LAB | | | | + +---------+ + + Phosphorus (07/29/2014 3:58 AM PDT) + + + + + + | Component | Value | Ref Range | Performed | Pathologist | | | | | At | Signature | + + + + + + | PHOSPHORUS | 3.6Comment: Testing | 2.3 - 4.8 mg/dL | EXTERNAL | | | | performed at [facility], [address] | | LAB | | | | [address], | | | | | | [place] [address] | | | | + + + + + + + + | Specimen | + + | Blood specimen | | (specimen) | + + + +---------+ + + | Performing | Address | City/State/Zipcode | Phone Number | | Organization | | | | + +---------+ + + | EXTERNAL LAB | | | | + +---------+ + + Magnesium (07/29/2014 3:58 AM PDT) + + + + + + | Component | Value | Ref Range | Performed | Pathologist | | | | | At | Signature | + + + + + + | Magnesium | 1.5 (L)Comment: Testing | 1.7 - 2.4 mg/dL | EXTERNAL | | | | performed at [facility], [address] | | LAB | | | | [address], | | | | | | [place] [address] | | | | + + + + + + + + | Specimen | + + | Blood specimen | | (specimen) | + + + +---------+ + + | Performing | Address | City/State/Zipcode | Phone Number | | Organization | | | | + +---------+ + + | EXTERNAL LAB | | | | + +---------+ + + Comprehensive Metabolic Panel (07/29/2014 3:58 AM PDT) + + + + + + | Component | Value | Ref Range | Performed | Pathologist | | | | | At | Signature | + + + + + + | Na | 135Comment: Testing | 135 - 143 | EXTERNAL | | | | performed at [facility], [address] | mmol/L | LAB | | | | [address], | | | | | | [place] [address] | | | | + + + + + + | K | 3.0 (L)Comment: Testing | 3.5 - 4.9 | EXTERNAL | | | | performed at [facility], [address] | mmol/L | LAB | | | | [address], | | | | | | [place] [address] | | | | + + + + + + | Cl | 106Comment: Testing | 99 - 109 mmol/L | EXTERNAL | | | | performed at [facility], [address] | | LAB | | | | [address], | | | | | | [place] [address] | | | | + + + + + + | CO2 | 23Comment: Testing | 23 - 32 mmol/L | EXTERNAL | | | | performed at [facility], [address] | | LAB | | | | [address], | | | | | | [place] [address] | | | | + + + + + + | Anion Gap | 9Comment: Testing | 5 - 20 mmol/L | EXTERNAL | | | | performed at [facility], [address] | | LAB | | | | [address], | | | | | | [place] [address] | | | | + + + + + + | Glucose, | 92Comment: Testing | 65 - 99 mg/dL | EXTERNAL | | | Fasting | performed at [facility], [address] | | LAB | | | | [address], | | | | | | [place] [address] | | | | + + + + + + | BUN | 8Comment: Testing | 8 - 25 mg/dL | EXTERNAL | | | | performed at [facility], [address] | | LAB | | | | [address], | | | | | | [place] [address] | | | | + + + + + + | Creatinine | 0.87Comment: Testing | 0.50 - 1.00 | EXTERNAL | | | | performed at [facility], [address] | mg/dL | LAB | | | | [address], | | | | | | [place] [address] | | | | + + + + + + | BUN/Creatin | 9Comment: Testing | | EXTERNAL | | | ine Ratio | performed at [facility], [address] | | LAB | | | | [address], | | | | | | [place] [address] | | | | + + + + + + | Calcium | 8.0 (L)Comment: Testing | 8.5 - 10.5 | EXTERNAL | | | | performed at [facility], [address] | mg/dL | LAB | | | | [address], | | | | | | [place] [address] | | | | + + + + + + | Protein, | 5.4 (L)Comment: Testing | 6.3 - 8.2 g/dL | EXTERNAL | | | Total | performed at [facility], [address] | | LAB | | | | [address], | | | | | | [place] [address] | | | | + + + + + + | Albumin | 2.3 (L)Comment: Testing | 3.6 - 5.0 g/dL | EXTERNAL | | | | performed at [facility], [address] | | LAB | | | | [address], | | | | | | [place] [address] | | | | + + + + + + | Globulin | 3.1Comment: Testing | 1.3 - 4.9 g/dL | EXTERNAL | | | | performed at [facility], [address] | | LAB | | | | [address], | | | | | | [place] [address] | | | | + + + + + + | A/G Ratio | 0.7 (L)Comment: Testing | 1.0 - 2.4 | EXTERNAL | | | | performed at [facility], [address] | | LAB | | | | [address], | | | | | | [place] [address] | | | | + + + + + + | Bilirubin | 0.9Comment: Testing | 0.1 - 1.5 mg/dL | EXTERNAL | | | Total | performed at [facility], [address] | | LAB | | | | [address], | | | | | | [place] [address] | | | | + + + + + + | ALP, | 133 (H)Comment: Testing | 35 - 115 U/L | EXTERNAL | | | External | performed at [facility], [address] | | LAB | | | | [address], | | | | | | [place] [address] | | | | + + + + + + | AST | 60 (H)Comment: Testing | 10 - 45 U/L | EXTERNAL | | | | performed at [facility], [address] | | LAB | | | | [address], | | | | | | [place] [address] | | | | + + + + + + | ALT | 39Comment: Testing | 10 - 65 U/L | EXTERNAL | | | | performed at [facility], [address] | | LAB | | | | [address], | | | | | | [place] [address] | | | | + + + + + + | Estimated | >60Comment: GFR <60: | mL/min/1.73m2 | EXTERNAL | | | GFR | CHRONIC KIDNEY DISEASE, | | LAB | | | | IF FOUND OVER A 3 MONTH | | | | | | PERIOD.GFR <15: KIDNEY | | | | | | FAILURE.FOR | | | | | | AMERICANS, MULTIPLY THE | | | | | | CALCULATED GFR BY | | | | | | 1.210.Testing performed | | | | | | at [facility], [address] | | | | | | [address], | | | | | | [place] [address] | | | | + + + + + + + + | Specimen | + + | Blood specimen | | (specimen) | + + + +---------+ + + | Performing | Address | City/State/Zipcode | Phone Number | | Organization | | | | + +---------+ + + | EXTERNAL LAB | | | | + +---------+ + + Culture, Urine (07/28/2014 10:35 AM PDT) + + | Specimen | + + | Urine specimen | | (specimen) | + + + + + | Narrative | Performed At | + + + | Specimen Description URINE,CLEAN CATCH CULTURE | EXTERNAL LAB | | NO GROWTH | | | Testing performed at [facility], [address] | | | [place] [address] | | + + + + +---------+ + + | Performing | Address | City/State/Zipcode | Phone Number | | Organization | | | | + +---------+ + + | EXTERNAL LAB | | | | + +---------+ + + Urinalysis, Microscopic Only (07/28/2014 10:35 AM PDT) + + + + + + | Component | Value | Ref Range | Performed | Pathologist | | | | | At | Signature | + + + + + + | WBC, UA | 1-5Comment: Testing | 0 - 5 /hpf | EXTERNAL | | | | performed at [facility];[address] | | LAB | | | | [address];[place] | | | | | | [address] | | | | + + + + + + | RBC, UA | 0-2Comment: Testing | 0 - 5 /hpf | EXTERNAL | | | | performed at [facility];[address] | | LAB | | | | [address];[place] | | | | | | [address] | | | | + + + + + + | Epithelial | 0-2Comment: Testing | /lpf | EXTERNAL | | | Cells | performed at [facility];[address] | | LAB | | | | [address];[place] | | | | | | [address] | | | | + + + + + + | Bacteria, | NONE SEENComment: | | EXTERNAL | | | UA | Testing performed at | | LAB | | | | [facility];[address];[place] [address] | | | | + + + + + + + + | Specimen | + + | | + + + +---------+ + + | Performing | Address | City/State/Zipcode | Phone Number | | Organization | | | | + +---------+ + + | EXTERNAL LAB | | | | + +---------+ + + Urinalysis with Microscopic if Indicated (07/28/2014 10:35 AM PDT) + + + + + + | Component | Value | Ref Range | Performed | Pathologist | | | | | At | Signature | + + + + + + | Color | YELLOWComment: Testing | | EXTERNAL | | | | performed at [facility] | | LAB | | | | [address];[place] | | | | | | [address] | | | | + + + + + + | Clarity, | CLEARComment: Testing | | EXTERNAL | | | Urine | performed at [facility];[address] | | LAB | | | | [address];[place] | | | | | | [address] | | | | + + + + + + | Specific | 1.010Comment: Testing | 1.001 - 1.035 | EXTERNAL | | | [place], | performed at [facility];[address] | | LAB | | | Urine | [address];[place] | | | | | | [address] | | | | + + + + + + | Leukocyte | NEGATIVEComment: Testing | | EXTERNAL | | | Esterase, | performed at [facility];[address] | | LAB | | | Urine | [address];[place] | | | | | | [address] | | | | + + + + + + | Nitrite, | NEGATIVEComment: Testing | | EXTERNAL | | | Urine | performed at [facility];[address] | | LAB | | | | [address];[place] | | | | | | [address] | | | | + + + + + + | Urobilinoge | 0.2Comment: Testing | mg/dL | EXTERNAL | | | n, Urine | performed at [facility];[address] | | LAB | | | | [address];[place] | | | | | | [address] | | | | + + + + + + | Protein, | NEGATIVEComment: Testing | mg/dL | EXTERNAL | | | Urine | performed at [facility];[address] | | LAB | | | | [address];[place] | | | | | | [address] | | | | + + + + + + | pH, Urine | 6.5Comment: Testing | 4.6 - 8.0 | EXTERNAL | | | | performed at [facility];[address] | | LAB | | | | [address];[place] | | | | | | [address] | | | | + + + + + + | Blood, | TRACE (A)Comment: | | EXTERNAL | | | Urine | Testing performed at | | LAB | | | | [facility];[address];[place] [address] | | | | + + + + + + | Ketones | NEGATIVEComment: Testing | mg/dL | EXTERNAL | | | | performed at [facility];[address] | | LAB | | | | [address];[place] | | | | | | [address] | | | | + + + + + + | Bilirubin, | NEGATIVEComment: Testing | | EXTERNAL | | | Urine | performed at [facility];[address] | | LAB | | | | [address];[place] | | | | | | [address] | | | | + + + + + + | Glucose, | NEGATIVEComment: Testing | mg/dL | EXTERNAL | | | Urine | performed at [facility];[address] | | LAB | | | | [address];[place], [place] | | | | | | [address] | | | | + + + + + + + + | Specimen | + + | Urine specimen | | (specimen) | + + + +---------+ + + | Performing | Address | City/State/Zipcode | Phone Number | | Organization | | | | + +---------+ + + | EXTERNAL LAB | | | | + +---------+ + + XR Chest 2 Vws (07/28/2014 8:42 AM PDT) + + | Specimen | + + | | + + + + + | Impressions | Performed At | + + + | 1. Low lung volumes. Probable mild bibasilar atelectasis. No | | | definite infiltrates. See above. | | + + + + + + | Narrative | Performed At | + + + | HISTORY: Suspected pneumonia. Followup. COMPARISON: 07/26/14. | | | TECHNIQUE: PA and lateral films of the chest. FINDINGS: Lung | | | volumes are lower. There is accentuation of the medial bibasilar lung | | | markings, probably due to atelectasis. I doubt subtle infiltrate. | | | Lungs otherwise clear. Left subclavian central venous catheter tip mid | | | SVC. Heart size is normal. | | + + + + + | Procedure Note | + + | Jhonny, Rad Conversion - 12/07/2018 3:44 AM PDT HISTORY:Suspected pneumonia. Followup. | | COMPARISON:07/26/14. TECHNIQUE:PA and lateral films of the chest. FINDINGS:Lung volumes | | are lower. There is accentuation of the medial bibasilar lung markings, probably due to | | atelectasis. I doubt subtle infiltrate. Lungs otherwise clear. Left subclavian central | | venous catheter tip mid SVC. Heart size is normal. IMPRESSION: 1. Low lung volumes. | | Probable mild bibasilar atelectasis. No definite infiltrates. See above. Electronically | | signed by Danny Poole MD on 07/28/2014 9:21 AM | |PA and lateral films of the chest. | | | |FINDINGS: | |Lung volumes are lower. There is accentuation of the medial bibasilar lung markings, probab ly due to atelectasis. I doubt subtle infiltrate. Lungs otherwise clear. Left subclavian alvin tral venous catheter tip mid SVC. Heart size is normal. | | | |IMPRESSION: | |1. Low lung volumes. Probable mild bibasilar atelectasis. No definite infiltrates. See abo ve. | | | | | + + Cortisol, AM (07/28/2014 4:45 AM PDT) + + + + + + | Component | Value | Ref Range | Performed | Pathologist | | | | | At | Signature | + + + + + + | Cortisol - | 17.3Comment: Testing | 4.3 - 22.4 | EXTERNAL | | | AM | performed at [facility], [address] | ug/dL | LAB | | | | [address], | | | | | | [place] [address] | | | | + + + + + + + + | Specimen | + + | | + + + +---------+ + + | Performing | Address | City/State/Zipcode | Phone Number | | Organization | | | | + +---------+ + + | EXTERNAL LAB | | | | + +---------+ + + External Lab: HENRY (07/28/2014 4:45 AM PDT) + + + + + + | Component | Value | Ref Range | Performed | Pathologist | | | | | At | Signature | + + + + + + | WBC | 6.57Comment: Testing | 3.80 - 11.00 | EXTERNAL | | | | performed at [facility], [address] | K/uL | LAB | | | | [address], | | | | | | [place] [address] | | | | + + + + + + | Non- | 3.20 (L)Comment: Testing | 3.70 - 5.10 | EXTERNAL | | | Red Blood | performed at [facility], [address] | M/uL | LAB | | | Cells | [address], | | | | | Counted | [place] [address] | | | | + + + + + + | Hemoglobin | 10.2 (L)Comment: Testing | 11.3 - 15.5 | EXTERNAL | | | | performed at [facility], [address] | g/dL | LAB | | | | [address], | | | | | | [place] [address] | | | | + + + + + + | Hematocrit, | 30.0 (L)Comment: Testing | 34.0 - 46.0 % | EXTERNAL | | | POC | performed at [facility], [address] | | LAB | | | | [address], | | | | | | [place] [address] | | | | + + + + + + | MCV | 93.8Comment: Testing | 80.0 - 100.0 fl | EXTERNAL | | | | performed at [facility], [address] | | LAB | | | | [address], | | | | | | [place] [address] | | | | + + + + + + | MCH | 31.8Comment: Testing | 27.0 - 34.0 pg | EXTERNAL | | | | performed at [facility], [address] | | LAB | | | | [address], | | | | | | [place] [address] | | | | + + + + + + | MCHC | 33.8Comment: Testing | 32.0 - 35.5 | EXTERNAL | | | | performed at [facility], [address] | g/dL | LAB | | | | [address], | | | | | | [place] [address] | | | | + + + + + + | RDW-CV | 44.2Comment: Testing | 37 - 53 fl | EXTERNAL | | | | performed at [facility], [address] | | LAB | | | | [address], | | | | | | [place] [address] | | | | + + + + + + | Platelet | 102 (L)Comment: Testing | 150 - 400 K/uL | EXTERNAL | | | Count | performed at [facility], [address] | | LAB | | | Plasma | [address], | | | | | | [place] [address] | | | | + + + + + + | MPV | 9.2Comment: Testing | fl | EXTERNAL | | | | performed at [facility], [address] | | LAB | | | | [address], | | | | | | [place] [address] | | | | + + + + + + | Differentia | MANUALComment: Testing | | EXTERNAL | | | l Type | performed at [facility], [address] | | LAB | | | | [address], | | | | | | [place] [address] | | | | + + + + + + | Segmented | 66Comment: Testing | % | EXTERNAL | | | Neutrophils | performed at [facility], [address] | | LAB | | | Manual | [address], | | | | | | [place] [address] | | | | + + + + + + | % Bands | 5Comment: Testing | % | EXTERNAL | | | | performed at [facility], [address] | | LAB | | | | [address], | | | | | | [place] [address] | | | | + + + + + + | Lymphocytes | 12Comment: Testing | % | EXTERNAL | | | Manual | performed at [facility], [address] | | LAB | | | | [address], | | | | | | [place] [address] | | | | + + + + + + | Monocytes | 17Comment: Testing | % | EXTERNAL | | | Manual | performed at [facility], [address] | | LAB | | | | [address], | | | | | | [place], [place] [address] | | | | + + + + + + | Absolute | 4.33Comment: Testing | 1.90 - 7.40 | EXTERNAL | | | Neutrophils | performed at [facility], [address] | [address] | LAB | | | | [address], | | | | | | [place] [address] | | | | + + + + + + | Bands | 0.33 (H)Comment: Testing | 0.00 - 0.20 | EXTERNAL | | | Manual | performed at [facility], [address] | [address] | LAB | | | | [address], | | | | | | [place] [address] | | | | + + + + + + | Absolute | 0.79 (L)Comment: Testing | 1.00 - 3.90 | EXTERNAL | | | Lymphocytes | performed at [facility], [address] | LAB | | | | [address], | | | | | | [place] [address] | | | | + + + + + + | Absolute | 1.12 (H)Comment: Testing | 0.00 - 0.80 | EXTERNAL | | | Monocytes | performed at [facility], [address] | LAB | | | | [address], | | | | | | [place] [address] | | | | + + + + + + | Platelet | DECREASEDComment: | | EXTERNAL | | | Estimate | Testing performed at | | LAB | | | | [facility], [address] | | | | | | [place] | | | | | | [address] | | | | + + + + + + | RBC | NORMAL RBC MORPHComment: | | EXTERNAL | | | Morphology | NORMAL PLT MORPHTesting | | LAB | | | | performed at [facility], [address] | | | | | [address], | | | | | | [place] [address] | | | | + + + + + + + + | Specimen | + + | Blood specimen | | (specimen) | + + + +---------+ + + | Performing | Address | City/State/Zipcode | Phone Number | | Organization | | | | + +---------+ + + | EXTERNAL LAB | | | | + +---------+ + + [facility] (07/28/2014 4:45 AM PDT) + + + + + + | Component | Value | Ref Range | Performed | Pathologist | | | | | At | Signature | + + + + + + | TSH | 1.01Comment: Testing | 0.45 - 5.10 | EXTERNAL | | | | performed at [facility];[address] | uIU/mL | LAB | | | | [address];[place], [place] | | | | | | [address] | | | | + + + + + + + + | Specimen | + + | Blood specimen | | (specimen) | + + + +---------+ + + | Performing | Address | City/State/Zipcode | Phone Number | | Organization | | | | + +---------+ + + | EXTERNAL LAB | | | | + +---------+ + + Osmolality, Serum (07/28/2014 4:45 AM PDT) + + + + + + | Component | Value | Ref Range | Performed | Pathologist | | | | | At | Signature | + + + + + + | Osmolality, | 280Comment: Testing | 275 - 295 | EXTERNAL | | | Serum | performed at [facility];888 | mOsm/kg | LAB | | | | [address];[place], [place] | | | | | | [address] | | | | + + + + + + + + | Specimen | + + | Blood specimen | | (specimen) | + + + +---------+ + + | Performing | Address | City/State/Zipcode | Phone Number | | Organization | | | | + +---------+ + + | EXTERNAL LAB | | | | + +---------+ + + Magnesium (07/28/2014 4:45 AM PDT) + + + + + + | Component | Value | Ref Range | Performed | Pathologist | | | | | At | Signature | + + + + + + | Magnesium | 1.6 (L)Comment: Testing | 1.7 - 2.4 mg/dL | EXTERNAL | | | | performed at [facility];888 | | LAB | | | | [address];[place], [place] | | | | | | [address] | | | | + + + + + + + + | Specimen | + + | Blood specimen | | (specimen) | + + + +---------+ + + | Performing | Address | City/State/Zipcode | Phone Number | | Organization | | | | + +---------+ + + | EXTERNAL LAB | | | | + +---------+ + + Vitamin B-12 (07/28/2014 4:45 AM PDT) + + + + + + | Component | Value | Ref Range | Performed | Pathologist | | | | | At | Signature | + + + + + + | VITAMIN | 1,542 (H)Comment: | 254 - 1,320 | EXTERNAL | | | B-12 | Testing performed at | pg/mL | LAB | | | | [facility], [address] | | | | | | [place], [place] | | | | | | [address] | | | | + + + + + + + + | Specimen | + + | Blood specimen | | (specimen) | + + + +---------+ + + | Performing | Address | City/State/Zipcode | Phone Number | | Organization | | | | + +---------+ + + | EXTERNAL LAB | | | | + +---------+ + + Comprehensive Metabolic Panel (07/28/2014 4:45 AM PDT) + + + + + + | Component | Value | Ref Range | Performed | Pathologist | | | | | At | Signature | + + + + + + | Na | 139Comment: Testing | 135 - 143 | EXTERNAL | | | | performed at [facility];888 | mmol/L | LAB | | | | [address];[place] | | | | | | [address] | | | | + + + + + + | K | 3.2 (L)Comment: Testing | 3.5 - 4.9 | EXTERNAL | | | | performed at [facility];888 | mmol/L | LAB | | | | [address];[place] | | | | | | [address] | | | | + + + + + + | Cl | 110 (H)Comment: Testing | 99 - 109 mmol/L | EXTERNAL | | | | performed at [facility];[address] | | LAB | | | | [address];[place] | | | | | | [address] | | | | + + + + + + | CO2 | 18 (L)Comment: Testing | 23 - 32 mmol/L | EXTERNAL | | | | performed at [facility];[address] | | LAB | | | | [address];[place] | | | | | | [address] | | | | + + + + + + | Anion Gap | 15Comment: Testing | 5 - 20 mmol/L | EXTERNAL | | | | performed at [facility];[address] | | LAB | | | | [address];[place] | | | | | | [address] | | | | + + + + + + | Glucose, | 67Comment: Testing | 65 - 99 mg/dL | EXTERNAL | | | Fasting | performed at [facility];[address] | | LAB | | | | [address];[place] | | | | | | [address] | | | | + + + + + + | BUN | 11Comment: Testing | 8 - 25 mg/dL | EXTERNAL | | | | performed at [facility];[address] | | LAB | | | | [address];[place] | | | | | | [address] | | | | + + + + + + | Creatinine | 1.18 (H)Comment: Testing | 0.50 - 1.00 | EXTERNAL | | | | performed at [facility];888 | mg/dL | LAB | | | | [address];[place] | | | | | | [address] | | | | + + + + + + | BUN/Creatin | 9Comment: Testing | | EXTERNAL | | | ine Ratio | performed at [facility];[address] | | LAB | | | | [address];[place] | | | | | | [address] | | | | + + + + + + | Calcium | 7.4 (L)Comment: Testing | 8.5 - 10.5 | EXTERNAL | | | | performed at [facility];888 | mg/dL | LAB | | | | [address];[place] | | | | | | [address] | | | | + + + + + + | Protein, | 5.1 (L)Comment: Testing | 6.3 - 8.2 g/dL | EXTERNAL | | | Total | performed at [facility];[address] | | LAB | | | | [address];[place] | | | | | | [address] | | | | + + + + + + | Albumin | 1.6 (L)Comment: Testing | 3.6 - 5.0 g/dL | EXTERNAL | | | | performed at [facility];[address] | | LAB | | | | [address];[place] | | | | | | [address] | | | | + + + + + + | Globulin | 3.5Comment: Testing | 1.3 - 4.9 g/dL | EXTERNAL | | | | performed at [facility];[address] | | LAB | | | | [address];[place] | | | | | | [address] | | | | + + + + + + | A/G Ratio | 0.5 (L)Comment: Testing | 1.0 - 2.4 | EXTERNAL | | | | performed at [facility];[address] | | LAB | | | | [address];[place] | | | | | | [address] | | | | + + + + + + | Bilirubin | 0.7Comment: Testing | 0.1 - 1.5 mg/dL | EXTERNAL | | | Total | performed at [facility];[address] | | LAB | | | | [address];[place] | | | | | | [address] | | | | + + + + + + | ALP, | 136 (H)Comment: Testing | 35 - 115 U/L | EXTERNAL | | | External | performed at [facility];[address] | | LAB | | | | [address];[place] | | | | | | [address] | | | | + + + + + + | AST | 50 (H)Comment: Testing | 10 - 45 U/L | EXTERNAL | | | | performed at [facility];[address] | | LAB | | | | [address];[place] | | | | | | [address] | | | | + + + + + + | ALT | 34Comment: Testing | 10 - 65 U/L | EXTERNAL | | | | performed at [facility];[address] | | LAB | | | | [address];[place] | | | | | | [address] | | | | + + + + + + | Estimated | 51 (L)Comment: GFR <60: | mL/min/1.73m2 | EXTERNAL | | | GFR | CHRONIC KIDNEY DISEASE, | | LAB | | | | IF FOUND OVER A 3 MONTH | | | | | | PERIOD.GFR <15: KIDNEY | | | | | | FAILURE.FOR | | | | | | AMERICANS, MULTIPLY THE | | | | | | CALCULATED GFR BY | | | | | | 1.210.Testing performed | | | | | | at [facility];[address] [place] [address] | | | | | | Blvd;[place] [address] | | | | + + + + + + + + | Specimen | + + | Blood specimen | | (specimen) | + + + +---------+ + + | Performing | Address | City/State/Zipcode | Phone Number | | Organization | | | | + +---------+ + + | EXTERNAL LAB | | | | + +---------+ + + Sodium, Urine, Random (07/27/2014 10:09 PM PDT) + + + + + + | Component | Value | Ref Range | Performed | Pathologist | | | | | At | Signature | + + + + + + | Sodium, | 89 (L)Comment: Testing | 90 - 104 mmol/L | EXTERNAL | | | Urine | performed at [facility], [address] | | LAB | | | Random | [address], | | | | | | [place] [address] | | | | + + + + + + + + | Specimen | + + | Urine specimen | | (specimen) | + + + +---------+ + + | Performing | Address | City/State/Zipcode | Phone Number | | Organization | | | | + +---------+ + + | EXTERNAL LAB | | | | + +---------+ + + Osmolality, Urine (07/27/2014 10:09 PM PDT) + + + + + + | Component | Value | Ref Range | Performed | Pathologist | | | | | At | Signature | + + + + + + | OSMO URINE | 414Comment: Testing | 50 - 1,200 | EXTERNAL | | | | performed at [facility];888 | mOsm/kg | LAB | | | | [address];[place] | | | | | | [address] | | | | + + + + + + + + | Specimen | + + | Urine specimen | | (specimen) | + + + +---------+ + + | Performing | Address | City/State/Zipcode | Phone Number | | Organization | | | | + +---------+ + + | EXTERNAL LAB | | | | + +---------+ + + External Lab: CBC (07/27/2014 3:16 AM PDT) + + + + + + | Component | Value | Ref Range | Performed | Pathologist | | | | | At | Signature | + + + + + + | WBC | 8.73Comment: Testing | 3.80 - 11.00 | EXTERNAL | | | | performed at [facility], [address] | K/uL | LAB | | | | [address], | | | | | | [place] [address] | | | | + + + + + + | Non- | 3.16 (L)Comment: Testing | 3.70 - 5.10 | EXTERNAL | | | Red Blood | performed at [facility], [address] | M/uL | LAB | | | Cells | [address], | | | | | Counted | [place] [address] | | | | + + + + + + | Hemoglobin | 10.3 (L)Comment: Testing | 11.3 - 15.5 | EXTERNAL | | | | performed at [facility], [address] | g/dL | LAB | | | | [address], | | | | | | [place] [address] | | | | + + + + + + | Hematocrit, | 29.7 (L)Comment: Testing | 34.0 - 46.0 % | EXTERNAL | | | POC | performed at [facility], [address] | | LAB | | | | [address], | | | | | | [place] [address] | | | | + + + + + + | MCV | 94.0Comment: Testing | 80.0 - 100.0 fl | EXTERNAL | | | | performed at [facility], [address] | | LAB | | | | [address], | | | | | | [place] [address] | | | | + + + + + + | MCH | 32.6Comment: Testing | 27.0 - 34.0 pg | EXTERNAL | | | | performed at [facility], [address] | | LAB | | | | [address], | | | | | | [place] [address] | | | | + + + + + + | MCHC | 34.7Comment: Testing | 32.0 - 35.5 | EXTERNAL | | | | performed at [facility], [address] | g/dL | LAB | | | | [address], | | | | | | [place] [address] | | | | + + + + + + | RDW-CV | 43.8Comment: Testing | 37 - 53 fl | EXTERNAL | | | | performed at [facility], [address] | | LAB | | | | [address], | | | | | | [place] [address] | | | | + + + + + + | Platelet | 100 (L)Comment: Testing | 150 - 400 K/uL | EXTERNAL | | | Count | performed at [facility], [address] | | LAB | | | Plasma | [address], | | | | | | [place] [address] | | | | + + + + + + | MPV | 10.3Comment: Testing | fl | EXTERNAL | | | | performed at [facility], [address] | | LAB | | | | [address], | | | | | | [place] [address] | | | | + + + + + + | Differentia | MANUALComment: Testing | | EXTERNAL | | | l Type | performed at [facility], [address] | | LAB | | | | [address], | | | | | | [place] [address] | | | | + + + + + + | Nucleated | 1 (H)Comment: Testing | /100WBC | EXTERNAL | | | Red Blood | performed at [facility], [address] | | LAB | | | Cells | [address], | | | | | | [place] [address] | | | | + + + + + + | Segmented | 80Comment: Testing | % | EXTERNAL | | | Neutrophils | performed at [facility], [address] | | LAB | | | Manual | [address], | | | | | | [place] [address] | | | | + + + + + + | % Bands | 6Comment: Testing | % | EXTERNAL | | | | performed at [facility], [address] | | LAB | | | | [address], | | | | | | [place] [address] | | | | + + + + + + | Lymphocytes | 7Comment: Testing | % | EXTERNAL | | | Manual | performed at [facility], [address] | | LAB | | | | [address], | | | | | | [place] [address] | | | | + + + + + + | Monocytes | 7Comment: Testing | % | EXTERNAL | | | Manual | performed at [facility], [address] | | LAB | | | [address], | | | | | | [place] [address] | | | | + + + + + + | Absolute | 6.99Comment: Testing | 1.90 - 7.40 | EXTERNAL | | | Neutrophils | performed at [facility], [address] | K/uL | LAB | | | | [address], | | | | | | [place] [address] | | | | + + + + + + | Bands | 0.52 (H)Comment: Testing | 0.00 - 0.20 | EXTERNAL | | | Manual | performed at [facility], [address] | K/uL | LAB | | | | [address], | | | | | | [place] [address] | | | | + + + + + + | Absolute | 0.61 (L)Comment: Testing | 1.00 - 3.90 | EXTERNAL | | | Lymphocytes | performed at [facility], [address] | K/uL | LAB | | | | [address], | | | | | | [place] [address] | | | | + + + + + + | Absolute | 0.61Comment: Testing | 0.00 - 0.80 | EXTERNAL | | | Monocytes | performed at [facility], [address] | K/uL | LAB | | | | [address], | | | | | | [place] [address] | | | | + + + + + + | RBC | RBC AND PLT MORPHOLOGY | | EXTERNAL | | | Morphology | APPEAR NORMALComment: | | LAB | | | | Testing performed at | | | | | | [facility], [address] [facility] | | | | | | [place] | | | | | | [address] | | | | + + + + + + + + | Specimen | + + | Blood specimen | | (specimen) | + + + +---------+ + + | Performing | Address | City/State/Zipcode | Phone Number | | Organization | | | | + +---------+ + + | EXTERNAL LAB | | | | + +---------+ + + Basic Metabolic Panel (07/27/2014 3:16 AM PDT) + + + + + + | Component | Value | Ref Range | Performed | Pathologist | | | | | At | Signature | + + + + + + | Na | 128 (L)Comment: Testing | 135 - 143 | EXTERNAL | | | | performed at [facility], [address] | mmol/L | LAB | | | | [address], | | | | | | [place] [address] | | | | + + + + + + | K | 2.8 (L)Comment: Testing | 3.5 - 4.9 | EXTERNAL | | | | performed at [facility], [address] | mmol/L | LAB | | | | [address], | | | | | | [place] [address] | | | | + + + + + + | Cl | 105Comment: Testing | 99 - 109 mmol/L | EXTERNAL | | | | performed at [facility], [address] | | LAB | | | | [address], | | | | | | [place] [address] | | | | + + + + + + | CO2 | 17 (L)Comment: Testing | 23 - 32 mmol/L | EXTERNAL | | | | performed at [facility], [address] | | LAB | | | | [address], | | | | | | [place] [address] | | | | + + + + + + | Anion Gap | 9Comment: Testing | 5 - 20 mmol/L | EXTERNAL | | | | performed at [facility], [address] | | LAB | | | | [address], | | | | | | [place] [address] | | | | + + + + + + | Glucose, | 69Comment: Testing | 65 - 99 mg/dL | EXTERNAL | | | Fasting | performed at [facility], [address] | | LAB | | | | [address], | | | | | | [place] [address] | | | | + + + + + + | BUN | 15Comment: Testing | 8 - 25 mg/dL | EXTERNAL | | | | performed at [facility], [address] | | LAB | | | | [address], | | | | | | [place] [address] | | | | + + + + + + | Creatinine | 1.31 (H)Comment: Testing | 0.50 - 1.00 | EXTERNAL | | | | performed at [facility], [address] | mg/dL | LAB | | | | [address], | | | | | | [place] [address] | | | | + + + + + + | BUN/Creatin | 11Comment: Testing | | EXTERNAL | | | ine Ratio | performed at [facility], [address] | | LAB | | | | [address], | | | | | | [place] [address] | | | | + + + + + + | Calcium | 7.4 (L)Comment: Testing | 8.5 - 10.5 | EXTERNAL | | | | performed at [facility], [address] | mg/dL | LAB | | | | [address], | | | | | | [place] [address] | | | | + + + + + + | Estimated | 45 (L)Comment: GFR <60: | mL/min/1.73m2 | EXTERNAL | | | GFR | CHRONIC KIDNEY DISEASE, | | LAB | | | | IF FOUND OVER A 3 MONTH | | | | | | PERIOD.GFR <15: KIDNEY | | | | | | FAILURE.FOR | | | | | | AMERICANS, MULTIPLY THE | | | | | | CALCULATED GFR BY | | | | | | 1.210.Testing performed | | | | | | at [facility], [address] | | | | | | [address], | | | | | | [place] [address] | | | | + + + + + + + + | Specimen | + + | Blood specimen | | (specimen) | + + + +---------+ + + | Performing | Address | City/State/Zipcode | Phone Number | | Organization | | | | + +---------+ + + | EXTERNAL LAB | | | | + +---------+ + + Lactic Acid (07/26/2014 1:35 PM PDT) + + + + + + | Component | Value | Ref Range | Performed | Pathologist | | | | | At | Signature | + + + + + + | Lactate | 1.6Comment: Testing | 0.4 - 2.0 | EXTERNAL | | | | performed at [facility];[address] | mmol/L | LAB | | | | [address];[place], [place] | | | | | | [address] | | | | + + + + + + + + | Specimen | + + | Blood specimen | | (specimen) | + + + +---------+ + + | Performing | Address | City/State/Zipcode | Phone Number | | Organization | | | | + +---------+ + + | EXTERNAL LAB | | | | + +---------+ + + Potassium (07/26/2014 1:34 PM PDT) + + + + + + | Component | Value | Ref Range | Performed | Pathologist | | | | | At | Signature | + + + + + + | K | 3.8Comment: Testing | 3.5 - 4.9 | EXTERNAL | | | | performed at [facility];[address] | mmol/L | LAB | | | | [address];[place], [place] | | | | | | [address] | | | | + + + + + + + + | Specimen | + + | Blood specimen | | (specimen) | + + + +---------+ + + | Performing | Address | City/State/Zipcode | Phone Number | | Organization | | | | + +---------+ + + | EXTERNAL LAB | | | | + +---------+ + + Magnesium (07/26/2014 1:34 PM PDT) + + + + + + | Component | Value | Ref Range | Performed | Pathologist | | | | | At | Signature | + + + + + + | Magnesium | 2.0Comment: Testing | 1.7 - 2.4 mg/dL | EXTERNAL | | | | performed at [facility] | | LAB | | | | [address];[place], [place] | | | | | | [address] | | | | + + + + + + + + | Specimen | + + | Blood specimen | | (specimen) | + + + +---------+ + + | Performing | Address | City/State/Zipcode | Phone Number | | Organization | | | | + +---------+ + + | EXTERNAL LAB | | | | + +---------+ + + Lactic Acid (07/26/2014 12:05 PM PDT) + + + + + + | Component | Value | Ref Range | Performed | Pathologist | | | | | At | Signature | + + + + + + | Lactate | 1.8Comment: Testing | 0.4 - 2.0 | EXTERNAL | | | | performed at [facility];[address] | mmol/L | LAB | | | | [address];[place], [place] | | | | | | [address] | | | | + + + + + + + + | Specimen | + + | Blood specimen | | (specimen) | + + + +---------+ + + | Performing | Address | City/State/Zipcode | Phone Number | | Organization | | | | + +---------+ + + | EXTERNAL LAB | | | | + +---------+ + + Phosphorus (07/26/2014 5:00 AM PDT) + + + + + + | Component | Value | Ref Range | Performed | Pathologist | | | | | At | Signature | + + + + + + | PHOSPHORUS | 3.6Comment: Testing | 2.3 - 4.8 mg/dL | EXTERNAL | | | | performed at [facility];[address] | | LAB | | | | [address];[place] | | | | | | [address] | | | | + + + + + + + + | Specimen | + + | Blood specimen | | (specimen) | + + + +---------+ + + | Performing | Address | City/State/Zipcode | Phone Number | | Organization | | | | + +---------+ + + | EXTERNAL LAB | | | | + +---------+ + + Magnesium (07/26/2014 5:00 AM PDT) + + + + + + | Component | Value | Ref Range | Performed | Pathologist | | | | | At | Signature | + + + + + + | Magnesium | 1.9Comment: Testing | 1.7 - 2.4 mg/dL | EXTERNAL | | | | performed at [facility];[address] | | LAB | | | | [address];[place], [place] | | | | | | [address] | | | | + + + + + + + + | Specimen | + + | Blood specimen | | (specimen) | + + + +---------+ + + | Performing | Address | City/State/Zipcode | Phone Number | | Organization | | | | + +---------+ + + | EXTERNAL LAB | | | | + +---------+ + + Lactic Acid (07/26/2014 5:00 AM PDT) + + + + + + | Component | Value | Ref Range | Performed | Pathologist | | | | | At | Signature | + + + + + + | Lactate | 2.3 (H)Comment: Testing | 0.4 - 2.0 | EXTERNAL | | | | performed at [facility];[address] | mmol/L | LAB | | | | [address];[place], [place] | | | | | | [address] | | | | + + + + + + + + | Specimen | + + | Blood specimen | | (specimen) | + + + +---------+ + + | Performing | Address | City/State/Zipcode | Phone Number | | Organization | | | | + +---------+ + + | EXTERNAL LAB | | | | + +---------+ + + Basic Metabolic Panel (07/26/2014 5:00 AM PDT) + + + + + + | Component | Value | Ref Range | Performed | Pathologist | | | | | At | Signature | + + + + + + | Na | 141Comment: Testing | 135 - 143 | EXTERNAL | | | | performed at [facility];[address] | mmol/L | LAB | | | | [address];[place] | | | | | | [address] | | | | + + + + + + | K | 3.3 (L)Comment: Testing | 3.5 - 4.9 | EXTERNAL | | | | performed at [facility];[address] | mmol/L | LAB | | | | [address];[place] | | | | | | [address] | | | | + + + + + + | Cl | 112 (H)Comment: Testing | 99 - 109 mmol/L | EXTERNAL | | | | performed at [facility];[address] | | LAB | | | | [address];[place] | | | | | | [address] | | | | + + + + + + | CO2 | 18 (L)Comment: Testing | 23 - 32 mmol/L | EXTERNAL | | | | performed at [facility];[address] | | LAB | | | | [address];[place] | | | | | | [address] | | | | + + + + + + | Anion Gap | 15Comment: Testing | 5 - 20 mmol/L | EXTERNAL | | | | performed at [facility];[address] | | LAB | | | | [address];[place] | | | | | | [address] | | | | + + + + + + | Glucose, | 78Comment: Testing | 65 - 99 mg/dL | EXTERNAL | | | Fasting | performed at [facility];[address] | | LAB | | | | [address];[place] | | | | | | [address] | | | | + + + + + + | BUN | 24Comment: Testing | 8 - 25 mg/dL | EXTERNAL | | | | performed at [facility];[address] | | LAB | | | | [address];[place] | | | | | | [address] | | | | + + + + + + | Creatinine | 1.82 (H)Comment: Testing | 0.50 - 1.00 | EXTERNAL | | | | performed at [facility];[address] | mg/dL | LAB | | | | [address];[place] | | | | | | [address] | | | | + + + + + + | BUN/Creatin | 13Comment: Testing | | EXTERNAL | | | ine Ratio | performed at [facility];[address] | | LAB | | | | [address];[place] | | | | | | [address] | | | | + + + + + + | Calcium | 6.8 (L)Comment: Testing | 8.5 - 10.5 | EXTERNAL | | | | performed at [facility];[address] | mg/dL | LAB | | | | [address];[place] | | | | | | [address] | | | | + + + + + + | Estimated | 31 (L)Comment: GFR <60: | mL/min/1.73m2 | EXTERNAL | | | GFR | CHRONIC KIDNEY DISEASE, | | LAB | | | | IF FOUND OVER A 3 MONTH | | | | | | PERIOD.GFR <15: KIDNEY | | | | | | FAILURE.FOR | | | | | | AMERICANS, MULTIPLY THE | | | | | | CALCULATED GFR BY | | | | | | 1.210.Testing performed | | | | | | at [facility];[address];[place] [address] | | | | + + + + + + + + | Specimen | + + | Blood specimen | | (specimen) | + + + +---------+ + + | Performing | Address | City/State/Zipcode | Phone Number | | Organization | | | | + +---------+ + + | EXTERNAL LAB | | | | + +---------+ + + XR Chest 1 Vw (07/26/2014 4:27 AM PDT) + + | Specimen | + + | | + + + + + | Impressions | Performed At | + + + | 1. Possible mild left lower lobe bronchopneumonia. 2. | | | Satisfactory central venous catheter placement. | | | | | + + + + + + | Narrative | Performed At | + + + | [facility] XR CHEST 1 VIEW 07/26/2014 4:27 AM History: 54 | | | years. Female. Acute left pyelonephritis. Central venous line | | | placement. Technique: AP portable upright technique was performed | | | at 0417 hours. Comparison: None. Findings: The inspiratory | | | effort is moderate. Mild peribronchial infiltrate is noted in the left | | | lower lung field behind the left heart, suggesting possible | | | bronchopneumonia. The remaining lung gipson and pleural spaces are | | | clear. The cardiac volume and contour are normal. The pulmonary | | | vasculature is normal. The mediastinal contours and pulmonary wendy are | | | normal, without mass. The thoracic aorta shows normal caliber, | | | without calcification or tortuosity. A left subclavian central | | | venous catheter is in good position with its tip in the superior vena | | | cava. No visible pneumothorax. | | + + + + + | Procedure Note | + + | Robin Barry - 12/07/2018 3:44 AM PDT [facility] 1 07/26/2014 | | 4:27 AM History: 54 years. Female. Acute left pyelonephritis. Central venous line | | placement. Technique: AP portable upright technique was performed at 0417 | | hours.Comparison: None. Findings: The inspiratory effort is moderate. Mild | | peribronchial infiltrate is noted in the left lower lung field behind the left heart, | | suggesting possible bronchopneumonia. The remaining lung gipson and pleural spaces are | | clear. The cardiac volume and contour are normal. The pulmonary vasculature is normal. | | The mediastinal contours and pulmonary wendy are normal, without mass. The thoracic aorta | | shows normal caliber, without calcification or tortuosity. A left subclavian central | | venous catheter is in good position with its tip in the superior vena cava. No visible | | pneumothorax. IMPRESSION: 1. Possible mild left lower lobe bronchopneumonia.2. | | Satisfactory central venous catheter placement. | |A left subclavian central venous catheter is in good position with its tip in the superior vena cava. No visible pneumothorax. | | | |IMPRESSION: | |1. Possible mild left lower lobe bronchopneumonia. | |2. Satisfactory central venous catheter placement. | | | | | | | + + Culture, Blood, 2nd Specimen (07/26/2014 1:30 AM PDT) + + | Specimen | + + | Blood specimen | | (specimen) | + + + + + | Narrative | Performed At | + + + | Specimen Description BLOOD SPECIAL | EXTERNAL LAB | | REQUESTS LEFT EJ CULTURE | | | NO GROWTH | | | Testing performed at [facility], [address] [place] [address] | | | [place] [address] | | + + + + +---------+ + + | Performing | Address | City/State/Zipcode | Phone Number | | Organization | | | | + +---------+ + + | EXTERNAL LAB | | | | + +---------+ + + Culture, Blood (07/26/2014 1:26 AM PDT) + + | Specimen | + + | Blood specimen | | (specimen) | + + + + + | Narrative | Performed At | + + + | Specimen Description BLOOD SPECIAL | EXTERNAL LAB | | REQUESTS RIGHT AC LINE | | | Testing performed at [facility];[address] | | | Blvd;[place] [address] CULTURE | | | NO GROWTH | | | Testing performed at [facility], [address], [place], [place] | | | [address] | | + + + + +---------+ + + | Performing | Address | City/State/Zipcode | Phone Number | | Organization | | | | + +---------+ + + | EXTERNAL LAB | | | | + +---------+ + + External Lab: CBC (07/26/2014 1:12 AM PDT) + + + + + + | Component | Value | Ref Range | Performed | Pathologist | | | | | At | Signature | + + + + + + | WBC | 21.22 (H)Comment: | 3.80 - 11.00 | EXTERNAL | | | | Testing performed at | K/uL | LAB | | | | [facility];[address] | | | | | | [address];[place] [address] | | | | + + + + + + | Non- | 3.80Comment: Testing | 3.70 - 5.10 | EXTERNAL | | | Red Blood | performed at [facility];[address] | M/uL | LAB | | | Cells | [address];[place] | | | | | Counted | [address] | | | | + + + + + + | Hemoglobin | 12.0Comment: Testing | 11.3 - 15.5 | EXTERNAL | | | | performed at [facility];888 | g/dL | LAB | | | | [address];[place] | | | | | | [address] | | | | + + + + + + | Hematocrit, | 36.0Comment: Testing | 34.0 - 46.0 % | EXTERNAL | | | POC | performed at [facility];[address] | | LAB | | | | [address];[place] | | | | | | [address] | | | | + + + + + + | MCV | 94.7Comment: Testing | 80.0 - 100.0 fl | EXTERNAL | | | | performed at [facility];[address] | | LAB | | | | [address];[place] | | | | | | [address] | | | | + + + + + + | MCH | 31.7Comment: Testing | 27.0 - 34.0 pg | EXTERNAL | | | | performed at [facility];[address] | | LAB | | | | [address];[place] | | | | | | [address] | | | | + + + + + + | MCHC | 33.5Comment: Testing | 32.0 - 35.5 | EXTERNAL | | | | performed at [facility];888 | g/dL | LAB | | | | [address];[place] | | | | | | [address] | | | | + + + + + + | RDW-CV | 44.6Comment: Testing | 37 - 53 fl | EXTERNAL | | | | performed at [facility];[address] | | LAB | | | | [address];[place] | | | | | | [address] | | | | + + + + + + | Platelet | 122 (L)Comment: Testing | 150 - 400 K/uL | EXTERNAL | | | Count | performed at [facility];[address] | | LAB | | | Plasma | [address];[place] | | | | | | [address] | | | | + + + + + + | MPV | 10.2Comment: Testing | fl | EXTERNAL | | | | performed at [facility];[address] | | LAB | | | | [address];[place] | | | | | | [address] | | | | + + + + + + | Differentia | MANUALComment: Testing | | EXTERNAL | | | l Type | performed at [facility];[address] | | LAB | | | | [address];[place] | | | | | | [address] | | | | + + + + + + | Segmented | 80Comment: Testing | % | EXTERNAL | | | Neutrophils | performed at [facility];[address] | | LAB | | | Manual | [address];[place] | | | | | | [address] | | | | + + + + + + | % Bands | 14Comment: Testing | % | EXTERNAL | | | | performed at [facility];[address] | | LAB | | | | [address];[place] | | | | | | [address] | | | | + + + + + + | Lymphocytes | 3Comment: Testing | % | EXTERNAL | | | Manual | performed at [facility];[address] | | LAB | | | | [address];[place] | | | | | | [address] | | | | + + + + + + | Monocytes | 3Comment: Testing | % | EXTERNAL | | | Manual | performed at [facility];[address] | | LAB | | | | [address];[place] | | | | | | [address] | | | | + + + + + + | Absolute | 16.97 (H)Comment: | 1.90 - 7.40 | EXTERNAL | | | Neutrophils | Testing performed at | K/uL | LAB | | | | [facility];[address] | | | [address];[place] [address] | | | | + + + + + + | Bands | 2.97 (H)Comment: Testing | 0.00 - 0.20 | EXTERNAL | | | Manual | performed at [facility];[address] | K/uL | LAB | | | | [address];[place] | | | | | | [address] | | | | + + + + + + | Absolute | 0.64 (L)Comment: Testing | 1.00 - 3.90 | EXTERNAL | | | Lymphocytes | performed at [facility];[address] | K/uL | LAB | | | | [address];[place] | | | | | | [address] | | | | + + + + + + | Absolute | 0.64Comment: Testing | 0.00 - 0.80 | EXTERNAL | | | Monocytes | performed at [facility];[address] | K/uL | LAB | | | | [address];[place] | | | | | | [address] | | | | + + + + + + | RBC | RBC AND PLT MORPHOLOGY | | EXTERNAL | | | Morphology | APPEAR NORMALComment: | | LAB | | | | Testing performed at | | | | | | [facility];[address] [facility] | | | | | | [address];[place] [address] | | | | + + + + + + + + | Specimen | + + | Blood specimen | | (specimen) | + + + +---------+ + + | Performing | Address | City/State/Zipcode | Phone Number | | Organization | | | | + +---------+ + + | EXTERNAL LAB | | | | + +---------+ + + Lactic Acid (07/26/2014 1:12 AM PDT) + + + + + + | Component | Value | Ref Range | Performed | Pathologist | | | | | At | Signature | + + + + + + | Lactate | 1.7Comment: Testing | 0.4 - 2.0 | EXTERNAL | | | | performed at [facility];[address] | mmol/L | LAB | | | | [address];[place] | | | | | | [address] | | | | + + + + + + + + | Specimen | + + | Blood specimen | | (specimen) | + + + +---------+ + + | Performing | Address | City/State/Zipcode | Phone Number | | Organization | | | | + +---------+ + + | EXTERNAL LAB | | | | + +---------+ + + Hepatic Function Panel (07/26/2014 1:12 AM PDT) + + + + + + | Component | Value | Ref Range | Performed | Pathologist | | | | | At | Signature | + + + + + + | Protein, | 5.5 (L)Comment: Testing | 6.3 - 8.2 g/dL | EXTERNAL | | | Total | performed at [facility];[address] | | LAB | | | | [address];[place] | | | | | | [address] | | | | + + + + + + | Albumin | 1.9 (L)Comment: Testing | 3.6 - 5.0 g/dL | EXTERNAL | | | | performed at [facility];[address] | | LAB | | | | [address];[place] | | | | | | [address] | | | | + + + + + + | Bilirubin | 0.6Comment: Testing | 0.1 - 1.5 mg/dL | EXTERNAL | | | Total | performed at [facility];[address] | | LAB | | | | [address];[place] | | | | | | [address] | | | | + + + + + + | Bilirubin | 0.3Comment: Testing | 0.0 - 0.3 mg/dL | EXTERNAL | | | Direct | performed at [facility];[address] | | LAB | | | | [address];[place] | | | | | | [address] | | | | + + + + + + | ALP, | 114Comment: Testing | 35 - 115 U/L | EXTERNAL | | | External | performed at [facility];[address] | | LAB | | | | [address];[place] | | | | | | [address] | | | | + + + + + + | AST | 31Comment: Testing | 10 - 45 U/L | EXTERNAL | | | | performed at [facility];[address] | | LAB | | | | [address];[place] | | | | | | [address] | | | | + + + + + + | ALT | 40Comment: Testing | 10 - 65 U/L | EXTERNAL | | | | performed at [facility];[address] | | LAB | | | | [address];[place] | | | | | | [address] | | | | + + + + + + + + | Specimen | + + | | + + + +---------+ + + | Performing | Address | City/State/Zipcode | Phone Number | | Organization | | | | + +---------+ + + | EXTERNAL LAB | | | | + +---------+ + + Basic Metabolic Panel (07/26/2014 1:12 AM PDT) + + + + + + | Component | Value | Ref Range | Performed | Pathologist | | | | | At | Signature | + + + + + + | Na | 144 (H)Comment: Testing | 135 - 143 | EXTERNAL | | | | performed at [facility];[address] | mmol/L | LAB | | | | [address];[place] | | | | | | [address] | | | | + + + + + + | K | 2.7 (LL)Comment: RESULT | 3.5 - 4.9 | EXTERNAL | | | | READ BACK BY:JADE BORRERO | mmol/L | LAB | | | | ON [id number] AT 0147, | | | | | | VAPTesting performed at | | | | | | [facility];[address];[place] [address] | | | | + + + + + + | Cl | 113 (H)Comment: Testing | 99 - 109 mmol/L | EXTERNAL | | | | performed at [facility];[address] | | LAB | | | | [address];[place] | | | | | | [address] | | | | + + + + + + | CO2 | 19 (L)Comment: Testing | 23 - 32 mmol/L | EXTERNAL | | | | performed at [facility];[address] | | LAB | | | | [address];[place] | | | | | | [address] | | | | + + + + + + | Anion Gap | 14Comment: Testing | 5 - 20 mmol/L | EXTERNAL | | | | performed at [facility];[address] | | LAB | | | | [address];[place] | | | | | | [address] | | | | + + + + + + | Glucose, | 84Comment: Testing | 65 - 99 mg/dL | EXTERNAL | | | Fasting | performed at [facility];[address] | | LAB | | | | [address];[place] | | | | | | [address] | | | | + + + + + + | BUN | 28 (H)Comment: Testing | 8 - 25 mg/dL | EXTERNAL | | | | performed at [facility];[address] | | LAB | | | | [address];[place] | | | | | | [address] | | | | + + + + + + | Creatinine | 2.05 (H)Comment: Testing | 0.50 - 1.00 | EXTERNAL | | | | performed at [facility];888 | mg/dL | LAB | | | | [address];[place] | | | | | | [address] | | | | + + + + + + | BUN/Creatin | 14Comment: Testing | | EXTERNAL | | | ine Ratio | performed at [facility];[address] | | LAB | | | | [address];[place] | | | | | | [address] | | | | + + + + + + | Calcium | 6.7 (L)Comment: Testing | 8.5 - 10.5 | EXTERNAL | | | | performed at [facility];888 | mg/dL | LAB | | | | [address];[place] | | | | | | [address] | | | | + + + + + + | Estimated | 27 (L)Comment: GFR <60: | mL/min/1.73m2 | EXTERNAL | | | GFR | CHRONIC KIDNEY DISEASE, | | LAB | | | | IF FOUND OVER A 3 MONTH | | | | | | PERIOD.GFR <15: KIDNEY | | | | | | FAILURE.FOR | | | | | | AMERICANS, MULTIPLY THE | | | | | | CALCULATED GFR BY | | | | | | 1.210.Testing performed | | | | | | at [facility];[address] [place] [address] | | | | | | [facility];[place] [address] | | | | + + + + + + + + | Specimen | + + | Blood specimen | | (specimen) | + + + +---------+ + + | Performing | Address | City/State/Zipcode | Phone Number | | Organization | | | | + +---------+ + + | EXTERNAL LAB | | | | + +---------+ + + MRSA NAAT (07/26/2014 1:05 AM PDT) + + | Specimen | + + | | + + + + + | Narrative | Performed At | + + + | [facility](NOSE) | EXTERNAL LAB | | Testing performed at [address];[place] [address] MRSA PCR | | | NEGATIVE Testing performed at | | | [address];[place] [address] | | + + + + +---------+ + + | Performing | Address | City/State/Zipcode | Phone Number | | Organization | | | | + +---------+ + + | EXTERNAL LAB | | | | + +---------+ + + Urinalysis, Microscopic Only (07/26/2014 1:05 AM PDT) + + + + + + | Component | Value | Ref Range | Performed | Pathologist | | | | | At | Signature | + + + + + + | WBC, UA | 26-50Comment: Testing | 0 - 5 /hpf | EXTERNAL | | | | performed at [facility], [address] | | LAB | | | | [address], | | | | | | [place] [address] | | | | + + + + + + | RBC, UA | 1-5Comment: Testing | 0 - 5 /hpf | EXTERNAL | | | | performed at [facility], [address] | | LAB | | | | [address], | | | | | | [place] [address] | | | | + + + + + + | Bacteria, | NONE SEENComment: | | EXTERNAL | | | UA | Testing performed at | | LAB | | | | [facility], [address] | | | | | | [place] | | | | | | [address] | | | | + + + + + + | Epithelial | >100Comment: Testing | /lpf | EXTERNAL | | | Cells | performed at [facility], [address] | | LAB | | | | [address], | | | | | | [place] [address] | | | | + + + + + + | HYALINE | 11-15Comment: Testing | | EXTERNAL | | | CASTS UA | performed at [facility], [address] | | LAB | | | | [address], | | | | | | [place] [address] | | | | + + + + + + + + | Specimen | + + | | + + + +---------+ + + | Performing | Address | City/State/Zipcode | Phone Number | | Organization | | | | + +---------+ + + | EXTERNAL LAB | | | | + +---------+ + + Urinalysis with Microscopic if Indicated (07/26/2014 1:05 AM PDT) + + + + + + | Component | Value | Ref Range | Performed | Pathologist | | | | | At | Signature | + + + + + + | Color | YELLOWComment: Testing | | EXTERNAL | | | | performed at [facility], [address] | | LAB | | | | [address], | | | | | | [place] [address] | | | | + + + + + + | Clarity, | CLOUDYComment: Testing | | EXTERNAL | | | Urine | performed at [facility], [address] | | LAB | | | | [address], | | | | | | [place] [address] | | | | + + + + + + | Specific | 1.011Comment: Testing | 1.002 - 1.030 | EXTERNAL | | | [place], | performed at [facility], [address] | | LAB | | | Urine | [address], | | | | | | [place] [address] | | | | + + + + + + | Leukocyte | MODERATE (A)Comment: | | EXTERNAL | | | Esterase, | Testing performed at | | LAB | | | Urine | [facility], [address] | | | | | | [place] | | | | | | [address] | | | | + + + + + + | Nitrite, | NEGATIVEComment: Testing | | EXTERNAL | | | Urine | performed at [facility], [address] | | LAB | | | | [address], | | | | | | [place] [address] | | | | + + + + + + | Urobilinoge | 0.2Comment: Testing | mg/dL | EXTERNAL | | | n, Urine | performed at [facility], [address] | | LAB | | | | [address] [place], | | | | | | [place] [address] | | | | + + + + + + | Protein, | 30 (A)Comment: Testing | mg/dL | EXTERNAL | | | Urine | performed at [facility], [address] | | LAB | | | | [address], | | | | | | [place] [address] | | | | + + + + + + | pH, Urine | 5.5Comment: Testing | 5.0 - 8.0 | EXTERNAL | | | | performed at [facility], [address] | | LAB | | | | [address], | | | | | | [place] [address] | | | | + + + + + + | Blood, | MODERATE (A)Comment: | | EXTERNAL | | | Urine | Testing performed at | | LAB | | | | [facility] [address] [facility] | | | | | | [place] | | | | | | [address] | | | | + + + + + + | Ketones | NEGATIVEComment: Testing | mg/dL | EXTERNAL | | | | performed at [facility], [address] | | LAB | | | | [address], | | | | | | [place] [address] | | | | + + + + + + | Bilirubin, | NEGATIVEComment: Testing | | EXTERNAL | | | Urine | performed at [facility], [address] | | LAB | | | | [address], | | | | | | [place] [address] | | | | + + + + + + | Glucose, | NEGATIVEComment: Testing | mg/dL | EXTERNAL | | | Urine | performed at [facility], [address] | | LAB | | | | [address], | | | | | | [place] [address] | | | | + + + + + + + + | Specimen | + + | Urine specimen | | (specimen) | + + + +---------+ + + | Performing | Address | City/State/Zipcode | Phone Number | | Organization | | | | + +---------+ + + | EXTERNAL LAB | | | | + +---------+ + + documented in this encounter Visit Diagnoses + + | Diagnosis | + + | Acute pyelonephritis without lesion of renal medullary necrosis | + + documented in this encounter
--- OUTSIDE RECORDS SUMMARY | ~2020-02-12 | XMS | Encounter Summary ---
Demographics + + + | Address | General Delivery | | | [place] [address] | + + + | Home Phone [...] [place] | | | | | [address] | | + + + + + Care Team Providers + +------+ + | Care Market Development Executive Name | Role | Phone | + +------+ + PCP | Unavailable | + +------+ + Encounter Details +--------+ + + + + | Date | Type | Department | Care Team | Description | +--------+ + + + + | 05/14/ | [facility] | [facility] | | | | 2005 | Encounter | MED CTR EMERGENCY | | | | | | CENTER [address] | | | | | | [place] | | | | | | [address] | | | | | | [phone] | | | +--------+ + + + [...]
--- OUTSIDE RECORDS SUMMARY | ~2020-02-12 | XMS | Encounter Summary ---
Demographics + + + | Address | General Delivery | | | [place] [address] | + + + | Home Phone | | + + + | Preferred Language | Unknown | + + + | Marital Status | | + + + | Religion Affiliation | 1041 | + + + [...] [place] | | | | | [address] | | + + + + + Care Team Providers + +------+ + | Care Automatic Operator Name | Role | Phone | + +------+ + PCP | Unavailable | + +------+ + Encounter Details +--------+ + + + + | Date | Type | Department | Care Team | Description | +--------+ + + + + | 04/27/ | [facility] | [facility] | | | | 1992 | Encounter | MED CTR EMERGENCY | | | | | | [place] [address] | | | | | | [place] | | | | | | [address] | | | | | | [phone] | | | +--------+ + + + [...]
--- OUTSIDE RECORDS SUMMARY | ~2020-02-12 | XMS | Encounter Summary ---
Demographics + + + | Address | General Delivery | | | [place] [address] | + + + | Home Phone | | + + + | Preferred Language | Unknown | + + + | Marital Status | | + + + | Gnosticism Affiliation | 1041 | + + + | Race | Unknown | + + + | Ethnic Group | or | + + + Author + + + | Author | [facility] | | | and [place] | + + + | Organization | [facility] | | | and [place] | + + + | Address | Unknown | + + + | Phone | Unavailable | + + + Support + + + + + | Name | Relationship | Address | Phone | + + + + + | Brooklynn Brooks | ECON | [place] | | | | | [address] | | + + + + + Care Team Providers + +------+ + | Care Profiling Machine Setup Operator Name | Role | Phone | + +------+ + PCP | Unavailable | + +------+ + Encounter Details +--------+ + + + + | Date | Type | Department | Care Team | Description | +--------+ + + + + | 09/10/ | [facility] | [facility] | Zeke Gudino DO | | | 2010 | Encounter | MED CTR XRAY [address] | [address] | | | | | [place] | [facility]ILY [facility]ACTICE | | | | | [place] [address] | [place] | | | | | [phone] | [address] | | | | | | [phone] | | | | | | | [...] + +--------+ + + + | XR LUMBAR SPINE 4 + | | 09/10/2010 | | Results for this | | VW | | 2:29 PM | | procedure are in the | | | | PDT | | results section. | + +--------+ + + + documented in this encounter Results XR Lumbar Spine 4 + Vw (09/10/2010 2:29 PM PDT) + + | Specimen | + + | | + + + + + | Narrative | Performed At | + + + | [facility] Diagnostic Imaging Department | [facility] | | [address] [facility] | [facility] | | LUMBAR SPINE CLINICAL | DIAG IMG | | HISTORY: CHRONIC LOW BACK PAIN. FINDINGS: AP, lateral, | | | oblique, and coned-down views of the lumbar spine are reviewed. | | | There are fi ve lumbar segments. Alignment is normal. Vertebral | | | body heights and disk interspaces are normally m aintained with just | | | a small amount of sclerotic change seen at the anterior margin of L3. | | | Facet join ts are also normally aligned with no pars | | | interarticularis defects or significant facet degenerative change. | | | Adjacent soft tissues are normal. IMPRESSION: 1. EARLY | | | DEGENERATIVE DISK DISEASE CHANGES AT L2-3, INVOLVING THE ANTERIOR | | | SUPERIOR MARGIN OF L3. N O ACUTE ABNORMALITIES OF THE LUMBAR SPINE. | | | Dictated Date/Time: 09/10/2010 15:38 Transcribed Date/Time: | | | 09/10/2010 16:50 Heating Plant Superintendent: <Electronically | | | Signed by Krish Glover MD> 09/13/10 0901 | | + + + + + | Procedure Note | + + | Jhonny, Robin Conversion - 05/31/2013 2:58 PM [facility] | | Diagnostic [facility] [address] [facility] | | LUMBAR SPINE CLINICAL HISTORY: CHRONIC LOW BACK PAIN. | | FINDINGS: AP, lateral, oblique, and coned-down views of the lumbar spine are | | reviewed. There are five lumbar segments. Alignment is normal. Vertebral body heights | | and disk interspaces are normally maintained with just a small amount of sclerotic | | change seen at the anterior margin of L3. Facet joints are also normally aligned with | | no pars interarticularis defects or significant facet degenerative change. Adjacent | | soft tissues are normal. IMPRESSION: 1. EARLY DEGENERATIVE DISK DISEASE CHANGES AT | | L2-3, INVOLVING THE ANTERIOR SUPERIOR MARGIN OF L3. NO ACUTE ABNORMALITIES OF THE | | LUMBAR SPINE. Dictated Date/Time: 09/10/2010 15:38Transcribed Date/Time: 09/10/2010 | | 16:50Transcriptionist: <Electronically Signed by Krish Glover MD> 09/13/10 | | 0901 | |ts are also normally aligned with no pars interarticularis defects or significant facet deg enerative | |change. Adjacent soft tissues are normal. | | | |IMPRESSION: | |1. EARLY DEGENERATIVE DISK DISEASE CHANGES AT L2-3, INVOLVING THE ANTERIOR SUPERIOR MARGIN OF L3. N | |O ACUTE ABNORMALITIES OF THE LUMBAR SPINE. | | | |Dictated Date/Time: 09/10/2010 15:38 | |Transcribed Date/Time: 09/10/2010 16:50 | |Heating Plant Superintendent: | |<Electronically Signed by Krish Glover MD> 09/13/10 0901 | + + + +---------+ + + | Performing | Address | City/State/Zipcode | Phone Number | | Organization | | | | + +---------+ + + | [place] | | | | | [facility] | | | | + +---------+ + + documented in this encounter Visit Diagnoses Not on filedocumented in this encounter"
--- OUTSIDE RECORDS SUMMARY | ~2020-02-12 | XMS | Encounter Summary ---
Demographics + + + | Address | General Delivery | | | [place] [address] | + + + | Home Phone | | + + + | Preferred Language | Unknown | + + + | Marital Status | | + + + | Taoism Affiliation | 1041 | + + + | Race | Unknown | + + + | Ethnic Group | or | + + + Author + + + | Author | [facility] | | | and [place] | + + + | Organization | [facility] | | | and [place] | + + + | Address | Unknown | + + + | Phone | Unavailable | + + + Support + + + + + | Name | Relationship | Address | Phone | + + + + + | Brooklynn Brooks | ECON | [place] | | | | | [address] | | + + + + + Care Team Providers + +------+ + | Care Compounding Scaler Name | Role | Phone | + +------+ + | Abby Charlton PA-C | PCP | | + +------+ + Encounter Details +--------+ + + + + | Date | Type | Department | Care Team | Description | +--------+ + + + + | 08/27/ | Emergency | [facility] | Parisa Farmern Monie, | Migraine; | | 2012 | | [facility] | MD [address] | Anxiety | | | | EM[facility] | [place], [place] | | | | | [address] | [address] | | | | | [place], [place] | | | | | | [address] | | | | | | [phone] | | | +--------+ + + + [...] documented as of this encounter ED Notes Sean Farmer MD - 08/27/2012 5:56 PM PDTFormatting of this note might be different f rom the original. ED Provider Notes by Sean Farmer DO at 08/27/121755 Author: Sean Farmer DO Service: (none) Author Type: Physician Filed: 08/29/127 Date of Service: 08/27/121755 Status: Signed Service Secretary: Sean Farmer DO (Physician) [facility] Department of Emergency Medicine 08/27/2012 History of Present Illness Patient Identification Camila Camejo is a 52 y.o. female. Patient information was obtained from patient. History/Exam limitations: none. Patient presented to the Emergency Department by: Car Chief Complaint Chief Complaint Patient presents with Migraine pt states "I have a really bad migraine". states she has had it since she was 13 17:56. Pt presents to the ED with headache that started several days ago. Onset of symptoms was gradual, with a constant course since that time. Pt rates the pain as 10/10. The patien t reports nothing worsens symptoms, and nothing relieves symptoms. Pt has long history of mi graines. Pt states that she was here to have an MRI done. She is mainly here for anxiety and pain control before she goes to MRI. Has a PCP in [place] that she follows up with. No fe vers or neck pain. No vomiting or vision changes. Past Medical History Diagnosis Date Osteoarthritis Uterine fibroid Chronic chest wall pain Seizures 07/2012 Past Surgical History Procedure Date Total hip arthroplasty bilateral Tubal ligation Prior to Admission medications Medication Sig Start Date End Date Taking? Authorizing Provider amitriptyline (ELAVIL) 25 MG tablet Take 25 mg by mouth nightly. Yes Historical Provider buPROPion (WELLBUTRIN SR) 150 MG 12 hr tablet Take 150 mg by mouth 2 (two) times daily. Y es Historical Provider ibuprofen (ADVIL,MOTRIN) 600 MG tablet Take 600 mg by mouth every 6 (six) hours as needed. Yes Historical Provider metoprolol (TOPROL-XL) 25 MG 24 hr tablet Take 25 mg by mouth daily. Yes Historical Provi abena sertraline (ZOLOFT) 100 MG tablet Take 100 mg by mouth daily. Yes Historical Provider Allergies Allergen Reactions Buspar (Buspirone Hcl) Anxiety Toradol (Ketorolac) Anxiety History Social History Marital Status: Spouse Name: N/A Number of Children: N/A Years of Education: N/A Occupational History Not on file. Social History Main Topics Smoking status: Current Everyday Smoker -- 0.5 packs/day Smokeless tobacco: Not on file Alcohol Use: No Drug Use: No Sexually Active: Other Topics Concern Not on file Social History Narrative No narrative on file History reviewed. No pertinent family history. Review of Systems Review of Systems Constitutional: Negative for fever and chills. HENT: Negative for neck pain. Cardiovascular: Negative for chest pain and palpitations. Gastrointestinal: Negative for vomiting and abdominal pain. Skin: Negative for itching and rash. Neurological: Positive for headaches. Negative for sensory change, speech change and focal weakness. All other systems reviewed and are negative. Physical Exam BP 120/77 | Pulse 96 | Temp(Src) 98.2 F (36.8 C) (Oral) | Resp 18 | Ht 1.549 m (5' 1") | Wt 73.965 kg (163 lb 1 oz) | BMI 30.81 kg/m2 | SpO2 96% Vitals: normal Pulse Oximetry Interpretation: Normal General: Alert, uncomfortable, anxious Eyes: Normal inspection, pupils equal and round, non-icteric sclera ENT: Normal external inspection Neck: Normal inspection Supple Full ROM Cardiovascular: Normal rate and rhythm, no extra sounds No murmurs rubs or gallops Focal PMI Respiratory: No respiratory distress or wheezing Normal excursion No retractions Abdomen: Soft, non-distended Back: Normal inspection Without tenderness or deformity Skin: Color normal Warm and dry Extremities: GONZALEZ with equal pulses in the upper and lower extremities bilaterally Neuro: No gross motor/sensory deficit GCS 15 Alert and oriented to person, place, time and situation. Medical Decision Making and Emergency Department Course ED Department Course 18:02. Pt presents to the ED with headache that started several days ago. Pt has long histo ry of migraines. Pt states that she was here to have an MRI done. She is mainly here for anx iety and pain control before she goes to MRI. I have no problem with treating her pain here before she goes to MRI. I have discussed my clinical impression and treatment plan with the patient. We have specifically discussed the importance of continued outpatient follow up. I have answered any questions that the patient has to the best of my ability. Based upon the p atient s history and physical exam, I feel that there is no current emergent medical condi tion that warrants further emergency department treatment at this time. Will treat her pain here. Pt received Valium 10 mg IM, Benadryl 50 mg IM, and Zyprexa 10 mg IM prior to discharge. I discussed with the pt that I do not prescribe narcotic pain medications for chronic pain. Di scussed [facility] Prescription policy with the pt. Pt is to see her PCP for narcotic pain medication prescriptions. I will however prescribe Phenergan to help with the headache. She is agreeable with plan. MDM: I considered migraine, headache, vascular etiology, cluster headache, infectious etiol ogy, toxic-metabolic etiology, and other etiology as a possible cause of headache in this pa tient. This is a partial list of diagnoses that I have considered. Filed Vitals: 08/27/12 1630 BP: 120/77 Pulse: 96 Temp: 98.2 F (36.8 C) TempSrc: Oral Resp: 18 Height: 1.549 m (5' 1") Weight: 73.965 kg (163 lb 1 oz) SpO2: 96% Records Reviewed No prior ED visits or medical records available for review Nursing notes reviewed for chief complaint, medications, clinical presentation and vital si gns ED Diagnoses Final diagnoses Migraine Anxiety Disposition: ED Disposition Orders Discharge Condition at discharge: Stable Follow-up Information Follow up With Details Comments Contact Info your primary care doctor in [place] Call for an appointment Abby Charlton PA-C Discharge medications: New Prescriptions PROMETHAZINE (PHENERGAN) 25 MG TABLET Take 1 tablet by mouth every 6 (six) hours as nee ded for Nausea (PATIENT TO SHOW PICTURE IDENTIFICATION TO OBTAIN PRESCRIPTION MEDICATION). Additional Documentation Procedures Attending Note: Documentation assistance provided by Camille Mukherjee (Scribe). Information recorded by the elizaibe has been reviewed and validated by me. I ag ree with its contents. DO Sean James DO 08/29/12 1808 documented in this encounter Plan of Treatment Not on filedocumented as of this encounter Visit Diagnoses + + | Diagnosis | + + | Migraine Migraine, unspecified, without mention of intractable migraine without | | mention of status migrainosus | + + | Anxiety Anxiety state, unspecified | + + documented in this encounter
--- OUTSIDE RECORDS SUMMARY | ~2020-02-12 | XMS | Encounter Summary ---
Demographics + + + | Address | General Delivery | | | [place] [address] | + + + | Home Phone | | + + + | Preferred Language | Unknown | + + + | Marital Status | | + + + | Holiness Affiliation | 1041 | + + + | Race | Unknown | + + + | Ethnic Group | or | + + + Author + + + | Author | [facility] | | | and [place] | + + + | Organization | [facility] | | | and [place] | + + + | Address | Unknown | + + + | Phone | Unavailable | + + + Support + + + + + | Name | Relationship | Address | Phone | + + + + + | Brooklynn Brooks | ECON | [place] | | | | | [address] | | + + + + + Care Team Providers + +------+ + | Care Field Machinist Name | Role | Phone | + +------+ + | Abby Charlton PA-C | PCP | | + +------+ + Encounter Details +--------+ + + + + | Date | Type | Department | Care Team | Description | +--------+ + + + + | 08/27/ | Hospital | [facility] | Conversion | Unspecified epilepsy | | 2013 | Encounter | [facility] | Transaction, | without mention of | | | | [address] | Provider Unknown | intractable epilepsy | | | | [place], [place] | [phone] | ([facility]); Variants of | | | | [address] | | migraine, not | | | | [phone] | | elsewhere | | | | | | classified, without | | | | | | mention of | | | | | | intractable migraine | | | | | | without mention of | | | | | | status migrainosus | +--------+ + + + + Social [...] mg by mouth | | 0 | 05/18/20 | | | (ZONEGRAN) 100 mg | 2 times daily. For | | | 11 | | | capsule | Migranes | | | | | + + + +---------+ + + documented as of this encounter Plan of Treatment Not on filedocumented as of this encounter Visit Diagnoses + + | Diagnosis | + + | Unspecified epilepsy without mention of intractable epilepsy | + + | Variants of migraine, not elsewhere classified, without mention of intractable | | migraine without mention of status migrainosus | + + documented in this encounter"
--- OUTSIDE RECORDS SUMMARY | ~2020-02-12 | XMS | Encounter Summary ---
Demographics + + + | Address | General Delivery | | | [place] [address] | + + + | Home Phone | | + + + | Preferred Language | Unknown | + + + | Marital Status | | + + + | Gnosticism Affiliation | 1041 | + + + | Race | Unknown | + + + | Ethnic Group | or | + + + Author + + + | Author | [facility] | | | and [place] | + + + | Organization | [facility] | | | and [place] | + + + | Address | Unknown | + + + | Phone | Unavailable | + + + Support + + + + + | Name | Relationship | Address | Phone | + + + + + | Brooklynn Brooks | ECON | [place] | | | | | [address] | | + + + + + Care Team Providers + +------+ + | Care Aqueduct And Reservoir Keeper Name | Role | Phone | + +------+ + PCP | Unavailable | + +------+ + Encounter Details +--------+ + + + + | Date | Type | Department | Care Team | Description | +--------+ + + + + | 12/11/ | [facility] | [facility] | | | | 1993 | Encounter | [facility] | | | | | | [place] [address] | | | | | | [place] | | | | | | [address] | | | | | | [phone] | | | +--------+ + + + [...]
[~2020-02-12 02:00] MED LIST changes: +AUGMENTIN 875-1 EACH PO; +CEPHALEXIN500 MG PO; +K-TAB ER20 MEQ PO; +MECLIZINE HCL25 MG PO; +NORCO 5-325 TA1 EACH PO; +ULTRA-LIGHT RO1 EACH MISC
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
[2020-02-12] MEDS ORDERED: ULTRAM50 MG PO (03:42)
== END 2020-02-12 04:06 | disposition home or self-care (01) ==
LOC: ED 02:00
DX: M54.5 Low back pain (principal); I10 Essential (primary) hypertension; F17.200 Nicotine dependence, unspecified, uncomplicated
CPT/HCPCS: 72131; 96372; 99284-25; J1885

== ENCOUNTER 2024-03-15 13:41 | Emergency (ER) | payer OTHER ==
[~2024-03-15] VITALS: Ht 154.9 cm; Wt 63.5 kg
[2024-03-15 13:59] LABS: HEMATOCRIT 40.5 % (35.0-50.0); HEMOGLOBIN 13.7 g/dL (12.0-18.0); LYMPHOCYTES 22.4 % (24-44); MCH 31.1 (27-36); MCHC 33.8 g/dl (30-36); MCV 92.2 fl (81-99); MONOCYTES 5.9 % (0-12); NEUTROPHILS 67.7 % (39-80); PLATELET COUNT 165 K/uL (140-440); RDW 14.4 (10.5-15.0)
[2024-03-15] MEDS ORDERED: SODIUM CHLORIDE 0.9% 1,000 ML IV ONE (14:00)
[2024-03-15 14:16] LABS: ALBUMIN 3.7 g/dL (3.4-5.0); ALBUMIN/GLOBULIN RATIO 1.06 (1.1-2.4); ANION GAP 19.4 (7-21); BILIRUBIN, TOTAL 0.3 ng/dL (0.2-1.0); BUN/CREATININE RATIO 17.52 (6.0-28.6); CALCIUM 8.9 mg/dL (8.5-10.1); CREATININE, SERUM 0.97 mg/dL (0.55-1.02); POTASSIUM 3.4 mmol/L (3.5-5.1); PROTEIN, TOTAL 7.2 g/dL (6.4-8.2)
[2024-03-15 15:32] LABS: BILIRUBIN, URINE NEGATIVE (negative); BLOOD/HGB, URINE NEGATIVE (Negative); KETONE, URINE NEGATIVE (Negative); LEUK ESTERASE, URINE NEGATIVE (negative); NITRITE, URINE POSITIVE (negative)
[2024-03-15 15:41] LABS: BACTERIA, URINE 3+ /hpf (negative); CASTS, URINE NONE SEEN \\lpf; COLLECTION TYPE, URINE CLEAN CATCH; CRYSTALS, URINE NONE SEEN (0-1+); EPITHELIAL CELLS, URINE SQUAMOUS 1+ /lpf (0-1+); RED BLOOD CELLS, URINE 0-1 /hpf (0-5); REFLEX CULTURE, URINE Yes (No); WHITE BLOOD CELLS, URINE 0-1 /HPF (0-5)
[2024-03-15 15:47] LABS: AMPHETAMINES, URINE POSITIVE (NEGATIVE); BARBITURATES, URINE NEGATIVE (NEGATIVE); BENZODIAZEPINE, URINE NEGATIVE (NEGATIVE); BUPRENORPHINE, URINE NEGATIVE (NEGATIVE); CANNABINOID, URINE NEGATIVE (NEGATIVE); COCAINE, URINE NEGATIVE (NEGATIVE); ECSTASY, URINE POSITIVE (NEGATIVE); FENTANYL, URINE NEGATIVE (NEGATIVE); METHADONE, URINE NEGATIVE (NEGATIVE); OPIATES, URINE NEGATIVE (NEGATIVE); OXYCODONE, URINE NEGATIVE (NEGATIVE); PHENCYCLIDINE, URINE NEGATIVE (NEGATIVE)
[2024-03-15] MEDS ORDERED: KETOROLAC TROMETHAMINE 15 MG/ML VIAL IV ONE (16:15)
[2024-03-15] MEDS ORDERED: hydrOXYzine pamoate 25 MG CAP PO ONE (16:15)
[2024-03-15] MEDS ORDERED: HYDROXYZINE HCL25 MG PO (17:50)
[2024-03-15 18:00] VITALS: BP 103/74
--- NOTE | 2024-03-16 15:57 | EKG ---
[facility] [address] [facility] [place], [place] [address] Signed Sinus tachycardia Otherwise normal ECG No previous ECGs available Confirmed by Silvestre Salinas MD ([id number]) on 03/16/2024 3:56:54 PM Electronically Signed By: SILVESTRE SALINAS MD 03/16/24 1557 PATIENT NAME: ROCIO HILL Electrocardiogram DATE OF : 62 PHYSICIAN: SILVESTRE SALINAS MD REPORT #: [id number] REPORT IS CONFIDENTIAL AND NOT TO BE RELEASED WITHOUT AUTHORIZATION
== END 2024-03-15 18:00 | disposition home or self-care (01) ==
LOC: ED 13:41
PROVIDERS: Emergency Medicine
DX: R07.9 Chest pain, unspecified (principal); F10.929 Alcohol use, unspecified with intoxication, unspecified; H61.23 Impacted cerumen, bilateral; F41.9 Anxiety disorder, unspecified; I10 Essential (primary) hypertension; G43.909 Migraine, unspecified, not intractable, without status migrainosus; F17.200 Nicotine dependence, unspecified, uncomplicated
CPT/HCPCS: 36415; 71045; 80053; 80307; 81001; 83690; 84484; 85025; 87077; 87088; 87186; 93005; 93010; 96374; 99285-25; G0480; J1885; J7030; Q0177